=== PATIENT | male | born 1975 | race Caucasian/White ===

== ENCOUNTER → 2020-08-15 16:48 | Outpatient (ROUT) | payer OTHER, SELFPAY ==
[2020-08-15 17:01] LABS: Add Manual Diff / Slide Review NO; Basophils Absolute Auto 0 /uL (0-100); Basophils Percent Auto 0.5 % (0-2); Eosinophils Absolute Auto 100 /uL (0-450); Eosinophils Percent Auto 1.5 % (2-4); Hematocrit 41.4 % (41-53); Hemoglobin 13.6 g/dL (13.5-17.5); Lymphocytes Absolute Auto 1100 /uL (1100-4500); Lymphocytes Percent Auto 16.9 % (25-40); Mean Corpuscular HGB Conc 32.9 % (30-36); Mean Corpuscular Hemoglobin 28.6 PG (26-34); Mean Corpuscular Volume 86.9 fL (80-100); Monocytes Absolute Auto 500 /uL (0-900); Monocytes Percent Auto 7.2 % (3-14); Neutrophils Absolute Auto 4900 /uL (1500-7000); Neutrophils Percent Auto 73.9 % (50-75); Platelet Count 256 X10^3/uL (150-400); Red Blood Cell Count 4.77 X10^6/uL (4.5-5.9); Red Cell Distribution Width 16.3 % (11.6-14.8); White Blood Cell Count 6.6 X10^3/uL (4.5-11.0)
[2020-08-15 17:25] LABS: Erythrocyte Sedimentation Rate 23 MM/HR (0-15)
[2020-08-15 18:00] LABS: Alanine Aminotransferase 31 IU/L (<50); Albumin 4.1 g/dL (3.5-5.0); Albumin Globulin Ratio 1.1 (1.0-2.8); Alkaline Phosphatase 118 U/L (38-126); Aspartate Aminotransferase 29 IU/L (17-59); BUN Creatinine Ratio 30.4 (6-22); Bilirubin Total 0.6 mg/dL (0.2-1.3); Blood Urea Nitrogen 24 mg/dL (9-20); C-Reactive Protein Quant 0.7 mg/dL (<1.0); Calcium 9.9 mg/dL (8.4-10.2); Carbon Dioxide 28 mmol/L (22-32); Chloride 98 mmol/L (98-107); Estimated Glomerular Filt Rate > 60.0 mL/min (>60); Globulin 3.7 g/dL (1.7-4.1); Glucose 126 mg/dL (70-100); HEMOLYSIS < 15 (0-50); Potassium 4.3 mmol/L (3.4-5.1); Sodium 137 mmol/L (137-145); Total Protein 7.8 g/dL (6.3-8.2)
== END ==
PROVIDERS: Visit Provider Internal Medicine Infectious Disease
DX: K25.9 Gastric ulcer, unspecified as acute or chronic, without hemorrhage or perforation (principal); B95.2 Enterococcus as the cause of diseases classified elsewhere
CPT/HCPCS: 80053; 85025; 85651; 86140

== ENCOUNTER → 2020-08-25 17:00 | Outpatient (ROUT) | payer OTHER, SELFPAY ==
[2020-08-25 17:14] LABS: Add Manual Diff / Slide Review NO; Basophils Absolute Auto 0 /uL (0-100); Basophils Percent Auto 0.7 % (0-2); Eosinophils Absolute Auto 400 /uL (0-450); Eosinophils Percent Auto 6.6 % (2-4); Hematocrit 36.9 % (41-53); Hemoglobin 12.3 g/dL (13.5-17.5); Lymphocytes Absolute Auto 1200 /uL (1100-4500); Lymphocytes Percent Auto 19.5 % (25-40); Mean Corpuscular HGB Conc 33.3 % (30-36); Mean Corpuscular Hemoglobin 28.9 PG (26-34); Mean Corpuscular Volume 86.8 fL (80-100); Monocytes Absolute Auto 300 /uL (0-900); Monocytes Percent Auto 5.7 % (3-14); Neutrophils Absolute Auto 4000 /uL (1500-7000); Neutrophils Percent Auto 67.5 % (50-75); Platelet Count 237 X10^3/uL (150-400); Red Blood Cell Count 4.25 X10^6/uL (4.5-5.9); Red Cell Distribution Width 16.4 % (11.6-14.8)
[2020-08-25 17:41] LABS: Alanine Aminotransferase 21 IU/L (<50); Albumin 3.7 g/dL (3.5-5.0); Albumin Globulin Ratio 1.2 (1.0-2.8); Alkaline Phosphatase 105 U/L (38-126); Aspartate Aminotransferase 29 IU/L (17-59); BUN Creatinine Ratio 13.7 (6-22); Bilirubin Total 0.2 mg/dL (0.2-1.3); Blood Urea Nitrogen 13 mg/dL (9-20); C-Reactive Protein Quant 1.4 mg/dL (<1.0); Calcium 9.3 mg/dL (8.4-10.2); Carbon Dioxide 31 mmol/L (22-32); Chloride 103 mmol/L (98-107); Estimated Glomerular Filt Rate > 60.0 mL/min (>60); Globulin 3.2 g/dL (1.7-4.1); Glucose 91 mg/dL (70-100); HEMOLYSIS < 15 (0-50); Potassium 4.2 mmol/L (3.4-5.1); Sodium 141 mmol/L (137-145); Total Protein 6.9 g/dL (6.3-8.2)
[2020-08-25 17:55] LABS: Erythrocyte Sedimentation Rate 22 MM/HR (0-15)
== END ==
PROVIDERS: Visit Provider Internal Medicine Infectious Disease
DX: B95.2 Enterococcus as the cause of diseases classified elsewhere (principal); K25.9 Gastric ulcer, unspecified as acute or chronic, without hemorrhage or perforation
CPT/HCPCS: 80053; 85025; 85651; 86140

== ENCOUNTER 2021-01-24 23:54 | Emergency (ER) | payer OTHER, MEDICAID, SELFPAY ==
[2021-01-25 00:03] VITALS: BP 165/105; PULSE 109; RESP 20; TEMP 36.9; O2SAT 97
--- NOTE | 2021-01-25 00:12 | ED.BACK ---
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 He states that a few days ago he was walking and his leg felt like it gave out on him. He denies any head neck or back pain. Largely his pain is sharp and stabbing and radiates from his mid to low back down to his right leg. He denies any loss of control of bowel or bladder. He denies any current numbness, tingling or measurable weakness. He has had no fever chills. He states that his last imaging of his spine was quite sometime ago but he has had multiple MRIs over the past 20 years or so. His last surgical intervention was at the [facility] in 2010. He normally gets his medical care at [facility] Review of Systems Review of Systems Narrative: GENERAL: Denies chills, fatigue, malaise, fever, sweats. HEENT: Denies sinus pain, ear pain, sore throat, difficulty swallowing, dizziness. RESPIRATORY: Denies dyspnea, cough, wheezing, hemoptysis, sputum. CARDIOVASCULAR: Denies chest pain, palpitations, orthopnea, edema, GASTROINTESTINAL: Denies nausea, vomiting, abdominal pain, diarrhea, constipation, melena. : Denies dysuria, frequency, incontinence, hematuria, urinary retention. MUSCULOSKELETAL: See HPI SKIN: Denies rash, skin lesions, or other NEUROLOGIC: See HPI PSYCHIATRIC: No concerning psychosocial issues. 12 point review of systems is negative except for those stated above Exam Narrative Exam Narrative: GENERAL: [45 year old patient appears stated age. Well-developed patient, in mild distress. HEAD: Atraumatic. Normocephalic. EYES: Pupils equal round and reactive. Extraocular motions intact. No scleral icterus. No injection or drainage. ENT: Nose without bleeding, purulent drainage. Throat without erythema, tonsillar hypertrophy or exudate. Airway patent. NECK: Trachea midline. Non tender CARDIOVASCULAR: Regular rate and rhythm without murmurs, gallops, or rubs. RESPIRATORY: Clear to auscultation. Breath sounds equal bilaterally. No wheezes, rales, or rhonchi. GASTROINTESTINAL: Abdomen soft, non-tender, nondistended. EXTREMITIES: No edema or joint tenderness. BACK: Patient does have some midline lumbar pain, no saddle anesthesia, no measurable lower extremity weakness, reflexes depressed at 1+ bilaterally. NEURO: AOx3. SKIN: No rash or erythema of visible areas Initial Vital Signs Initial Vital Signs: Vital Signs Temperature 98.4 F 01/25/21 00:03 Pulse Rate 109 H 01/25/21 00:03 Respiratory Rate 20 01/25/21 00:03 Blood Pressure 165/105 H 01/25/21 00:03 Pulse Oximetry 97 01/25/21 00:03 Course Orders Ordered: ED Orders 01/25/21 00:35 CT lumbar spine w con Stat CT thoracic spine w con Stat 01/25/21 01:30 Basic Metabolic Panel Stat Complete Blood Count AUTO DIFF Stat Vital Signs Vital signs: Vital Signs - 8 hr 01/25/21 00:03 01/25/21 02:04 01/25/21 02:17 Temperature 98.4 F Pulse Rate 109 H 108 H 103 H Respiratory Rate 20 Blood Pressure 165/105 H 171/107 H Pulse Oximetry 97 83 L 94 MDM - Back Pain/Injury Lab Data Result diagrams: 01/25/21 01:30 01/25/21 01:30 Labs: Lab Results 01/25/21 01/25/21 Range/Units 01:30 01:30 WBC 10.0 (4.5-11.0) X10^3/uL RBC 4.50 (4.5-5.9) X10^6/uL Hgb 12.6 L (13.5-17.5) g/dL Hct 38.8 L (41-53) % MCV 86.3 (80-100) fL MCH 28.0 (26-34) PG MCHC 32.5 (30-36) % RDW 17.5 H (11.6-14.8) % Plt Count 230 (150-400) X10^3/uL Neut % (Auto) 78.7 H (50-75) % Lymph % (Auto) 10.8 L (25-40) % [place] % (Auto) 8.5 (3-14) % Eos % (Auto) 1.6 L (2-4) % Baso % (Auto) 0.4 (0-2) % Neut # (Auto) 7900 H (1915-4144) /uL Lymph # (Auto) 1100 (4446-9583) /uL [place] # (Auto) 800 (0-900) /uL Eos # (Auto) 200 (0-450) /uL Baso # (Auto) 0 (0-100) /uL Sodium 142 (137-145) mmol/L Potassium 3.9 (3.4-5.1) mmol/L Chloride 102 (98-107) mmol/L Carbon Dioxide 35 H (22-32) mmol/L BUN 23 H (9-20) mg/dL Creatinine 1.06 (0.66-1.25) mg/dL Estimated GFR > 60.0 (>60) mL/min BUN/Creatinine Ratio 21.7 (6-22) Glucose 113 H (70-100) mg/dL Calcium 9.2 (8.4-10.2) mg/dL Imaging Data T Spine w/Contrast: Radiologist's Impression: Negative CT thoracic spine for acute process L Spine w/contrast: Radiologist's Impression: Negative CT lumbar spine for acute process MDM Narrative Medical decision making narrative: Multiple etiologies of back pain considered including; Epidural abscess, cauda equina, mass occupying lesion, and other considered, however no neuro surgical diagnoses are evidenced by patient's physical exam or imaging. We will treat for radiculopathy, patient takes Lyrica at home and already has Ultram Discharge Plan Departure Patient Disposition: Home
--- NOTE | 2021-01-25 00:35 | DI.CT.S_ITS ---
PROCEDURE: CT LUMBAR SPINE W CON INDICATIONS: back and leg pain, leg weakness, history spinal tumor TECHNIQUE: After the administration of intravenous Isovue contrast, 3 mm thick sections acquired through the levels of interest. Sagittal and coronal reformats were then constructed. For radiation dose reduction, the following was used: automated exposure control. COMPARISON: None. FINDINGS: Image quality: Excellent. Bones: No fracture or dislocation. Mild L5-S1 degenerative disc changes. Congenital nonunion of the S1 lamina. Soft tissues: Right ureteral stent noted. Mild right-sided hydronephrosis. No paraspinous hematoma. IMPRESSION: No fracture. No acute osseous lesion. If symptoms and/or clinical suspicion for pathology persists, evaluation with MRI should be considered for further assessment. Dictated by: Mamta Rossi MD, PhD on 01/25/2021 at 7:41 Approved by: Mamta Rossi MD, PhD on 01/25/2021 at 7:43
--- NOTE | 2021-01-25 00:35 | DI.CT.S_ITS ---
PROCEDURE: CT THORACIC SPINE W CON INDICATIONS: right leg pain, weakness, prior spinal tumors T7 TECHNIQUE: After the administration of intravenous Isovue contrast, 3 mm thick sections acquired through the levels of interest. Sagittal and coronal reformats were then constructed. For radiation dose reduction, the following was used: automated exposure control. COMPARISON: [facility], CT, CT LUMBAR SPINE W CON, 01/25/2021, 2:18. FINDINGS: Image quality: Excellent. Bones: Postsurgical changes compatible with T7 and T8 laminectomies. No fracture or dislocation. Moderate degenerative disc changes noted in the midthoracic spine. Mild degenerative changes noted in the lower thoracic spine. Mild facet hypertrophy noted throughout the thoracic spine. Soft tissues: No paraspinous masses or hematomas. Partially visualized right-sided ureteral stent. Mild right-sided hydronephrosis. IMPRESSION: No fracture. No acute osseous lesion. If symptoms and/or clinical suspicion for pathology persists, evaluation with MRI should be considered for further assessment. Dictated by: Mamta Rossi MD, PhD on 01/25/2021 at 7:40 Approved by: Mamta Rossi MD, PhD on 01/25/2021 at 8:42
[2021-01-25 01:47] LABS: Add Manual Diff / Slide Review NO; Basophils Absolute Auto 0 /uL (0-100); Basophils Percent Auto 0.4 % (0-2); Eosinophils Absolute Auto 200 /uL (0-450); Eosinophils Percent Auto 1.6 % (2-4); Hematocrit 38.8 % (41-53); Hemoglobin 12.6 g/dL (13.5-17.5); Lymphocytes Absolute Auto 1100 /uL (1100-4500); Lymphocytes Percent Auto 10.8 % (25-40); Mean Corpuscular HGB Conc 32.5 % (30-36); Mean Corpuscular Volume 86.3 fL (80-100); Monocytes Absolute Auto 800 /uL (0-900); Monocytes Percent Auto 8.5 % (3-14); Neutrophils Absolute Auto 7900 /uL (1500-7000); Neutrophils Percent Auto 78.7 % (50-75); Platelet Count 230 X10^3/uL (150-400); Red Cell Distribution Width 17.5 % (11.6-14.8)
[2021-01-25 01:50] LABS: BUN Creatinine Ratio 21.7 (6-22); Blood Urea Nitrogen 23 mg/dL (9-20); Calcium 9.2 mg/dL (8.4-10.2); Carbon Dioxide 35 mmol/L (22-32); Chloride 102 mmol/L (98-107); Estimated Glomerular Filt Rate > 60.0 mL/min (>60); Glucose 113 mg/dL (70-100); HEMOLYSIS < 15 (0-50); Potassium 3.9 mmol/L (3.4-5.1); Sodium 142 mmol/L (137-145)
[2021-01-25 02:04] VITALS: PULSE 108; O2SAT 83
[2021-01-25 02:17] VITALS: BP 171/107; PULSE 103; O2SAT 94
[2021-01-25 03:49] VITALS: BP 169/98; PULSE 98; RESP 20; O2SAT 98
== END 2021-01-25 03:30 | disposition home or self-care (01) ==
PROVIDERS: Emergency Provider Emergency Medicine
DX: M54.16 Radiculopathy, lumbar region (principal)
CPT/HCPCS: 36415; 72129; 72132; 80048; 85025; 99284; Q9967

== ENCOUNTER 2021-02-01 15:45 | Emergency (ER) | payer OTHER, MEDICAID, SELFPAY ==
[2021-02-01 15:50] VITALS: BP 180/115; PULSE 82; RESP 14; TEMP 37.1; O2SAT 98; BMI 21.7
--- NOTE | 2021-02-01 16:02 | ED_ITS ---
HPI - Back Pain/Injury General Chief Complaint: Back Pain/Injury Stated Complaint: Chronic Backpain Time Seen by Provider: 02/01/21 15:49 Source: patient Mode of arrival: EMS Limitations: no limitations History of Present Illness HPI Narrative: Patient is a 45-year-old male. Chronic history of both thoracic and lower back pain. Has had multiple surgeries in the past. He also states he has ?benign tumors ?around his spinal cord. His last surgery was 2010. His last MRI was in 2019. This is performed at an outside facility. He states that he has a follow-up with his primary doctor in several weeks. He was seen here in the emergency department recently and had CT scans performed. He states that these tumors are located in his lower thoracic region however he presents today with pain around his right knee, pain in his right foot and pain in the front of his right leg. He does have issues with urination. He states that this is not new. He has had issues with these since 2010. He does occasionally self cath because of these issues. He denies any fevers. No new specific injury. Related Data Previous Rx's Medication Instructions Recorded methylprednisolone 4 mg tablets in See Rx Instructions PO .COMPLEX 01/25/21 a dose pack (Medrol (Barry)) #21 ea hydrocodone 5 mg-acetaminophen 325 1 tab PO Q6H PRN #10 tab 02/01/21 mg tablet hydrocodone 5 mg-acetaminophen 325 1 tab PO Q8H PRN #10 tab 02/01/21 mg tablet prednisone 20 mg tablet 20 mg PO DAILY 7 Days #7 tab 02/01/21 prednisone 20 mg tablet 20 mg PO DAILY 7 Days #7 tab 02/01/21 Allergies Allergy/AdvReac Type Severity Reaction Status Date / Time morphine Allergy Verified 02/01/21 15:53 Review of Systems Constitutional Constitutional: Denies fever(s) Gastrointestinal Gastrointestinal: Reports as per HPI and Reports system reviewed and no additional complaints, except as documented Genitourinary Genitourinary: Reports system reviewed and no additional complaints, except as documented and Reports as per HPI Musculoskeletal Musculoskeletal: Reports as per HPI Integumentary/Breasts Skin/Breast: Denies rash Neurologic Neurologic: Reports system reviewed and no additional complaints, except as documented Hematologic/Lymphatic On Anticoagulants: No Patient History Medical History Back pain Social History Smoking Status: Unknown if ever smoked Smoking Status: Unknown if ever smoked alcohol intake frequency: holidays/special occasions only Substance Use Type: does not use Exam Initial Vital Signs Initial Vital Signs: Vital Signs Temperature 98.7 F 02/01/21 15:50 Pulse Rate 82 02/01/21 15:50 Respiratory Rate 14 02/01/21 15:50 Blood Pressure 180/115 H 02/01/21 15:50 Pulse Oximetry 98 02/01/21 15:50 HENMT Head: normal to inspection and normocephalic Resp Effort & Inspection: normal respiratory effort Auscultation: clear to auscultation bilaterally Cardio Rate: regular rate Rhythm: regular rhythm GI Inspection: normal to inspection Back/Spine/Pelvis Thoracic/Lumbar Spine: paraspinal tenderness, thoracic spinal tenderness and lumbar spinal tenderness Skin General: no rashes or lesions noted Other: Well-healed surgical scars in his thoracic spinal region consistent with his prior surgical history Neuro Other: Patient has 5/5 strength left lower extremity 4-5 strength right lower extremity, upper extremities are unremarkable, Extrem General: normal to inspection and capillary refill normal Other: Does have a slight footdrop on the right. He states this is not new for him. Has been there since 2010 Has tenderness to palpation throughout his right knee and also in the lateral/back aspect of his right lower extremity. Also has tenderness to palpation of the anterior portion of his right leg. Psych Appearance: grossly normal Course Orders Ordered: Discontinued Medications Hydromorphone HCl (Hydromorphone 1 Mg Inj) 1 mg IM NOW ONE Stop: 02/01/21 16:35 Last Admin: 02/01/21 16:50 Dose: 1 mg Documented by: AUGUST Ketorolac Tromethamine (Ketorolac 30 Mg/Ml Vial) 30 mg IM NOW ONE Stop: 02/01/21 16:35 Last Admin: 02/01/21 16:51 Dose: 30 mg Documented by: AUGUST Prednisone (Prednisone 20 Mg Tablet) 40 mg PO NOW ONE Stop: 02/01/21 16:35 Last Admin: 02/01/21 16:51 Dose: 40 mg Documented by: AUGUST Vital Signs Vital signs: Vital Signs - 8 hr 02/01/21 15:50 02/01/21 17:30 Temperature 98.7 F Pulse Rate 82 80 Respiratory Rate 14 18 Blood Pressure 180/115 H 180/102 H Pulse Oximetry 98 95 MDM - Back Pain/Injury MDM Narrative Medical decision making narrative: Patient's symptoms today are somewhat in consistent. He states that the benign tumors and he has had air in his lower thoracic region. Informed him that these tumor should not be causing any issues in his lower extremities as the nerves that innervate area come out of the lower spine. He stated he was told that these benign tumors are what is causing his lower extremity pain. All of the neurologic symptoms that he has are not new. They been there since 2010. He is here today because of pain. Informed him that unfortunately the emergency department does not provide long-term pain control. He would need to talk with his primary doctor or a embossed or impressed lettering painter for this. Already has an appoint with his primary doctor scheduled. Will send home with a prescription for some steroids. Was given return precautions. Discharge Plan Departure Patient Disposition: Home Clinical Impression: Back pain Instructions: Low Back Pain, Thoracic Back Pain Activity Restrictions/Additional Instructions: Unfortunately long-term pain management and management of your chronic back pain will need to come from your primary doctor or a embossed or impressed lettering painter or a spine surgeon. Based on your presentation today I do recommend that you contact your primary doctor to see if they can move your appointment sooner than what it already is however I will not be able to change your current appointment today. Taking medications as directed. Prescriptions: New prednisone 20 mg tablet 20 mg PO DAILY 7 Days Qty: 7 RF: 0 hydrocodone-acetaminophen 5-325 mg tablet 1 tab PO Q6H PRN (Reason: pain) Qty: 10 RF: 0 prednisone 20 mg tablet 20 mg PO DAILY 7 Days Qty: 7 RF: 0 hydrocodone-acetaminophen 5-325 mg tablet 1 tab PO Q8H PRN (Reason: pain) Qty: 10 RF: 0 No Action methylprednisolone [Medrol (Barry)] 4 mg tablets,dose pack See Rx Instructions PO .COMPLEX Qty: 21 RF: 0 Referrals: Phyllis Lu PA-C [Primary Care Provider] -
--- NOTE | 2021-02-01 16:29 | PC.NURSE ---
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 Reports increased pain for the last week with weakness and radiating pain down right leg into thigh and circumferential right knee. Baseline weakness/numbness and foot drop in right leg from previous tumors/surgeries. Pt requests supplies to self cath, given and assisted to change clothes due to incontinent episode on the way to ED.
[2021-02-01] MEDS: HYDROMORPHONE 1 MG INJ IM (16:50)
[2021-02-01] MEDS: predniSONE 20 MG TABLET 40 MG PO (16:51)
[2021-02-01] MEDS: KETOROLAC 30 MG/ML VIAL IM (16:51)
[2021-02-01 17:30] VITALS: BP 180/102; PULSE 80; RESP 18; O2SAT 95
== END 2021-02-01 18:40 | disposition home or self-care (01) ==
PROVIDERS: Emergency Provider Emergency Medicine; PCP Physician Assistant Medical
DX: M54.50 Low back pain, unspecified (principal); M54.6 Pain in thoracic spine
CPT/HCPCS: 96372; 99283; J1170; J1885

== ENCOUNTER 2021-02-22 17:05 | Emergency (ER) | payer OTHER, MEDICAID, SELFPAY ==
[2021-02-22 17:05] VITALS: BP 155/99; PULSE 101; RESP 22; TEMP 36.9; O2SAT 99; BMI 22.1
--- NOTE | 2021-02-22 20:33 | ED_ITS ---
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 He denies any fever or chills nor recent injury. He's got increased pain with range of motion and improvement with rest. He denies any lost of control of bowel or bladder, nor lower extremity weakness. He has got no chest pain or trouble breathing. He denies any nausea or vomiting. He has no abdominal pain. He's in the process of getting a referral to pain doctor. He has an upcoming appointment with his b ack surgeon. His symptoms are no worse than the last few visits, but just persisting. He wants some pain meds to get him through the night. Related Data Previous Rx's Medication Instructions Recorded methylprednisolone 4 mg tablets in See Rx Instructions PO .COMPLEX 01/25/21 a dose pack (Medrol (Barry)) #21 ea hydrocodone 5 mg-acetaminophen 325 1 tab PO Q6H PRN #10 tab 02/01/21 mg tablet hydrocodone 5 mg-acetaminophen 325 1 tab PO Q8H PRN #10 tab 02/01/21 mg tablet Allergies Allergy/AdvReac Type Severity Reaction Status Date / Time morphine Allergy Verified 02/01/21 15:53 Review of Systems Review of Systems Narrative: GENERAL: Denies chills, fatigue, malaise, fever, sweats. HEENT: Denies sinus pain, ear pain, sore throat, difficulty swallowing, dizziness. RESPIRATORY: Denies dyspnea, cough, wheezing, hemoptysis, sputum. CARDIOVASCULAR: Denies chest pain, palpitations, orthopnea, edema, GASTROINTESTINAL: Denies nausea, vomiting, abdominal pain, diarrhea, constipation, melena. : Denies dysuria, frequency, incontinence, hematuria, urinary retention. MUSCULOSKELETAL: see HPI SKIN: Denies rash, skin lesions, or other NEUROLOGIC: Denies weakness, headache, numbness, change in speech, confusion, seizures, incoordination. PSYCHIATRIC: No concerning psychosocial issues. 12 point review of systems is negative except for those stated above Patient History Medical History Back pain Social History Smoking Status: Unknown if ever smoked Smoking Status: Unknown if ever smoked alcohol intake frequency: holidays/special occasions only Substance Use Type: does not use Exam Narrative Exam Narrative: GENERAL: [45] year old patient appears stated age. Well- developed patient, in mild distress. HEAD: Atraumatic. Normocephalic. EYES: Pupils equal round and reactive. Extraocular motions intact. No scleral icterus. No injection or drainage. ENT: Nose without bleeding, purulent drainage. Throat without erythema, tonsillar hypertrophy or exudate. Airway patent. NECK: Trachea midline. Non tender CARDIOVASCULAR: Regular rate and rhythm without murmurs, gallops, or rubs. RESPIRATORY: Clear to auscultation. Breath sounds equal bilaterally. No wheezes, rales, or rhonchi. GASTROINTESTINAL: Abdomen soft, non-tender, nondistended. EXTREMITIES: No edema or joint tenderness. BACK: wafer abrading machine tender but free of any obvious external abnormalities. Patient exam notes decreased range of motion and muscle spasm, but no CVA tenderness, or vertebral point tenderness. There are no symptoms of cauda equina such as saddle anesthesia, and decreased reflexes, decreased sensation or strength. NEURO: AOx3. SKIN: No rash or erythema of visible areas Initial Vital Signs Initial Vital Signs: Vital Signs Temperature 98.5 F 02/22/21 17:05 Pulse Rate 101 H 02/22/21 17:05 Respiratory Rate 22 02/22/21 17:05 Blood Pressure 155/99 H 02/22/21 17:05 Pulse Oximetry 99 02/22/21 17:05 Course Orders Ordered: Discontinued Medications Oxycodone/Acetaminophen (Oxycodone/Apap 5/325 Prepack) 1 bottle MISC SEEINSTR ONE Stop: 02/22/21 21:07 Last Admin: 02/22/21 21:12 Dose: 1 bottle Documented by: TICO Vital Signs Vital signs: Vital Signs - 8 hr 02/22/21 21:28 Pulse Rate 95 H Respiratory Rate 18 Blood Pressure 150/107 H Pulse Oximetry 99 MDM - Back Pain/Injury MDM Narrative Medical decision making narrative: Multiple etiologies of back pain considered including; Epidural abscess, cauda equina, mass occupying lesion, and other considered, and thankfully no red flag findings consistent with a neurosurgical emergency or present. Discharge Plan Departure Patient Disposition: Home Clinical Impression: Chronic back pain Qualifiers: Back pain location: back pain in unspecified location Back pain laterality: right Qualified Code(s): M54.9 - Dorsalgia, unspecified Instructions: DI for Back Pain With Sciatica Activity Restrictions/Additional Instructions: *You have been diagnosed with [chronic back pain, without any evidence of neuro surgical emergency *What to do: *Please continue to take your regular medications as directed. [ ] New medication prescriptions sent to your pharmacy: [ ] [ ] New medication written as a paper prescription [x ] No new medications given *Please follow up with your primary care provider in 2-3 days, call for an appointment. Let them know you were seen in the Emergency Department and that we ask that you be seen in follow up. We will electronically transmit a record of today's note if your PCP is in our system *If you do not have a primary care provider please contact the [facility] Resource line at [phone]. They will ask some questions about your medical history and help get you set up with a doctor in the community. *Return to Emergency Department if you should have any new, worsening or concerning symptoms, such as [loss of control of bowel or bladder, numbness, tingling, weakness, fever greater than 101 F or other bothersome symptoms Prescriptions: No Action hydrocodone-acetaminophen 5-325 mg tablet 1 tab PO Q6H PRN (Reason: pain) Qty: 10 RF: 0 hydrocodone-acetaminophen 5-325 mg tablet 1 tab PO Q8H PRN (Reason: pain) Qty: 10 RF: 0 methylprednisolone [Medrol (Barry)] 4 mg tablets,dose pack See Rx Instructions PO .COMPLEX Qty: 21 RF: 0 Referrals: Phyllis Lu PA-C [Primary Care Provider] -
[2021-02-22] MEDS: OXYCODONE/APAP 5/325 PREPACK 1 BOTTLE MISC (21:12)
[2021-02-22 21:28] VITALS: BP 150/107; PULSE 95; RESP 18; O2SAT 99
== END 2021-02-22 21:29 | disposition home or self-care (01) ==
PROVIDERS: Emergency Provider Emergency Medicine; PCP Physician Assistant Medical
DX: M54.9 Dorsalgia, unspecified (principal)
CPT/HCPCS: 99281; 99283

== ENCOUNTER 2021-06-11 06:58 | Inpatient (IN) | payer OTHER, MEDICAID, SELFPAY ==
[2021-06-11] VITALS (20 sets, daily range): BP systolic 128–190; BP diastolic 93–115; PULSE 83–105; RESP 12–22; TEMP 36.8–36.9; O2SAT 94–100; BMI 20.9
--- NOTE | 2021-06-11 07:28 | ED_ITS ---
HPI - Skin/Abscess/Foreign Bdy General Chief complaint: Skin/Abscess/Foreign Body Stated complaint: Bed sores Time Seen by Provider: 06/11/21 07:28 Source: patient Mode of arrival: EMS Limitations: physical limitation History of Present Illness HPI narrative: This is a 45-year-old male with known recurrent thoracic spinal masses. Patient states he was 1st diagnosed in April of 2000 he has had 5 surgeries with partial removal and then a total removal with his last surgery being around 2010. Patient states his last MRI was in 2019. He states he has was able to ambulate with additional assistance or a walker or cane until about 2 months ago and has now has to crawl or drag himself around on his buttocks. He has performed self cath since 2010. He and his family have not even been able to get him into the bed regularly so he has been sleeping on the floor. He has had increasing mobility issues with weakness in bilateral lower extremities with minimal movement and has developed sores on his toes, ankles and anterior knees. He presents today because of a large wound/ulcer on his left lateral thigh which he had not noticed until today. Patient states he does not have any sensation in his lower extremities. His significant other noticed this today for the first time.. Patient states he is on metoprolol and Lyrica cough for pain and hypertension. He states he has had tonsillectomy and was told he had mitral valve prolapse when he was younger but that it got better as he grew up. Patient has allergies to gabapentin and morphine. He does smoke, occasional alcohol, denies THC or other illicit. Patient states he was diagnosed with cellulitis from the wounds on his feet and use topical and oral antibiotics which did make them somewhat better. Patient presents today with his main matthieu rn being his wound on his thigh. He has MRI scheduled and neurosurgery follow- up scheduled for June but has not seen them for several years. He is having significant issues getting around in his home which is a 2 bedroom trailer with 7 individuals living in it. Patient notes his neurosurgeon is Dr. Chandra Hahn formally of [facility] in 2010 who has changed hospital locations and was happy with his care with Dr. Hahn. He has an appointment to establish with Dr. Stanley in [place] sometimes in this upcoming June. Related Data Home Medications Medication Instructions Recorded Confirmed metoprolol tartrate 50 mg tablet 50 mg PO BID 06/11/21 06/11/21 pregabalin 300 mg capsule (Lyrica) 300 mg PO BID 06/11/21 06/11/21 Allergies Allergy/AdvReac Type Severity Reaction Status Date / Time morphine Allergy Nightmare Verified 06/11/21 13:03 gabapentin AdvReac Shakiness Verified 06/11/21 13:03 Review of Systems Review of Systems ROS Unobtainable: All systems reviewed & are unremarkable except as noted in HPI and below Patient History Medical History (Updated 06/11/21 @ 18:57 by Anna Mcwilliams MD) Back pain Functional paraparesis Schwannoma of spinal cord Surgical History (Updated 06/11/21 @ 18:57 by Anna Mcwilliams MD) History of spinal surgery History of tonsillectomy Family History (Updated 06/11/21 @ 18:58 by Anna Mcwilliams MD) Father CVA (cerebral vascular accident) Mother Myocardial infarct Social History household members: spouse, children and friend(s) Smoking Status: Former smoker Smoking Status: Unknown if ever smoked alcohol intake frequency: holidays/special occasions only Substance Use Type: does not use Exam Narrative Exam Narrative: GENERAL: Alert and oriented x three, disheveled male mild distress. HEENT: Head normocephalic, atraumatic, EOMI, pupils reactive, face symmetric, moist mucous membranes NECK: Supple, full range of motion CARDIOVASCULAR: Regular rate and rhythm without murmurs, rubs or gallops. No JVD. RESPIRATORY: Breath sounds equal bilaterally, no wheezes rales or rhonchi. No tachypnea or accessory muscle use. ABDOMEN: Soft, nontender. Normoactive bowel sounds all 4 quadrants. No guarding or rebound, rigidity, no mass : No CVA tenderness EXTREMITIES: Patient has minimal to no movement in bilateral lower extremities, he attempts to flex at hips but no movement appreciated. He does not have sensation to touch on lower extremities. No clubbing. Patient has mild edema of the left and right feet. Vascularly intact with cap refill less than 2 seconds bilaterally. Patient has a 7cm x 5cm unstageable ulcer with centrali zed necrotic/scabbed tissue but no drainage or surrounding erythema on the left lateral thigh. He has open wound bilateral knees the largest of which is about 4 cm at its largest diameter. Patient has multiple small wounds on his toes and the malleoli that are proximally 1 cm some are full-thickness and others are partial thickness. NEUROLOGICAL: Cranial nerves II through XII grossly intact. Moving all extremities. SKIN: Warm, dry, no petechiae. See lesions above. Initial Vital Signs Initial Vital Signs: Vital Signs Pulse Rate 102 H 06/11/21 07:04 Pulse Oximetry 100 06/11/21 07:04 Course Orders Ordered: Acetaminophen (Acetaminophen 325 Mg Tablet) 650 mg PO Q6HR [facility] Last Admin: 06/11/21 18:07 Dose: 650 mg Documented by: KARISHMA Enoxaparin Sodium (Enoxaparin 40 Mg/0.4 Ml Syringe) 40 mg SUBCUT DAILY [facility] Metoprolol Tartrate (Metoprolol Ir 50 Mg Tablet) 50 mg PO BID [facility] Naloxone HCl (Naloxone 0.4 Mg/Ml Vial) 0.2 mg IV Q2MIN PRN PRN Reason: Opiate Reversal Ondansetron HCl (Ondansetron 4 Mg/2 Ml Inj) 4 mg IV Q8HR PRN PRN Reason: Nausea And Vomiting Oxycodone HCl (Oxycodone Ir 5 Mg Tablet) 5 mg PO Q4HR PRN PRN Reason: Pain, Moderate (4-6) Last Admin: 06/11/21 14:57 Dose: 5 mg Documented by: KARISHMA Pregabalin (Pregabalin 75 Mg Capsule) 300 mg PO BID [facility] Sennosides (Sennosides 8.6 Mg Tablet) 17.2 mg PO BEDTIME SHEELA Discontinued Medications Sodium Chloride (Normal Saline 0.9%) 1,000 mls @ 1,000 mls/hr IV BOLUS ONE Stop: 06/11/21 08:45 Last Infusion: 06/11/21 11:56 Dose: 0 mls/hr Documented by: Infusion: 06/11/21 08:44 Dose: 1,000 mls/hr Documented by: Infusion: 06/11/21 07:56 Dose: 0 mls/hr Documented by: Admin: 06/11/21 07:55 Dose: 1,000 mls/hr Documented by: LISA Ketorolac Tromethamine (Ketorolac 30 Mg/Ml Vial) 15 mg IV NOW ONE Stop: 06/11/21 07:32 Last Admin: 06/11/21 07:54 Dose: 15 mg Documented by: LISA Metoprolol Tartrate (Metoprolol Ir 25 Mg Tablet) 50 mg PO NOW ONE Stop: 06/11/21 08:52 Last Admin: 06/11/21 09:03 Dose: 50 mg Documented by: LISA Oxycodone HCl (Oxycodone Ir 5 Mg Tablet) 10 mg PO NOW ONE Stop: 06/11/21 08:41 Last Admin: 06/11/21 09:03 Dose: 10 mg Documented by: LISA Pregabalin (Pregabalin 75 Mg Capsule) 300 mg PO NOW ONE Stop: 06/11/21 08:53 Last Admin: 06/11/21 09:37 Dose: 300 mg Documented by: LISA Consultations Consultation #1: Neurosurgery, Dr. Stanley in [place]. We reviewed patient's MRI findings that he has not had movement for the past 2 months in his lower extremities but been self cathing since 04/03. He states at this point surgical treatment will not be helpful and patient condition is permanent and management for his wounds and care are the next steps. Vital Signs Vital signs: Vital Signs - 8 hr 06/11/21 07:04 06/11/21 07:06 06/11/21 07:08 Temperature 98.5 F Pulse Rate 102 H 99 H 105 H Respiratory Rate 18 Blood Pressure 190/115 H 190/115 H Pulse Oximetry 100 98 98 06/11/21 07:30 06/11/21 07:31 06/11/21 07:45 Temperature Pulse Rate 91 H 95 H 98 H Respiratory Rate Blood Pressure 173/101 H 170/112 H Pulse Oximetry 100 100 100 06/11/21 08:34 06/11/21 08:38 06/11/21 09:00 Temperature Pulse Rate 96 H 92 H 86 Respiratory Rate 16 16 Blood Pressure 186/113 H 179/111 H Pulse Oximetry 99 100 06/11/21 09:30 Temperature Pulse Rate 96 H Respiratory Rate 13 Blood Pressure 168/109 H Pulse Oximetry MDM - Skin/Abscess/Foreign Bdy Lab Data Result diagrams: 06/11/21 09:13 06/11/21 09:13 Labs: Lab Results 06/11/21 06/11/21 06/11/21 Range/Units 08:30 09:13 09:13 WBC 8.5 (4.5-11.0) X10^3/uL RBC 4.32 L (4.5-5.9) X10^6/uL Hgb 12.0 L (13.5-17.5) g/dL Hct 36.7 L (41-53) % MCV 85.1 (80-100) fL MCH 27.9 (26-34) PG MCHC 32.8 (30-36) % RDW 15.9 H (11.6-14.8) % Plt Count 239 (150-400) X10^3/uL Neut % (Auto) 75.9 H (50-75) % Lymph % (Auto) 11.7 L (25-40) % Rich % (Auto) 9.2 (3-14) % Eos % (Auto) 2.8 (2-4) % Baso % (Auto) 0.4 (0-2) % Neut # (Auto) 6400 (4828-6383) /uL Lymph # (Auto) 1000 L (6631-3389) /uL Rich # (Auto) 800 (0-900) /uL Eos # (Auto) 200 (0-450) /uL Baso # (Auto) 0 (0-100) /uL Sodium 139 (137-145) mmol/L Potassium 3.1 L (3.4-5.1) mmol/L Chloride 104 (98-107) mmol/L Carbon Dioxide 33 H (22-32) mmol/L BUN 19 (9-20) mg/dL Creatinine 0.84 (0.66-1.25) mg/dL Estimated GFR > 60.0 (>60) mL/min BUN/Creatinine Ratio 22.6 H (6-22) Glucose 112 H (70-100) mg/dL Lactate (0.7-2.1) mmol/L Calcium 8.4 (8.4-10.2) mg/dL Total Bilirubin 0.4 (0.2-1.3) mg/dL AST 49 (17-59) IU/L ALT 32 (<50) IU/L Alkaline Phosphatase 71 (38-126) U/L Total Protein 6.5 (6.3-8.2) g/dL Albumin 3.5 (3.5-5.0) g/dL Globulin 3.0 (1.7-4.1) g/dL Albumin/Globulin Ratio 1.2 (1.0-2.8) Procalcitonin 0.14 (<0.5) ng/mL SARS-CoV-2 (PCR) Negative (Negative) 06/11/21 Range/Units 09:13 WBC (4.5-11.0) X10^3/uL RBC (4.5-5.9) X10^6/uL Hgb (13.5-17.5) g/dL Hct (41-53) % MCV (80-100) fL MCH (26-34) PG MCHC (30-36) % RDW (11.6-14.8) % Plt Count (150-400) X10^3/uL Neut % (Auto) (50-75) % Lymph % (Auto) (25-40) % Rich % (Auto) (3-14) % Eos % (Auto) (2-4) % Baso % (Auto) (0-2) % Neut # (Auto) (7594-4015) /uL Lymph # (Auto) (1569-0939) /uL Rich # (Auto) (0-900) /uL Eos # (Auto) (0-450) /uL Baso # (Auto) (0-100) /uL Sodium (137-145) mmol/L Potassium (3.4-5.1) mmol/L Chloride (98-107) mmol/L Carbon Dioxide (22-32) mmol/L BUN (9-20) mg/dL Creatinine (0.66-1.25) mg/dL Estimated GFR (>60) mL/min BUN/Creatinine Ratio (6-22) Glucose (70-100) mg/dL Lactate 1.2 (0.7-2.1) mmol/L Calcium (8.4-10.2) mg/dL Total Bilirubin (0.2-1.3) mg/dL AST (17-59) IU/L ALT (<50) IU/L Alkaline Phosphatase (38-126) U/L Total Protein (6.3-8.2) g/dL Albumin (3.5-5.0) g/dL Globulin (1.7-4.1) g/dL Albumin/Globulin Ratio (1.0-2.8) Procalcitonin (<0.5) ng/mL SARS-CoV-2 (PCR) (Negative) Imaging Data [facility] MRI: Radiologist's Impression: [address] [address] Magnetic Resonance Report Signed Patient: Wilmer Camargo MR#: [id number] : 1975 Acct:[id number] Age/Sex: 45 / M Date of Service: 06/11/21 Loc: ED Accession Number: [id number] ?? Procedure: MR thoracic spine wo/w con Ordering Provider: Shae Henderson D.O. PROCEDURE:? MR THORACIC SPINE WO/W CON ? INDICATIONS:? hx of recurrent tumors, weakness b/l le ? TECHNIQUE:? Noncontrast sagittal T1 spin echo and T2 fast spin echo, sagittal STIR, axial T1 and T2 fast spin echo through the thoracic spine.? After the administration of contrast, axial and sagittal T1 spin echo with fat saturation through the thoracic spine.? ? COMPARISON:? [facility], CT, CT THORACIC SPINE W CON, 01/25/2021, 2:18. ? FINDINGS:? Image quality:? Excellent.? ? Alignment and curvature:? There is normal bony alignment.? ? Marrow:? Marrow is of normal overall signal.? No acute vertebral body compression fractures.? Multiple vertebral body hemangiomas are noted.? ? Spinal cord:? Overall, there is normal cord signal intensity.? However, there is an oval heterogeneously enhancing intramedullary mass versus large extramedullary, intradural mass with near complete effacement of the cord measuring approximately 1.4 x 1.6 cm in transverse dimension and 2.0 cm in craniocaudal dimension this is noted at the level of T8.? This mass encompasses the entire spinal canal at this level.? There is a smaller, similar mass identified in the spinal canal at the level of T6-7 measuring 1.3 x 1.1 cm.? In transverse dimension and 1.5 cm in craniocaudal dimension.? This mass appears to be extramedullary, intradural in location and causes mild-moderate spinal canal stenosis at this level.? No other definite intramedullary mass lesions identified.? No evidence for cord signal abnormalities proximal to the masses described.? Additionally, there are multiple enhancing nodular masses in the surrounding soft tissues of the posterior back.? There is 1 noted adjacent to the posterior margin of the right 7th rib.? It measures approximately 1.7 x 0.9 cm.? There is a more posterior midline superficial soft tissue mass noted within the subcutaneous soft tissues deep to the skin at the level of T9-10 measuring 1.7 x 1.3 cm in size.? 2 additional adjacent masses are noted within the right paraspinal muscles at T10 measuring 1.4 cm and 1.2 cm respectively.? ? Paraspinous soft tissues:? No other paravertebral masses or abnormal enhancement.? ? Miscellaneous:? Central canal and foramina appear widely patent at all scanned levels.? Prominent right renal pelvis possibly representing mild hydronephrosis.? This is incompletely imaged.? CT? ? IMPRESSION:? ? 1. Approximately 2 masses identified within the spinal canal at the level of T6- 7 and T8. ?The smaller of the 2 masses appears to be extramedullary, intradural in location and causes mild-moderate spinal canal stenosis.? No associated cord signal abnormalities.? The larger of the 2 is more caudal and appears to be either intramedullary versus extramedullary, intradural with associated complete effacement of the spinal canal at this level.? There is however, no definite cord signal abnormalities associated with these masses.? There also multiple extradural masses in close vicinity to these spinal cord masses which are suspicious for metastatic disease. ? 2. No acute osseous abnormalities identified in the thoracic spine.? No suspicious intraosseous lesions.? ? 3. Prominent right renal pelvis, incompletely characterized.? This may represent mild hydronephrosis.? Recommend clinical correlation.? ? Dictated by: Kevin Small M.D. on 06/11/2021 at 7:43 ? ? Approved by: Kevin Small M.D. on 06/11/2021 at 8:15?? MDM Narrative Medical decision making narrative: This is a 45-year-old male with known recurrent tumors his thoracic spine patient follows with Neurosurgery in telling him. His last visit was in 2018 patient states that he has had increasing issues with mobility and weakness in his lower extremities and had movement until about 2 months ago. His last visit locally shows movement in January of 2021 with 4/5 muscle strength patient has had a significant change and had loss of sensation in his lower extremities and that subsequently developed significant wounds on his lower extremities from trying to crawl or drag himself around and sleeping on the floor. Labs are obtained, MRI of thoracic spine with plan for neurosurgery consultation. Patient plans to return home today. Attempted to reach patient's prior neurosurgeon Dr. Hahn who performed his surgery in 2010. Unable to reach through their office number, there was an additional service but they are not actually connected to [facility]. I did speak Dr. Stanley from neurosurgery in [place] who patient has an appointment with in June. We reviewed his findings and the fact that patient has been adamant that it has been 2 months since he has been able to use his lower extremities. At this time there is no indication for emergent neurosurgical treatment as patient has had 2 months symptoms with complete effacement of the spinal cord his deficits are now permanent. This was discussed with the patient. He has also been able to review his own MRI findings today he was given a report. Discussed with our hospitalist as patient does need assistance at home and he has multiple wounds that will require wound although he does not appear septic or infected. Discharge Plan Departure Patient Disposition: Admitted as Observation Clinical Impression: Open wound of left thigh, Wounds, multiple open, lower extremity, Paralysis of both lower limbs, Benign tumor of spinal cord Admit Date/Time: 06/11/21 11:05 Admit Provider: Anna Mcwilliams
--- NOTE | 2021-06-11 07:33 | DI.MRI.S_ITS ---
PROCEDURE: MR THORACIC SPINE WO/W CON INDICATIONS: hx of recurrent tumors, weakness b/l le TECHNIQUE: Noncontrast sagittal T1 spin echo and T2 fast spin echo, sagittal STIR, axial T1 and T2 fast spin echo through the thoracic spine. After the administration of contrast, axial and sagittal T1 spin echo with fat saturation through the thoracic spine. COMPARISON: [facility], CT, CT THORACIC SPINE W CON, 01/25/2021, 2:18. FINDINGS: Image quality: Excellent. Alignment and curvature: There is normal bony alignment. Marrow: Marrow is of normal overall signal. No acute vertebral body compression fractures. Multiple vertebral body hemangiomas are noted. Spinal cord: Overall, there is normal cord signal intensity. However, there is an oval heterogeneously enhancing intramedullary mass versus large extramedullary, intradural mass with near complete effacement of the cord measuring approximately 1.4 x 1.6 cm in transverse dimension and 2.0 cm in craniocaudal dimension this is noted at the level of T8. This mass encompasses the entire spinal canal at this level. There is a smaller, similar mass identified in the spinal canal at the level of T6-7 measuring 1.3 x 1.1 cm. In transverse dimension and 1.5 cm in craniocaudal dimension. This mass appears to be extramedullary, intradural in location and causes mild-moderate spinal canal stenosis at this level. No other definite intramedullary mass lesions identified. No evidence for cord signal abnormalities proximal to the masses described. Additionally, there are multiple enhancing nodular masses in the surrounding soft tissues of the posterior back. There is 1 noted adjacent to the posterior margin of the right 7th rib. It measures approximately 1.7 x 0.9 cm. There is a more posterior midline superficial soft tissue mass noted within the subcutaneous soft tissues deep to the skin at the level of T9-10 measuring 1.7 x 1.3 cm in size. 2 additional adjacent masses are noted within the right paraspinal muscles at T10 measuring 1.4 cm and 1.2 cm respectively. Paraspinous soft tissues: No other paravertebral masses or abnormal enhancement. Miscellaneous: Central canal and foramina appear widely patent at all scanned levels. Prominent right renal pelvis possibly representing mild hydronephrosis. This is incompletely imaged. CT IMPRESSION: 1. Approximately 2 masses identified within the spinal canal at the level of T6-7 and T8. The smaller of the 2 masses appears to be extramedullary, intradural in location and causes mild-moderate spinal canal stenosis. No associated cord signal abnormalities. The larger of the 2 is more caudal and appears to be either intramedullary versus extramedullary, intradural with associated complete effacement of the spinal canal at this level. There is however, no definite cord signal abnormalities associated with these masses. There also multiple extradural masses in close vicinity to these spinal cord masses which are suspicious for metastatic disease. 2. No acute osseous abnormalities identified in the thoracic spine. No suspicious intraosseous lesions. 3. Prominent right renal pelvis, incompletely characterized. This may represent mild hydronephrosis. Recommend clinical correlation. Dictated by: Kevin Small M.D. on 06/11/2021 at 7:43 Approved by: Kevin Small M.D. on 06/11/2021 at 8:15
[2021-06-11] MEDS: KETOROLAC 30 MG/ML VIAL 15 MG IV (07:54)
[2021-06-11] MEDS: SODIUM CHLORIDE 0.9% 1,000 ML 1000 ML IV (07:55)
[2021-06-11] MEDS: OXYCODONE IR 5 MG TABLET 10 MG PO (09:03)
[2021-06-11] MEDS: METOPROLOL IR 25 MG TABLET 50 MG PO (09:03)
[2021-06-11 09:05] LABS: COVID19 -Nasal RAPID Negative (Negative)
[2021-06-11 09:28] LABS: Add Manual Diff / Slide Review NO; Basophils Absolute Auto 0 /uL (0-100); Basophils Percent Auto 0.4 % (0-2); Eosinophils Absolute Auto 200 /uL (0-450); Eosinophils Percent Auto 2.8 % (2-4); Hematocrit 36.7 % (41-53); Lymphocytes Absolute Auto 1000 /uL (1100-4500); Lymphocytes Percent Auto 11.7 % (25-40); Mean Corpuscular HGB Conc 32.8 % (30-36); Mean Corpuscular Hemoglobin 27.9 PG (26-34); Mean Corpuscular Volume 85.1 fL (80-100); Monocytes Absolute Auto 800 /uL (0-900); Monocytes Percent Auto 9.2 % (3-14); Neutrophils Absolute Auto 6400 /uL (1500-7000); Neutrophils Percent Auto 75.9 % (50-75); Platelet Count 239 X10^3/uL (150-400); Red Blood Cell Count 4.32 X10^6/uL (4.5-5.9); Red Cell Distribution Width 15.9 % (11.6-14.8); White Blood Cell Count 8.5 X10^3/uL (4.5-11.0)
[2021-06-11] MEDS: PREGABALIN 75 MG CAPSULE 300 MG PO ×2 (09:37→20:34)
[2021-06-11 09:42] LABS: Lactate (Lactic Acid) 1.2 mmol/L (0.7-2.1)
[2021-06-11 09:43] LABS: Alanine Aminotransferase 32 IU/L (<50); Albumin 3.5 g/dL (3.5-5.0); Albumin Globulin Ratio 1.2 (1.0-2.8); Alkaline Phosphatase 71 U/L (38-126); Aspartate Aminotransferase 49 IU/L (17-59); BUN Creatinine Ratio 22.6 (6-22); Bilirubin Total 0.4 mg/dL (0.2-1.3); Blood Urea Nitrogen 19 mg/dL (9-20); Calcium 8.4 mg/dL (8.4-10.2); Carbon Dioxide 33 mmol/L (22-32); Chloride 104 mmol/L (98-107); Estimated Glomerular Filt Rate > 60.0 mL/min (>60); Glucose 112 mg/dL (70-100); HEMOLYSIS < 15 (0-50); Potassium 3.1 mmol/L (3.4-5.1); Sodium 139 mmol/L (137-145); Total Protein 6.5 g/dL (6.3-8.2)
[2021-06-11 10:00] LABS: Procalcitonin 0.14 ng/mL (<0.5)
--- NOTE | 2021-06-11 12:33 | P.HP_ITS ---
History of Present Illness History of Present Illness Date Patient Seen: 06/11/21 Chief complaint: Bed sores Narrative: This is a 45-year-old male with a history of spinal schwannomas and functional paraplegia who presents with large pressure ulcers on his legs caused by crawling around his home for the last 2 months that he has been unable to walk. He has known T8 and T6 schwannoma lesion with severe impingement of the spinal cord that per review of Neurosurgery indicates he will not be able to walk again. He is planning to see Dr. Stanley in [place] for this but has not seen him so far. The ED physician was able to review the films with Dr. Stanley who indicated that the patient, now after a prolonged period of time unable to walk is not really a surgical candidate. He lives in a trailer with 7 other people, this is a single wide with 2 bedrooms. He sleeps on the floor because he can not get up on the bed. His and her friend sleep in the bed. He somehow has managed to avoid pressure ulcers on his arms but has several on his legs most severely on the left side with a deep black eschar covered wound over the left ischial and trochanteric area. 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 He has had prior thoracic laminectomies for the schwannomas. He uses a wheelchair when he is outside of his home. He has not had any fevers or significant pain. Patient History Medical History (Updated 06/11/21 @ 19:28 by Anna Mcwilliams MD) Back pain Functional paraparesis Hypertension Neurogenic pain Schwannoma of spinal cord Surgical History (Updated 06/11/21 @ 18:57 by Anna Mcwilliams MD) History of spinal surgery History of tonsillectomy Family & Social History Family History (Updated 06/11/21 @ 18:58 by Anna Mcwilliams MD) Father CVA (cerebral vascular accident) Mother Myocardial infarct Safety & Behavioral: Feels Safe in Current Yes Environment Been Physically Hurt or No Threatened By a Person Tobacco & Substance use: Smoking Status Unknown if ever smoked alcohol intake frequency holiday/special occasion Substance Use Type does not use Comment: His backup decision maker is his . Meds Home Medications and Allergies Home Medications Medication Instructions Recorded Confirmed Type metoprolol tartrate 50 mg tablet 50 mg PO BID 06/11/21 06/11/21 History pregabalin 300 mg capsule (Lyrica) 300 mg PO BID 06/11/21 06/11/21 History Allergies Allergy/AdvReac Type Severity Reaction Status Date / Time morphine Allergy Nightmare Verified 06/11/21 13:03 gabapentin AdvReac Shakiness Verified 06/11/21 13:03 Review of Systems Review of Systems Narrative: Positive for weakness and skin ulcers Negative for fevers, chills, sweats, chest pain, shortness breast, coughing, nausea, vomiting, abdominal pain, bleeding, rashes, dysuria, seizures, hea daches, new allergies. Exam Vital Signs (past 8 hours): - 06/11/21 07:04 06/11/21 07:06 06/11/21 07:08 Temperature 98.5 F Pulse Rate 102 H 99 H 105 H Respiratory Rate 18 Blood Pressure 190/115 H 190/115 H Pulse Oximetry 100 98 98 06/11/21 07:30 06/11/21 07:31 06/11/21 07:45 Temperature Pulse Rate 91 H 95 H 98 H Respiratory Rate Blood Pressure 173/101 H 170/112 H Pulse Oximetry 100 100 100 06/11/21 08:34 06/11/21 08:38 06/11/21 09:00 Temperature Pulse Rate 96 H 92 H 86 Respiratory Rate 16 16 Blood Pressure 186/113 H 179/111 H Pulse Oximetry 99 100 06/11/21 09:30 06/11/21 10:00 06/11/21 10:30 Temperature Pulse Rate 96 H 93 H 88 Respiratory Rate 13 18 12 Blood Pressure 168/109 H Pulse Oximetry 99 100 06/11/21 11:00 06/11/21 11:30 06/11/21 11:33 Temperature Pulse Rate 87 84 83 Respiratory Rate 20 15 22 Blood Pressure 152/103 H Pulse Oximetry 100 97 100 06/11/21 12:05 Temperature 98.5 F Pulse Rate 84 Respiratory Rate 18 Blood Pressure 143/94 H Pulse Oximetry 98 Oxygen Delivery Method Room Air Oxygen Flow Rate 0 Narrative Exam Narrative: He is alert and oriented x3. He is very well-spoken No apparent distress Pupils are equally round and reactive to light and accommodation Extraocular muscles are intact Sclerae are pink and nonicteric Throat looks normal No lymph nodes are felt head, neck, supraclavicular area JVD is less than 6 cm No carotid bruits are heard There is no thyromegaly Heart is regular rate and rhythm with a 1/6 murmur Lungs are clear to auscultation bilaterally Abdomen is soft, bowel sounds positive, nontender, no organomegaly Extremities have no ankle edema Neurologic exam: Motor function is 4/5 in both upper extremities and 3/5 in both lower extremities. Gait and balance cannot be tested There is no tremor His coordination is lacking Skin he has several large skin ulcers. The largest ulcer is a 5 cm diameter left lateral ischial/trochanteric ulcer covered with black colored eschar. He has a 3 cm shallow ulceration without ischemic eschar on the left patella He has a left dorsal foot ulcer He has 2 ulcers on the right foot these are on the 1st toe and the 2nd toe there quite small. Objective Labs Result Diagrams: 06/11/21 09:13 06/11/21 09:13 Labs: Laboratory Results - last 24 hr 06/11/21 06/11/21 06/11/21 08:30 09:13 09:13 WBC 8.5 RBC 4.32 L Hgb 12.0 L Hct 36.7 L MCV 85.1 MCH 27.9 MCHC 32.8 RDW 15.9 H Plt Count 239 Neut % (Auto) 75.9 H Lymph % (Auto) 11.7 L [place] % (Auto) 9.2 Eos % (Auto) 2.8 Baso % (Auto) 0.4 Neut # (Auto) 6400 Lymph # (Auto) 1000 L [place] # (Auto) 800 Eos # (Auto) 200 Baso # (Auto) 0 Sodium 139 Potassium 3.1 L Chloride 104 Carbon Dioxide 33 H BUN 19 Creatinine 0.84 Estimated GFR > 60.0 BUN/Creatinine Ratio 22.6 H Glucose 112 H Lactate Calcium 8.4 Total Bilirubin 0.4 AST 49 ALT 32 Alkaline Phosphatase 71 Total Protein 6.5 Albumin 3.5 Globulin 3.0 Albumin/Globulin Ratio 1.2 Procalcitonin 0.14 SARS-CoV-2 (PCR) Negative 06/11/21 09:13 WBC RBC Hgb Hct MCV MCH MCHC RDW Plt Count Neut % (Auto) Lymph % (Auto) [place] % (Auto) Eos % (Auto) Baso % (Auto) Neut # (Auto) Lymph # (Auto) [place] # (Auto) Eos # (Auto) Baso # (Auto) Sodium Potassium Chloride Carbon Dioxide BUN Creatinine Estimated GFR BUN/Creatinine Ratio Glucose Lactate 1.2 Calcium Total Bilirubin AST ALT Alkaline Phosphatase Total Protein Albumin Globulin Albumin/Globulin Ratio Procalcitonin SARS-CoV-2 (PCR) Assessment & Plan Assessment & Plan narrative: This is a 45-year-old male with a history of spinal schwannomas and functional paraplegia who presents with large pressure ulcers on his legs caused by crawling around his home for the last 2 months while he has been unable to walk. Large Left Ischial/Trochanteric Pressure Ulcer, present on admission. Active. -Consult Dr. Valdez for possible debridement, NPO after midnight -no signs of infection Multiple Lower Extremity Pressure Ulcers, present on admission. Active. -Wound care consult if available, avoid direct/prolonged pressure Thoracic Spine Schwannomas, present on admission. Active. -continue Pregabalin for neuropathic pain -Upcoming Neurosurgery appointment with Dr. Stanley -preliminary information is that his tumors are no longer operable. Functional Paraplegia, present on admission. Active. -Secondary to Spinal Schwannomas causing loss of LE balance/coordination Hypertension, present on admission. Active. -continue Metoprolol Hypokalema, present on admission. Active. -K 3.1, probably from malnourishment -40 meq PO X 1 and f/u on Holding Enoxaparin pending possible surgery. Time Spent With Patient Critical Care time: I spent a total of [] minutes of critical care time on this patient's care today; this time is exclusive of procedural time.
[2021-06-11] MEDS: OXYCODONE IR 5 MG TABLET PO ×3 (14:57→23:50)
--- NOTE | 2021-06-11 15:49 | PC.NURSE ---
Pt to room 206 from ER via stretcher at approx. 1230. Pt is awake, alert, and oriented x3. Pt was able to transfer self from gurney to bed with assistance with his legs which are numb and he has not been able to move them for the past 2 months. Pt oriented to room, call light, bed controls, and tv controls. Pt aware that the bed alarm is on due to prior falls and that he must call for assistance and not get up without help.
[2021-06-11] MEDS: ACETAMINOPHEN 325 MG TABLET 650 MG PO ×2 (18:07→23:50)
--- NOTE | 2021-06-11 18:46 | PC.NURSE ---
Addendum entered by Carolina Gamboa R.N. 06/11/21 18:55: Pt also stated that he has an eleven year old son that is living with his Aunt and CPS is involved. Original Note: Pt has very poor dentition-multiple broken teeth and missing teeth. He reports that he eats a regular diet and just grinds down his food-offered to change Pt to a soft diet but Pt declined. Pt is also requesting a counselor or psych consult regarding a very complicated social situation at home-Social work needed for Pt. Pt states he lives in a single wide mobile home with a total of seven people. Pt, , and 's special friend sleep in his room, Son in another room, daughter in a camper outside, and ex- on the living room couch. Pt states that his wounds are caused by his lower legs paralysis for the past 2 months and his inability to use a w/c due to the narrow nature of his hallways/house which has caused him to drag himself around using his arms which caused the wounds.
[2021-06-11] MEDS: POTASSIUM CHLORIDE 20 MEQ TAB 40 MEQ PO (19:29)
[2021-06-11] MEDS: SENNOSIDES 8.6 MG TABLET 17.2 MG PO (20:33)
[2021-06-11] MEDS: METOPROLOL IR 50 MG TABLET PO (20:34)
[2021-06-12] VITALS (13 sets, daily range): BP systolic 119–164; BP diastolic 67–109; PULSE 75–100; RESP 12–23; TEMP 36–37.5; O2SAT 97–100; BMI 20.9
[2021-06-12] MEDS: OXYCODONE IR 5 MG TABLET PO ×4 (05:54→21:15)
[2021-06-12 07:33] LABS: Add Manual Diff / Slide Review NO; Basophils Absolute Auto 100 /uL (0-100); Basophils Percent Auto 0.9 % (0-2); Eosinophils Absolute Auto 300 /uL (0-450); Eosinophils Percent Auto 4.6 % (2-4); Hematocrit 34.1 % (41-53); Hemoglobin 11.3 g/dL (13.5-17.5); Lymphocytes Absolute Auto 1100 /uL (1100-4500); Lymphocytes Percent Auto 18.2 % (25-40); Mean Corpuscular HGB Conc 33.1 % (30-36); Mean Corpuscular Hemoglobin 28.1 PG (26-34); Mean Corpuscular Volume 84.8 fL (80-100); Monocytes Absolute Auto 500 /uL (0-900); Monocytes Percent Auto 7.4 % (3-14); Neutrophils Absolute Auto 4300 /uL (1500-7000); Neutrophils Percent Auto 68.9 % (50-75); Platelet Count 235 X10^3/uL (150-400); Red Blood Cell Count 4.03 X10^6/uL (4.5-5.9); Red Cell Distribution Width 15.7 % (11.6-14.8); White Blood Cell Count 6.2 X10^3/uL (4.5-11.0)
--- NOTE | 2021-06-12 07:41 | P.CONS_ITS ---
History of Present Illness Consult details Date Patient Seen: 06/12/21 Time Patient Seen: 07:41 Chief complaint: Bed sores Narrative: 45 y.o man with multiple spinal schwannomas and functional paraplegia admitted for left hip wound. At admission afebrile without leukocytosis or systemic infection. Surgical debridement of the left hip/thigh requested. Meds Home Medications and Allergies Home Medications Medication Instructions Recorded Confirmed Type metoprolol tartrate 50 mg tablet 50 mg PO BID 06/11/21 06/11/21 History pregabalin 300 mg capsule (Lyrica) 300 mg PO BID 06/11/21 06/11/21 History Allergies Allergy/AdvReac Type Severity Reaction Status Date / Time morphine Allergy Nightmare Verified 06/12/21 09:17 gabapentin AdvReac Shakiness Verified 06/12/21 09:17 Exam Vital Signs (past 8 hours): - 06/12/21 02:00 06/12/21 05:45 Temperature 98.7 F 97.7 F Pulse Rate 82 Respiratory Rate 18 Blood Pressure 156/92 H Pulse Oximetry 98 Oxygen Delivery Method Room Air Oxygen Flow Rate 0 Narrative Exam Narrative: General adult male alert oriented no acute distress Chest nonlabored respirations Abdomen soft nontender Left lower extremity-20 x 10 cm necrotic decubitus ulcer on the left lateral hip Objective Labs Result Diagrams: 06/12/21 06:25 06/12/21 06:25 Labs: Laboratory Results - last 24 hr 06/11/21 06/11/21 06/11/21 08:30 09:13 09:13 WBC 8.5 RBC 4.32 L Hgb 12.0 L Hct 36.7 L MCV 85.1 MCH 27.9 MCHC 32.8 RDW 15.9 H Plt Count 239 Neut % (Auto) 75.9 H Lymph % (Auto) 11.7 L [place] % (Auto) 9.2 Eos % (Auto) 2.8 Baso % (Auto) 0.4 Neut # (Auto) 6400 Lymph # (Auto) 1000 L [place] # (Auto) 800 Eos # (Auto) 200 Baso # (Auto) 0 Sodium 139 Potassium 3.1 L Chloride 104 Carbon Dioxide 33 H BUN 19 Creatinine 0.84 Estimated GFR > 60.0 BUN/Creatinine Ratio 22.6 H Glucose 112 H Lactate Calcium 8.4 Total Bilirubin 0.4 AST 49 ALT 32 Alkaline Phosphatase 71 Total Protein 6.5 Albumin 3.5 Globulin 3.0 Albumin/Globulin Ratio 1.2 Procalcitonin 0.14 SARS-CoV-2 (PCR) Negative 06/11/21 09:13 WBC RBC Hgb Hct MCV MCH MCHC RDW Plt Count Neut % (Auto) Lymph % (Auto) [place] % (Auto) Eos % (Auto) Baso % (Auto) Neut # (Auto) Lymph # (Auto) [place] # (Auto) Eos # (Auto) Baso # (Auto) Sodium Potassium Chloride Carbon Dioxide BUN Creatinine Estimated GFR BUN/Creatinine Ratio Glucose Lactate 1.2 Calcium Total Bilirubin AST ALT Alkaline Phosphatase Total Protein Albumin Globulin Albumin/Globulin Ratio Procalcitonin SARS-CoV-2 (PCR) [facility] Medical History Back pain Functional paraparesis Hypertension Neurogenic pain Schwannoma of spinal cord Surgical History History of spinal surgery History of tonsillectomy Family History Father CVA (cerebral vascular accident) Mother Myocardial infarct Social History household members: spouse, children and friend(s) Tobacco & Substance Use Smoking Status: Former smoker Assessment & Plan Assessment and plan (1) Open wound of left thigh: Status: Acute Assessment & Plan narrative: 45 y.o man with functional paralysis with a necrotic pressure ulcer of the left hip/thigh. OR today for surgical debridement of left thigh/hip today. Technical details of the operation were discussed with the patient. Anticpate placement of wound vac in OR today after debridement and will need long term care pharmacist wound care. Operative risks including bleeding infection need for further procedure were discussed. Questions answered he is in agreement with this plan. Time Spent With Patient Critical Care time: I spent a total of [] minutes of critical care time on this patient's care today ; this time is exclusive of procedural time.
[2021-06-12 07:44] LABS: BUN Creatinine Ratio 16.2 (6-22); Blood Urea Nitrogen 17 mg/dL (9-20); Calcium 8.6 mg/dL (8.4-10.2); Carbon Dioxide 34 mmol/L (22-32); Chloride 106 mmol/L (98-107); Estimated Glomerular Filt Rate > 60.0 mL/min (>60); Glucose 93 mg/dL (70-100); HEMOLYSIS < 15 (0-50); Potassium 3.7 mmol/L (3.4-5.1); Sodium 141 mmol/L (137-145)
[2021-06-12] MEDS: METOPROLOL IR 50 MG TABLET PO ×2 (09:09→20:48)
[2021-06-12] MEDS: PREGABALIN 75 MG CAPSULE 300 MG PO ×2 (09:09→20:48)
[2021-06-12] MEDS: LACTATED RINGERS 1,000 ML 84 ML IV (09:39)
--- NOTE | 2021-06-12 10:37 | SUR.OPER ---
Lateral on hospital bed, head on pillow, legs bent and supported with pillows. Upper arm supported by pillows. Bed rails up on non-operative side
--- NOTE | 2021-06-12 11:14 | PM.OP.1 ---
Operative Date/Time/Diagnoses Date of procedure: 06/12/21 Time of procedure: 11:14 Pre-op diagnosis: Decubitus ulcer left hip Post-op diagnosis: same Procedure & Clinicians Procedure: Sharp excisional debridement of 15 x 11 cm with wound down to the subcutaneous tissue Same procedure as scheduled: Yes Indications: Functional paraplegic secondary to spinal tumors with a decubitus ulcer of his left hip Surgeon: Dedrick Valedz Anesthesia Type: General Operative Notes Findings: Decubitus ulcer 15 x 11 cm left hip Estimated Blood Loss (mL): 10 Procedure in detail: Patient was brought to the operating room and placed in the a right lateral decubitus position. General anesthesia was induced he was intubated with a LMA. He was prepped and draped in sterile fashion. A time-out was performed. An elliptical incision was made around the decubitus ulcer, measured 15 x 11 cm. The dissection was carried down to the subcutaneous tissue. The there was healthy bleeding tissue hemostasis was achieved. 3 L of saline solution was used to lavage the wound. A wound VAC was then placed. Patient tolerated procedure well transferred to recovery room in stable condition. Complications: none Post-operative Condition: stable Disposition: Acute Care
--- NOTE | 2021-06-12 12:00 | DIET.CONS2 ---
Dietary Inpatient Consultation Note Admission Date: 06/11/2021 11:[address] as admitted with bedsores requiring surgical intervention and low BMI (21.0). Sending pt double protein portions and ONS Ivan bid to support wound healing. Diet: 06/12/21 Lunch Regular [General (Regular) Diet] Diet Modifications: double protein, ivan vitaleushie bid Nutrition Percent Meal Consumed 100% 06/11/21 17:39 Percent Meal Consumed 100% 06/11/21 12:36 Electronically Signed by: Arelis Baugh 06/12/21 12:00 Clinical Dietitian [address] [id number]
[2021-06-12] MEDS: ACETAMINOPHEN 325 MG TABLET 650 MG PO ×3 (13:19→23:57)
--- NOTE | 2021-06-12 14:52 | CM.DANOTE ---
Patient is a 45 yo male who was admitted on 06/11/21 for Bed Sores. Pt has [employer] ADV and [employer]IL[employer] for insurance and his PCP is Phyllis Lu. EMR was reviewed. Per MD, pt has functional paraplegia but declined in mobility past couple months and isn't able to use his legs so ulcers/wounds developed on his legs from dragging himself on the floor. Per Surgeon, pt taken to OR today for I&D and placed wound vac and will likely need wound care and IV-Abx at d/c. Pt currently not a surgical candidate for his tumors causing his paraplegia per consult with NeuroSurgeon. SW met bedside with pt and explained role after pt arrived back to the floor from I&D and he confirms he is living in [place] in a single wide trailer with his spouse Jaswinder, her friend, ex-, 18 yo son and 20 yo Dtr. Pt tyically would ambulate with limited mobility with his legs and walker and w/c for outside the home as w/c does not fit in the single wide trailer. Now that pt has no use or feeling in his legs he has developed sores from pulling himself on the ground. Pt's spouse has limited ability for physical assist as she needs spinal surgery and ex- is somewhat paralyzed herself. Pt confirms that he doesn't leave house much the past couple months but used to use Medicaid transport for appointments but due to his inability to use his legs and difficulty with transfers he doesn't see how he would transport. Pt has used [facility] in the past but would need to complete the application again to qualify and can take up to 6 weeks per [facility] today. Pt states he has Medicaid for medical coverage and also receives food assist from Medicaid but has never applied for [employer] but coming to the realization that he could likely benefit from this as pt realizing this is likely his new baseline. SW discussed d/c planning needs and pt denies any hx of HH but would be agreeable but feels SNF likely needed for strengthening his upper body and wound care. SW discussed need for [employer] Contracted SNF and barriers and pt agreeable with any SNF that can accept. Pt states he received both COVID vaccinations but not booster yet. SW attempted to print off COVID vax copy and not in [facility] system. Will need copy of covid vax card. [facility]- not contracted with [facility]- left msg and faxed referral [facility]- not currently taking [employer] pts at this time [facility]- left msg and faxed referral [facility] completed. Plan: SW to follow closely to determine if wound vac and IV-Abx needed at d/c and likely need to make additional SNF referrals to [facility] pending [facility] and Elaina Navarro review. SAMUEL Villarreal Discharge Planning/Care Management CM Discharge Assessment Start: 06/12/21 14:47 Freq: Status: Active Protocol: Document 06/12/21 14:48 BF (Rec: 06/12/21 14:52 BF [id number]) Discharge Planning Assessment Assigned Jordan Man SAMUEL Brito DPOA/Assigned Designee Name informally spouse Contact Information Jaswinder Glover Advance Directives? No Advance Directives on File No History Provided By Patient,Medical Record Has Patient been admitted in last 30 No days? Prior Living Arrangements Mobile home Household Members spouse,children,friend(s), other Type of transporation used prior to Medicaid Transport admit Independent with ADL's No Is patient alert and oriented? Yes Needs Assistance With Bathing,Meal Prep,Managing Medications,Home Chores / Shopping Caregiver for Another No: 2 adult children at home DME Already Rented / Owned Wheelchair Patient/Family Preference Senior Living Facility Barriers to Discharge Yes Comment Difficult home situation Discharge Plan Senior Living Facility Transportation Arrangement If SNF then facility van, otherwise likely Medicaid transport Referrals Initiated Senior Living If patient plan is SNF: Has PASSR been Yes completed? Medicare Choice List Provided Yes SNF/HH Preference Any contracted with [employer] that can accept Whiteboard Updated in Patient Room with Yes name and ext. # of Jordan Man Review Status In Process Please Provide Date Initial DC 06/12/21 Assessment Was Performed Next Review Type Continued Stay Review
--- NOTE | 2021-06-12 16:17 | P.PN_ITS ---
Subjective Subjective Date Patient Seen: 06/12/21 Interval history: The patient is a 45-year-old male who is status post excisional debridement of 15 x 11 cm wound down to the subcutaneous tissue. Patient has paraplegia secondary to spinal tumors with a decubitus ulcer of the left hip. He tolerated his procedure well. Wound VAC is in place. The patient reports pain is well controlled Exam Vital Signs (past 8 hours): - 06/12/21 09:11 06/12/21 09:25 06/12/21 11:08 Temperature 98.5 F 96.8 F L Pulse Rate 90 80 Respiratory Rate 16 12 Blood Pressure 154/93 H 119/72 Pulse Oximetry 97 100 98 06/12/21 11:12 06/12/21 11:25 06/12/21 12:10 Temperature 97.8 F 97.1 F L Pulse Rate 75 75 92 H Respiratory Rate 18 16 23 Blood Pressure 119/67 128/78 163/106 H Pulse Oximetry 99 98 100 06/12/21 12:40 06/12/21 13:40 06/12/21 14:40 Temperature 97.1 F L 99.5 F 97.4 F L Pulse Rate 91 H 94 H Respiratory Rate 23 21 20 Blood Pressure 163/100 H 141/85 H 137/74 Pulse Oximetry 100 99 99 Oxygen Delivery Method Room Air Oxygen Flow Rate 0 Narrative Exam Narrative: Pleasant male lying in bed in no obvious distress Resp Other: Lungs clear to auscultation Cardio Other: Cardiac exam: Regular rate and rhythm normal S1-S2 GI Other: Abdomen: Soft nontender nondistended Extrem Other: Bilateral lower extremity edema, Left thigh with a wound VAC in place Objective Labs Result Diagrams: 06/12/21 06:25 06/12/21 06:25 Labs: Laboratory Results - last 24 hr 06/12/21 06/12/21 06:25 06:25 WBC 6.2 RBC 4.03 L Hgb 11.3 L Hct 34.1 L MCV 84.8 MCH 28.1 MCHC 33.1 RDW 15.7 H Plt Count 235 Neut % (Auto) 68.9 Lymph % (Auto) 18.2 L [place] % (Auto) 7.4 Eos % (Auto) 4.6 H Baso % (Auto) 0.9 Neut # (Auto) 4300 Lymph # (Auto) 1100 [place] # (Auto) 500 Eos # (Auto) 300 Baso # (Auto) 100 Sodium 141 Potassium 3.7 Chloride 106 Carbon Dioxide 34 H BUN 17 Creatinine 1.05 Estimated GFR > 60.0 BUN/Creatinine Ratio 16.2 Glucose 93 Calcium 8.6 PFSH Medical History Back pain Functional paraparesis Hypertension Neurogenic pain Schwannoma of spinal cord Surgical History History of spinal surgery History of tonsillectomy Family History Father CVA (cerebral vascular accident) Mother Myocardial infarct Social History household members: spouse, children, friend(s) and other Smoking Status: Current some day smoker alcohol intake: current Assessment & Plan Assessment & Plan narrative: This is a 45-year-old male with a history of spinal schwannomas and functional paraplegia who presents with large pressure ulcers on his legs caused by crawling around his home for the last 2 months while he has been unable to walk. Large Left Ischial/Trochanteric Pressure Ulcer, present on admission.? Active. -Consult Dr. Valdez for possible debridement, NPO after midnight -no signs of infection -patient is status post debridement, with wide excision, now with wound VAC in place Multiple Lower Extremity Pressure Ulcers, present on admission.? Active. -Wound care consult if available, avoid direct/prolonged pressure Thoracic Spine Schwannomas, present on admission. Active. -continue Pregabalin for neuropathic pain -Upcoming Neurosurgery appointment with Dr. Stanley -preliminary information is that his tumors are no longer operable. Functional Paraplegia, present on admission.? Active. -Secondary to Spinal Schwannomas causing loss of LE balance/coordination Hypertension, present on admission.? Active. -continue Metoprolol Hypokalema, present on admission.? Active. -K 3.1, probably from malnourishment -40 meq PO X 1 and f/u on I have utilized all available methods to review update and confirm the patient's current medications ? Time Spent With Patient Critical Care time: I spent a total of [] minutes of critical care time on this patient's care today; this time is exclusive of procedural time. Quality VTE Deep Vein Thrombosis/Pulmonary Embolism Present on Admission: No
[2021-06-12] MEDS: SENNOSIDES 8.6 MG TABLET 17.2 MG PO (20:48)
[2021-06-13] MEDS: OXYCODONE IR 5 MG TABLET PO ×5 (03:11→18:47)
[2021-06-13 05:12] VITALS: BP 153/97; PULSE 89; RESP 16; TEMP 36.1; O2SAT 97
[2021-06-13] MEDS: ACETAMINOPHEN 325 MG TABLET 650 MG PO ×3 (06:30→17:22)
[2021-06-13 07:30] VITALS: BP 152/99; PULSE 90; RESP 19; TEMP 37; O2SAT 90
[2021-06-13] MEDS: PREGABALIN 75 MG CAPSULE 300 MG PO ×2 (08:23→20:08)
[2021-06-13] MEDS: METOPROLOL IR 50 MG TABLET PO ×2 (08:28→20:08)
[2021-06-13 09:46] VITALS: O2SAT 100
--- NOTE | 2021-06-13 10:20 | DIET.CONS ---
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 Pt s/p Sharp excisional debridement of 15 x 11 cm with wound down to the subcutaneous tissue of hip with multiple pressure ulcers and abrasions on toes, knees, and other bony prominences. Pt has complicated social history contributing to current presentation and malnourished state. Lives in single wide trailer with 6 other individuals. Pt cannot use walker in home because of inadequate space. Pt gets $75 in EBT benefits but shares with other family members. Pt has barriers to food storage because of space of home. Pt previously hospitalized elsewhere in April 2021, received one time [employer] service, got 14 frozen meals which he did consume over past few months. Pt has 6.1% unintentional weight loss in less than 4mo, along similar timeline to when he lost more fxn of his lower body. Pt reports being unable to safely do ADLs. Pt with significant tooth decay, missing most teeth. Pt on Medicaid with barrier to dental care as most local providers do not take state insurance for adults. Discussed sending up ONS Ivan bid. Pt appreciative and will drink 100%. Pt also aware of need for added protein for healing, pt has been ordering HB eggs, 2x turkey, etc. Pt feels confident with nutrition plan to help healing. Pt hopeful for skilled placement as he does not feel he will be able to manage at home at this time. Ht: 182.88 cm Wt: 70.307 kg (-6.1% in <4mo, severe) BMI: 20.9 UBW: 75kg Last BM: 06/13/21 (06/13/21 07:03) MNA: 12 Shalom Score: 14 Diet: 06/12/21 Lunch Regular [General (Regular) Diet] Diet Modifications: double protein, ivan slushie bid Nutrition Percent Meal Consumed 100% 06/13/21 08:54 Percent Meal Consumed 50% 06/12/21 18:00 Percent Meal Consumed 100% 06/11/21 17:39 Percent Meal Consumed 100% 06/11/21 12:36 Labs: RBC 4.03 X10^6/uL (4.5-5.9) L 06/12/21 06:25 Hgb 11.3 g/dL (13.5-17.5) L 06/12/21 06:25 Hct 34.1 % (41-53) L 06/12/21 06:25 Creatinine 1.05 mg/dL (0.66-1.25) 06/12/21 06:25 Lactate 1.2 mmol/L (0.7-2.1) 06/11/21 09:13 Nutrition Diagnosis: Severe Acute Protein Calorie Malnutrition r/t difficulty with self care, increased nutrient needs for healing, food insecurity aeb pt with paraplegia living in complex home situation, pt with 6.1% unintentional weight loss in <4mo, pt BMI 21, pt with $75 monthly food benefits, pt with significant pressure sores and abrasions on bony prominences requiring I&D secondary to self-propulsion on floor with paraplegia. Interventions: 1. Recc ONS Ivan bid while hospitalized as well as double protein portions to support wound healing. 2. Recc initiation of MVI to support repleting nutrition status and wound repair. 3. Recc increased care in home or alternate living situation to allow healing of body sores and to avoid further injury. EER: 2,400 kcals (35kcal/kg), 105g PRO (1.g/kg) Monitoring/Evaluations: trending renal fxn with increased protein intake, ONS tolerance, POs Electronically Signed by: Arelis Baugh 06/13/21 10:20 [address] [id number]
--- NOTE | 2021-06-13 11:05 | CM.DPC ---
DCP Cont: Maru at [facility] is reviewing patient. She called and asked for nursing notes if available. Updated SAMUEL Quarles, that this inventory control planner can go ahead and fax over notes. Faxed nursing notes, dietery note, and yesterday's progress note to Maru claudio [facility]. Raina Oleary RN/Nanotechnology Engineering Technologist
--- NOTE | 2021-06-13 15:57 | PM.PN.1 ---
Subjective Subjective Date Patient Seen: 06/13/21 Interval history: 45-year-old male status post debridement of chronic ulcerations of the thigh, patient has functional quadriplegia from S1 Qian. He denies any pain at this time. Patient resting comfortably without any complaint Exam Vital Signs (past 8 hours): - 06/13/21 09:46 Pulse Oximetry 100 Oxygen Delivery Method Room Air Oxygen Flow Rate 0 Narrative Exam Narrative: Pleasant male lying in bed Resp Other: Lungs clear to auscultation Cardio Other: Cardiac exam: Regular rate and rhythm normal S1-S2 GI Other: Abdomen: Soft nontender nondistended Extrem Other: Extremities: Left thigh with wound VAC in place draining significant amount fluid Objective Labs Result Diagrams: 06/12/21 06:25 06/12/21 06:25 [facility] Medical History Back pain Functional paraparesis Hypertension Neurogenic pain Schwannoma of spinal cord Surgical History History of spinal surgery History of tonsillectomy Family History Father CVA (cerebral vascular accident) Mother Myocardial infarct Social History household members: spouse, children, friend(s) and other Smoking Status: Current some day smoker alcohol intake: current Assessment & Plan Assessment & Plan narrative: This is a 45-year-old male with a history of spinal schwannomas and functional paraplegia who presents with large pressure ulcers on his legs caused by crawling around his home for the last 2 months while he has been unable to walk. Large Left Ischial/Trochanteric Pressure Ulcer, present on admission.? Active. -Consult Dr. Valdez for possible debridement, NPO after midnight -no signs of infection -patient is status post debridement, with wide excision, now with wound VAC in place -wound cultures growing Staph aureus, and Gram-negative bacilli, identification and sensitivity still pending -will start ceftriaxone and vancomycin awaiting sensitivity results Multiple Lower Extremity Pressure Ulcers, present on admission.? Active. -Wound care consult if available, avoid direct/prolonged pressure Thoracic Spine Schwannomas, present on admission. Active. -continue Pregabalin for neuropathic pain -Upcoming Neurosurgery appointment with Dr. Stanley -preliminary information is that his tumors are no longer operable. Functional Paraplegia, present on admission.? Active. -Secondary to Spinal Schwannomas causing loss of LE balance/coordination Hypertension, present on admission.? Active. -continue Metoprolol Hypokalema, present on admission.? Active. -K 3.1, probably from malnourishment -40 meq PO X 1 and f/u on Patient with severe acute protein calorie malnutrition Recommendations per dietary Plans underway for the placement ongoing wound care Time Spent With Patient Critical Care time: I spent a total of [] minutes of critical care time on this patient's care today; this time is exclusive of procedural time. Quality VTE Deep Vein Thrombosis/Pulmonary Embolism Present on Admission: No
[2021-06-13 16:23] VITALS: BP 134/78; PULSE 94; RESP 20; TEMP 37.2; O2SAT 97
[2021-06-13] MEDS: cefTRIAXone 2,000 MG in SODIUM CHLORIDE 0.9% 100 ML 200 ML IV (17:03)
[2021-06-13] MEDS: VANCOMYCIN 1,500 MG/300 ML PIGGYBACK 200 MG IV (17:55)
[2021-06-13 19:58] VITALS: BP 138/89; PULSE 99; RESP 16; TEMP 37.5; O2SAT 99
[2021-06-13] MEDS: SODIUM CHLORIDE 0.9% FLUSH 10 ML IV (20:09)
[2021-06-13 20:32] LABS: Procalcitonin 0.14 ng/mL (<0.5)
[2021-06-13 21:34] VITALS: TEMP 37.1
[2021-06-14] MEDS: ACETAMINOPHEN 325 MG TABLET 650 MG PO ×5 (00:19→23:50)
[2021-06-14] MEDS: OXYCODONE IR 5 MG TABLET PO ×7 (00:21→23:50)
[2021-06-14] MEDS: VANCOMYCIN 1,250 MG/250 ML PIGGYBACK 250 MG IV ×2 (04:13→17:19)
[2021-06-14 05:27] LABS: Add Manual Diff / Slide Review NO; Basophils Absolute Auto 100 /uL (0-100); Basophils Percent Auto 0.7 % (0-2); Eosinophils Absolute Auto 300 /uL (0-450); Hemoglobin 10.6 g/dL (13.5-17.5); Lymphocytes Absolute Auto 1300 /uL (1100-4500); Lymphocytes Percent Auto 13.2 % (25-40); Mean Corpuscular HGB Conc 33.2 % (30-36); Mean Corpuscular Hemoglobin 27.9 PG (26-34); Monocytes Absolute Auto 900 /uL (0-900); Monocytes Percent Auto 9.7 % (3-14); Neutrophils Absolute Auto 7000 /uL (1500-7000); Neutrophils Percent Auto 73.4 % (50-75); Platelet Count 301 X10^3/uL (150-400); Red Blood Cell Count 3.81 X10^6/uL (4.5-5.9); Red Cell Distribution Width 15.3 % (11.6-14.8); White Blood Cell Count 9.5 X10^3/uL (4.5-11.0)
[2021-06-14 05:28] LABS: BUN Creatinine Ratio 21.1 (6-22); Blood Urea Nitrogen 19 mg/dL (9-20); Calcium 8.5 mg/dL (8.4-10.2); Carbon Dioxide 33 mmol/L (22-32); Chloride 104 mmol/L (98-107); Estimated Glomerular Filt Rate > 60.0 mL/min (>60); Glucose 107 mg/dL (70-100); HEMOLYSIS < 15 (0-50); Potassium 3.9 mmol/L (3.4-5.1); Sodium 136 mmol/L (137-145)
[2021-06-14] MEDS: SODIUM CHLORIDE 0.9% FLUSH 10 ML IV ×2 (08:44→21:12)
[2021-06-14] MEDS: METOPROLOL IR 50 MG TABLET PO ×2 (08:44→20:31)
[2021-06-14] MEDS: PREGABALIN 75 MG CAPSULE 300 MG PO ×2 (08:44→20:31)
[2021-06-14 11:34] VITALS: BP 133/87; PULSE 90; RESP 18; TEMP 36.9; O2SAT 97
[2021-06-14] MEDS: ENOXAPARIN 40 MG/0.4 ML SYRINGE SUBCUT (12:22)
--- NOTE | 2021-06-14 12:57 | CM.DPC ---
Addendum entered by SAMUEL Villarreal 06/14/21 14:02: ADD: SW met bedside and explained purpose of HCS assessment tomorrow via phone at 1400 for in-home or LTC planning. SW discussed AFHs and possible options for additional support since pt's mobility issues are nursing home issues. Pt acknowledged understanding and realizes his trailer that his owns is not very feasible for setting up any lift or assist devices or for allowing CG assist in as well and therefore may need something like AFH eventually. Pt agreeable with HCS assessment tomorrow. SW also updated pt on SNF search and HCS assessment could help towards pt getting accepted at SNF for assist with d/c planning from SNF facility. SW received a call from [facility] stating not concerned with pt's d/c plan for SNF but more concerned about wound vac and wound care is too high for their current staff ratio but would be willing to re-review if pt improves and doesn't need wound vac. SW calling [facility] SNF's today if time allows. BF Original Note: DCP Cont: SW called [facility] and [facility] and left ms for both inquiring about their review to determine if either can accept and start [employer] auth process. SW also completed [facility] expedited referral for [facility]/or LTC placement and faxed for review and received a call from [facility] Janette [phone] stating she was reviewing pt's clinicals and requested additional information and SW faxed to [phone] for review. Janette states she will try to set up a time to meet bedside with pt today or tomorrow towards determining what pt qualifies and gather additional information. SW will begin calling [facility] and [facility]Fs today towards continuing to attempt SNF placement for wound care. PT/OT ordered today as pt's insurance will require eval towards SNF auth. Plan: SW to follow closely for [facility] bedside assessment for ad terminal makeup operator planning and further SNF referrals. SAMUEL Villarreal
--- NOTE | 2021-06-14 14:55 | PT.IIE ---
Current Diagnoses Unspecified open wound, left thigh, initial encounter (06/12/21) Unspecified open wound, unspecified lower leg, initial encounter (06/12/21) Surgery Performed Operation Date: 06/12/21 09:45 Actual Procedures p Debridement hip(Left) - Dedrick Valdez MD Medical History (Last Reviewed 06/12/21 @ 07:47 by Dedrick Valdez MD) Back pain Functional paraparesis Hypertension Neurogenic pain Schwannoma of spinal cord Physical Therapy Inpatient Evaluation/Re-Eval M1 PT/OT-IP Prior Functional Status Start: 06/14/21 15:46 Freq: NEEDED Status: Active Protocol: Document 06/14/21 14:55 AB (Rec: 06/14/21 16:13 AB [id number]) Medical Review Prior Functional Status Medical History Reviewed Yes Communication able to make needs known Mobility and Gait pt stated that he was modified independent with all mobilities and ambulation using a SPC/ loftstrand crutch but has gotten weak on BLE for the last 2 months and unable to ambulate. stated that he has gotten too weak that he cannot use his bed and sleeps on the floor with just a thin cushion and has been using a brief since he cannot use the toilet but able to change his brief by himself. stated that he was initially crawling on the floor to be able to move in the house but then had a sore on his knee and started to move around on his buttocks but now has a sore on his L posterior thigh area. stated that manual w/c will not fit in the house. Prior Functional Level (Other details) pt stated that he saw his neuro doctor when his BLE started to get weaker but his appointment got pushed back. stated that he was informed that he has a mass on his spine and that the neuro surgeon stated that since he has this LE weakness for 2 months and if surgery was done , it will not work and will still have that permanent damage on his LE. pt with h/o spinal masses since 2000 with h/o surgeries. Social History Household Members spouse,children,friend(s), other Living Arrangements Mobile home Number of Floors (Floors) One Floor Number of Stairs To Enter/Railing? ramp to enter Home Environment Standard Height Toilet,Tub/ Shower Home Equipment Straight Cane,Crutches,Manual Wheelchair,Shower Seat with Backrest,Hand Held Shower,Grab Bars Near Toilet,Grab Bars In Shower Additional Social History Comment has a loftstrand crutch M2 PT-IP Current Condition Start: 06/14/21 15:46 Freq: NEEDED Status: Active Protocol: Document 06/14/21 14:55 AB (Rec: 06/14/21 16:13 AB [email or web address]) Physical Therapy Current Condition Current Condition Evaluation Date 06/14/21 Treatment Diagnosis L thigh open wound; generalized weakness M3 PT-IP Subjective Start: 06/14/21 15:46 Freq: NEEDED Status: Active Protocol: Document 06/14/21 14:55 AB (Rec: 06/14/21 16:13 AB [email or web address]) Subjective Physical Therapy Visit Type Type Initial Evaluation Visit Start Time 14:55 Visit Stop Time 15:35 Total Visit Minutes 40 Number of NEUROSCIENCE SPECIALIST Visits 0 Physical Therapy Visit Comments Patient Comments agreeable to do PT Therapy Pain Assessment Pain When Pain Assessed At Rest Pain Present Pain Present Pain Reported Location Right Knee Scale Used pain scale not stated Pain Management Techniques Distraction,Modification of Treatment,Re-positioning, Timing of Activity with Medications M4 PT-IP Mobility and Gait Start: 06/14/21 15:46 Freq: NEEDED Status: Active Protocol: Document 06/14/21 14:55 AB (Rec: 06/14/21 16:13 AB [id number]) PT-Bed Mobility Assessment Supine to Sit Supine to Sit Standby Assistance,Head of Bed Elevated,Bedrails Sit to Supine Sit to Supine Maximum Assistance,1 Person Assistance,2 Person Assistance PT-Transfer Assessment Equipment Transfer Assistive Device Gait Belt,Sliding Board Orthotic/Prosthetic Devices or Brace: No Transfers Transfer Destination Bed,Chair Transfer Technique Lateral Scoot Transfer Ability Level of Assist Maximum Assistance,2 Person Assistance,Use of Upper Extremities Comments Mobility Comments pt presenting to be a paraplegic with increase flexor tone on BLE L>R. completed supine to sit SBA with HOB elevated and pt used bed rail. pt used BUE to move BLE over to EOB. CGA with sitting balance with pt using BUE to support. positioned pt next to the chair. pt stated that he had used a slide board before and stated that it will not work due to his L posterior thigh wound (has wound vac on). agreed to do transfer to chair and completed max A x 2 and max cues. decrease dynamic trunk control requiring max A x 2 to sit on chair as pt was on the edge of the chair and unable to move buttocks backwards. pt rested. opted not to have pt sit on chair too long due to wound. educated pt on safety and agreed to use slide board to get back to the bed. completed slide board transfer to bed max A x 2 and max cues. PT in front of pt blocking BLE to prevent from sliding forward and NAC assisted pt with lateral scooting. completed sit to supine max A x 1- 2 and max cues. pt needs to be cleaned up and left pt with NAC to assist pt. PT-Balance Assessment Sitting Balance and Reactions Static Sitting Balance Ability Fair Dynamic Sitting Balance Ability Poor Standing Balance and Reactions Device Used n/t M5 PT-IP Objective Assessments Start: 06/14/21 15:46 Freq: NEEDED Status: Active Protocol: Document 06/14/21 14:55 AB (Rec: 06/14/21 16:13 AB [email or web address]) Orientation Orientation/Cognition Level of Alertness Alert Orientation Name,Place,Situation Language Function Ability No Deficits Noted Safety Awareness Decreased Safety Awareness Memory Description No Deficits Noted Gross Range of Motion Lower Extremity ROM Assessment Within Functional Limits Impairments increase flexor tone noted L>R Strength Lower Extremity Strength Assessment Bilaterally Impaired Hip flexors: 2-/5 Knee 1+/5 Ankle 0/5 Sensation Assessment Sensation Gross Sensation Right LE Impaired,Left LE Impaired Light Touch Absent Proprioception (Position) Absent Comments Sensation Comments no sensation from upper thighs down to B feet Muscle Tone Muscle Tone WNL No Muscle Tone Location Bilateral Lower Extremity Type of Tone Hypotonicity Severity of Tone Severe Comments Muscle Tone Comments flexor tone during PROM L>R but overall flaccid/hypotonic Other Assessments Other Other Assessments L posterior upper thigh wound with wound vac; L knee skin ulcer M6 PT-IP Treatment Start: 06/14/21 15:46 Freq: NEEDED Status: Active Protocol: Document 06/14/21 14:55 AB (Rec: 06/14/21 16:13 AB [email or web address]) Physical Therapy Treatment Education Education Provided Safety M7 PT-IP Assessment and Plan Start: 06/14/21 15:46 Freq: NEEDED Status: Active Protocol: Document 06/14/21 14:55 AB (Rec: 06/14/21 16:13 AB [email or web address]) PT Summary Assessment and Plan Potential Rehabilitation Potential Fair Status of Condition at Evaluation Evolving Summary Impairments Pain,ROM,Strength,Balance, Coordination,Sensation,Tone, Cognition,Bed Mobility, Transfers,Gait,Activity Tolerance Assessment Summary pt requiring max A x 2 scoot/ slide board transfer and unable to stand. Pt presenting to be a paraplegic with h/o spinal masses with previous surgeries. Per EMR, pt has 2 masses on the spine and currently presenting with BLE weakness and inability to stand. Also presents with decrease trunk control affecting mobility. pt will require SNF rehab to improve mobility independence. pt lives in a mobile home and a w /c will not fit in the mobile home and will eventually require better home placement/ set up. will continue to assess progress. Goals Bed Mobility Goal Independent Transfer Goal Contact Guard Assistance,Slide Board Days to Meet Goals 10 Frequency of Treatment Frequency Of Treatment Once a Day Treatment Plan Physical Therapy Treatment Plan Bed Mobility Training,Transfer Training,Therapeutic Exercise ,Balance Retraining,Discharge Planning,Hot or Cold Pack, Neuromuscular Re-ed, Coordination Retraining,Manual Therapy Precautions Other Precautions MRSA of wound Recommendations To Nursing Amount of Assist Needed Mechanical Lift Discharge Recommendations PT Discharge Recommendations SNF Rehab Transportation Needs at Discharge Wheelchair/Cabulance
--- NOTE | 2021-06-14 15:16 | OT.IPNOTE ---
Pt working with PT, therefore to check on the pt tomorrow for OT eval.
[2021-06-14] MEDS: cefTRIAXone 2,000 MG in SODIUM CHLORIDE 0.9% 100 ML 200 ML IV (16:32)
--- NOTE | 2021-06-14 18:09 | P.PN_ITS ---
Subjective Subjective Date Patient Seen: 06/14/21 Interval history: Patient is a 45-year-old male admitted for a thigh ulcer, which underwent debridement. Patient has functional quadriplegia. Wound cultures are growing MRSA and Gram-negative rods. He has been placed on IV vancomycin and ceftriaxone Exam Vital Signs (past 8 hours): - 06/14/21 11:34 Temperature 98.4 F Pulse Rate 90 Respiratory Rate 18 Blood Pressure 133/87 Pulse Oximetry 97 Oxygen Delivery Method Room Air Oxygen Flow Rate 0 Narrative Exam Narrative: Pleasant male sitting in a chair in no obvious distress Resp Other: Lungs clear to auscultation Cardio Other: Cardiac exam: Regular rate and rhythm normal S1-S2 GI Other: Abdomen soft nontender nondistended Extrem Other: Extremity left thigh with wound VAC in place Objective Labs Result Diagrams: 06/14/21 05:00 06/14/21 05:00 Labs: Laboratory Results - last 24 hr 06/13/21 06/14/21 06/14/21 19:15 05:00 05:00 WBC 9.5 D RBC 3.81 L Hgb 10.6 L Hct 32.0 L MCV 84.0 MCH 27.9 MCHC 33.2 RDW 15.3 H Plt Count 301 Neut % (Auto) 73.4 Lymph % (Auto) 13.2 L [place] % (Auto) 9.7 Eos % (Auto) 3.0 Baso % (Auto) 0.7 Neut # (Auto) 7000 Lymph # (Auto) 1300 [place] # (Auto) 900 Eos # (Auto) 300 Baso # (Auto) 100 Sodium 136 L Potassium 3.9 Chloride 104 Carbon Dioxide 33 H BUN 19 Creatinine 0.90 Estimated GFR > 60.0 BUN/Creatinine Ratio 21.1 Glucose 107 H Calcium 8.5 Procalcitonin 0.14 PFSH Medical History Back pain Functional paraparesis Hypertension Neurogenic pain Schwannoma of spinal cord Surgical History History of spinal surgery History of tonsillectomy Family History Father CVA (cerebral vascular accident) Mother Myocardial infarct Social History household members: spouse, children, friend(s) and other Smoking Status: Current some day smoker alcohol intake: current Assessment & Plan Assessment & Plan narrative: This is a 45-year-old male with a history of spinal schwannomas and functional paraplegia who presents with large pressure ulcers on his legs caused by crawli ng around his home for the last 2 months while he has been unable to walk. Large Left Ischial/Trochanteric Pressure Ulcer, present on admission.? Active. -Consult Dr. Valdez for possible debridement, NPO after midnight -no signs of infection -patient is status post debridement, with wide excision, now with wound VAC in place -wound cultures growing Staph aureus, and Gram-negative bacilli, identification and sensitivity reveals sensitive to vancomycin and ceftriaxone -will start ceftriaxone and vancomycin, will continue in the hospital con at discharge consider switching to an oral antibiotic for his infection Multiple Lower Extremity Pressure Ulcers, present on admission.? Active. -Wound care consult if available, avoid direct/prolonged pressure Thoracic Spine Schwannomas, present on admission. Active. -continue Pregabalin for neuropathic pain -Upcoming Neurosurgery appointment with Dr. Stanley -preliminary information is that his tumors are no longer operable. Functional Paraplegia, present on admission.? Active. -Secondary to Spinal Schwannomas causing loss of LE balance/coordination Hypertension, present on admission.? Active. -continue Metoprolol Hypokalema, present on admission.? Active. -K 3.1, probably from malnourishment -40 meq PO X 1 and f/u on Patient with severe acute protein calorie malnutrition Case management to continue to work on senior care placement for ongoing wound care Time Spent With Patient Critical Care time: I spent a total of [] minutes of critical care time on this patient's care today; this time is exclusive of procedural time. Quality VTE Deep Vein Thrombosis/Pulmonary Embolism Present on Admission: No
[2021-06-14 23:38] VITALS: BP 121/74; PULSE 90; RESP 16; TEMP 36.2; O2SAT 94
[2021-06-15] MEDS: OXYCODONE IR 5 MG TABLET PO ×3 (03:44→12:49)
[2021-06-15] MEDS: VANCOMYCIN 1,250 MG/250 ML PIGGYBACK 250 MG IV ×2 (05:02→16:09)
[2021-06-15] MEDS: ACETAMINOPHEN 325 MG TABLET 650 MG PO ×3 (05:03→18:12)
[2021-06-15] MEDS: VANCOMYCIN TROUGH 1 REQUEST MISC (05:03)
[2021-06-15] MEDS: VANCOMYCIN PEAK 1 REQUEST MISC (07:05)
[2021-06-15 07:36] LABS: Vancomycin Peak 32.9 ug/mL (20-40)
[2021-06-15] MEDS: ENOXAPARIN 40 MG/0.4 ML SYRINGE SUBCUT (09:03)
[2021-06-15] MEDS: PREGABALIN 75 MG CAPSULE 300 MG PO ×2 (09:03→22:10)
[2021-06-15] MEDS: SODIUM CHLORIDE 0.9% FLUSH 10 ML IV (09:03)
[2021-06-15] MEDS: METOPROLOL IR 50 MG TABLET PO ×2 (09:03→22:13)
--- NOTE | 2021-06-15 10:29 | PT.IPTN ---
Current Diagnoses Unspecified open wound, left thigh, initial encounter (06/12/21) Unspecified open wound, unspecified lower leg, initial encounter (06/12/21) Surgery Performed Operation Date: 06/12/21 09:45 Actual Procedures p Debridement hip(Left) - Dedrick Valdez MD Physical Therapy Treatment Note M2 PT-IP Current Condition Start: 06/14/21 15:46 Freq: NEEDED Status: Active Protocol: Document 06/14/21 14:55 AB (Rec: 06/14/21 16:13 AB [id number]) Physical Therapy Current Condition Current Condition Evaluation Date 06/14/21 Treatment Diagnosis L thigh open wound; generalized weakness M3 PT-IP Subjective Start: 06/14/21 15:46 Freq: NEEDED Status: Active Protocol: Document 06/15/21 10:16 KS (Rec: 06/15/21 12:27 KS [id number]) Subjective Physical Therapy Visit Type Type Treatment Note Visit Start Time 10:16 Visit Stop Time 10:29 Total Visit Minutes 13 Number of MANAGER DOCUMENT CONTROL Visits 1 Physical Therapy Visit Comments Patient Comments agreeable to do PT M4 PT-IP Mobility and Gait Start: 06/14/21 15:46 Freq: NEEDED Status: Active Protocol: Document 06/15/21 10:16 KS (Rec: 06/15/21 12:27 KS [id number]) PT-Bed Mobility Assessment Supine to Sit Supine to Sit Standby Assistance,Head of Bed Elevated,Bedrails Scooting Scooting to Edge of Bed Moderate Assistance,Maximum Assistance PT-Transfer Assessment Equipment Transfer Assistive Device Gait Belt Orthotic/Prosthetic Devices or Brace: No Transfers Transfer Destination Chair Transfer Technique Squat Pivot Transfer Ability Level of Assist Maximum Assistance,1 Person Assistance,Use of Upper Extremities Comments Mobility Comments Pt in bed and expressing fatigue but agreeable to transfer to chair. SBA for sup <>sit w/ HOB elevated and Mod A for scooting to EOB. Pt performed squat pivot transfer from bed to chair w/ Max A and cues. Pt reported sharp pain in R knee following but subsided quicky. Pt able to perform 5x chair push ups and scoot back in chair SBA. Left in chair w/ all needs in reach. PT-Balance Assessment Sitting Balance and Reactions Static Sitting Balance Ability Fair Dynamic Sitting Balance Ability Poor Standing Balance and Reactions Device Used n/t M5 PT-IP Objective Assessments Start: 06/14/21 15:46 Freq: NEEDED Status: Active Protocol: Document 06/14/21 14:55 AB (Rec: 06/14/21 16:13 AB [id number]) Orientation Orientation/Cognition Level of Alertness Alert Orientation Name,Place,Situation Language Function Ability No Deficits Noted Safety Awareness Decreased Safety Awareness Memory Description No Deficits Noted Gross Range of Motion Lower Extremity ROM Assessment Within Functional Limits Impairments increase flexor tone noted L>R Strength Lower Extremity Strength Assessment Bilaterally Impaired Hip flexors: 2-/5 Knee 1+/5 Ankle 0/5 Sensation Assessment Sensation Gross Sensation Right LE Impaired,Left LE Impaired Light Touch Absent Proprioception (Position) Absent Comments Sensation Comments no sensation from upper thighs down to B feet Muscle Tone Muscle Tone WNL No Muscle Tone Location Bilateral Lower Extremity Type of Tone Hypotonicity Severity of Tone Severe Comments Muscle Tone Comments flexor tone during PROM L>R but overall flaccid/hypotonic Other Assessments Other Other Assessments L posterior upper thigh wound with wound vac; L knee skin ulcer M6 PT-IP Treatment Start: 06/14/21 15:46 Freq: NEEDED Status: Active Protocol: Document 06/15/21 10:16 KS (Rec: 06/15/21 12:27 KS [id number]) Physical Therapy Treatment Education Education Provided Safety Other Treatments Other Treatment Performed 5x seated chair pushups M7 PT-IP Assessment and Plan Start: 06/14/21 15:46 Freq: NEEDED Status: Active Protocol: Document 06/15/21 10:16 KS (Rec: 06/15/21 12:27 KS [id number]) PT Summary Assessment and Plan Potential Rehabilitation Potential Fair Status of Condition at Evaluation Evolving Summary Impairments Pain,ROM,Strength,Balance, Coordination,Sensation,Tone, Cognition,Bed Mobility, Transfers,Gait,Activity Tolerance Assessment Summary Pt SBA for sup<>sit, Mod A and cues for scooting EOB, and Max A w/ cues for squat pivot from bed to chair w/ knees blocked. Pt w/ increased flexor tone and knee pain following transfer. Able to complete seated chair pushups to facilitate triceps strengthening to improve ability to self transfer. He is unsafe to go home and will require SNF to improvr functional mobility independence and strength. Goals Bed Mobility Goal Independent Transfer Goal Contact Guard Assistance,Slide Board Days to Meet Goals 10 Frequency of Treatment Frequency Of Treatment Once a Day Treatment Plan Physical Therapy Treatment Plan Bed Mobility Training,Transfer Training,Therapeutic Exercise ,Balance Retraining,Discharge Planning,Hot or Cold Pack, Neuromuscular Re-ed, Coordination Retraining,Manual Therapy Precautions Other Precautions MRSA of wound Recommendations To Nursing Amount of Assist Needed Mechanical Lift Discharge Recommendations PT Discharge Recommendations SNF Rehab Transportation Needs at Discharge Wheelchair/Cabulance
--- NOTE | 2021-06-15 11:22 | CM.DPC ---
DCP Ongoing SNF planning: Per MD, pt improving but still has wound vac and per Dietary and pt report he is doing well with his Ivan and Ensure and food consumption towards healing wounds. SW called following SNF's so far: [facility]- full and no anticipated discharges [facility]- contracted and discussed pt situation and they are willing to review, faxed referral. [facility]- contracted and discussed pt situation and they are also willing to review, faxed referral. [facility]- left msg again inquiring about their review from a couple days ago. [facility]- if pt's wounds improve, then they would be willing to re-review. [facility] assessment to still take place today via phone with pt around 1400 and SW has updated above reviewing SNF's so they are aware pt is in process of getting additional services/supports in place but pt and family are also happy with d/c back to home from SNF while awaiting additional Medicaid supports. [facility] previously completed. Plan: SW to follow closely for making additional SNF referrals and check in with [facility] after bedside assessment today. Alisha Martel MSW
--- NOTE | 2021-06-15 13:38 | PC.NURSE ---
Patient A/Ox3, transferred back to bed using ginny, patient tolerated. Patient c/o pain from back down to left thigh. Controlled with Oxycodone, 5mg Q3H PO. Wound vac intact, to continuous suction. L knee dressing changed, Allyvn place. Dressing over coccyx removed with brief change, replaced with duoderm. Bilateral pedal 2+ pedal edema noted, pulses palpable and equal. SCD's removed for period while patient was up to chair. Back on. Brief changed. BT active x 4. Bed alarm on, call light in reach.
[2021-06-15 14:05] VITALS: BP 97/51; PULSE 85; RESP 18; TEMP 37.1; O2SAT 98
--- NOTE | 2021-06-15 15:50 | OT.IP.EVAL ---
Current Diagnoses Unspecified open wound, left thigh, initial encounter (06/12/21) Unspecified open wound, unspecified lower leg, initial encounter (06/12/21) Surgery Performed Operation Date: 06/12/21 09:45 Actual Procedures p Debridement hip(Left) - Dedrick Valdez MD Past Medical History (Last Reviewed 06/12/21 @ 07:47 by Dedrick Valdez MD) Back pain Functional paraparesis History of spinal surgery History of tonsillectomy Hypertension Neurogenic pain Schwannoma of spinal cord Surgical History (Last Reviewed 06/12/21 @ 07:47 by Dedrick Valdez MD) History of spinal surgery History of tonsillectomy Occupational Therapy Inpatient Evaluation/Re-Eval M1 PT/OT-IP Prior Functional Status Start: 06/14/21 15:46 Freq: NEEDED Status: Active Protocol: Document 06/15/21 18:00 [facility] (Rec: 06/15/21 18:27 [facility] [id number]) Medical Review Prior Functional Status Medical History Reviewed Yes Communication able to make needs known Mobility and Gait pt stated that he was modified independent with all mobilities and ambulation using a SPC/ loftstrand crutch but has gotten weak on BLE for the last 2 months and unable to ambulate. stated that he has gotten too weak that he cannot use his bed and sleeps on the floor with just a thin cushion and has been using a brief since he cannot use the toilet but able to change his brief by himself. stated that he was initially crawling on the floor to be able to move in the house but then had a sore on his knee and started to move around on his buttocks but now has a sore on his L posterior thigh area. stated that manual w/c will not fit in the house. Activities of Daily Living and IADL's Pt states 3 weeks ago was able to hoist himself up to the toilet to use. In addition , last weak pt staes was still able to himself up on a step and then up the to edge of the tub and slide down to the bottom of the tub in order to clean off after a bowel movement . Lately pt has just been sponging off due to weakness . Prior Functional Level (Other details) pt stated that he saw his neuro doctor when his BLE started to get weaker but his appointment got pushed back. stated that he was informed that he has a mass on his spine and that the neuro surgeon stated that since he has this LE weakness for 2 months and if surgery was done , it will not work and will still have that permanent damage on his LE. pt with h/o spinal masses since 2000 with h/o surgeries. Social History Household Members spouse,children,friend(s), other Living Arrangements Mobile home Number of Floors (Floors) One Floor Number of Stairs To Enter/Railing? ramp to enter Home Environment Standard Height Toilet,Tub/ Shower Home Equipment Straight Cane,Crutches,Manual Wheelchair,Shower Seat with Backrest,Hand Held Shower,Grab Bars Near Toilet,Grab Bars In Shower Additional Social History Comment has a loftstrand crutch M2 OT-IP Current Condition Start: 06/15/21 18:00 Freq: Status: Active Protocol: Document 06/15/21 18:00 [facility] (Rec: 06/15/21 18:27 [facility] [id number]) Occupational Therapy Current Condition Current Condition Evaluation Date 06/15/21 Treatment Diagnosis Left posterior thigh wound, left spann ulcer Diagnosis Onset Date 06/11/21 M3 OT- IP Subjective and Pain Start: 06/15/21 18:00 Freq: Status: Active Protocol: Document 06/15/21 18:00 [facility] (Rec: 06/15/21 18:27 [facility] [id number]) OT- Subjective Occupational Therapy Visit Type Type Initial Evaluation Visit Start Time 15:50 Visit Stop Time 16:12 Total Visit Minutes 22 Occupational Therapy Visit Comments Patient Comments Pt agreed to work with OT for eval. Patient/Caregiver Goals To get stronger so able to care for himself. OT Pain Assessment Pain When Pain Assessed At Rest Pain Present Pain Present Denied Pain M4 OT- IP ADL's Start: 06/15/21 18:00 Freq: Status: Active Protocol: Document 06/15/21 18:00 [facility] (Rec: 06/15/21 18:27 [facility] [id number]) OT [id number] Comments OT Self-Feeding Comments Not at meal time. OT ADL-Grooming Comments OT Grooming Comments Not performed. OT ADL-Oral Care Comments Oral Care Comments Not performed. OT ADL-Dressing General Eval Lower Body Dressing Ability Maximum Assistance Areas Needing Assistance Underpants/Brief Comments OT Dressing Comments Pt needing assist to lakia the brief underneath him and fasten in place. OT ADL-Toileting General Evaluation Toileting Ability Maximum Assistance Areas Needing Assistance Manage Clothing Comments OT Toileting Comments Pt is incontinent. OT ADL-Bathing Comments OT Bathing Comments Sponge bath more appropriate at this time. M6 OT- IP Functional Cognition Start: 06/15/21 18:00 Freq: Status: Active Protocol: Document 06/15/21 18:00 [facility] (Rec: 06/15/21 18:27 [facility] [id number]) Cognitive Factors Limiting Selfcare Function Cognitive Ability Level of Alertness Alert Patient Orientation Name,Place,Situation Attention Span Ability Capable of Focused Attention, Capable of Sustained Attention Ability to Follow Commands Able to Follow One Step Commands Cognitive Comments Cognitive Assessment Comments Pt able to follow commands for ADL and mobility needs. OT- Vision and Hearing OT- Hearing Assessment OT- Hearing Assessment WFL OT- Vision Assessment Visual Acuity Glasses All The Time M7 OT- IP Mobility and Balance Start: 06/15/21 18:00 Freq: Status: Active Protocol: Document 06/15/21 18:00 [facility] (Rec: 06/15/21 18:27 [facility] [id number]) OT- Bed Mobility Assessment Rolling Type of Rolling Bilateral Level of Assistance Standby Assistance,Bedrails OT-Transfer Assessment Comments Mobility Comments Pt not wanting to get up at this time. Pt heavy use of his arms to pull up on the grab bars to sit upright, however not able to hold himself up due to decreased core strength . Prior pt was able to sit up the toilet without use of grab bars for up to two minutes at a time. OT- Balance Assessment Sitting Balance and Reactions Static Sitting Balance Ability Poor Comments Other Balance Tests/Deviations/Treatment Pt has poor trunk control at : this time. M8 OT- IP Objective Assessments Start: 06/15/21 18:00 Freq: Status: Active Protocol: Document 06/15/21 18:00 [facility] (Rec: 06/15/21 18:27 [facility] [id number]) OT Gross Range of Motion Upper Extremity Range of Motion Assessment Within Functional Limits OT Strength Upper Extremity Strength Assessment Within Functional Limits OT-Muscle Tone Assessment Muscle Tone WNL No Muscle Tone Location Bilateral Lower Extremity Type of Tone Hypotonicity M9 OT- IP Assessment and Plan Start: 06/15/21 18:00 Freq: Status: Active Protocol: Document 06/15/21 18:00 [facility] (Rec: 06/15/21 18:27 [facility] [id number]) OT Summary Assessment and Plan Potential Rehabilitation Potential Good Analytic Complexity at Evaluation Moderate Summary OT Impairments Strength,Balance,Functional Mobility,Toilet Transfers, Shower Transfers,Activity Tolerance Progress Towards Goals Slow Progress due to Medical Issues,Slow Progress due to Activity Tolerance Assessment Summary Pt MOD complexity and main barriers are his decreased core strength, activity tolerance, and lack of proper equipment set-up at home. Pt is very motivated to get better, stronger so able to use the toilet on his own and to be able to get himself into the tub again to clean off after a bowel movement. Pt not specifically wanting to work on ADL's by means of dressing but rather would on overall strengthening of his core so able to do toileting and bathing needs on his own again. Pt would highly benefit from skilled rehab to try to improve his ADl needs and thus improve his outlook to be able to care for himself again. Goals Toilet Transfer Goal Independent Shower Transfer Goal Standby Assistance OT-Other Goals Pt to improve his core strength to be able to sit at the edge of the bed for 1 minute, to help improve his ability to use the toilet. Pt to be able to use therabands on his own for BUE strengthening. Days to Meet Goals 50 Frequency of Treatment Frequency Of Treatment Once a Day Treatment Plan OT Treatment Plan ADL Training,Functional Mobility,Patient/Family Education,Discharge Planning Other Treatment Recommendations and Next Pt to sit at edge of the bed Treatment Focus with OLGA. Discharge Recommendations OT Discharge Recommendations SNF Rehab Transportation Needs at Discharge Wheelchair/Cabulance
--- NOTE | 2021-06-15 15:51 | PM.PN.1 ---
Subjective Subjective Date Patient Seen: 06/15/21 Interval history: 45-year-old male with functional quadriplegia secondary to Schwannoma who developed significant decubitus ulcer of the left thigh. The patient underwent I and D/debridement of the ulcer, wound VAC is in place. Wound culture is growing MRSA and E coli. Patient is on IV vancomycin for the MRSA, he is switched to oral antibiotics ciprofloxacin today for the E coli. He is tolerating treatment without difficulty. He has no nausea shortness of breath or diarrhea. Exam Vital Signs (past 8 hours): - 06/15/21 14:05 Temperature 98.8 F Pulse Rate 85 Respiratory Rate 18 Blood Pressure 97/51 L Pulse Oximetry 98 Oxygen Delivery Method Room Air Oxygen Flow Rate 0 Narrative Exam Narrative: Pleasant gentleman resting comfortably in no obvious distress Resp Other: Lungs clear to auscultation Cardio Other: Cardiac exam: Regular rate rhythm normal S1-S2 with a 2/6 systolic ejection murmur GI Other: Abdomen soft nontender nondistended Extrem Other: Left thigh with wound VAC in place Objective Labs Result Diagrams: 06/14/21 05:00 06/14/21 05:00 Labs: Laboratory Results - last 24 hr 06/15/21 06/15/21 04:05 06:57 Vancomycin Peak 32.9 Vancomycin Trough 10.0 PFSH Medical History Back pain Functional paraparesis Hypertension Neurogenic pain Schwannoma of spinal cord Surgical History History of spinal surgery History of tonsillectomy Family History Father CVA (cerebral vascular accident) Mother Myocardial infarct Social History household members: spouse, children, friend(s) and other Smoking Status: Current some day smoker alcohol intake: current Assessment & Plan Assessment & Plan narrative: This is a 45-year-old male with a history of spinal schwannomas and functional paraplegia who presents with large pressure ulcers on his legs caused by crawling around his home for the last 2 months while he has been unable to walk. Large Left Ischial/Trochanteric Pressure Ulcer, present on admission.? Active. -wound culture growing Staph aureus and E coli -patient is status post debridement, with wide excision, now with wound VAC in place -continue IV vancomycin, will DC ceftriaxone, start oral ciprofloxacin, which E coli sensitive to -Multiple Lower Extremity Pressure Ulcers, present on admission.? Active. -will continue at least 7 days of antibiotics post discharge - Thoracic Spine Schwannomas, present on admission. Active. -continue Pregabalin for neuropathic pain -Upcoming Neurosurgery appointment with Dr. Stanley -preliminary information is that his tumors are no longer operable. Functional Paraplegia, present on admission.? Active. -Secondary to Spinal Schwannomas causing loss of LE balance/coordination Hypertension, present on admission.? Active. -continue Metoprolol Hypokalema, present on admission.? Active. -K 3.1, probably from malnourishment -40 meq PO X 1 and f/u on Patient with severe acute protein calorie malnutrition -appreciate dietary recommendation Await placement, social work working on short and long-term placement Discharge once placement has been arranged Time Spent With Patient Critical Care time: I spent a total of [] minutes of critical care time on this patient's care today; this time is exclusive of procedural time. Quality VTE Deep Vein Thrombosis/Pulmonary Embolism Present on Admission: No
[2021-06-15] MEDS: OXYCODONE IR 5 MG TABLET 10 MG PO ×2 (16:06→22:12)
[2021-06-15 21:15] VITALS: BP 141/84; PULSE 93; RESP 18; TEMP 36.6; O2SAT 98
[2021-06-15] MEDS: SENNOSIDES 8.6 MG TABLET 17.2 MG PO (22:12)
[2021-06-15] MEDS: CIPROFLOXACIN 250 MG TABLET 500 MG PO (22:23)
[2021-06-16] MEDS: OXYCODONE IR 5 MG TABLET 10 MG PO ×6 (02:46→23:35)
[2021-06-16] MEDS: SODIUM CHLORIDE 0.9% FLUSH 10 ML IV ×2 (02:47→09:32)
[2021-06-16] MEDS: VANCOMYCIN 1,250 MG/250 ML PIGGYBACK 250 MG IV (04:35)
[2021-06-16 05:39] VITALS: BP 126/76; PULSE 89; RESP 16; TEMP 36.6; O2SAT 97
[2021-06-16] MEDS: CIPROFLOXACIN 250 MG TABLET 500 MG PO ×2 (06:27→20:54)
[2021-06-16] MEDS: ACETAMINOPHEN 325 MG TABLET 650 MG PO ×5 (06:27→23:35)
[2021-06-16 09:25] LABS: Add Manual Diff / Slide Review NO; Basophils Absolute Auto 100 /uL (0-100); Basophils Percent Auto 0.8 % (0-2); Eosinophils Absolute Auto 300 /uL (0-450); Eosinophils Percent Auto 4.7 % (2-4); Hemoglobin 11.6 g/dL (13.5-17.5); Lymphocytes Absolute Auto 1300 /uL (1100-4500); Mean Corpuscular HGB Conc 33.2 % (30-36); Mean Corpuscular Volume 84.5 fL (80-100); Monocytes Absolute Auto 500 /uL (0-900); Monocytes Percent Auto 7.2 % (3-14); Neutrophils Absolute Auto 4900 /uL (1500-7000); Neutrophils Percent Auto 69.3 % (50-75); Platelet Count 388 X10^3/uL (150-400); Red Blood Cell Count 4.15 X10^6/uL (4.5-5.9); Red Cell Distribution Width 15.3 % (11.6-14.8); White Blood Cell Count 7.1 X10^3/uL (4.5-11.0)
[2021-06-16] MEDS: ENOXAPARIN 40 MG/0.4 ML SYRINGE SUBCUT (09:31)
[2021-06-16] MEDS: METOPROLOL IR 50 MG TABLET PO ×2 (09:32→20:21)
[2021-06-16] MEDS: PREGABALIN 75 MG CAPSULE 300 MG PO ×2 (09:32→20:21)
[2021-06-16 09:38] LABS: Alanine Aminotransferase 22 IU/L (<50); Albumin 3.5 g/dL (3.5-5.0); Albumin Globulin Ratio 1.2 (1.0-2.8); Alkaline Phosphatase 59 U/L (38-126); Aspartate Aminotransferase 24 IU/L (17-59); BUN Creatinine Ratio 26.8 (6-22); Bilirubin Total 0.2 mg/dL (0.2-1.3); Blood Urea Nitrogen 26 mg/dL (9-20); Calcium 9.1 mg/dL (8.4-10.2); Carbon Dioxide 35 mmol/L (22-32); Chloride 99 mmol/L (98-107); Estimated Glomerular Filt Rate > 60.0 mL/min (>60); Glucose 153 mg/dL (70-100); HEMOLYSIS < 15 (0-50); Potassium 3.9 mmol/L (3.4-5.1); Sodium 139 mmol/L (137-145); Total Protein 6.5 g/dL (6.3-8.2)
--- NOTE | 2021-06-16 12:06 | PT.IPTN ---
Current Diagnoses Unspecified open wound, left thigh, initial encounter (06/12/21) Unspecified open wound, unspecified lower leg, initial encounter (06/12/21) Surgery Performed Operation Date: 06/12/21 09:45 Actual Procedures p Debridement hip(Left) - Dedrick Valdez MD Physical Therapy Treatment Note M2 PT-IP Current Condition Start: 06/14/21 15:46 Freq: NEEDED Status: Active Protocol: Document 06/14/21 14:55 AB (Rec: 06/14/21 16:13 AB [id number]) Physical Therapy Current Condition Current Condition Evaluation Date 06/14/21 Treatment Diagnosis L thigh open wound; generalized weakness M3 PT-IP Subjective Start: 06/14/21 15:46 Freq: NEEDED Status: Active Protocol: Document 06/16/21 11:45 KS (Rec: 06/16/21 14:50 KS [id number]) Subjective Physical Therapy Visit Type Type Treatment Note Visit Start Time 11:45 Visit Stop Time 12:06 Total Visit Minutes 21 Notes co-treat OT Number of TOOL SUPERVISOR Visits 2 Physical Therapy Visit Comments Patient Comments agreeable to do PT M4 PT-IP Mobility and Gait Start: 06/14/21 15:46 Freq: NEEDED Status: Active Protocol: Document 06/16/21 11:45 KS (Rec: 06/16/21 14:50 KS [id number]) PT-Bed Mobility Assessment Scooting Scooting to Edge of Bed Contact Guard Assistance PT-Transfer Assessment Equipment Transfer Assistive Device Gait Belt,Sliding Board Orthotic/Prosthetic Devices or Brace: No Transfers Transfer Destination Bed,Chair Transfer Technique Slide board transfer Transfer Ability Level of Assist Minimal Assistance,Moderate Assistance,2 Person Assistance ,Use of Upper Extremities Comments Mobility Comments Pt sitting up in bed upon arrival. CGA and cues for scooting EOB. Pt w/ difficulty maintaining seated balance EOB w/ core and requires upper extremities for balance. Loses stability when sitting and reaching also. Pt agreeable to complete slide board transfer to chair and prefers R side. Min A x2 and cues for sequencing and hand placement for slide board from bed to chair. Pt agreeable to try transfer back to bed to L . Mod A x2 for slide board back to bed, more diffiult to L side and inclined to bed. Pt performed final slide board transfer back to chair w/ Min A and cues. He then performed 6x chair pushups and left reclined in chair w/ all needs in reach. Gait Assessment Comments Gait Comments Unable to ambulate PT-Balance Assessment Sitting Balance and Reactions Static Sitting Balance Ability Poor Dynamic Sitting Balance Ability Poor Standing Balance and Reactions Device Used n/t M5 PT-IP Objective Assessments Start: 06/14/21 15:46 Freq: NEEDED Status: Active Protocol: Document 06/14/21 14:55 AB (Rec: 06/14/21 16:13 AB [id number]) Orientation Orientation/Cognition Level of Alertness Alert Orientation Name,Place,Situation Language Function Ability No Deficits Noted Safety Awareness Decreased Safety Awareness Memory Description No Deficits Noted Gross Range of Motion Lower Extremity ROM Assessment Within Functional Limits Impairments increase flexor tone noted L>R Strength Lower Extremity Strength Assessment Bilaterally Impaired Hip flexors: 2-/5 Knee 1+/5 Ankle 0/5 Sensation Assessment Sensation Gross Sensation Right LE Impaired,Left LE Impaired Light Touch Absent Proprioception (Position) Absent Comments Sensation Comments no sensation from upper thighs down to B feet Muscle Tone Muscle Tone WNL No Muscle Tone Location Bilateral Lower Extremity Type of Tone Hypotonicity Severity of Tone Severe Comments Muscle Tone Comments flexor tone during PROM L>R but overall flaccid/hypotonic Other Assessments Other Other Assessments L posterior upper thigh wound with wound vac; L knee skin ulcer M6 PT-IP Treatment Start: 06/14/21 15:46 Freq: NEEDED Status: Active Protocol: Document 06/16/21 11:45 KS (Rec: 06/16/21 14:50 [facility] [id number]) Physical Therapy Treatment Education Education Provided Safety Other Treatments Other Treatment Performed 6x seated chair pushups M7 PT-IP Assessment and Plan Start: 06/14/21 15:46 Freq: NEEDED Status: Active Protocol: Document 06/16/21 11:45 KS (Rec: 06/16/21 14:50 [facility] [id number]) PT Summary Assessment and Plan Potential Rehabilitation Potential Fair Status of Condition at Evaluation Evolving Summary Impairments Pain,ROM,Strength,Balance, Coordination,Sensation,Tone, Cognition,Bed Mobility, Transfers,Gait,Activity Tolerance Assessment Summary Pt showed improvement w/ mobility and activity tolerance today. He was able to perform 3x slide board transfers. Min A x2 for transfer to R and Mod A x2 for transfer to L. Pt slightly impulsive requiring cues for safety and hand placement and sequencing. Good effort with UE strengthening exercises. He is unsafe to return home due to amount of assistance required and will require SNF to improve functional mobility independence. Goals Bed Mobility Goal Independent Transfer Goal Contact Guard Assistance,Slide Board Days to Meet Goals 10 Frequency of Treatment Frequency Of Treatment Once a Day Treatment Plan Physical Therapy Treatment Plan Bed Mobility Training,Transfer Training,Therapeutic Exercise ,Balance Retraining,Discharge Planning,Hot or Cold Pack, Neuromuscular Re-ed, Coordination Retraining,Manual Therapy Other Recommendations and Next Treatment Teach nursing staff slide Focus board Precautions Other Precautions MRSA of wound Recommendations To Nursing Amount of Assist Needed Mechanical Lift Discharge Recommendations PT Discharge Recommendations SNF Rehab Transportation Needs at Discharge Wheelchair/Cabulance
--- NOTE | 2021-06-16 12:06 | OT.IP.TRT ---
Current Diagnoses Unspecified open wound, left thigh, initial encounter (06/12/21) Unspecified open wound, unspecified lower leg, initial encounter (06/12/21) Surgery Performed Operation Date: 06/12/21 09:45 Actual Procedures p Debridement hip(Left) - Dedrick Valdez MD Occupational Therapy Treatment Note M2 OT-IP Current Condition Start: 06/15/21 18:00 Freq: Status: Active Protocol: Document 06/15/21 18:00 [facility] (Rec: 06/15/21 18:27 [facility] [id number]) Occupational Therapy Current Condition Current Condition Evaluation Date 06/15/21 Treatment Diagnosis Left posterior thigh wound, left spann ulcer Diagnosis Onset Date 06/11/21 M3 OT- IP Subjective and Pain Start: 06/15/21 18:00 Freq: Status: Active Protocol: Document 06/16/21 12:22 [facility] (Rec: 06/16/21 12:44 [facility] [id number]) OT- Subjective Occupational Therapy Visit Type Type Treatment Note Visit Start Time 11:45 Visit Stop Time 12:06 Total Visit Minutes 21 Occupational Therapy Visit Comments Patient Comments Pt agreed to get up. Patient/Caregiver Goals To go to skilled rehab. OT Pain Assessment Pain When Pain Assessed During Mobility Pain Present Pain Present Pain Reported M4 OT- IP ADL's Start: 06/15/21 18:00 Freq: Status: Active Protocol: Document 06/16/21 12:22 [facility] (Rec: 06/16/21 12:44 [facility] [id number]) OT ADL-Oral Care General Eval Oral Care Ability Standby Assistance Comments Oral Care Comments Pt needing to hold to the table for his balance while seated on the edge of the bed with to rinse his mouth out . OT ADL-Dressing General Eval Lower Body Dressing Ability Maximum Assistance Areas Needing Assistance Underpants/Brief Comments OT Dressing Comments Pt needing assist to lakia the brief underneath him and fasten in place. M6 OT- IP Functional Cognition Start: 06/15/21 18:00 Freq: Status: Active Protocol: Document 06/16/21 12:22 [facility] (Rec: 06/16/21 12:44 [facility] [id number]) Cognitive Factors Limiting Selfcare Function Cognitive Comments Cognitive Assessment Comments Pt is a bit impulsive and needing to think things through, as pt trying to use sliding board with therapists ended up bumping his left hip on the armrest of the recliner . M7 OT- IP Mobility and Balance Start: 06/15/21 18:00 Freq: Status: Active Protocol: Document 06/16/21 12:22 [facility] (Rec: 06/16/21 12:44 [facility] [id number]) OT- Bed Mobility Assessment Supine to Sit Supine to Sit Assist Standby Assistance,Bedrails OT-Transfer Assessment Transfers Transfer Ability Minimal Assistance,Moderate Assistance,2 Person Assistance Technique Transfer Destination Bed,Chair Transfer Technique Lateral Scoot Devices Transfer Assistive Devices Sliding Board Comments Mobility Comments OLGA x2 to the right with wide sliding board and MODA x2 to the left. Pt able to use his BUE to assist to scoot over but needing assist to transfer to the left as needing assist to help keep his legs in place. OT- Balance Assessment Sitting Balance and Reactions Static Sitting Balance Ability Poor Dynamic Sitting Balance Ability Poor Comments Other Balance Tests/Deviations/Treatment Pt needing OLGA to maintain : sitting balance and able to sit upright for a few seconds without assist of his hands. M8 OT- IP Objective Assessments Start: 06/15/21 18:00 Freq: Status: Active Protocol: Document 06/15/21 18:00 [facility] (Rec: 06/15/21 18:27 [facility] [id number]) OT Gross Range of Motion Upper Extremity Range of Motion Assessment Within Functional Limits OT Strength Upper Extremity Strength Assessment Within Functional Limits OT-Muscle Tone Assessment Muscle Tone WNL No Muscle Tone Location Bilateral Lower Extremity Type of Tone Hypotonicity M9 OT- IP Assessment and Plan Start: 06/15/21 18:00 Freq: Status: Active Protocol: Document 06/16/21 12:22 [facility] (Rec: 06/16/21 12:44 [facility] [id number]) OT Summary Assessment and Plan Potential Rehabilitation Potential Good Analytic Complexity at Evaluation Moderate Summary OT Impairments Strength,Balance,Functional Mobility,Toilet Transfers, Shower Transfers,Activity Tolerance Progress Towards Goals Progressing Toward Goals Assessment Summary Pt able to tolerate transfer with sliding board however not consistent for nursing to do at this time , especially if going to the left. Pt is very motivated, cooperative to get stronger so able to do more for himself. Goals Toilet Transfer Goal Independent Shower Transfer Goal Standby Assistance OT-Other Goals Pt to improve his core strength to be able to sit at the edge of the bed for 1 minute, to help improve his ability to use the toilet. Pt to be able to use therabands on his own for BUE strengthening. Days to Meet Goals 49 Frequency of Treatment Frequency Of Treatment Once a Day Treatment Plan OT Treatment Plan ADL Training,Functional Mobility,Patient/Family Education,Discharge Planning Other Treatment Recommendations and Next Pt to sit unsupported for 15 Treatment Focus seconds. Discharge Recommendations OT Discharge Recommendations SNF Rehab Transportation Needs at Discharge Wheelchair/Cabulance
--- NOTE | 2021-06-16 13:07 | CM.DPNOTE ---
[facility]ed [facility], and emailed [facility] SN[facility] packet. Candy Stark CM Assist.
[2021-06-16 13:14] VITALS: BP 124/63; PULSE 89; RESP 18; TEMP 36.3; O2SAT 98
--- NOTE | 2021-06-16 14:06 | CM.DPNOTE ---
Addendum entered by SAMUEL Richards 06/17/21 15:02: ADD: [facility] Can't meet his needs right now. [facility] beds are not accepting referrals outside of [facility]. VELIA Original Note: Placement Efforts Reviewed chart; requested that MABEL Gupta fax the following: [facility] [place] [facility] -[facility], PH: [phone] still reviewing and will not have an answer over the weekend -[facility] MV left an additional msg 3.4.22 [phone] -[facility], PH: [phone], left msg 3.4.22 This is Saturday 3.4.22, trying to secure a facility placement, [facility] Spoke w/ Maryanne [facility] [employer] P# [phone] who expects to have patient's LTC assessment completed Saturday, at which time she will email completed assessment to MABEL Nolan
--- NOTE | 2021-06-16 17:23 | P.PN_ITS ---
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 The patient underwent I and D/debridement of the ulcer, wound VAC is in place.? Wound culture is growing MRSA and E coli.? Patient is on IV vancomycin for the MRSA, he is switched to oral antibiotics ciprofloxacin for the E coli.? He is tolerating treatment without difficulty. Exam Vital Signs (past 8 hours): - 06/16/21 13:14 Temperature 97.4 F L Pulse Rate 89 Respiratory Rate 18 Blood Pressure 124/63 Pulse Oximetry 98 Oxygen Delivery Method Room Air Oxygen Flow Rate 0 Narrative Exam Narrative: General: Patient is alert sitting in chair and eating, NAD Objective Labs Result Diagrams: 06/16/21 08:55 06/16/21 08:55 Labs: Laboratory Results - last 24 hr 06/16/21 06/16/21 08:55 08:55 WBC 7.1 RBC 4.15 L Hgb 11.6 L Hct 35.0 L MCV 84.5 MCH 28.0 MCHC 33.2 RDW 15.3 H Plt Count 388 Neut % (Auto) 69.3 Lymph % (Auto) 18.0 L Rush % (Auto) 7.2 Eos % (Auto) 4.7 H Baso % (Auto) 0.8 Neut # (Auto) 4900 Lymph # (Auto) 1300 Rush # (Auto) 500 Eos # (Auto) 300 Baso # (Auto) 100 Sodium 139 Potassium 3.9 Chloride 99 Carbon Dioxide 35 H BUN 26 H Creatinine 0.97 Estimated GFR > 60.0 BUN/Creatinine Ratio 26.8 H Glucose 153 H Calcium 9.1 Total Bilirubin 0.2 AST 24 ALT 22 Alkaline Phosphatase 59 Total Protein 6.5 Albumin 3.5 Globulin 3.0 Albumin/Globulin Ratio 1.2 [facility] Medical History Back pain Functional paraparesis Hypertension Neurogenic pain Schwannoma of spinal cord Surgical History History of spinal surgery History of tonsillectomy Family History Father CVA (cerebral vascular accident) Mother Myocardial infarct Social History household members: spouse, children, friend(s) and other Smoking Status: Current some day smoker alcohol intake: current Assessment & Plan Assessment & Plan narrative: This is a 45-year-old male with a history of spinal schwannomas and functional paraplegia who presents with large pressure ulcers on his legs caused by crawling around his home for the last 2 months while he has been unable to walk. Large Left Ischial/Trochanteric Pressure Ulcer, present on admission.? Active. -wound culture growing MRSA and E coli -patient is status post debridement, with wide excision, now with wound VAC in place -continue IV vancomycin, will DC ceftriaxone, start oral ciprofloxacin, which E coli sensitive to -Multiple Lower Extremity Pressure Ulcers, present on admission.? Active. -will continue at least 7 days of antibiotics post discharge - Thoracic Spine Schwannomas, present on admission. Active. -continue Pregabalin for neuropathic pain -Upcoming Neurosurgery appointment with Dr. Stanley -preliminary information is that his tumors are no longer operable. Functional Paraplegia, present on admission.? Active. -Secondary to Spinal Schwannomas causing loss of LE balance/coordination Hypertension, present on admission.? Active. -continue Metoprolol Hypokalema, present on admission.? Active. -corrected Patient with severe acute protein calorie malnutrition -appreciate dietary recommendation Await placement, social work working on short and long-term placement Discharge once placement has been arranged Time Spent With Patient Critical Care time: I spent a total of [] minutes of critical care time on this patient's care today; this time is exclusive of procedural time. Quality VTE Deep Vein Thrombosis/Pulmonary Embolism Present on Admission: No
[2021-06-16] MEDS: VANCOMYCIN 1,250 MG/250 ML PIGGYBACK 200 MG IV (19:03)
[2021-06-16 20:26] VITALS: BP 132/78; PULSE 82; RESP 20; TEMP 36.6; O2SAT 95
[2021-06-17 00:47] VITALS: BP 144/60; PULSE 73; RESP 16; TEMP 36.8; O2SAT 97
[2021-06-17] MEDS: OXYCODONE IR 5 MG TABLET 10 MG PO ×5 (04:13→20:09)
[2021-06-17 04:26] VITALS: BP 124/67; PULSE 82; RESP 16; TEMP 36.8; O2SAT 98
[2021-06-17] MEDS: ACETAMINOPHEN 325 MG TABLET 650 MG PO ×3 (05:19→17:54)
[2021-06-17 08:28] LABS: Vancomycin Trough 10.3 ug/mL (10-20)
[2021-06-17] MEDS: PREGABALIN 75 MG CAPSULE 300 MG PO ×2 (08:44→20:09)
[2021-06-17] MEDS: CIPROFLOXACIN 250 MG TABLET 500 MG PO ×2 (08:44→20:09)
[2021-06-17] MEDS: ENOXAPARIN 40 MG/0.4 ML SYRINGE SUBCUT (08:46)
[2021-06-17] MEDS: METOPROLOL IR 50 MG TABLET PO ×2 (08:46→20:09)
[2021-06-17] MEDS: VANCOMYCIN 1,250 MG/250 ML PIGGYBACK 200 MG IV (08:48)
[2021-06-17] MEDS: VANCOMYCIN TROUGH 1 REQUEST MISC (09:00)
[2021-06-17] MEDS: SODIUM CHLORIDE 0.9% FLUSH 10 ML IV ×2 (09:01→20:10)
[2021-06-17 10:21] VITALS: BP 137/88; PULSE 91; RESP 16; TEMP 36.6; O2SAT 96
--- NOTE | 2021-06-17 11:23 | OT.IP.TRT ---
Current Diagnoses Unspecified open wound, left thigh, initial encounter (06/12/21) Unspecified open wound, unspecified lower leg, initial encounter (06/12/21) Surgery Performed Operation Date: 06/12/21 09:45 Actual Procedures p Debridement hip(Left) - Dedrick Valdez MD Occupational Therapy Treatment Note M2 OT-IP Current Condition Start: 06/15/21 18:00 Freq: Status: Active Protocol: Document 06/15/21 18:00 [facility] (Rec: 06/15/21 18:27 [facility] [id number]) Occupational Therapy Current Condition Current Condition Evaluation Date 06/15/21 Treatment Diagnosis Left posterior thigh wound, left spann ulcer Diagnosis Onset Date 06/11/21 M3 OT- IP Subjective and Pain Start: 06/15/21 18:00 Freq: Status: Active Protocol: Document 06/17/21 10:45 [facility] (Rec: 06/17/21 12:27 [facility] [id number]) OT- Subjective Occupational Therapy Visit Type Type Treatment Note Visit Start Time 10:45 Visit Stop Time 11:23 Total Visit Minutes 38 Occupational Therapy Visit Comments Patient Comments Pt agreed to work with OT. Patient/Caregiver Goals TO go to skilled rehab. OT Pain Assessment Pain When Pain Assessed At Rest Pain Present Pain Present Denied Pain M4 OT- IP ADL's Start: 06/15/21 18:00 Freq: Status: Active Protocol: Document 06/17/21 10:45 [facility] (Rec: 06/17/21 12:27 [facility] [id number]) OT [id number] Comments OT Self-Feeding Comments Not at meal time. OT ADL-Grooming General Evaluation Grooming Ability Standby Assistance Comments OT Grooming Comments Pt able to wash his face while doing long sitting in the bed . OT ADL-Oral Care General Eval Oral Care Ability Standby Assistance Comments Oral Care Comments Able to rinse his mouth during long sitting in the bed . OT ADL-Dressing General Eval Lower Body Dressing Ability Moderate Assistance Areas Needing Assistance Underpants/Brief Comments OT Dressing Comments Pt able to assist with brief management while in bed. OT ADL-Toileting General Evaluation Toileting Ability Moderate Assistance Areas Needing Assistance Manage Clothing Comments OT Toileting Comments Encouraged pt to do skin hygiene after brief change and pt states at home does not do his hygiene daily. Stressed the importance to stay clean. OT ADL-Bathing Comments OT Bathing Comments Sponge bath more appropriate at this time. M6 OT- IP Functional Cognition Start: 06/15/21 18:00 Freq: Status: Active Protocol: Document 06/17/21 10:45 [facility] (Rec: 06/17/21 12:27 [facility] [id number]) Cognitive Factors Limiting Selfcare Function Cognitive Ability Level of Alertness Alert Patient Orientation Name,Place,Situation Attention Span Ability Capable of Focused Attention, Capable of Sustained Attention Ability to Follow Commands Able to Follow Multi-Step Commands Cognitive Comments Cognitive Assessment Comments Pt able to follow multiple command. Intact M7 OT- IP Mobility and Balance Start: 06/15/21 18:00 Freq: Status: Active Protocol: Document 06/17/21 10:45 [facility] (Rec: 06/17/21 12:27 [facility] [id number]) OT- Balance Assessment Sitting Balance and Reactions Static Sitting Balance Ability Fair Dynamic Sitting Balance Ability Poor Comments Other Balance Tests/Deviations/Treatment Able to work on long sitting : in the bed for sitting balance and able to sit upright with hands on his chest for 1 min, 2 min and then able to reach out of base of support to wash his wash and rinse his mouth for 1 min each. Pt able to have good safety for set-up in bed of body positioning and to be able to work on static sitting balance. OT able to show nursing of static sitting balance that pt can do while in the bed on his own. Nurse in agreement to allow pt to do his sitting balance in the bed on his own. Pt able to put the side rails up on his own and had the head of the bed up at 45 degrees or more and then use of his trunk core to pull forwards into long sitting. Pt able to adjust his legs and make sure the wound vac tubing is out of the way. M8 OT- IP Objective Assessments Start: 06/15/21 18:00 Freq: Status: Active Protocol: Document 06/15/21 18:00 [facility] (Rec: 06/15/21 18:27 [facility] [id number]) OT Gross Range of Motion Upper Extremity Range of Motion Assessment Within Functional Limits OT Strength Upper Extremity Strength Assessment Within Functional Limits OT-Muscle Tone Assessment Muscle Tone WNL No Muscle Tone Location Bilateral Lower Extremity Type of Tone Hypotonicity M9 OT- IP Assessment and Plan Start: 06/15/21 18:00 Freq: Status: Active Protocol: Document 06/17/21 10:45 [facility] (Rec: 06/17/21 12:27 [facility] [id number]) OT Summary Assessment and Plan Potential Rehabilitation Potential Good Analytic Complexity at Evaluation Moderate Summary OT Impairments Strength,Balance,Functional Mobility,Toilet Transfers, Shower Transfers,Activity Tolerance Progress Towards Goals Progressing Toward Goals Assessment Summary Pt able to work on long sitting in the bed for sitting balance of 1 and 2 minutes with his arms on his chest and also able to reach out with his arms for ADl needs of washing his face and rinsing his mouth to help improve his core strength. Able to clear with his nurse, Jeanne, that he is able to work on his sitting balance in the bed on his own with safety precaution of both rail up and the head on the bed up and behind him. Pt would greatly benefit from skilled rehab. Goals Dressing Goal Minimal Assistance Toilet Transfer Goal Independent Shower Transfer Goal Standby Assistance OT-Other Goals Pt to improve his core strength to be able to sit at the edge of the bed for 1 minute, to help improve his ability to use the toilet. Pt to be able to use therabands on his own for BUE strengthening. Days to Meet Goals 38 Frequency of Treatment Frequency Of Treatment Once a Day Treatment Plan OT Treatment Plan ADL Training,Functional Mobility,Patient/Family Education,Discharge Planning Discharge Recommendations OT Discharge Recommendations SNF Rehab Transportation Needs at Discharge Wheelchair/Cabulance
[2021-06-17] MEDS: DOXYCYCLINE HYCLATE 100 MG TABLET PO ×2 (11:31→20:10)
--- NOTE | 2021-06-17 11:54 | PT.IPTN ---
Current Diagnoses Unspecified open wound, left thigh, initial encounter (06/12/21) Unspecified open wound, unspecified lower leg, initial encounter (06/12/21) Surgery Performed Operation Date: 06/12/21 09:45 Actual Procedures p Debridement hip(Left) - Dedrick Valdez MD Physical Therapy Treatment Note M2 PT-IP Current Condition Start: 06/14/21 15:46 Freq: NEEDED Status: Active Protocol: Document 06/14/21 14:55 AB (Rec: 06/14/21 16:13 AB [id number]) Physical Therapy Current Condition Current Condition Evaluation Date 06/14/21 Treatment Diagnosis L thigh open wound; generalized weakness M3 PT-IP Subjective Start: 06/14/21 15:46 Freq: NEEDED Status: Active Protocol: Document 06/17/21 11:35 KS (Rec: 06/17/21 13:05 KS [id number]) Subjective Physical Therapy Visit Type Type Treatment Note Visit Start Time 11:35 Visit Stop Time 11:54 Total Visit Minutes 19 Number of [place] Visits 3 Physical Therapy Visit Comments Patient Comments agreeable to do PT, but reporting fatigue from recent OT treatment. M4 PT-IP Mobility and Gait Start: 06/14/21 15:46 Freq: NEEDED Status: Active Protocol: Document 06/17/21 11:35 KS (Rec: 06/17/21 13:05 KS [id number]) PT-Bed Mobility Assessment Supine to Sit Supine to Sit Standby Assistance,Head of Bed Elevated,Bedrails Scooting Scooting to Edge of Bed Standby Assistance PT-Transfer Assessment Equipment Transfer Assistive Device Gait Belt,Sliding Board Orthotic/Prosthetic Devices or Brace: No Transfers Transfer Destination Chair Transfer Technique Slide board transfer Transfer Ability Level of Assist Contact Guard Assistance, Minimal Assistance,1 Person Assistance,Use of Upper Extremities Comments Mobility Comments Pt in bed upon arrival and agreeable to transfer to chair . SBA for sup<>sit and scooting EOB w/ HOB elevated and use of bed rails. Good sitting balance while EOB. sldie board placed and pt able to scoot onto slide board CGA . Pt w/ improve awareness of steps and less impulsivity. Pt completed slide board transfer from bed to chair w/ CGA to Min A and min cues. Pt then performed 10 chair pushups. Left in chair w/ all needs in reach. Gait Assessment Comments Gait Comments Unable to ambulate PT-Balance Assessment Sitting Balance and Reactions Static Sitting Balance Ability Fair Dynamic Sitting Balance Ability Poor Standing Balance and Reactions Device Used n/t M5 PT-IP Objective Assessments Start: 06/14/21 15:46 Freq: NEEDED Status: Active Protocol: Document 06/14/21 14:55 AB (Rec: 06/14/21 16:13 AB [id number]) Orientation Orientation/Cognition Level of Alertness Alert Orientation Name,Place,Situation Language Function Ability No Deficits Noted Safety Awareness Decreased Safety Awareness Memory Description No Deficits Noted Gross Range of Motion Lower Extremity ROM Assessment Within Functional Limits Impairments increase flexor tone noted L>R Strength Lower Extremity Strength Assessment Bilaterally Impaired Hip flexors: 2-/5 Knee 1+/5 Ankle 0/5 Sensation Assessment Sensation Gross Sensation Right LE Impaired,Left LE Impaired Light Touch Absent Proprioception (Position) Absent Comments Sensation Comments no sensation from upper thighs down to B feet Muscle Tone Muscle Tone WNL No Muscle Tone Location Bilateral Lower Extremity Type of Tone Hypotonicity Severity of Tone Severe Comments Muscle Tone Comments flexor tone during PROM L>R but overall flaccid/hypotonic Other Assessments Other Other Assessments L posterior upper thigh wound with wound vac; L knee skin ulcer M6 PT-IP Treatment Start: 06/14/21 15:46 Freq: NEEDED Status: Active Protocol: Document 06/17/21 11:35 KS (Rec: 06/17/21 13:05 KS [id number]) Physical Therapy Treatment Education Education Provided Safety Other Treatments Other Treatment Performed 10x seated chair pushups. Discussed SB transfer w/ ASSISTANT COMMUNITY MANAGER and informed ginny still safer at this time and can assist w / slide board transfer if needing help or if pt prefers that method when getting back into bed. M7 PT-IP Assessment and Plan Start: 06/14/21 15:46 Freq: NEEDED Status: Active Protocol: Document 06/17/21 11:35 KS (Rec: 06/17/21 13:05 KS [id number]) PT Summary Assessment and Plan Potential Rehabilitation Potential Fair Status of Condition at Evaluation Evolving Summary Impairments Pain,ROM,Strength,Balance, Coordination,Sensation,Tone, Cognition,Bed Mobility, Transfers,Gait,Activity Tolerance Assessment Summary Pt making progress w/ mobility but still requiring assist and cues and is limited by weakness. Able to complete slide board transfer CGA to Min A and cues and complete 10 chair pushups to improve UE strength for ease of transfers . Pt still requiring cues for sequencing, but overall improving w/ mobility and very willing to participate. Will require SNF to improve functional mobility independence. Goals Bed Mobility Goal Independent Transfer Goal Contact Guard Assistance,Slide Board Days to Meet Goals 10 Frequency of Treatment Frequency Of Treatment Once a Day Treatment Plan Physical Therapy Treatment Plan Bed Mobility Training,Transfer Training,Therapeutic Exercise ,Balance Retraining,Discharge Planning,Hot or Cold Pack, Neuromuscular Re-ed, Coordination Retraining,Manual Therapy Other Recommendations and Next Treatment Teach nursing staff slide Focus board, slide board back into bed. Precautions Other Precautions MRSA of wound Recommendations To Nursing Amount of Assist Needed Mechanical Lift Discharge Recommendations PT Discharge Recommendations SNF Rehab Transportation Needs at Discharge Wheelchair/Cabulance
--- NOTE | 2021-06-17 15:03 | CM.DPNOTE ---
Placement Update Attempted [facility] facilities today; [facility] staff over weekend -[facility] Will not take [facility] not take [facility] -[facility] [place]/admissions says unsure they will accept [employer]; call Saturday (Billing in office) -[facility] No admissions today, Saturday. -. [facility] Patient must be boosted, he is double vaxed not boosted -[facility] No [employer]ana -[place] ? [facility] On hold indefinitely Will attempt [place] facilities Saturday. Most likely, admissions staffing will return Saturday JW
--- NOTE | 2021-06-17 15:06 | CM.DPNOTE ---
Placement Update [facility] SNFs are as follows: -[facility] left an addtl. msg 06.16.21 [id number]. 06.17.21 have not heard back after multiple attempts, Katherine/admissions returns next week -[facility]- not contracted with [facility] - [facility]- not currently taking [employer] pts at this time -[facility] - Need to contact Saturday -[facility]- [place] -[facility]- not contracted with [facility] -[facility]- if pt's wounds improve, then they would be willing to re-review JW
--- NOTE | 2021-06-17 15:15 | P.PN_ITS ---
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 The patient underwent I and D/debridement of the ulcer, wound VAC is in place.? Wound culture grew MRSA and E coli.? He is very cooperative and tolerating treatments. Vancomycin discontinued and patient started on oral doxycycline today for MRSA He is continued on oral Cipro for E coli. Exam Vital Signs (past 8 hours): - 06/17/21 10:21 Temperature 97.9 F Pulse Rate 91 H Respiratory Rate 16 Blood Pressure 137/88 Pulse Oximetry 96 Oxygen Delivery Method Room Air Oxygen Flow Rate 0 Narrative Exam Narrative: General: Very pleasant male in no acute distress There is wound VAC on large left hip. The surrounding tissue Objective Labs Result Diagrams: 06/16/21 08:55 06/16/21 08:55 Labs: Laboratory Results - last 24 hr 06/17/21 06/17/21 04:03 07:42 Vancomycin Trough 13.0 10.3 PFSH Medical History Back pain Functional paraparesis Hypertension Neurogenic pain Schwannoma of spinal cord Surgical History History of spinal surgery History of tonsillectomy Family History Father CVA (cerebral vascular accident) Mother Myocardial infarct Social History household members: spouse, children, friend(s) and other Smoking Status: Current some day smoker alcohol intake: current Assessment & Plan Assessment & Plan narrative: This is a 45-year-old male with a history of spinal schwannomas and functional paraplegia who presents with large pressure ulcers on his legs caused by crawling around his home for the last 2 months while he has been unable to walk. 1. Large Left Ischial/Trochanteric Pressure Ulcer, present on admission.? Acti ve. -wound culture growing MRSA and E coli -patient is status post debridement, with wide excision, now with wound VAC in place -continue doxycycline and Cipro by mouth, stopped vancomycin 5 -Multiple other Lower Extremity Pressure Ulcers, present on admission.? Active. -will continue at least 7 days of oral antibiotics post discharge -continue PT/OT 2. Thoracic Spine Schwannomas, present on admission. Active. -continue Pregabalin for neuropathic pain -Upcoming Neurosurgery appointment with Dr. Stanley -preliminary information is that his tumors are no longer operable. 3. Functional Paraplegia, present on admission.? Active. -Secondary to Spinal Schwannomas causing loss of LE balance/coordination 4. Hypertension, present on admission.? Active. -continue Metoprolol 5. Hypokalema, present on admission.? Active. -corrected 6. Patient with severe acute protein calorie malnutrition -appreciate dietary recommendation Await placement, social work working on short and long-term placement Discharge once placement has been arranged Time Spent With Patient Critical Care time: I spent a total of [] minutes of critical care time on this patient's care today; this time is exclusive of procedural time. Quality VTE Deep Vein Thrombosis/Pulmonary Embolism Present on Admission: No
[2021-06-17 20:06] VITALS: BP 120/68; PULSE 91; RESP 16; TEMP 36.6; O2SAT 96
[2021-06-18] MEDS: OXYCODONE IR 5 MG TABLET 10 MG PO ×6 (00:23→22:34)
[2021-06-18] MEDS: ACETAMINOPHEN 325 MG TABLET 650 MG PO ×4 (00:24→18:54)
[2021-06-18 03:15] VITALS: BP 113/72; PULSE 82; RESP 16; TEMP 36.6; O2SAT 96
[2021-06-18] MEDS: CIPROFLOXACIN 250 MG TABLET 500 MG PO ×2 (06:42→20:36)
[2021-06-18 09:46] VITALS: BP 127/70; PULSE 87; RESP 14; TEMP 36.5; O2SAT 98
[2021-06-18] MEDS: DOXYCYCLINE HYCLATE 100 MG TABLET PO ×2 (10:07→20:36)
[2021-06-18] MEDS: PREGABALIN 75 MG CAPSULE 300 MG PO ×2 (10:08→20:36)
[2021-06-18] MEDS: METOPROLOL IR 50 MG TABLET PO ×2 (10:09→20:36)
[2021-06-18] MEDS: ENOXAPARIN 40 MG/0.4 ML SYRINGE SUBCUT (10:09)
[2021-06-18] MEDS: SODIUM CHLORIDE 0.9% FLUSH 10 ML IV ×2 (10:09→22:35)
--- NOTE | 2021-06-18 12:46 | PM.PN.1 ---
Subjective Subjective Date Patient Seen: 06/18/21 Interval history: 45-year-old male with functional quadriplegia secondary to Schwannoma who developed significant decubitus ulcer of the left hip.? The patient underwent I and D/debridement of the ulcer, wound VAC is in place.? Wound culture grew MRSA and E coli.? He is very cooperative and tolerating treatments. Patient has no new complaints. He has been ready for discharge since Saturday awaiting placement. He is on oral antibiotics. Exam Vital Signs (past 8 hours): - 06/18/21 09:46 Temperature 97.7 F Pulse Rate 87 Respiratory Rate 14 Blood Pressure 127/70 Pulse Oximetry 98 Oxygen Delivery Method Room Air Oxygen Flow Rate 0 Narrative Exam Narrative: General: NAD, alert and cooperative Extremities: Appearance of left hip wound unchanged with wound VAC in place Objective Labs Result Diagrams: 06/16/21 08:55 06/16/21 08:55 [facility] Medical History Back pain Functional paraparesis Hypertension Neurogenic pain Schwannoma of spinal cord Surgical History History of spinal surgery History of tonsillectomy Family History Father CVA (cerebral vascular accident) Mother Myocardial infarct Social History household members: spouse, children, friend(s) and other Smoking Status: Current some day smoker alcohol intake: current Assessment & Plan Assessment & Plan narrative: This is a 45-year-old male with a history of spinal schwannomas and functional paraplegia who presents with large pressure ulcers on his legs caused by crawling around his home for the last 2 months while he has been unable to walk. 1. Large Left Ischial/Trochanteric Pressure Ulcer, present on admission.? Active. -wound culture growing MRSA and E coli -patient is status post debridement, with wide excision, now with wound VAC in place -continue doxycycline and Cipro by mouth, stopped vancomycin 06/17 -Multiple other Lower Extremity Pressure Ulcers, present on admission.? Active. -will continue at least 7 days on oral antibiotics -continue PT/OT 2. Thoracic Spine Schwannomas, present on admission. Active. -continue Pregabalin for neuropathic pain -Upcoming Neurosurgery appointment with Dr. Stanley -preliminary information is that his tumors are no longer operable. 3. Functional Paraplegia, present on admission.? Active. -Secondary to Spinal Schwannomas causing loss of LE balance/coordination 4. Hypertension, present on admission.? Active. -continue Metoprolol 5. Hypokalema, present on admission.? Active. -corrected 6. Patient with severe acute protein calorie malnutrition -appreciate dietary recommendation Await placement, social work working on short and long-term placement Discharge once placement has been arranged Time Spent With Patient Critical Care time: I spent a total of [] minutes of critical care time on this patient's care today; this time is exclusive of procedural time. Quality VTE Deep Vein Thrombosis/Pulmonary Embolism Present on Admission: No
--- NOTE | 2021-06-18 14:53 | PT.IPTN ---
Current Diagnoses Unspecified open wound, left thigh, initial encounter (06/12/21) Unspecified open wound, unspecified lower leg, initial encounter (06/12/21) Surgery Performed Operation Date: 06/12/21 09:45 Actual Procedures p Debridement hip(Left) - Dedrick Valdez MD Physical Therapy Treatment Note M2 PT-IP Current Condition Start: 06/14/21 15:46 Freq: NEEDED Status: Active Protocol: Document 06/14/21 14:55 AB (Rec: 06/14/21 16:13 AB [id number]) Physical Therapy Current Condition Current Condition Evaluation Date 06/14/21 Treatment Diagnosis L thigh open wound; generalized weakness M3 PT-IP Subjective Start: 06/14/21 15:46 Freq: NEEDED Status: Active Protocol: Document 06/18/21 14:53 AW (Rec: 06/18/21 15:02 AW [id number]) Subjective Physical Therapy Visit Type Type Treatment Note Visit Start Time 14:32 Visit Stop Time 14:51 Total Visit Minutes 19 Number of CONSTRUCTION SKILLS TEACHER Visits 0 Physical Therapy Visit Comments Patient Comments Pt is willing to participate with PT M4 PT-IP Mobility and Gait Start: 06/14/21 15:46 Freq: NEEDED Status: Active Protocol: Document 06/18/21 14:53 AW (Rec: 06/18/21 15:02 AW [id number]) PT-Bed Mobility Assessment Rolling Type of Rolling Bilateral Level of Assist Contact Guard Assistance Supine to Sit Supine to Sit Standby Assistance,Head of Bed Elevated,Bedrails Scooting Scooting to Edge of Bed Standby Assistance PT-Transfer Assessment Equipment Transfer Assistive Device Gait Belt,Sliding Board Orthotic/Prosthetic Devices or Brace: No Transfers Transfer Destination Chair Transfer Technique Slide board transfer Transfer Ability Level of Assist Minimal Assistance,1 Person Assistance,Use of Upper Extremities Comments Mobility Comments Pt was lying in bed as PT arrived. PT assisted pt to roll side to side for briefs change by RN. He completed supine to sit SBA and scooted toward R EOB SBA. PT placed slide board on chair to pt's right and pt was able to place opposite end under his pelvis with cues only. Min A for slide board transfer and verbal cues for sequencing. Pt was able to scoot himself back on the chair for positioning. Pt left with legs elevated, call light and tray table in reach. Gait Assessment Comments Gait Comments Unable to ambulate PT-Balance Assessment Sitting Balance and Reactions Static Sitting Balance Ability Fair Dynamic Sitting Balance Ability Poor M5 PT-IP Objective Assessments Start: 06/14/21 15:46 Freq: NEEDED Status: Active Protocol: Document 06/14/21 14:55 AB (Rec: 06/14/21 16:13 AB [id number]) Orientation Orientation/Cognition Level of Alertness Alert Orientation Name,Place,Situation Language Function Ability No Deficits Noted Safety Awareness Decreased Safety Awareness Memory Description No Deficits Noted Gross Range of Motion Lower Extremity ROM Assessment Within Functional Limits Impairments increase flexor tone noted L>R Strength Lower Extremity Strength Assessment Bilaterally Impaired Hip flexors: 2-/5 Knee 1+/5 Ankle 0/5 Sensation Assessment Sensation Gross Sensation Right LE Impaired,Left LE Impaired Light Touch Absent Proprioception (Position) Absent Comments Sensation Comments no sensation from upper thighs down to B feet Muscle Tone Muscle Tone WNL No Muscle Tone Location Bilateral Lower Extremity Type of Tone Hypotonicity Severity of Tone Severe Comments Muscle Tone Comments flexor tone during PROM L>R but overall flaccid/hypotonic Other Assessments Other Other Assessments L posterior upper thigh wound with wound vac; L knee skin ulcer M6 PT-IP Treatment Start: 06/14/21 15:46 Freq: NEEDED Status: Active Protocol: Document 06/18/21 14:53 AW (Rec: 06/18/21 15:02 AW [id number]) Physical Therapy Treatment Education Education Provided Safety M7 PT-IP Assessment and Plan Start: 06/14/21 15:46 Freq: NEEDED Status: Active Protocol: Document 06/18/21 14:53 AW (Rec: 06/18/21 15:02 AW [email or web address]) PT Summary Assessment and Plan Summary Impairments Pain,ROM,Strength,Balance, Coordination,Sensation,Tone, Cognition,Bed Mobility, Transfers,Gait,Activity Tolerance Assessment Summary Pt is able to complete slide board transfer with min assist and verbal cues. Nursing was present for slide board transfer but did not need to assist. Continue to recommend ginny for return to bed. Pt remains limited by weakness but shows good effort with all activities. He will require SNF rehab to improve strength and mobility independence. Goals Bed Mobility Goal Independent Transfer Goal Contact Guard Assistance,Slide Board Days to Meet Goals 10 Frequency of Treatment Frequency Of Treatment Once a Day Treatment Plan Physical Therapy Treatment Plan Bed Mobility Training,Transfer Training,Therapeutic Exercise ,Balance Retraining,Discharge Planning,Hot or Cold Pack, Neuromuscular Re-ed, Coordination Retraining,Manual Therapy Other Recommendations and Next Treatment Teach nursing staff slide Focus board, slide board back into bed. Precautions Other Precautions MRSA of wound Recommendations To Nursing Amount of Assist Needed Mechanical Lift Discharge Recommendations PT Discharge Recommendations SNF Rehab Transportation Needs at Discharge Wheelchair/Cabulance
[2021-06-18 19:11] VITALS: PULSE 87; RESP 16; O2SAT 98
[2021-06-19] MEDS: ACETAMINOPHEN 325 MG TABLET 650 MG PO ×5 (00:08→23:30)
[2021-06-19] MEDS: OXYCODONE IR 5 MG TABLET 10 MG PO ×6 (02:52→22:21)
[2021-06-19 05:57] VITALS: BP 127/85; PULSE 80; RESP 16; TEMP 36.1; O2SAT 98
[2021-06-19] MEDS: CIPROFLOXACIN 250 MG TABLET 500 MG PO ×2 (06:13→20:32)
[2021-06-19 07:17] VITALS: O2SAT 98
[2021-06-19] MEDS: PREGABALIN 75 MG CAPSULE 300 MG PO ×2 (09:16→20:32)
[2021-06-19] MEDS: DOXYCYCLINE HYCLATE 100 MG TABLET PO ×2 (09:16→20:33)
[2021-06-19] MEDS: METOPROLOL IR 50 MG TABLET PO ×2 (09:16→20:33)
[2021-06-19] MEDS: ENOXAPARIN 40 MG/0.4 ML SYRINGE SUBCUT (09:16)
--- NOTE | 2021-06-19 09:25 | CM.DPNOTE ---
[facility] per [facility]. Candy Stark CM Assist.
[2021-06-19 09:39] VITALS: BP 130/85; PULSE 89; RESP 19; TEMP 36.3; O2SAT 97
[2021-06-19] MEDS: SODIUM CHLORIDE 0.9% FLUSH 10 ML IV ×2 (10:18→20:33)
--- NOTE | 2021-06-19 11:54 | OT.IP.TRT ---
Current Diagnoses Unspecified open wound, left thigh, initial encounter (06/12/21) Unspecified open wound, unspecified lower leg, initial encounter (06/12/21) Surgery Performed Operation Date: 06/12/21 09:45 Actual Procedures p Debridement hip(Left) - Dedrick Valdez MD Occupational Therapy Treatment Note M2 OT-IP Current Condition Start: 06/15/21 18:00 Freq: Status: Active Protocol: Document 06/15/21 18:00 [facility] (Rec: 06/15/21 18:27 CCC [id number]) Occupational Therapy Current Condition Current Condition Evaluation Date 06/15/21 Treatment Diagnosis Left posterior thigh wound, left spann ulcer Diagnosis Onset Date 06/11/21 M3 OT- IP Subjective and Pain Start: 06/15/21 18:00 Freq: Status: Active Protocol: Document 06/19/21 16:08 [facility] (Rec: 06/19/21 16:15 CGR [id number]) OT- Subjective Occupational Therapy Visit Type Type Progress Note Visit Start Time 11:30 Visit Stop Time 11:54 Total Visit Minutes 24 Notes P.T. entered at end of session . OT Pain Assessment Pain When Pain Assessed At Rest Pain Present Pain Present Pain Reported Location Left Thigh Scale Used did not rate Management Techniques Timing of Activity with Medications M4 OT- IP ADL's Start: 06/15/21 18:00 Freq: Status: Active Protocol: Document 06/19/21 16:08 CGR (Rec: 06/19/21 16:15 CGR [id number]) OT [id number] Comments OT Self-Feeding Comments not yet meal time OT ADL-Grooming General Evaluation Grooming Ability Standby Assistance Areas Needing Assistance Retrieving/Set-up of Grooming Items,Combing/Brushing Hair, Face Washing Comments OT Grooming Comments seated EOB OT ADL-Oral Care General Eval Oral Care Ability Standby Assistance Comments Oral Care Comments use of mouth wash OT ADL-Dressing Comments OT Dressing Comments not performed OT ADL-Toileting Comments OT Toileting Comments pt declined need OT ADL-Bathing Bathing Type Bathing Type Sponge Bath General Evaluation Bathing Ability Standby Assistance Areas Needing Assistance Retrieving/Setting Up Items Comments OT Bathing Comments Pt performed upper body sponge bath while working on sitting balance EOB M6 OT- IP Functional Cognition Start: 06/15/21 18:00 Freq: Status: Active Protocol: Document 06/17/21 10:45 [facility] (Rec: 06/17/21 12:27 [facility] [id number]) Cognitive Factors Limiting Selfcare Function Cognitive Ability Level of Alertness Alert Patient Orientation Name,Place,Situation Attention Span Ability Capable of Focused Attention, Capable of Sustained Attention Ability to Follow Commands Able to Follow Multi-Step Commands Cognitive Comments Cognitive Assessment Comments Pt able to follow mulitple command. Intact M7 OT- IP Mobility and Balance Start: 06/15/21 18:00 Freq: Status: Active Protocol: Document 06/19/21 16:08 [facility] (Rec: 06/19/21 16:15 [facility] [id number]) OT- Bed Mobility Assessment Supine to Sit Supine to Sit Assist Standby Assistance Sit to Supine Sit to Supine Assist Standby Assistance Scooting Scooting to Edge of Bed Standby Assistance OT-Transfer Assessment Comments Mobility Comments not performed OT- Gait Assessment Comments Gait Ability Comments not performed OT- Balance Assessment Sitting Balance and Reactions Static Sitting Balance Ability Fair Dynamic Sitting Balance Ability Fair M8 OT- IP Objective Assessments Start: 06/15/21 18:00 Freq: Status: Active Protocol: Document 06/15/21 18:00 [facility] (Rec: 06/15/21 18:27 [facility] [id number]) OT Gross Range of Motion Upper Extremity Range of Motion Assessment Within Functional Limits OT Strength Upper Extremity Strength Assessment Within Functional Limits OT-Muscle Tone Assessment Muscle Tone WNL No Muscle Tone Location Bilateral Lower Extremity Type of Tone Hypotonicity M9 OT- IP Assessment and Plan Start: 06/15/21 18:00 Freq: Status: Active Protocol: Document 06/19/21 16:08 [facility] (Rec: 06/19/21 16:15 [facility] [id number]) OT Summary Assessment and Plan Potential Rehabilitation Potential Good Analytic Complexity at Evaluation Moderate Summary OT Impairments Strength,Balance,Functional Mobility,Toilet Transfers, Shower Transfers,Activity Tolerance Progress Towards Goals Progressing Toward Goals Assessment Summary Pt requests to work on sitting balance EOB and is agreeable to washing up. Pt then participates in reaching activities to further test balance. Pt was able to catch himself if he lost his balance by using his arms. Pt will continue to benefit from OT services to address deficits. Goals Dressing Goal Minimal Assistance Toilet Transfer Goal Independent Shower Transfer Goal Standby Assistance OT-Other Goals Pt to improve his core strength to be able to sit at the edge of the bed for 1 minute, to help improve his ability to use the toilet. Pt to be able to use therabands on his own for BUE strengthening. Days to Meet Goals 38 Frequency of Treatment Frequency Of Treatment Once a Day Treatment Plan OT Treatment Plan ADL Training,Functional Mobility,Patient/Family Education,Discharge Planning Other Treatment Recommendations and Next Pt to sit unsupprted for 15 Treatment Focus seconds. Discharge Recommendations OT Discharge Recommendations SNF Rehab Transportation Needs at Discharge Wheelchair/Cabulance
--- NOTE | 2021-06-19 12:03 | PT.IPTN ---
Current Diagnoses Unspecified open wound, left thigh, initial encounter (06/12/21) Unspecified open wound, unspecified lower leg, initial encounter (06/12/21) Surgery Performed Operation Date: 06/12/21 09:45 Actual Procedures p Debridement hip(Left) - Dedrick Valdez MD Physical Therapy Treatment Note M2 PT-IP Current Condition Start: 06/14/21 15:46 Freq: NEEDED Status: Active Protocol: Document 06/14/21 14:55 AB (Rec: 06/14/21 16:13 AB [id number]) Physical Therapy Current Condition Current Condition Evaluation Date 06/14/21 Treatment Diagnosis L thigh open wound; generalized weakness M3 PT-IP Subjective Start: 06/14/21 15:46 Freq: NEEDED Status: Active Protocol: Document 06/19/21 11:49 KS (Rec: 06/19/21 13:59 KS [id number]) Subjective Physical Therapy Visit Type Type Treatment Note Visit Start Time 11:49 Visit Stop Time 12:03 Total Visit Minutes 14 Number of METAL GAUGE MAKER Visits 1 Physical Therapy Visit Comments Patient Comments Pt is willing to participate with PT M4 PT-IP Mobility and Gait Start: 06/14/21 15:46 Freq: NEEDED Status: Active Protocol: Document 06/19/21 11:49 KS (Rec: 06/19/21 13:59 KS [id number]) PT-Bed Mobility Assessment Supine to Sit Supine to Sit Standby Assistance,Head of Bed Elevated,Bedrails Scooting Scooting to Edge of Bed Standby Assistance PT-Transfer Assessment Equipment Transfer Assistive Device Gait Belt,Sliding Board Orthotic/Prosthetic Devices or Brace: No Transfers Transfer Destination Chair Transfer Technique Slide board transfer Transfer Ability Level of Assist Contact Guard Assistance, Minimal Assistance,1 Person Assistance,Use of Upper Extremities Comments Mobility Comments Pt in bed finishing treatment w/ OT but agreeable to transfer to chair for lunch. Pt SBA for sup<>sit and scooting EOB. AIRPORT TRAFFIC CONTROLLER called in to learn slide board for future transfers. Pt able to scoot himself onto slide board and perform slide board transfer from bed to chair CGA and cues for sequencing and hand placement. Pt refused further therapy due to fatigue from previous treatment. Gait Assessment Comments Gait Comments Unable to ambulate PT-Balance Assessment Sitting Balance and Reactions Static Sitting Balance Ability Fair Dynamic Sitting Balance Ability Poor Standing Balance and Reactions Device Used n/t M5 PT-IP Objective Assessments Start: 06/14/21 15:46 Freq: NEEDED Status: Active Protocol: Document 06/14/21 14:55 AB (Rec: 06/14/21 16:13 AB [id number]) Orientation Orientation/Cognition Level of Alertness Alert Orientation Name,Place,Situation Language Function Ability No Deficits Noted Safety Awareness Decreased Safety Awareness Memory Description No Deficits Noted Gross Range of Motion Lower Extremity ROM Assessment Within Functional Limits Impairments increase flexor tone noted L>R Strength Lower Extremity Strength Assessment Bilaterally Impaired Hip flexors: 2-/5 Knee 1+/5 Ankle 0/5 Sensation Assessment Sensation Gross Sensation Right LE Impaired,Left LE Impaired Light Touch Absent Proprioception (Position) Absent Comments Sensation Comments no sensation from upper thighs down to B feet Muscle Tone Muscle Tone WNL No Muscle Tone Location Bilateral Lower Extremity Type of Tone Hypotonicity Severity of Tone Severe Comments Muscle Tone Comments flexor tone during PROM L>R but overall flaccid/hypotonic Other Assessments Other Other Assessments L posterior upper thigh wound with wound vac; L knee skin ulcer M6 PT-IP Treatment Start: 06/14/21 15:46 Freq: NEEDED Status: Active Protocol: Document 06/19/21 11:49 KS (Rec: 06/19/21 13:59 KS [id number]) Physical Therapy Treatment Education Education Provided Safety M7 PT-IP Assessment and Plan Start: 06/14/21 15:46 Freq: NEEDED Status: Active Protocol: Document 06/19/21 11:49 KS (Rec: 06/19/21 13:59 KS [id number]) PT Summary Assessment and Plan Summary Impairments Pain,ROM,Strength,Balance, Coordination,Sensation,Tone, Cognition,Bed Mobility, Transfers,Gait,Activity Tolerance Assessment Summary Pt showing some improvement and able to completed sup<>sit and scooting to EOB SBA and CGA for slide board transfer from bed into chair. AIRPORT TRAFFIC CONTROLLER observed for pt furture transfers, but pt agreeable to transfers back to bed w/ nursing staff will be ginny for now. Will continue to progress. Pt will require SNF to improve functional mobility independence and strength. Goals Bed Mobility Goal Independent Transfer Goal Contact Guard Assistance,Slide Board Days to Meet Goals 10 Frequency of Treatment Frequency Of Treatment Once a Day Treatment Plan Physical Therapy Treatment Plan Bed Mobility Training,Transfer Training,Therapeutic Exercise ,Balance Retraining,Discharge Planning,Hot or Cold Pack, Neuromuscular Re-ed, Coordination Retraining,Manual Therapy Other Recommendations and Next Treatment Teach nursing staff slide Focus board, slide board back into bed. Precautions Other Precautions MRSA of wound Recommendations To Nursing Amount of Assist Needed Mechanical Lift Discharge Recommendations PT Discharge Recommendations SNF Rehab Transportation Needs at Discharge Wheelchair/Cabulance
--- NOTE | 2021-06-19 12:09 | PC.NURSE ---
Addendum entered by Aggie Tabor R.N. 06/19/21 19:07: Patient given oxycodone around 1800, he is resting comfortably. Addendum entered by Aggie Tabor R.N. 06/19/21 16:27: Janette from home/community services called for an update on patients wounds and what we are doing for dressings. Patient can move from side to side independently but does not lay on his l.side much do to wound vac placement. Addendum entered by Aggie Tabor R.N. 06/19/21 15:16: Patient back to bed and he was given oxycodone for pain. Asking for a snack now, he is comfortable and wound vac continues to run at 125mmg of suction. Resting comfortably. Original Note: Assess- Patient is alert and oriented x3. He states that he has some lesions in his back that are pressing upon his spinal cord and this has caused him to be paralyzed. He has multiple pressures ulcers to his l.hip, which has a wound vac going, dressing is intact without any leakage. He also has a wound to his l.knee and bilateral feet/ankle wounds. The two foot ulcer dressings have been changed and are cdi. Patient also has a couple of soars on his toes, that look like he bumped something when trying to move around. He is up in the chair now, and used slider board to transfer. Eating his lunch.
--- NOTE | 2021-06-19 12:24 | PM.PN.1 ---
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 The patient underwent I and D/debridement of the ulcer, wound VAC is in place.? Wound culture grew MRSA and E coli.? He is very cooperative and tolerating treatments. Patient has no new complaints.? He has been ready for discharge since Saturday awaiting placement.? He is on oral antibiotics. Exam Vital Signs (past 8 hours): - 06/19/21 05:57 06/19/21 07:17 06/19/21 09:39 Temperature 97.0 F L 97.4 F L Pulse Rate 80 89 Respiratory Rate 16 19 Blood Pressure 127/85 130/85 Pulse Oximetry 98 98 97 Oxygen Delivery Method Room Air Oxygen Flow Rate 0 Narrative Exam Narrative: General: NAD, alert and cooperative Extremities:? left hip wound with vac in place, serosanguinous output, minimal erythema, non-tender. No edema. Objective Labs Result Diagrams: 06/16/21 08:55 06/16/21 08:55 [facility] Medical History Back pain Functional paraparesis Hypertension Neurogenic pain Schwannoma of spinal cord Surgical History History of spinal surgery History of tonsillectomy Family History Father CVA (cerebral vascular accident) Mother Myocardial infarct Social History household members: spouse, children, friend(s) and other Smoking Status: Current some day smoker alcohol intake: current Assessment & Plan Assessment & Plan narrative: This is a 45-year-old male with a history of spinal schwannomas and functional paraplegia who presents with large pressure ulcers on his legs caused by crawling around his home for the last 2 months while he has been unable to walk. 1. Large Left Ischial/Trochanteric Pressure Ulcer, present on admission.? Active. -wound culture growing MRSA and E coli -patient is status post debridement, with wide excision, now with wound VAC in place -continue doxycycline and Cipro by mouth, stopped vancomycin 06/17 -Multiple other Lower Extremity Pressure Ulcers, present on admission.? Active. -will continue at least 7 days on oral antibiotics, possible longer. -continue PT/OT 2. Thoracic Spine Schwannomas, present on admission. Active. -continue Pregabalin for neuropathic pain -Upcoming Neurosurgery appointment with Dr. Stanley -preliminary information is that his tumors are no longer operable. 3. Functional Paraplegia, present on admission.? Active. -Secondary to Spinal Schwannomas causing loss of LE balance/coordination 4. Hypertension, present on admission.? Active. -continue Metoprolol 5. Hypokalema, present on admission.? Active. -corrected 6. Patient with severe acute protein calorie malnutrition -appreciate dietary recommendation Await placement, social work working on short and long-term placement Discharge once placement has been arranged Time Spent With Patient Critical Care time: I spent a total of [] minutes of critical care time on this patient's care today; this time is exclusive of procedural time. Quality VTE Deep Vein Thrombosis/Pulmonary Embolism Present on Admission: No
--- NOTE | 2021-06-19 14:56 | CM.DPC ---
Ongoing SNF attempts: Per MD, pt continues to have wound vac for undetermined amount of time. Per RN, pt's wound care is quite minimal and not extensive. NITHIN spoke to pt's [facility] SW Janette [phone] and she confirms that she is close to completing his [facility] application but just faxed 3 consents for pt to sign and that he needs to complete the Medicaid LTC application that she faxed as well. Once she finalizes pt's [facility] assessment then she will provide a copy to NITHIN. NITHIN discussed with Janette the barriers to SNF placement and potential that if pt progresses enough to not need SNF level of care a chance he may need to d/c home while awaiting LTC placement/options. NITHIN met bedside with pt and provided him with the [facility] consents and he signed them and then also completed the LTC application and NITHIN and LIYA Gupta faxed back to Janette at [facility]. Previous SW attempted [facility] SNF's over the weekend and either full or not contracted with [employer]. NITHIN called [facility] and spoke to Katherine and updated on pt status and since she was on vacation last week requested referral be faxed again with updated notes and SW faxed to [facility]. Elaina still willing to review again if pt continues to improve with his wounds (might be worth calling Elaina Navarro again in a day or two and provide update as pt's wound care not difficult) NITHIN attempted following [facility]: [facility]- no answer or vm for admissions today [facility]- no admissions staff today, requested SW call again tomorrow Tues. Ramy- we don't seem to have the right number [facility]- left ms [facility] [place]- wrong number, supposed to be central intake number but staff didn't know it. [facility]- still full [facility]- reviewed, have concerns about pt's d/c plan. Tried to relieve their fears, they will review as a team and call back. Plan: SW to continue following for [facility] and [facility] review and then calling Elaina Navarro again to update on pt's minimal wound care needs. SW to follow for completion of [facility] LTC assessment. Pt may have to d/c back home if no facility can accept once wounds have improved or begin attempting Assisted living/adult family homes?? SAMUEL Villarreal
[2021-06-19 20:06] VITALS: BP 103/53; PULSE 84; RESP 18; TEMP 36.6; O2SAT 96
[2021-06-19 22:18] VITALS: O2SAT 98
[2021-06-20] VITALS (8 sets, daily range): BP systolic 105–131; BP diastolic 53–80; PULSE 72–84; RESP 16–18; TEMP 36.4–37.2; O2SAT 95–99
--- NOTE | 2021-06-20 02:25 | PC.NURSE ---
Dressing to left hip became compromised and lost suction. Dressing changed, wound vac is suctioning. Patient sleeping at this time.
[2021-06-20] MEDS: OXYCODONE IR 5 MG TABLET 10 MG PO ×5 (02:56→20:44)
[2021-06-20] MEDS: ACETAMINOPHEN 325 MG TABLET 650 MG PO ×3 (05:08→23:17)
[2021-06-20] MEDS: PREGABALIN 75 MG CAPSULE 300 MG PO ×2 (09:00→20:44)
[2021-06-20] MEDS: CIPROFLOXACIN 250 MG TABLET 500 MG PO ×2 (09:00→21:06)
[2021-06-20] MEDS: METOPROLOL IR 50 MG TABLET PO ×2 (09:00→20:45)
[2021-06-20] MEDS: ENOXAPARIN 40 MG/0.4 ML SYRINGE SUBCUT (09:00)
[2021-06-20] MEDS: DOXYCYCLINE HYCLATE 100 MG TABLET PO ×2 (09:00→20:45)
--- NOTE | 2021-06-20 09:41 | PC.NURSE ---
Addendum entered by Aggie Tabor R.N. 06/20/21 19:04: late entry- Patients wound vac is suctioning 125mm. Please ignore the note about 150mm. Patient given oxycodone and resting Original Note: Assess- Patient is alert and oriented x4, he was given 10mg of percolone for complaints of 8/10 pain. Patient has a wound vac to his l.hip/buttock with suction going at 150mm. Dressing was changed in the deck lid fitter and is cdi without any leakage. Patient is able to adjust himself in bed. He lays on his back and right side as wound vac dressing is on l.side. Patient is paraplegic from the waste down and is a ginny lift or uses slider board. He ate well at breakfast and is comfortable now.
--- NOTE | 2021-06-20 10:57 | PT.IPTN ---
Current Diagnoses Unspecified open wound, left thigh, initial encounter (06/12/21) Unspecified open wound, unspecified lower leg, initial encounter (06/12/21) Surgery Performed Operation Date: 06/12/21 09:45 Actual Procedures p Debridement hip(Left) - Dedrick Valdez MD Physical Therapy Treatment Note M2 PT-IP Current Condition Start: 06/14/21 15:46 Freq: NEEDED Status: Active Protocol: Document 06/14/21 14:55 AB (Rec: 06/14/21 16:13 AB [id number]) Physical Therapy Current Condition Current Condition Evaluation Date 06/14/21 Treatment Diagnosis L thigh open wound; generalized weakness M3 PT-IP Subjective Start: 06/14/21 15:46 Freq: NEEDED Status: Active Protocol: Document 06/20/21 10:40 KS (Rec: 06/20/21 11:56 KS [id number]) Subjective Physical Therapy Visit Type Type Treatment Note Visit Start Time 10:40 Visit Stop Time 10:57 Total Visit Minutes 17 Number of PATROL POLICE SERGEANT Visits 2 Physical Therapy Visit Comments Patient Comments Pt is willing to participate with PT M4 PT-IP Mobility and Gait Start: 06/14/21 15:46 Freq: NEEDED Status: Active Protocol: Document 06/20/21 10:40 KS (Rec: 06/20/21 11:56 KS [id number]) PT-Bed Mobility Assessment Supine to Sit Supine to Sit Standby Assistance,Head of Bed Elevated,Bedrails Scooting Scooting to Edge of Bed Standby Assistance PT-Transfer Assessment Equipment Transfer Assistive Device Gait Belt,Sliding Board Orthotic/Prosthetic Devices or Brace: No Transfers Transfer Destination Chair Transfer Technique Slide board transfer Transfer Ability Level of Assist Maximum Assistance,1 Person Assistance,Use of Upper Extremities Comments Mobility Comments Pt in bed upon arrival and reporting leg stiffness but agreeable to participate. SBA for sup<>sit and scooting EOB. Pt performed ~2 min seated balance exercises including sit and reach and perturbations. Pt utlizing UE occasionally when LOB. He then performed slide board transfer to chair but require Max A today due to slight impulsiveness and slide board moving with him resulting in need for squat pivot Max A. Pt not agreeable to further therapy and left in chair w/ all needs in reach. Gait Assessment Comments Gait Comments Unable to ambulate PT-Balance Assessment Sitting Balance and Reactions Static Sitting Balance Ability Fair Dynamic Sitting Balance Ability Poor M5 PT-IP Objective Assessments Start: 06/14/21 15:46 Freq: NEEDED Status: Active Protocol: Document 06/14/21 14:55 AB (Rec: 06/14/21 16:13 AB [id number]) Orientation Orientation/Cognition Level of Alertness Alert Orientation Name,Place,Situation Language Function Ability No Deficits Noted Safety Awareness Decreased Safety Awareness Memory Description No Deficits Noted Gross Range of Motion Lower Extremity ROM Assessment Within Functional Limits Impairments increase flexor tone noted L>R Strength Lower Extremity Strength Assessment Bilaterally Impaired Hip flexors: 2-/5 Knee 1+/5 Ankle 0/5 Sensation Assessment Sensation Gross Sensation Right LE Impaired,Left LE Impaired Light Touch Absent Proprioception (Position) Absent Comments Sensation Comments no sensation from upper thighs down to B feet Muscle Tone Muscle Tone WNL No Muscle Tone Location Bilateral Lower Extremity Type of Tone Hypotonicity Severity of Tone Severe Comments Muscle Tone Comments flexor tone during PROM L>R but overall flaccid/hypotonic Other Assessments Other Other Assessments L posterior upper thigh wound with wound vac; L knee skin ulcer M6 PT-IP Treatment Start: 06/14/21 15:46 Freq: NEEDED Status: Active Protocol: Document 06/20/21 10:40 KS (Rec: 06/20/21 11:56 KS [id number]) Physical Therapy Treatment Education Education Provided Safety Other Treatments Other Treatment Performed Seated balance - sit and reach and perturbations M7 PT-IP Assessment and Plan Start: 06/14/21 15:46 Freq: NEEDED Status: Active Protocol: Document 06/20/21 10:40 KS (Rec: 06/20/21 11:56 KS [id number]) PT Summary Assessment and Plan Summary Impairments Pain,ROM,Strength,Balance, Coordination,Sensation,Tone, Cognition,Bed Mobility, Transfers,Gait,Activity Tolerance Assessment Summary Pt remains limited by poor core stability, but able to complete seated balance exercises. Pt required Max A for slide board transfer today and ended up needing squat pivot to complete transfer due to slide board moving under pt during transfer. Notified nursing staff to utilize ginny for safety of transfers. Pt will require SNF to improve functional mobility independence and strength. Goals Bed Mobility Goal Independent Transfer Goal Contact Guard Assistance,Slide Board Days to Meet Goals 10 Frequency of Treatment Frequency Of Treatment Once a Day Treatment Plan Physical Therapy Treatment Plan Bed Mobility Training,Transfer Training,Therapeutic Exercise ,Balance Retraining,Discharge Planning,Hot or Cold Pack, Neuromuscular Re-ed, Coordination Retraining,Manual Therapy Other Recommendations and Next Treatment Teach nursing staff slide Focus board, slide board back into bed. Precautions Other Precautions MRSA of wound Recommendations To Nursing Amount of Assist Needed Mechanical Lift Discharge Recommendations PT Discharge Recommendations SNF Rehab Transportation Needs at Discharge Wheelchair/Cabulance
--- NOTE | 2021-06-20 12:01 | CM.DPNOTE ---
Placement Update -[facility] PH: [phone], had to LM 3.8.22 1200 -[facility] PH: [phone] F [phone], faxed clinical referral, now reviewing -[facility] PH: [phone], had to LM 3.8.22 1200 -[facility] PH: [phone], had to LM 3.8.22 1200 [facility] PH: [phone], had to LM 3.8.22 1215 -[facility] PH: [phone] Spoke w/ Smiley, the room they have requires the resident be boosted -Lucy Schuler No -Angie MARIE no -Angie Vargas PH: [phone] no [employer] MCR if the person is not w/the [facility] for primary care -[facility], swing bed in [place] PH: [phone], Reviewing JW
--- NOTE | 2021-06-20 12:09 | OT.IPNOTE ---
Attempted to work with pt for OT. Pt states just if too much pain today and requested to be seen tomorrow. Nursing aware of his pain and meds just given prior.
--- NOTE | 2021-06-20 12:21 | PM.PN.1 ---
Subjective Subjective Date Patient Seen: 06/20/21 Time Patient Seen: 12:21 Interval history: 45-year-old male with functional quadriplegia secondary to Schwannoma who developed significant decubitus ulcer of the left hip.? The patient underwent I and D/debridement of the ulcer, wound VAC is in place.? Wound culture grew MRSA and E coli.? He is very cooperative and tolerating treatments. Patient has no new complaints.? He has been ready for discharge since Saturday awaiting placement.? He is on oral antibiotics Exam Vital Signs (past 8 hours): - 06/20/21 05:16 06/20/21 07:17 06/20/21 07:50 Temperature 97.7 F 97.5 F L Pulse Rate 72 81 Respiratory Rate 16 18 Blood Pressure 131/70 115/65 Pulse Oximetry 97 96 97 Oxygen Delivery Method Room Air Oxygen Flow Rate 0 Narrative Exam Narrative: General: NAD, alert and cooperative Extremities:? left hip wound with vac in place, serosanguinous output, minimal erythema, non-tender. No edema. CV: RRR no m/r/g Pulm: CTA b/l no wheezing rhonchi or rales Ext: no edema or joint effusions Objective Labs Result Diagrams: 06/16/21 08:55 06/16/21 08:55 [facility] Medical History Back pain Functional paraparesis Hypertension Neurogenic pain Schwannoma of spinal cord Surgical History History of spinal surgery History of tonsillectomy Family History Father CVA (cerebral vascular accident) Mother Myocardial infarct Social History household members: spouse, children, friend(s) and other Smoking Status: Current some day smoker alcohol intake: current Assessment & Plan Assessment & Plan narrative: This is a 45-year-old male with a history of spinal schwannomas and functional paraplegia who presents with large pressure ulcers on his legs caused by crawling around his home for the last 2 months while he has been unable to walk. 1. Large Left Ischial/Trochanteric Pressure Ulcer, present on admission.? Active. -wound culture growing MRSA and E coli -patient is status post debridement, with wide excision, now with wound VAC in place -continue doxycycline and Cipro by mouth, stopped vancomycin 06/17 -Multiple other Lower Extremity Pressure Ulcers, present on admission.? Active. -will continue at least 7 days on oral antibiotics, possible longer. -continue PT/OT 2. Thoracic Spine Schwannomas, present on admission. Active. -continue Pregabalin for neuropathic pain -Upcoming Neurosurgery appointment with Dr. Stanley -preliminary information is that his tumors are no longer operable. 3. Functional Paraplegia, present on admission.? Active. -Secondary to Spinal Schwannomas causing loss of LE balance/coordination 4. Hypertension, present on admission.? Active. -continue Metoprolol 5. Hypokalema, present on admission.? Active. -corrected 6. Patient with severe acute protein calorie malnutrition -appreciate dietary recommendation Await placement, social work working on short and long-term placement Discharge once placement has been arranged Time Spent With Patient Critical Care time: I spent a total of [] minutes of critical care time on this patient's care today; this time is exclusive of procedural time. Quality VTE Deep Vein Thrombosis/Pulmonary Embolism Present on Admission: No
--- NOTE | 2021-06-20 15:10 | CM.DPC ---
RAQUELP Cont: Made a phone call to [facility] in [place]. Spoke to Blanca, her direct phone number is: [phone]. Let her know about patient. Confirmed that they are contracted with [employer], she stated, they don't pay as well as standard Medicare, but can review. She does have beds available. She asked if patient was vaccinated, and confirmed that he received both, but not booster. She indicated that patient would need to be isolated for 7 days, since he didn't have booster. Went ahead and faxed her over patient's referral, including face sheet, H&P, recent progress note, and therapy notes. She will review. P: ADALBERTO to continue to work on placement for patient. Raina Oleary RN/Cinder Worker
[2021-06-20] MEDS: SODIUM CHLORIDE 0.9% FLUSH 10 ML IV (20:45)
[2021-06-21] MEDS: OXYCODONE IR 5 MG TABLET 10 MG PO ×6 (01:04→21:57)
[2021-06-21 04:00] VITALS: BP 113/59; PULSE 80; RESP 18; TEMP 36.6; O2SAT 96
[2021-06-21] MEDS: ACETAMINOPHEN 325 MG TABLET 650 MG PO ×3 (06:15→18:08)
[2021-06-21] MEDS: CIPROFLOXACIN 250 MG TABLET 500 MG PO ×2 (06:15→22:02)
[2021-06-21] MEDS: PREGABALIN 75 MG CAPSULE 300 MG PO ×2 (08:58→21:57)
[2021-06-21] MEDS: METOPROLOL IR 50 MG TABLET PO ×2 (08:59→21:58)
[2021-06-21] MEDS: ENOXAPARIN 40 MG/0.4 ML SYRINGE SUBCUT (08:59)
[2021-06-21] MEDS: DOXYCYCLINE HYCLATE 100 MG TABLET PO ×2 (08:59→21:59)
[2021-06-21] MEDS: SODIUM CHLORIDE 0.9% FLUSH 10 ML IV ×2 (10:18→21:58)
--- NOTE | 2021-06-21 10:44 | OT.IPNOTE ---
Attempted to see pt for OT and pt states to go later as wanting to rest.
[2021-06-21 10:47] VITALS: O2SAT 96
--- NOTE | 2021-06-21 11:41 | OT.IP.TRT ---
Current Diagnoses Unspecified open wound, left thigh, initial encounter (06/12/21) Unspecified open wound, unspecified lower leg, initial encounter (06/12/21) Surgery Performed Operation Date: 06/12/21 09:45 Actual Procedures p Debridement hip(Left) - Dedrick Valdez MD Occupational Therapy Treatment Note M2 OT-IP Current Condition Start: 06/15/21 18:00 Freq: Status: Active Protocol: Document 06/15/21 18:00 [facility] (Rec: 06/15/21 18:27 [facility] [id number]) Occupational Therapy Current Condition Current Condition Evaluation Date 06/15/21 Treatment Diagnosis Left posterior thigh wound, left spann ulcer Diagnosis Onset Date 06/11/21 M3 OT- IP Subjective and Pain Start: 06/15/21 18:00 Freq: Status: Active Protocol: Document 06/21/21 11:32 [facility] (Rec: 06/21/21 11:41 [facility] [id number]) OT- Subjective Occupational Therapy Visit Type Type Treatment Note Visit Start Time 11:12 Visit Stop Time 11:32 Total Visit Minutes 20 Occupational Therapy Visit Comments Patient Comments Pt agreed to work with OT. OT Pain Assessment Pain When Pain Assessed At Rest Pain Present Pain Present Pain Reported M6 OT- IP Functional Cognition Start: 06/15/21 18:00 Freq: Status: Active Protocol: Document 06/21/21 11:32 [facility] (Rec: 06/21/21 11:41 [facility] [id number]) Cognitive Factors Limiting Selfcare Function Cognitive Comments Cognitive Assessment Comments Pt scored 65 seconds on Jacobson Making Part B which imlies normal for task switching, speed of processing, visual attention, executive functioning, and mental flexibility. M7 OT- IP Mobility and Balance Start: 06/15/21 18:00 Freq: Status: Active Protocol: Document 06/21/21 11:32 [facility] (Rec: 06/21/21 11:41 [facility] [id number]) OT- Bed Mobility Assessment Supine to Sit Supine to Sit Assist Standby Assistance Sit to Supine Sit to Supine Assist Standby Assistance Scooting Scooting to Edge of Bed Standby Assistance OT-Transfer Assessment Comments Mobility Comments Pt able to get to the edge of the bed by use of his hands to assist to move his legs to the edge of the bed. OT- Balance Assessment Sitting Balance and Reactions Static Sitting Balance Ability Fair Dynamic Sitting Balance Ability Fair Comments Other Balance Tests/Deviations/Treatment Pt able to sit at edge of the : bed and at times SBA while doing a cognitive task and at times needing CGA of his left hand to hold to the tray table for balance. M8 OT- IP Objective Assessments Start: 06/15/21 18:00 Freq: Status: Active Protocol: Document 06/15/21 18:00 [facility] (Rec: 06/15/21 18:27 [facility] [id number]) OT Gross Range of Motion Upper Extremity Range of Motion Assessment Within Functional Limits OT Strength Upper Extremity Strength Assessment Within Functional Limits OT-Muscle Tone Assessment Muscle Tone WNL No Muscle Tone Location Bilateral Lower Extremity Type of Tone Hypotonicity M9 OT- IP Assessment and Plan Start: 06/15/21 18:00 Freq: Status: Active Protocol: Document 06/21/21 11:32 [facility] (Rec: 06/21/21 11:41 [facility] [id number]) OT Summary Assessment and Plan Potential Rehabilitation Potential Good Analytic Complexity at Evaluation Moderate Summary OT Impairments Strength,Balance,Functional Mobility,Toilet Transfers, Shower Transfers,Activity Tolerance Progress Towards Goals Progressing Toward Goals Assessment Summary Pt continuing to make gain with overall sitting balance and able to complete TRail Making Part B which his score implies normal with no deficits for his cognition. Pt would highly benefit continues OT services to work on his independence for his ADl needs. Pt is very motivated and cooperative. Goals Dressing Goal Minimal Assistance Toilet Transfer Goal Independent OT-Other Goals Pt to improve his core strength to be able to sit at the edge of the bed for 2 minute without support of of his hands to help improve his ability to use the toilet without support. Days to Meet Goals 38 Frequency of Treatment Frequency Of Treatment Once a Day Treatment Plan OT Treatment Plan ADL Training,Functional Mobility,Patient/Family Education,Discharge Planning Discharge Recommendations OT Discharge Recommendations SNF Rehab Transportation Needs at Discharge Wheelchair/Cabulance
[2021-06-21 13:10] VITALS: BP 104/53; PULSE 79; RESP 16; TEMP 36.1; O2SAT 95
--- NOTE | 2021-06-21 13:47 | CM.DPC ---
DCP Ongoing Planning Per MD, consulted with Surgeon regarding pt's wound vac and confirmed that if wound vac is a barrier to discharge pt can d/c with wet to dry dressing changes. Surgeon unsure if wound will really fully heal even with wound vac pending pt's healing abilities although pt is tolerating his recommended diet towards increasing his healing. Discussed in MDR meeting possible option of d/c to home if no facility accepts while awaiting HCS to complete LTC placement and determined not a very safe plan but could be possible if wound vac not needed but not a very ideal plan but pt's [employer] MCR now denying pt's stay. SW called pt's HCS SW Janette [phone] and she confirms assessment is complete, application complete, consents signed and complete and now just waiting for final confirmation in their computer system that assessment is finalized before she could send to interested facilities. Discussed barriers of available [facility] and need for LTC in order for SNF's to accept. She will call as soon as assessment finalized. NITHIN called the following facilities to f/u: [facility]- decline accepting pt [facility]- must have booster, cannot accept [facility]- left ms with admissions again [facility]- refaxed updated clinicals and called and left ms Carina at [facility]- confirmed they have referral and will review with their team today [facility]- confirmed they received referral, reviewed, can accept if pt has a solid d/c plan from their facility as they do not currently have any LTC beds. NITHIN reached out to these facilities again: [facility]- requested review for either rehab and transition to LTC or accept for LTC with $6000 incentive from Medicaid for placement from the hospital. Katherine willing to review under LTC lens and faxed updated clinicals. Elaina Navarro- called Maru and updated on wound vac situation and inquired about reviewing for rehab/LTC and the Medicaid incentive for LTC placement and she is willing to review and present to her team as she agrees keeping pt closer to his family would be ideal and discussed his participation with PT/OT, low wound care needs, cooperative nature. NITHIN faxed updated clinicals to review. Plan: NITHIN to follow closely for Elaina MARIE review for rehab then LTC placement and f/u with [facility] tomorrow. SAMUEL Villarreal
--- NOTE | 2021-06-21 14:19 | PM.PN.1 ---
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 The patient underwent I and D/debridement of the ulcer, wound VAC is in place.? Wound culture grew MRSA and E coli.? He is very cooperative and tolerating treatments. Patient has no new complaints.? He has been ready for discharge since Saturday awaiting placement.? He is on oral antibiotics Exam Vital Signs (past 8 hours): - 06/21/21 10:47 06/21/21 13:10 Temperature 97.0 F L Pulse Rate 79 Respiratory Rate 16 Blood Pressure 104/53 L Pulse Oximetry 96 95 Oxygen Delivery Method Room Air Oxygen Flow Rate 0 Narrative Exam Narrative: General: NAD, alert and cooperative Extremities:? left hip wound with vac in place, serosanguinous output, minimal erythema, non-tender. No edema. CV: RRR no m/r/g Pulm: CTA b/l no wheezing rhonchi or rales Ext: no edema or joint effusions Objective Labs Result Diagrams: 06/16/21 08:55 06/16/21 08:55 [facility] Medical History Back pain Functional paraparesis Hypertension Neurogenic pain Schwannoma of spinal cord Surgical History History of spinal surgery History of tonsillectomy Family History Father CVA (cerebral vascular accident) Mother Myocardial infarct Social History household members: spouse, children, friend(s) and other Smoking Status: Current some day smoker alcohol intake: current Assessment & Plan Assessment & Plan narrative: This is a 45-year-old male with a history of spinal schwannomas and functional paraplegia who presents with large pressure ulcers on his legs caused by crawling around his home for the last 2 months while he has been unable to walk. 1. Large Left Ischial/Trochanteric Pressure Ulcer, present on admission.? Active. -wound culture growing MRSA and E coli -patient is status post debridement, with wide excision, now with wound VAC in place. If wound vac is barrier to discharge, can do wet to dry dressings per surgeon. -continue doxycycline and Cipro by mouth, stopped vancomycin -Multiple other Lower Extremity Pressure Ulcers, present on admission.? Active. -14 days total antibiotics scheduled to end 06/25/21. -continue PT/OT 2. Thoracic Spine Schwannomas, present on admission. Active. -continue Pregabalin for neuropathic pain -Upcoming Neurosurgery appointment with Dr. Stanley -preliminary information is that his tumors are no longer operable. 3. Functional Paraplegia, present on admission.? Active. -Secondary to Spinal Schwannomas causing loss of LE balance/coordination 4. Hypertension, present on admission.? Active. -continue Metoprolol 5. Hypokalema, present on admission.? Active. -corrected 6. Patient with severe acute protein calorie malnutrition -appreciate dietary recommendation Await placement, social work working on short and long-term placement Discharge once placement has been arranged Time Spent With Patient Critical Care time: I spent a total of [] minutes of critical care time on this patient's care today; this time is exclusive of procedural time. Quality VTE Deep Vein Thrombosis/Pulmonary Embolism Present on Admission: No
--- NOTE | 2021-06-21 15:36 | PT.IPTN ---
Current Diagnoses Unspecified open wound, left thigh, initial encounter (06/12/21) Unspecified open wound, unspecified lower leg, initial encounter (06/12/21) Surgery Performed Operation Date: 06/12/21 09:45 Actual Procedures p Debridement hip(Left) - Dedrick Valdez MD Physical Therapy Treatment Note M2 PT-IP Current Condition Start: 06/14/21 15:46 Freq: NEEDED Status: Active Protocol: Document 06/21/21 15:20 SP (Rec: 06/21/21 18:31 SP [id number]) Physical Therapy Current Condition Current Condition Evaluation Date 06/14/21 Treatment Diagnosis L thigh open wound; generalized weakness M3 PT-IP Subjective Start: 06/14/21 15:46 Freq: NEEDED Status: Active Protocol: Document 06/21/21 15:20 SP (Rec: 06/21/21 18:31 SP [id number]) Subjective Physical Therapy Visit Type Type Treatment Note Visit Start Time 15:20 Visit Stop Time 15:36 Total Visit Minutes 16 Number of FIELD SERVICE SPECIALIST Visits 3 Physical Therapy Visit Comments Patient Comments Pt is willing to participate with PT Patient Goals Go to SNF. Therapy Pain Assessment Pain When Pain Assessed During Mobility Pain Present Pain Present Pain Reported Location bottom Intensity 9 Scale Used Numeric (0 - 10) Description Acute,Sharp,With Movement Pain Behaviors Calling Out,Facial Grimacing, Holding Area,Restlessness, Wincing Pain Management Techniques Modification of Treatment,Re- positioning M4 PT-IP Mobility and Gait Start: 06/14/21 15:46 Freq: NEEDED Status: Active Protocol: Document 06/21/21 15:20 SP (Rec: 06/21/21 18:31 SP [id number]) PT-Bed Mobility Assessment Rolling Type of Rolling Bilateral Level of Assist Independent Supine to Sit Supine to Sit Independent,Head of Bed Elevated,Bedrails Scooting Scooting to Edge of Bed Standby Assistance PT-Transfer Assessment Equipment Transfer Assistive Device Gait Belt,Sliding Board Orthotic/Prosthetic Devices or Brace: No Transfers Transfer Destination Chair Transfer Technique Slide board transfer Transfer Ability Level of Assist Moderate Assistance,Maximum Assistance,1 Person Assistance ,Use of Upper Extremities Comments Mobility Comments Pt completed LR R> sup>sit I. Wt shift over L hip with heavy BUE WB on bed, FIELD SERVICE SPECIALIST provide slide board placement under R pelvis. Initiated lateral scoot to R via gait belt while pt BUE WB on bed and slide board, pt called out in pain stop, hold on having alot of pain at base of butt. FIELD SERVICE SPECIALIST instructed breath, pt wt shifted off buttocks with deep breaths approx 30sec. Pt agreeableto continueing SPT, Mod- Max A x1 to R, support for board stationary, trunk righting while pt completed BUE WB scoot and RLE repositioning assist to complete to chair. Pt ableto scoot back chair self, arms on chair arm rests. FIELD SERVICE SPECIALIST elevated slow chair leg rests, pt supported RLE into knee/ hip flexion. FIELD SERVICE SPECIALIST provided pillow support under RLE pre pt request for comfort. Pt had call light and all needs in reach before left. FIELD SERVICE SPECIALIST continues recommend Manuel for nursing transfers. Gait Assessment Comments Gait Comments Unable to ambulate PT-Balance Assessment Sitting Balance and Reactions Static Sitting Balance Ability Fair Dynamic Sitting Balance Ability Fair Standing Balance and Reactions Device Used n/t M5 PT-IP Objective Assessments Start: 06/14/21 15:46 Freq: NEEDED Status: Active Protocol: Document 06/14/21 14:55 AB (Rec: 06/14/21 16:13 AB [id number]) Orientation Orientation/Cognition Level of Alertness Alert Orientation Name,Place,Situation Language Function Ability No Deficits Noted Safety Awareness Decreased Safety Awareness Memory Description No Deficits Noted Gross Range of Motion Lower Extremity ROM Assessment Within Functional Limits Impairments increase flexor tone noted L>R Strength Lower Extremity Strength Assessment Bilaterally Impaired Hip flexors: 2-/5 Knee 1+/5 Ankle 0/5 Sensation Assessment Sensation Gross Sensation Right LE Impaired,Left LE Impaired Light Touch Absent Proprioception (Position) Absent Comments Sensation Comments no sensation from upper thighs down to B feet Muscle Tone Muscle Tone WNL No Muscle Tone Location Bilateral Lower Extremity Type of Tone Hypotonicity Severity of Tone Severe Comments Muscle Tone Comments flexor tone during PROM L>R but overall flaccid/hypotonic Other Assessments Other Other Assessments L posterior upper thigh wound with wound vac; L knee skin ulcer M6 PT-IP Treatment Start: 06/14/21 15:46 Freq: NEEDED Status: Active Protocol: Document 06/21/21 15:20 SP (Rec: 06/21/21 18:31 SP [id number]) Physical Therapy Treatment Education Education Provided Safety M7 PT-IP Assessment and Plan Start: 06/14/21 15:46 Freq: NEEDED Status: Active Protocol: Document 06/21/21 15:20 SP (Rec: 06/21/21 18:31 SP [id number]) PT Summary Assessment and Plan Potential Rehabilitation Potential Fair Status of Condition at Evaluation Evolving Summary Impairments Pain,ROM,Strength,Balance, Coordination,Sensation,Tone, Cognition,Bed Mobility, Transfers,Gait,Activity Tolerance Progress Towards Goals Slow Progress due to Pain,Slow Progress due to Medical Issues,Slow Progress due to Activity Tolerance Assessment Summary Pt remains limited by poor core stability and pain. I in supine>sit and scoot to EOB. Slide board transfer bed>chair Mod- Max A. Notified nursing staff to utilize manuel for safety of transfers. Pt will require SNF to improve functional mobility independence and strength. Goals Bed Mobility Goal Independent Transfer Goal Contact Guard Assistance,Slide Board Days to Meet Goals 10 Frequency of Treatment Frequency Of Treatment Once a Day Treatment Plan Physical Therapy Treatment Plan Bed Mobility Training,Transfer Training,Therapeutic Exercise ,Balance Retraining,Discharge Planning,Hot or Cold Pack, Neuromuscular Re-ed, Coordination Retraining,Manual Therapy Other Recommendations and Next Treatment Teach nursing staff slide Focus board, slide board back into bed. Precautions Other Precautions MRSA of wound Recommendations To Nursing Amount of Assist Needed Mechanical Lift Discharge Recommendations PT Discharge Recommendations SNF Rehab Transportation Needs at Discharge Wheelchair/Cabulance
[2021-06-21 19:40] VITALS: PULSE 76; RESP 16; O2SAT 95
[2021-06-21 21:14] VITALS: BP 130/76; PULSE 76; RESP 18; TEMP 36.6; O2SAT 95
[2021-06-22] MEDS: ACETAMINOPHEN 325 MG TABLET 650 MG PO ×3 (00:50→13:45)
[2021-06-22] MEDS: OXYCODONE IR 5 MG TABLET 10 MG PO ×5 (00:52→20:49)
[2021-06-22 05:00] VITALS: BP 127/83; PULSE 70; RESP 18; TEMP 36.4; O2SAT 97
[2021-06-22 07:30] LABS: Add Manual Diff / Slide Review NO; Basophils Absolute Auto 100 /uL (0-100); Eosinophils Absolute Auto 200 /uL (0-450); Eosinophils Percent Auto 3.3 % (2-4); Hemoglobin 11.4 g/dL (13.5-17.5); Lymphocytes Absolute Auto 1500 /uL (1100-4500); Mean Corpuscular HGB Conc 32.6 % (30-36); Mean Corpuscular Hemoglobin 27.7 PG (26-34); Mean Corpuscular Volume 84.9 fL (80-100); Monocytes Absolute Auto 600 /uL (0-900); Monocytes Percent Auto 7.5 % (3-14); Neutrophils Absolute Auto 5200 /uL (1500-7000); Neutrophils Percent Auto 68.2 % (50-75); Platelet Count 499 X10^3/uL (150-400); Red Blood Cell Count 4.12 X10^6/uL (4.5-5.9); Red Cell Distribution Width 15.8 % (11.6-14.8); White Blood Cell Count 7.6 X10^3/uL (4.5-11.0)
[2021-06-22 07:41] LABS: Alanine Aminotransferase 21 IU/L (<50); Albumin 3.4 g/dL (3.5-5.0); Albumin Globulin Ratio 1.2 (1.0-2.8); Alkaline Phosphatase 56 U/L (38-126); Aspartate Aminotransferase 22 IU/L (17-59); BUN Creatinine Ratio 35.4 (6-22); Bilirubin Total 0.3 mg/dL (0.2-1.3); Blood Urea Nitrogen 28 mg/dL (9-20); Calcium 8.9 mg/dL (8.4-10.2); Carbon Dioxide 35 mmol/L (22-32); Chloride 103 mmol/L (98-107); Estimated Glomerular Filt Rate > 60.0 mL/min (>60); Globulin 2.9 g/dL (1.7-4.1); Glucose 100 mg/dL (70-100); HEMOLYSIS < 15 (0-50); Potassium 3.9 mmol/L (3.4-5.1); Sodium 138 mmol/L (137-145); Total Protein 6.3 g/dL (6.3-8.2)
[2021-06-22] MEDS: METOPROLOL IR 50 MG TABLET PO ×2 (09:40→20:50)
[2021-06-22] MEDS: ENOXAPARIN 40 MG/0.4 ML SYRINGE SUBCUT (09:40)
[2021-06-22] MEDS: DOXYCYCLINE HYCLATE 100 MG TABLET PO ×2 (09:40→20:50)
[2021-06-22] MEDS: CIPROFLOXACIN 250 MG TABLET 500 MG PO (09:40)
[2021-06-22] MEDS: PREGABALIN 75 MG CAPSULE 300 MG PO ×2 (09:40→20:49)
[2021-06-22] MEDS: SODIUM CHLORIDE 0.9% FLUSH 10 ML IV (09:41)
--- NOTE | 2021-06-22 11:39 | PT-IP ANOTE ---
Attempted to see pt at 11:39 AM, pt reporting too much pain from attempted transfer w/ VANSTONE MACHINE OPERATOR and may try in PM if able.
--- NOTE | 2021-06-22 11:44 | OT.IPNOTE ---
Went to see pt for OT treatment and nursing aid in the room with pt. Nursing aid asked OT what the best way to get pt on the BSC. OT states at this time ginny lift. Nursing aid states tried to transfer pt on his own to the BSC he states, it did not go well. Emphasized that at this time to only use ginny lift . At this time pt is too tired and in pain and not wanting to do OT treatment at this time.
[2021-06-22 11:45] VITALS: O2SAT 100
--- NOTE | 2021-06-22 12:37 | CM.DPNOTE ---
DCP Note Reviewed chart; patient can have his wound vac removed at any time and would benefit from daily wet to dry dressings according to Dr Valdez, surgeon. Spoke vinod/Jace Aquino (sp?) at [facility] P# [phone] ext [phone]; she was seeking information on two items: -Patient's functional baseline; reviewed therapy notes -Reason behind single case agreement request from [facility] vs an in network facility; explained barriers to SNF placement and that there has not been an in network facility that has clinically accepted Jace stated appreciation and had planned to contact Maru at [facility] on [facility] to discuss this auth request further which would be a single case agreement; would need to be approved by [facility] team Attempted contact w/Maru at [facility]; had to LM VELIA
[2021-06-22 12:50] VITALS: BP 105/68; PULSE 79; RESP 18; TEMP 36.7; O2SAT 99
--- NOTE | 2021-06-22 14:04 | CM.DPC ---
DCP continued: Citlalli spoke with Maru at [facility] on [address] and she asked for clinicals that explain what the requirements will be for the wound vac. CITLALLI asked Candy to fax clinicals to Maru and we will check on vaccination record. Maru stated that hopefully if [employer] comes through and the team at there facility agrees to take the patient then they will be able to take the patient maybe tomorrow or Saturday - they wont be able to take the patient over the weekend. MABEL Gupta is working on getting a copy of the patients Covid Vaccinations. Elle Espinoza RNcna
--- NOTE | 2021-06-22 16:30 | PT.IPTN ---
Current Diagnoses Unspecified open wound, left thigh, initial encounter (06/12/21) Unspecified open wound, unspecified lower leg, initial encounter (06/12/21) Surgery Performed Operation Date: 06/12/21 09:45 Actual Procedures p Debridement hip(Left) - Dedrick Valdez MD Physical Therapy Treatment Note M2 PT-IP Current Condition Start: 06/14/21 15:46 Freq: NEEDED Status: Active Protocol: Document 06/21/21 15:20 SP (Rec: 06/21/21 18:31 SP [id number]) Physical Therapy Current Condition Current Condition Evaluation Date 06/14/21 Treatment Diagnosis L thigh open wound; generalized weakness M3 PT-IP Subjective Start: 06/14/21 15:46 Freq: NEEDED Status: Active Protocol: Document 06/22/21 16:19 KS (Rec: 06/22/21 17:00 KS [id number]) Subjective Physical Therapy Visit Type Type Treatment Note Visit Start Time 16:19 Visit Stop Time 16:30 Total Visit Minutes 11 Number of MOBILE PARAMEDICAL EXAMINER Visits 4 Physical Therapy Visit Comments Patient Comments Pt is willing to participate with PT Patient Goals Go to SNF. Therapy Pain Assessment Pain When Pain Assessed At Rest Pain Present Pain Present Pain Reported M4 PT-IP Mobility and Gait Start: 06/14/21 15:46 Freq: NEEDED Status: Active Protocol: Document 06/22/21 16:19 KS (Rec: 06/22/21 17:00 KS [id number]) PT-Bed Mobility Assessment Supine to Sit Supine to Sit Independent,Head of Bed Elevated,Bedrails Scooting Scooting to Edge of Bed Standby Assistance PT-Transfer Assessment Comments Mobility Comments Pt not wanting to transfer this PM and reporting pain from collapse this morning w/ nursing staff, but agreeable to seated balance. ~4 min sit and reach balance followed by 2 min seated perturbations and then additional 2 min seated perturbations w/ pt eyes closed to avoid anticipated reaction. Pt w/ 3 x lOB when resisting R sided perturbation and 1x LOB w/ sit and reach to L. Pt reported high level of fatigue and wanting to get back in bed. Gait Assessment Comments Gait Comments Unable to ambulate PT-Balance Assessment Sitting Balance and Reactions Static Sitting Balance Ability Fair Dynamic Sitting Balance Ability Fair Standing Balance and Reactions Device Used n/t M5 PT-IP Objective Assessments Start: 06/14/21 15:46 Freq: NEEDED Status: Active Protocol: Document 06/14/21 14:55 AB (Rec: 06/14/21 16:13 AB [id number]) Orientation Orientation/Cognition Level of Alertness Alert Orientation Name,Place,Situation Language Function Ability No Deficits Noted Safety Awareness Decreased Safety Awareness Memory Description No Deficits Noted Gross Range of Motion Lower Extremity ROM Assessment Within Functional Limits Impairments increase flexor tone noted L>R Strength Lower Extremity Strength Assessment Bilaterally Impaired Hip flexors: 2-/5 Knee 1+/5 Ankle 0/5 Sensation Assessment Sensation Gross Sensation Right LE Impaired,Left LE Impaired Light Touch Absent Proprioception (Position) Absent Comments Sensation Comments no sensation from upper thighs down to B feet Muscle Tone Muscle Tone WNL No Muscle Tone Location Bilateral Lower Extremity Type of Tone Hypotonicity Severity of Tone Severe Comments Muscle Tone Comments flexor tone during PROM L>R but overall flaccid/hypotonic Other Assessments Other Other Assessments L posterior upper thigh wound with wound vac; L knee skin ulcer M6 PT-IP Treatment Start: 06/14/21 15:46 Freq: NEEDED Status: Active Protocol: Document 06/22/21 16:19 KS (Rec: 06/22/21 17:00 PR [id number]) Physical Therapy Treatment Education Education Provided Safety Other Treatments Other Treatment Performed Sit and reach, seated perturbations. Discussed transfer safety - reminded pt only slide board w/ PT/OT and manuel w/ nursing staff at this time. Slide board removed from pts room and white board remains manuel lift. M7 PT-IP Assessment and Plan Start: 06/14/21 15:46 Freq: NEEDED Status: Active Protocol: Document 06/22/21 16:19 KS (Rec: 06/22/21 17:00 PR [id number]) PT Summary Assessment and Plan Potential Rehabilitation Potential Fair Status of Condition at Evaluation Evolving Summary Impairments Pain,ROM,Strength,Balance, Coordination,Sensation,Tone, Cognition,Bed Mobility, Transfers,Gait,Activity Tolerance Progress Towards Goals Slow Progress due to Pain,Slow Progress due to Medical Issues,Slow Progress due to Activity Tolerance Assessment Summary Pt limited by pain, quick approach to fatigue, and poor core stability. Able to perform ~8 min seated balance exercises while EOB but had quick approach to fatigue and requested rest. Removed slide board from pt room as pt as this time requires Manuel lift unless working w/ PT and OT. Goals Bed Mobility Goal Independent Transfer Goal Contact Guard Assistance,Slide Board Days to Meet Goals 10 Frequency of Treatment Frequency Of Treatment Once a Day Treatment Plan Physical Therapy Treatment Plan Bed Mobility Training,Transfer Training,Therapeutic Exercise ,Balance Retraining,Discharge Planning,Hot or Cold Pack, Neuromuscular Re-ed, Coordination Retraining,Manual Therapy Other Recommendations and Next Treatment Teach nursing staff slide Focus board, slide board back into bed. Precautions Other Precautions MRSA of wound, fall risk Recommendations To Nursing Amount of Assist Needed Mechanical Lift Discharge Recommendations PT Discharge Recommendations SNF Rehab Transportation Needs at Discharge Wheelchair/Cabulance
--- NOTE | 2021-06-22 17:00 | PM.PN.1 ---
Subjective Subjective Date Patient Seen: 06/22/21 Time Patient Seen: 17:00 Interval history: 45-year-old male with functional quadriplegia secondary to Schwannoma who developed significant decubitus ulcer of the left hip.? The patient underwent I and D/debridement of the ulcer, wound VAC is in place.? Wound culture grew MRSA and E coli.? He is very cooperative and tolerating treatments. Patient has no new complaints.? He has been ready for discharge since Saturday awaiting placement.? He is on oral antibiotics Exam Vital Signs (past 8 hours): - 06/22/21 11:45 06/22/21 12:50 Temperature 98.1 F Pulse Rate 79 Respiratory Rate 18 Blood Pressure 105/68 Pulse Oximetry 100 99 Oxygen Delivery Method Room Air Oxygen Flow Rate 0 Narrative Exam Narrative: General: NAD, alert and cooperative Extremities:? left hip wound with vac in place, serosanguinous output, minimal erythema, non-tender. No edema. CV: RRR no m/r/g Pulm: CTA b/l no wheezing rhonchi or rales Ext: no edema or joint effusions Objective Labs Result Diagrams: 06/22/21 06:50 06/22/21 06:50 Labs: Laboratory Results - last 24 hr 06/22/21 06/22/21 06:50 06:50 WBC 7.6 RBC 4.12 L Hgb 11.4 L Hct 35.0 L MCV 84.9 MCH 27.7 MCHC 32.6 RDW 15.8 H Plt Count 499 H Neut % (Auto) 68.2 Lymph % (Auto) 20.0 L [place] % (Auto) 7.5 Eos % (Auto) 3.3 Baso % (Auto) 1.0 Neut # (Auto) 5200 Lymph # (Auto) 1500 [place] # (Auto) 600 Eos # (Auto) 200 Baso # (Auto) 100 Sodium 138 Potassium 3.9 Chloride 103 Carbon Dioxide 35 H BUN 28 H Creatinine 0.79 Estimated GFR > 60.0 BUN/Creatinine Ratio 35.4 H Glucose 100 Calcium 8.9 Total Bilirubin 0.3 AST 22 ALT 21 Alkaline Phosphatase 56 Total Protein 6.3 Albumin 3.4 L Globulin 2.9 Albumin/Globulin Ratio 1.2 [facility] Medical History Back pain Functional paraparesis Hypertension Neurogenic pain Schwannoma of spinal cord Surgical History History of spinal surgery History of tonsillectomy Family History Father CVA (cerebral vascular accident) Mother Myocardial infarct Social History household members: spouse, children, friend(s) and other Smoking Status: Current some day smoker alcohol intake: current Assessment & Plan Assessment & Plan narrative: This is a 45-year-old male with a history of spinal schwannomas and functional paraplegia who presents with large pressure ulcers on his legs caused by crawling around his home for the last 2 months while he has been unable to walk. 1. Large Left Ischial/Trochanteric Pressure Ulcer, present on admission.? Active. -wound culture growing MRSA and E coli -patient is status post debridement, with wide excision, now with wound VAC in place. If wound vac is barrier to discharge, can do wet to dry dressings per surgeon. -continue doxycycline and Cipro by mouth, stopped vancomycin -Multiple other Lower Extremity Pressure Ulcers, present on admission.? Active. -14 days total antibiotics scheduled to end 06/25/21. -continue PT/OT 2. Thoracic Spine Schwannomas, present on admission. Active. -continue Pregabalin for neuropathic pain -Upcoming Neurosurgery appointment with Dr. Stanley -preliminary information is that his tumors are no longer operable. 3. Functional Paraplegia, present on admission.? Active. -Secondary to Spinal Schwannomas causing loss of LE balance/coordination 4. Hypertension, present on admission.? Active. -continue Metoprolol 5. Hypokalema, present on admission.? Active. -corrected 6. Patient with severe acute protein calorie malnutrition -appreciate dietary recommendation Await placement, social work working on short and long-term placement Discharge once placement has been arranged Time Spent With Patient Critical Care time: I spent a total of [] minutes of critical care time on this patient's care today; this time is exclusive of procedural time. Quality VTE Deep Vein Thrombosis/Pulmonary Embolism Present on Admission: No
[2021-06-22] MEDS: SENNOSIDES 8.6 MG TABLET 17.2 MG PO (20:50)
[2021-06-22 21:45] VITALS: BP 105/63; PULSE 76; RESP 20; TEMP 36.9; O2SAT 97
[2021-06-23] MEDS: OXYCODONE IR 5 MG TABLET 10 MG PO ×6 (00:19→21:33)
[2021-06-23] MEDS: CIPROFLOXACIN 250 MG TABLET 500 MG PO ×3 (00:19→21:15)
[2021-06-23] MEDS: ACETAMINOPHEN 325 MG TABLET 650 MG PO ×4 (00:19→18:02)
[2021-06-23] MEDS: SODIUM CHLORIDE 0.9% FLUSH 10 ML IV ×3 (00:21→21:15)
[2021-06-23 05:30] VITALS: BP 121/74; PULSE 82; RESP 14; TEMP 36.8; O2SAT 97
--- NOTE | 2021-06-23 07:15 | CM.DPNOTE ---
Emailed Maru Powell [place] ht & wt, and all rn notes as well as covid vaccine information. Candy Stark CM assist.
[2021-06-23 07:28] LABS: Add Manual Diff / Slide Review NO; Basophils Absolute Auto 100 /uL (0-100); Eosinophils Absolute Auto 200 /uL (0-450); Eosinophils Percent Auto 3.3 % (2-4); Hematocrit 35.2 % (41-53); Hemoglobin 11.5 g/dL (13.5-17.5); Lymphocytes Absolute Auto 1700 /uL (1100-4500); Lymphocytes Percent Auto 24.7 % (25-40); Mean Corpuscular HGB Conc 32.8 % (30-36); Mean Corpuscular Hemoglobin 27.6 PG (26-34); Mean Corpuscular Volume 84.1 fL (80-100); Monocytes Absolute Auto 600 /uL (0-900); Monocytes Percent Auto 8.5 % (3-14); Neutrophils Absolute Auto 4200 /uL (1500-7000); Neutrophils Percent Auto 62.5 % (50-75); Platelet Count 473 X10^3/uL (150-400); Red Blood Cell Count 4.18 X10^6/uL (4.5-5.9); Red Cell Distribution Width 15.5 % (11.6-14.8); White Blood Cell Count 6.7 X10^3/uL (4.5-11.0)
[2021-06-23 08:01] LABS: Alanine Aminotransferase 22 IU/L (<50); Albumin 3.3 g/dL (3.5-5.0); Albumin Globulin Ratio 1.3 (1.0-2.8); Alkaline Phosphatase 60 U/L (38-126); Aspartate Aminotransferase 22 IU/L (17-59); BUN Creatinine Ratio 35.5 (6-22); Bilirubin Total 0.2 mg/dL (0.2-1.3); Blood Urea Nitrogen 27 mg/dL (9-20); Calcium 9.3 mg/dL (8.4-10.2); Carbon Dioxide 32 mmol/L (22-32); Chloride 103 mmol/L (98-107); Estimated Glomerular Filt Rate > 60.0 mL/min (>60); Globulin 2.6 g/dL (1.7-4.1); Glucose 70 mg/dL (70-100); HEMOLYSIS < 15 (0-50); Potassium 4.3 mmol/L (3.4-5.1); Sodium 139 mmol/L (137-145); Total Protein 5.9 g/dL (6.3-8.2)
[2021-06-23] MEDS: METOPROLOL IR 50 MG TABLET PO ×2 (08:43→21:12)
[2021-06-23] MEDS: DOXYCYCLINE HYCLATE 100 MG TABLET PO ×2 (08:43→21:12)
[2021-06-23] MEDS: PREGABALIN 75 MG CAPSULE 300 MG PO ×2 (08:43→21:11)
[2021-06-23] MEDS: ENOXAPARIN 40 MG/0.4 ML SYRINGE SUBCUT (08:44)
--- NOTE | 2021-06-23 10:42 | DI.RAD.S_ITS ---
PROCEDURE: XR TIBIA FUBULA RT 2V INDICATIONS: fall, R knee and R leg TECHNIQUE: 2 views of the tibia and fibula were acquired. COMPARISON: None. FINDINGS: Bones: No fractures or dislocations. No suspicious bony lesions. Soft tissues: No suspicious soft tissue calcifications or masses. IMPRESSION: Intact right tibia and fibula. Dictated by: Sandra Rodriguez M.D. on 06/23/2021 at 12:03 Approved by: Sandra Rodriguez M.D. on 06/23/2021 at 12:03
--- NOTE | 2021-06-23 10:43 | DI.RAD.S_ITS ---
PROCEDURE: XR KNEE RT 3V INDICATIONS: fall, R knee pain TECHNIQUE: Two views of the knee were acquired. COMPARISON: None. FINDINGS: Bones: No fractures or dislocations. No suspicious bony lesions. Soft tissues: No joint effusion. No suspicious soft tissue calcifications. IMPRESSION: Intact right knee Dictated by: Sandra Rodriguez M.D. on 06/23/2021 at 12:09 Approved by: Sandra Rodriguez M.D. on 06/23/2021 at 12:10
--- NOTE | 2021-06-23 14:27 | PC.NURSE ---
Patient resting in bed on his right side, removed wound vac sponge x 1, noted wound to be 9.6 x 13.5 x 0.2 cm, wound base has minimal slough, mainly pink and red granulated tissue. Minimal bleeding during dressing change, homeostatis achieved with pressure. Wet to dry dressing placed using sterile gauze moistened with NS, ABD pad and hypafix. Patient tolerated procedure. Encouraged patient to rotate to supine for a bit to alleviate blanchable redness on R hip. Patient verbalized understanding. R Knee and R lateral ankle Allyvn dressings are CDI at this time. Patient denies further needs. Call light in reach.
--- NOTE | 2021-06-23 15:44 | PT-IP ANOTE ---
Attempted to co-treat w/ OT at 15:35, pt not wanting to transfer to commode due to wound, but needing assist w/ ADLs and pericare. Pt wanting to hold PT this PM following OT treatment due to fatigue.
--- NOTE | 2021-06-23 15:50 | OT.IP.TRT ---
Current Diagnoses Unspecified open wound, left thigh, initial encounter (06/12/21) Unspecified open wound, unspecified lower leg, initial encounter (06/12/21) Surgery Performed Operation Date: 06/12/21 09:45 Actual Procedures p Debridement hip(Left) - Dedrick Valdez MD Occupational Therapy Treatment Note M2 OT-IP Current Condition Start: 06/15/21 18:00 Freq: Status: Active Protocol: Document 06/15/21 18:00 [facility] (Rec: 06/15/21 18:27 [facility] [id number]) Occupational Therapy Current Condition Current Condition Evaluation Date 06/15/21 Treatment Diagnosis Left posterior thigh wound, left spann ulcer Diagnosis Onset Date 06/11/21 M3 OT- IP Subjective and Pain Start: 06/15/21 18:00 Freq: Status: Active Protocol: Document 06/23/21 15:27 [facility] (Rec: 06/23/21 17:29 [facility] [id number]) OT- Subjective Occupational Therapy Visit Type Type Treatment Note Visit Start Time 15:27 Visit Stop Time 15:50 Total Visit Minutes 23 Occupational Therapy Visit Comments Patient Comments Pt agreed to work with OT/SOIL TECHNOLOGIST however after discussion , pt not feeling not ready to try to transfer to the [facility] for transfers as he feels that he is too sore on his left hip to try. Pt agreed to do brief change and grooming needs with OT. Patient/Caregiver Goals TO get better and do more for himself. OT Pain Assessment Pain When Pain Assessed During Mobility Pain Present Pain Present Pain Reported Location Left Thigh Intensity 8 Scale Used Numeric (0 - 10) M4 OT- IP ADL's Start: 06/15/21 18:00 Freq: Status: Active Protocol: Document 06/23/21 15:27 [facility] (Rec: 06/23/21 17:29 [facility] [id number]) OT AQT-Lyhh-Uegrjvk General Evaluation Self-Feeding Ability Independent OT ADL-Grooming Comments OT Grooming Comments Not performed. OT ADL-Oral Care General Eval Oral Care Ability Standby Assistance Comments Oral Care Comments Pt able to sit at the edge of the bed to rinse his mouth out and having to use his left hand for occasional balance. OT ADL-Toileting General Evaluation Toileting Ability Moderate Assistance Areas Needing Assistance Manage Clothing Comments OT Toileting Comments Pt needing MODA for brief management while in bed and pt able to do his hygiene needs and assist with brief management. M7 OT- IP Mobility and Balance Start: 06/15/21 18:00 Freq: Status: Active Protocol: Document 06/23/21 15:27 [facility] (Rec: 06/23/21 17:29 [facility] [id number]) OT- Bed Mobility Assessment Supine to Sit Supine to Sit Assist Standby Assistance Sit to Supine Sit to Supine Assist Standby Assistance Scooting Scooting to Edge of Bed Standby Assistance OT-Transfer Assessment Comments Mobility Comments Pt able to get to the edge of the bed by use of his hands to assist to move his legs to the edge of the bed. OT- Balance Assessment Sitting Balance and Reactions Static Sitting Balance Ability Fair Dynamic Sitting Balance Ability Fair M9 OT- IP Assessment and Plan Start: 06/15/21 18:00 Freq: Status: Active Protocol: Document 06/23/21 15:27 [facility] (Rec: 06/23/21 17:29 [facility] [id number]) OT Summary Assessment and Plan Potential Rehabilitation Potential Good Analytic Complexity at Evaluation Moderate Summary OT Impairments Strength,Balance,Functional Mobility,Toilet Transfers, Shower Transfers,Activity Tolerance Progress Towards Goals Slow Progress due to Pain Assessment Summary Pt having more pain today and not able to tolerate as much therapy however still very cooperative and pleasant. Goals Dressing Goal Minimal Assistance Toilet Transfer Goal Independent OT-Other Goals Pt to improve his core strength to be able to sit at the edge of the bed for 2 minute without support of bed rail, to help improve his ability to use the toilet without support. Days to Meet Goals 23 Frequency of Treatment Frequency Of Treatment Once a Day Treatment Plan OT Treatment Plan ADL Training,Functional Mobility,Patient/Family Education,Discharge Planning Discharge Recommendations OT Discharge Recommendations SNF Rehab Transportation Needs at Discharge Wheelchair/Cabulance
--- NOTE | 2021-06-23 16:12 | CM.DPC ---
Placement Spoke w/Maru at [facility]; Team has staffed this referral and they cannot accept patient at this time. Maru and nursing team concerned that if they admit patient before knowing the extent of his wound care needs without the wound vac; patient may be at risk for failing at SNF Maru suggested once wound vac is off, to fax updated wound care notes next week for review. Maru has alf care beds available for patient, it is the wound care needs that need to be defined According to MICHEAL Butterfield, wound vac has been removed today and she has left detailed wound care notes for review Also received call from Jeanne, [facility] Swing beds in [place]; reviewed clinical information. Jeanne explained that they are still considering and would also need updated wound care notes now that wound vac is off (they cannot accept with the wound vac). Explained to Jeanne that [facility] on [facility] has a exterminator care bed for patient if they can provide the halfway and therapies (?) Jeanne will review with her team; this CM team will need to follow up Saturday [facility] Contact: Jeanne P# [phone] F# [phone] Back up number P# [phone] Jeanne suggested [place] swing beds; this PAN SHOVER unable to review notes to see response from this swing bed (?) It is likely that this swing bed was contacted at the beginning of patient's stay, may need follow up JW
--- NOTE | 2021-06-23 17:01 | PM.PN.1 ---
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 The patient underwent I and D/debridement of the ulcer, wound VAC is in place but will be removed today in anticipation of SNF placement.? Wound culture grew MRSA and E coli.? He is very cooperative and tolerating treatments. Patient had a fall last night, complaining of pain on his R spann, more like a bone bruise. He did not hit his head. No other complaints today. XR were negative. Exam Vital Signs (past 8 hours): Oxygen Delivery Method Room Air Oxygen Flow Rate 0 Narrative Exam Narrative: General: NAD, alert and cooperative Extremities:? left hip wound with vac in place, serosanguinous output, minimal erythema, non-tender. No edema. R tenderness anterior spann, no joint effusions, no knee tenderness. CV: RRR no m/r/g Pulm: CTA b/l no wheezing rhonchi or rales Ext: no edema or joint effusions Objective Labs Result Diagrams: 06/23/21 06:17 06/23/21 06:17 Labs: Laboratory Results - last 24 hr 06/23/21 06/23/21 06:17 06:17 WBC 6.7 RBC 4.18 L Hgb 11.5 L Hct 35.2 L MCV 84.1 MCH 27.6 MCHC 32.8 RDW 15.5 H Plt Count 473 H Neut % (Auto) 62.5 Lymph % (Auto) 24.7 L [place] % (Auto) 8.5 Eos % (Auto) 3.3 Baso % (Auto) 1.0 Neut # (Auto) 4200 Lymph # (Auto) 1700 [place] # (Auto) 600 Eos # (Auto) 200 Baso # (Auto) 100 Sodium 139 Potassium 4.3 Chloride 103 Carbon Dioxide 32 BUN 27 H Creatinine 0.76 Estimated GFR > 60.0 BUN/Creatinine Ratio 35.5 H Glucose 70 Calcium 9.3 Total Bilirubin 0.2 AST 22 ALT 22 Alkaline Phosphatase 60 Total Protein 5.9 L Albumin 3.3 L Globulin 2.6 Albumin/Globulin Ratio 1.3 PFSH Medical History Back pain Functional paraparesis Hypertension Neurogenic pain Schwannoma of spinal cord Surgical History History of spinal surgery History of tonsillectomy Family History Father CVA (cerebral vascular accident) Mother Myocardial infarct Social History household members: spouse, children, friend(s) and other Smoking Status: Current some day smoker alcohol intake: current Assessment & Plan Assessment & Plan narrative: This is a 45-year-old male with a history of spinal schwannomas and functional paraplegia who presents with large pressure ulcers on his legs caused by crawling around his home for the last 2 months while he has been unable to walk. 1. Large Left Ischial/Trochanteric Pressure Ulcer, present on admission.? Active. -wound culture growing MRSA and E coli -patient is status post debridement, with wide excision, now with wound VAC in place. If wound vac is barrier to discharge, can do wet to dry dressings per surgeon. -continue doxycycline and Cipro by mouth, stopped vancomycin -Multiple other Lower Extremity Pressure Ulcers, present on admission.? Active. -14 days total antibiotics scheduled to end 06/25/21. -continue PT/OT 2. Thoracic Spine Schwannomas, present on admission. Active. -continue Pregabalin for neuropathic pain -Upcoming Neurosurgery appointment with Dr. Stanley -preliminary information is that his tumors are no longer operable. 3. Functional Paraplegia, present on admission.? Active. -Secondary to Spinal Schwannomas causing loss of LE balance/coordination 4. Hypertension, present on admission.? Active. -continue Metoprolol 5. Hypokalema, present on admission.? Active. -corrected 6. Patient with severe acute protein calorie malnutrition -appreciate dietary recommendation 7. Controlled hospital fall - patient was transferring to [facility], had controlled fall to the ground. He did not hit his head. Complained of knee bruise type pain today. XR were negative for fracture. Await placement, social work working on short and long-term placement Discharge once placement has been arranged Time Spent With Patient Critical Care time: I spent a total of [] minutes of critical care time on this patient's care today; this time is exclusive of procedural time. Quality VTE Deep Vein Thrombosis/Pulmonary Embolism Present on Admission: No
[2021-06-23 21:00] VITALS: BP 108/67; PULSE 81; RESP 16; TEMP 37.1; O2SAT 98
[2021-06-24] MEDS: ACETAMINOPHEN 325 MG TABLET 650 MG PO ×4 (00:17→23:59)
[2021-06-24] MEDS: OXYCODONE IR 5 MG TABLET 10 MG PO ×5 (01:41→20:14)
[2021-06-24 05:00] VITALS: RESP 16
[2021-06-24] MEDS: CIPROFLOXACIN 250 MG TABLET 500 MG PO ×2 (06:26→20:14)
--- NOTE | 2021-06-24 07:34 | P.PN_ITS ---
Subjective Subjective Date Patient Seen: 06/24/21 Interval history: He is seen today in his room here to follow-up his functional paraplegia and large left hip pressure wound. I recall the appearance of this wound when he was admitted here about 2 weeks ago and the improvement is notable and exactly as expected after a debridement and some time to heal. His CMP and CBC were normal yesterday. He had been approved for admission to [facility] in [place] but after the insurance approved and set the contract the facility declined to take him, presumably due to payment or other clinical issues. Exam Vital Signs (past 8 hours): - 06/24/21 05:00 Respiratory Rate 16 Oxygen Delivery Method Room Air Oxygen Flow Rate 0 Narrative Exam Narrative: He is alert and oriented x3. No apparent distress. His strength is at baseline Heart is regular rate and rhythm without murmur Lungs are clear to auscultation bilaterally Extremities have no ankle edema Skin: Very large but granulating left lateral hip skin ulcer. Healed right foot ulcer Nearly healed left knee ulcer. No signs of infection. Objective Labs Result Diagrams: 06/23/21 06:17 06/23/21 06:17 Labs: Laboratory Results - last 24 hr 06/23/21 06:17 Sodium 139 Potassium 4.3 Chloride 103 Carbon Dioxide 32 BUN 27 H Creatinine 0.76 Estimated GFR > 60.0 BUN/Creatinine Ratio 35.5 H Glucose 70 Calcium 9.3 Total Bilirubin 0.2 AST 22 ALT 22 Alkaline Phosphatase 60 Total Protein 5.9 L Albumin 3.3 L Globulin 2.6 Albumin/Globulin Ratio 1.3 [facility] Medical History Back pain Functional paraparesis Hypertension Neurogenic pain Schwannoma of spinal cord Surgical History History of spinal surgery History of tonsillectomy Family History Father CVA (cerebral vascular accident) Mother Myocardial infarct Social History household members: spouse, children, friend(s) and other Smoking Status: Current some day smoker alcohol intake: current Assessment & Plan Assessment & Plan narrative: This is a 45-year-old male with a history of spinal schwannomas and functional paraplegia who presents with large pressure ulcers on his legs caused by crawling around his home for the last 2 months while he has been unable to walk. 1. Large Left Ischial/Trochanteric Pressure Ulcer, present on admission.? Active. -wound culture growing MRSA and E coli -patient is status post debridement, with wide excision, now with wound VAC removed and with wet to dry dressings per surgeon. -continue doxycycline and Cipro by mouth until Sunday 06/25, stopped vancomycin 06/17 -Multiple other Lower Extremity Pressure Ulcers, all now nearly healed. -14 days total antibiotics scheduled to end 06/25/21. -continue PT/OT 2. Thoracic Spine Schwannomas, present on admission. Active. -continue Pregabalin for neuropathic pain -Upcoming Neurosurgery appointment with Dr. Stanley -preliminary information is that his tumors are no longer operable. 3. Functional Paraplegia, present on admission.? Active. -Secondary to Spinal Schwannomas causing loss of LE balance/coordination 4. Hypertension, present on admission.? Active. -continue Metoprolol 5. Hypokalema, present on admission.? Active. -corrected 6. Patient with severe acute protein calorie malnutrition -appreciate dietary recommendation 7. Controlled hospital fall ?- patient was transferring to [facility], had controlled fall to the ground. He did not hit his head. Complained of knee bruise type pain. XR were negative for fracture. Await placement, [employer] approved [facility] [place] but the facility is no longer willing to take him, social work working on short and long-term placement Time Spent With Patient Critical Care time: I spent a total of [] minutes of critical care time on this patient's care today; this time is exclusive of procedural time. Quality VTE Deep Vein Thrombosis/Pulmonary Embolism Present on Admission: No
[2021-06-24 07:50] VITALS: BP 119/75; PULSE 74; RESP 16; TEMP 36.6; O2SAT 99
[2021-06-24] MEDS: ENOXAPARIN 40 MG/0.4 ML SYRINGE SUBCUT (09:56)
[2021-06-24] MEDS: PREGABALIN 75 MG CAPSULE 300 MG PO ×2 (09:56→20:14)
[2021-06-24] MEDS: DOXYCYCLINE HYCLATE 100 MG TABLET PO ×2 (09:56→20:14)
[2021-06-24] MEDS: METOPROLOL IR 50 MG TABLET PO ×2 (09:56→20:14)
[2021-06-24] MEDS: SODIUM CHLORIDE 0.9% FLUSH 10 ML IV ×2 (09:57→22:19)
--- NOTE | 2021-06-24 13:16 | OT.IPNOTE ---
Attempted OT treatment and pt waiting for dressing change and then wanting to have pain medications.
[2021-06-24 15:00] VITALS: BP 126/72; PULSE 79; RESP 16; TEMP 36.6; O2SAT 99
--- NOTE | 2021-06-24 15:42 | PT.IPTN ---
Current Diagnoses Unspecified open wound, left thigh, initial encounter (06/12/21) Unspecified open wound, unspecified lower leg, initial encounter (06/12/21) Surgery Performed Operation Date: 06/12/21 09:45 Actual Procedures p Debridement hip(Left) - Dedrick Valdez MD Physical Therapy Treatment Note M2 PT-IP Current Condition Start: 06/14/21 15:46 Freq: NEEDED Status: Active Protocol: Document 06/21/21 15:20 SP (Rec: 06/21/21 18:31 SP [id number]) Physical Therapy Current Condition Current Condition Evaluation Date 06/14/21 Treatment Diagnosis L thigh open wound; generalized weakness M3 PT-IP Subjective Start: 06/14/21 15:46 Freq: NEEDED Status: Active Protocol: Document 06/24/21 15:32 KS (Rec: 06/24/21 16:41 KS [id number]) Subjective Physical Therapy Visit Type Type Treatment Note Visit Start Time 15:32 Visit Stop Time 15:42 Total Visit Minutes 10 Number of CHOPPER GUN OPERATOR Visits 5 Physical Therapy Visit Comments Patient Comments Pt is willing to participate with PT Patient Goals Go to SNF. Therapy Pain Assessment Pain When Pain Assessed At Rest Pain Present Pain Present Pain Reported M4 PT-IP Mobility and Gait Start: 06/14/21 15:46 Freq: NEEDED Status: Active Protocol: Document 06/24/21 15:32 KS (Rec: 06/24/21 16:41 KS [id number]) PT-Bed Mobility Assessment Supine to Sit Supine to Sit Independent,Bedrails Sit to Supine Sit to Supine Standby Assistance Scooting Scooting to Edge of Bed Standby Assistance PT-Transfer Assessment Comments Mobility Comments Pt unwilling to transfer today due to pain and fatigue, but agreed to sitting balance. Able to sit up independently and scoot to EOB SBA. Performed ~4 min each of sit and reach and perturbations w/ eyes open and eyes closed. Pt w/ 3x LOB when reaching to right side. Encouraged pt to perform more and he refused stating he was too tired for anything else. SBA for sit<> sup and left in bed w/ alarm on and all needs in reach. Gait Assessment Comments Gait Comments Unable to ambulate PT-Balance Assessment Sitting Balance and Reactions Static Sitting Balance Ability Fair Dynamic Sitting Balance Ability Fair Standing Balance and Reactions Device Used n/t M5 PT-IP Objective Assessments Start: 06/14/21 15:46 Freq: NEEDED Status: Active Protocol: Document 06/14/21 14:55 AB (Rec: 06/14/21 16:13 AB [id number]) Orientation Orientation/Cognition Level of Alertness Alert Orientation Name,Place,Situation Language Function Ability No Deficits Noted Safety Awareness Decreased Safety Awareness Memory Description No Deficits Noted Gross Range of Motion Lower Extremity ROM Assessment Within Functional Limits Impairments increase flexor tone noted L>R Strength Lower Extremity Strength Assessment Bilaterally Impaired Hip flexors: 2-/5 Knee 1+/5 Ankle 0/5 Sensation Assessment Sensation Gross Sensation Right LE Impaired,Left LE Impaired Light Touch Absent Proprioception (Position) Absent Comments Sensation Comments no sensation from upper thighs down to B feet Muscle Tone Muscle Tone WNL No Muscle Tone Location Bilateral Lower Extremity Type of Tone Hypotonicity Severity of Tone Severe Comments Muscle Tone Comments flexor tone during PROM L>R but overall flaccid/hypotonic Other Assessments Other Other Assessments L posterior upper thigh wound with wound vac; L knee skin ulcer M6 PT-IP Treatment Start: 06/14/21 15:46 Freq: NEEDED Status: Active Protocol: Document 06/24/21 15:32 KS (Rec: 06/24/21 16:41 KS [id number]) Physical Therapy Treatment Education Education Provided Safety Other Treatments Other Treatment Performed Sit and reach, seated perturbations. M7 PT-IP Assessment and Plan Start: 06/14/21 15:46 Freq: NEEDED Status: Active Protocol: Document 06/24/21 15:32 KS (Rec: 06/24/21 16:41 KS [id number]) PT Summary Assessment and Plan Potential Rehabilitation Potential Fair Status of Condition at Evaluation Evolving Summary Impairments Pain,ROM,Strength,Balance, Coordination,Sensation,Tone, Cognition,Bed Mobility, Transfers,Gait,Activity Tolerance Progress Towards Goals Slow Progress due to Pain,Slow Progress due to Medical Issues,Slow Progress due to Activity Tolerance Assessment Summary Pt continues to be limited by low activity tolerance, faitgue, and pain. Unwilling to transfer to chair today but able to complete seated balance exercises while EOB, w / 3x LOB needing CGA to Min A to correct. He will require SNF to improve strength and mobility independence. Goals Bed Mobility Goal Independent Transfer Goal Contact Guard Assistance,Slide Board Days to Meet Goals 10 Frequency of Treatment Frequency Of Treatment Once a Day Treatment Plan Physical Therapy Treatment Plan Bed Mobility Training,Transfer Training,Therapeutic Exercise ,Balance Retraining,Discharge Planning,Hot or Cold Pack, Neuromuscular Re-ed, Coordination Retraining,Manual Therapy Other Recommendations and Next Treatment Teach nursing staff slide Focus board, slide board back into bed. Precautions Other Precautions MRSA of wound, fall risk Recommendations To Nursing Amount of Assist Needed Mechanical Lift Discharge Recommendations PT Discharge Recommendations SNF Rehab Transportation Needs at Discharge Wheelchair/Cabulance
--- NOTE | 2021-06-24 16:03 | CM.DANOTE ---
DCP/continued: Reviewed notes. Per colleague notes patient was scheduled to go [facility] once [employer] (one time certification received). Apparently then [facility] would not accept? SPORTS EDITOR spoke with Katherine at [facility] requesting that they reconsider. Patient no longer requiring wound vac and has assisted Medicaid for planning after skilled need. Katherine reports that they will sensuously consider but that she will not know until Saturday06-26-21. Currently wound vac off and patient requiring wet to dry dressing changes. CM team to continue to attempt SNF placement for skilled needs. P: Pending. ZAIRE
[2021-06-24] MEDS: SENNOSIDES 8.6 MG TABLET 17.2 MG PO (20:14)
[2021-06-25] MEDS: OXYCODONE IR 5 MG TABLET 10 MG PO ×6 (04:30→20:18)
[2021-06-25 05:00] VITALS: BP 107/56; PULSE 80; RESP 16; TEMP 36.1; O2SAT 96
[2021-06-25] MEDS: ACETAMINOPHEN 325 MG TABLET 650 MG PO ×3 (06:15→17:24)
[2021-06-25] MEDS: CIPROFLOXACIN 250 MG TABLET 500 MG PO ×2 (06:18→20:21)
[2021-06-25 08:00] VITALS: BP 96/54; PULSE 81; RESP 18; TEMP 36.3; O2SAT 96
[2021-06-25] MEDS: ENOXAPARIN 40 MG/0.4 ML SYRINGE SUBCUT (09:24)
[2021-06-25] MEDS: DOXYCYCLINE HYCLATE 100 MG TABLET PO ×2 (09:25→20:17)
[2021-06-25] MEDS: METOPROLOL IR 50 MG TABLET PO ×2 (09:25→20:17)
[2021-06-25] MEDS: SODIUM CHLORIDE 0.9% FLUSH 10 ML IV ×2 (09:25→20:18)
[2021-06-25] MEDS: PREGABALIN 75 MG CAPSULE 300 MG PO ×2 (09:25→20:17)
--- NOTE | 2021-06-25 16:20 | PM.PN.1 ---
Subjective Subjective Date Patient Seen: 06/25/21 Time Patient Seen: 08:00 Interval history: He feels his pain is well controlled today. Exam Vital Signs (past 8 hours): Oxygen Delivery Method Room Air Oxygen Flow Rate 0 Narrative Exam Narrative: GEN: no acute distress CV: regular rate and rhythm without murmur PULM: clear to auscultation bilaterally Skin:? Very large but granulating left lateral hip skin ulcer. Healed right foot ulcer Healing left knee ulcer. No signs of infection. Objective Labs Result Diagrams: 06/23/21 06:17 06/23/21 06:17 [facility] Medical History Back pain Functional paraparesis Hypertension Neurogenic pain Schwannoma of spinal cord Surgical History History of spinal surgery History of tonsillectomy Family History Father CVA (cerebral vascular accident) Mother Myocardial infarct Social History household members: spouse, children, friend(s) and other Smoking Status: Current some day smoker alcohol intake: current Assessment & Plan Assessment & Plan narrative: 45M with PMH of spinal schwannomas and functional paraplegia who presents with large pressure ulcers on his legs caused by crawling around his home for the last 2 months while he has been unable to walk.? 1. Large Left Ischial/Trochanteric Pressure Ulcer, present on admission.? Active. -wound culture growing MRSA and E coli -patient is status post debridement, with wide excision, now with wound VAC removed and with wet to dry dressings per surgeon. -continue doxycycline and Cipro by mouth until Sunday 06/25, stopped vancomycin 06/17 -Multiple other Lower Extremity Pressure Ulcers, all now nearly healed. -14 days total antibiotics scheduled to end 06/25/21. -continue PT/OT 2. Thoracic Spine Schwannomas, present on admission. Active. -continue Pregabalin for neuropathic pain -Upcoming Neurosurgery appointment with Dr. Stanley -preliminary information is that his tumors are no longer operable. 3. Functional Paraplegia, present on admission.? Active. -Secondary to Spinal Schwannomas causing loss of LE balance/coordination 4. Hypertension, present on admission.? Active. -continue Metoprolol 5. Hypokalema, present on admission.? Active. -corrected 6. Patient with severe acute protein calorie malnutrition -appreciate dietary recommendation 7. Controlled hospital fall ?- patient was transferring to [facility], had controlled fall to the ground. He did not hit his head. Complained of knee bruise type pain. XR were negative for fracture. Await placement, [facility] approved [facility] but the facility is no longer willing to take him, social work working on short and long-term placement Time Spent With Patient Critical Care time: I spent a total of [] minutes of critical care time on this patient's care today; this time is exclusive of procedural time. Quality VTE Deep Vein Thrombosis/Pulmonary Embolism Present on Admission: No
--- NOTE | 2021-06-25 17:18 | PT-IP ANOTE ---
Attempted to see pt today but he was in the process of transferring rooms. Unable to see pt later in the day due to scheduling. Will follow up Saturday.
[2021-06-25 20:00] VITALS: BP 117/67; PULSE 80; RESP 17; TEMP 36.9; O2SAT 99
--- NOTE | 2021-06-25 23:21 | PC.NURSE ---
Patient is alert and oriented. Breath sounds CTA with RA sat of 99%. HRR. Denied nausea. BT present and abdomen is soft. Due to paraplegia he is incontinent of B&B. Is able to turn himself. Is nonambulatory. Dressing to lateral left hip is CDI. Open area to coccyx noted; refuses use of waffle cushion. Feet are dry with scabbed abrasions. Bilateral foot edema left > right. Allevyn dressing to left knee is CDI. Fall risk score is high and bed alarm is activated. On contact isolation due to MRSA in wounds. Complained of pain in right leg earlier and was medicated with oxycodone.
[2021-06-26] MEDS: ACETAMINOPHEN 325 MG TABLET 650 MG PO ×4 (05:34→17:54)
[2021-06-26] MEDS: OXYCODONE IR 5 MG TABLET 10 MG PO ×6 (05:34→20:42)
[2021-06-26 07:00] VITALS: BP 123/67; PULSE 72; RESP 14; TEMP 36.3; O2SAT 99
[2021-06-26 08:37] VITALS: O2SAT 97
[2021-06-26] MEDS: PREGABALIN 75 MG CAPSULE 300 MG PO ×2 (08:41→20:42)
[2021-06-26] MEDS: ENOXAPARIN 40 MG/0.4 ML SYRINGE SUBCUT (08:41)
[2021-06-26] MEDS: METOPROLOL IR 50 MG TABLET PO ×2 (08:41→20:42)
[2021-06-26] MEDS: SODIUM CHLORIDE 0.9% FLUSH 10 ML IV ×2 (08:42→20:43)
--- NOTE | 2021-06-26 11:35 | OT.IP.TRT ---
Current Diagnoses Unspecified open wound, left thigh, initial encounter (06/12/21) Unspecified open wound, unspecified lower leg, initial encounter (06/12/21) Surgery Performed Operation Date: 06/12/21 09:45 Actual Procedures p Debridement hip(Left) - Dedrick Valdez MD Occupational Therapy Treatment Note M2 OT-IP Current Condition Start: 06/15/21 18:00 Freq: Status: Active Protocol: Document 06/15/21 18:00 [facility] (Rec: 06/15/21 18:27 [facility] [id number]) Occupational Therapy Current Condition Current Condition Evaluation Date 06/15/21 Treatment Diagnosis Left posterior thigh wound, left spann ulcer Diagnosis Onset Date 06/11/21 M3 OT- IP Subjective and Pain Start: 06/15/21 18:00 Freq: Status: Active Protocol: Document 06/26/21 15:47 CGR (Rec: 06/26/21 15:56 CGR [id number]) OT- Subjective Occupational Therapy Visit Type Type Progress Note Visit Start Time 11:12 Visit Stop Time 11:35 Total Visit Minutes 23 Occupational Therapy Visit Comments Patient Comments I just want to get up to my chair. OT Pain Assessment Pain When Pain Assessed At Rest Pain Present Pain Present Pain Reported Location Right Leg Intensity 6 Management Techniques Distraction,Modification of Treatment,Re-positioning, Timing of Activity with Medications M4 OT- IP ADL's Start: 06/15/21 18:00 Freq: Status: Active Protocol: Document 06/23/21 15:27 [facility] (Rec: 06/23/21 17:29 [facility] [id number]) OT [id number] General Evaluation Self-Feeding Ability Independent OT ADL-Grooming Comments OT Grooming Comments Not performed. OT ADL-Oral Care General Eval Oral Care Ability Standby Assistance Comments Oral Care Comments Pt able to sit at the edge of the bed to rinse his mouth out and having to use his left hand for occasional balance. OT ADL-Toileting General Evaluation Toileting Ability Moderate Assistance Areas Needing Assistance Manage Clothing Comments OT Toileting Comments Pt needing MODA for brief management while in bed and pt able to do his hygiene needs and assist with brief management. M6 OT- IP Functional Cognition Start: 06/15/21 18:00 Freq: Status: Active Protocol: Document 06/21/21 11:32 [facility] (Rec: 06/21/21 11:41 [facility] [id number]) Cognitive Factors Limiting Selfcare Function Cognitive Comments Cognitive Assessment Comments Pt scored 65 seconds on [place] Making Part B which imlies normal for task switching, speed of processing, visual attention, executive functioning, and mental flexibility. M7 OT- IP Mobility and Balance Start: 06/15/21 18:00 Freq: Status: Active Protocol: Document 06/26/21 15:47 CGR (Rec: 06/26/21 15:56 CGR [id number]) OT- Bed Mobility Assessment Supine to Sit Supine to Sit Assist Minimal Assistance Scooting Scooting to Edge of Bed Standby Assistance OT-Transfer Assessment Transfers Transfer Ability Minimal Assistance Technique Transfer Destination Bed,Chair Devices Transfer Assistive Devices Gait Belt,Sliding Board Comments Mobility Comments Pt needed min a for set up then min a for use of sliding board to w/c. OT- Balance Assessment Sitting Balance and Reactions Static Sitting Balance Ability Good Dynamic Sitting Balance Ability Fair M8 OT- IP Objective Assessments Start: 06/15/21 18:00 Freq: Status: Active Protocol: Document 06/15/21 18:00 [facility] (Rec: 06/15/21 18:27 [facility] [id number]) OT Gross Range of Motion Upper Extremity Range of Motion Assessment Within Functional Limits OT Strength Upper Extremity Strength Assessment Within Functional Limits OT-Muscle Tone Assessment Muscle Tone WNL No Muscle Tone Location Bilateral Lower Extremity Type of Tone Hypotonicity M9 OT- IP Assessment and Plan Start: 06/15/21 18:00 Freq: Status: Active Protocol: Document 06/26/21 15:47 CGR (Rec: 06/26/21 15:56 C[facility] [id number]) OT Summary Assessment and Plan Potential Rehabilitation Potential Good Analytic Complexity at Evaluation Moderate Summary OT Impairments Strength,Balance,Functional Mobility,Toilet Transfers, Shower Transfers,Activity Tolerance Progress Towards Goals Slow Progress due to Pain Assessment Summary Pt requesting only to transfer . Pt agreeable to sliding board transfer which he did with min a. Pt will continue to benefit from therapy services. Goals Dressing Goal Minimal Assistance Toilet Transfer Goal Independent OT-Other Goals Pt to improve his core strength to be able to sit at the edge of the bed for 2 minute without support of bed rail, to help improve his ability to use the toilet without support. Days to Meet Goals 23 Frequency of Treatment Frequency Of Treatment Once a Day Treatment Plan OT Treatment Plan ADL Training,Functional Mobility,Patient/Family Education,Discharge Planning Other Treatment Recommendations and Next Pt to sit unsupprted for 15 Treatment Focus seconds. Discharge Recommendations OT Discharge Recommendations SNF Rehab Transportation Needs at Discharge Wheelchair/Cabulance
--- NOTE | 2021-06-26 12:03 | DIET.PN1 ---
Dietary Progress Note Assessment: Pt on LOS day 14 awaiting placement. Pt compliant with all nutrition therapy, renal fxn WNL despite high protein intake. Pt no longer using wound vac, instead wet to dry dressings. Ht: 182.88 cm Wt: 70.307 kg BMI: 20.9 UBW: Last BM: 06/26/21 (06/26/21 10:10) MNA: 12 Shalom Score: 14 Diet: 06/12/21 Lunch Regular [General (Regular) Diet] Diet Modifications: double protein, chris slushie bid Nutrition Percent Meal Consumed 100% 06/26/21 09:20 Percent Meal Consumed 100% 06/25/21 18:00 Percent Meal Consumed 100% 06/25/21 14:47 Percent Meal Consumed 50% 06/25/21 08:45 Percent Meal Consumed 100% 06/24/21 18:00 Percent Meal Consumed 75% 06/24/21 13:24 Labs: RBC 4.18 X10^6/uL (4.5-5.9) L 06/23/21 06:17 Hgb 11.5 g/dL (13.5-17.5) L 06/23/21 06:17 Hct 35.2 % (41-53) L 06/23/21 06:17 Creatinine 0.76 mg/dL (0.66-1.25) 06/23/21 06:17 Lactate 1.2 mmol/L (0.7-2.1) 06/11/21 09:13 Electronically Signed by: Arelis Baugh 06/26/21 12:03 Clinical Dietitian [address] [address]
--- NOTE | 2021-06-26 14:32 | PT.IPTN ---
Current Diagnoses Unspecified open wound, left thigh, initial encounter (06/12/21) Unspecified open wound, unspecified lower leg, initial encounter (06/12/21) Surgery Performed Operation Date: 06/12/21 09:45 Actual Procedures p Debridement hip(Left) - Dedrick Valdez MD Physical Therapy Treatment Note M2 PT-IP Current Condition Start: 06/14/21 15:46 Freq: NEEDED Status: Active Protocol: Document 06/21/21 15:20 SP (Rec: 06/21/21 18:31 SP [id number]) Physical Therapy Current Condition Current Condition Evaluation Date 06/14/21 Treatment Diagnosis L thigh open wound; generalized weakness M3 PT-IP Subjective Start: 06/14/21 15:46 Freq: NEEDED Status: Active Protocol: Document 06/26/21 14:20 KS (Rec: 06/26/21 15:06 KS [id number]) Subjective Physical Therapy Visit Type Type Treatment Note Visit Start Time 14:20 Visit Stop Time 14:32 Total Visit Minutes 12 Number of LAUNDRY OPERATOR WASH ROOM Visits 6 Physical Therapy Visit Comments Patient Comments Pt is willing to participate with PT Patient Goals Go to SNF. Therapy Pain Assessment Pain When Pain Assessed At Rest Pain Present Pain Present Pain Reported M4 PT-IP Mobility and Gait Start: 06/14/21 15:46 Freq: NEEDED Status: Active Protocol: Document 06/26/21 14:20 KS (Rec: 06/26/21 15:06 KS [id number]) PT-Transfer Assessment Comments Mobility Comments Pt in w/c mobilizing around room upon arrival. Refused transfer back to bed stating he wanted to stay in chair. Pt verbalized relief w/ having w /c in room now. Continued to progress seated balance sit and reach and perturbations w/ eyes open and eyes closed, but has very quick approach to fatigue. Pt left in w/c w/ all needs in reach. Gait Assessment Comments Gait Comments Unable to ambulate PT-Balance Assessment Sitting Balance and Reactions Static Sitting Balance Ability Fair Dynamic Sitting Balance Ability Fair Standing Balance and Reactions Device Used n/t M5 PT-IP Objective Assessments Start: 06/14/21 15:46 Freq: NEEDED Status: Active Protocol: Document 06/14/21 14:55 AB (Rec: 06/14/21 16:13 AB [id number]) Orientation Orientation/Cognition Level of Alertness Alert Orientation Name,Place,Situation Language Function Ability No Deficits Noted Safety Awareness Decreased Safety Awareness Memory Description No Deficits Noted Gross Range of Motion Lower Extremity ROM Assessment Within Functional Limits Impairments increase flexor tone noted L>R Strength Lower Extremity Strength Assessment Bilaterally Impaired Hip flexors: 2-/5 Knee 1+/5 Ankle 0/5 Sensation Assessment Sensation Gross Sensation Right LE Impaired,Left LE Impaired Light Touch Absent Proprioception (Position) Absent Comments Sensation Comments no sensation from upper thighs down to B feet Muscle Tone Muscle Tone WNL No Muscle Tone Location Bilateral Lower Extremity Type of Tone Hypotonicity Severity of Tone Severe Comments Muscle Tone Comments flexor tone during PROM L>R but overall flaccid/hypotonic Other Assessments Other Other Assessments L posterior upper thigh wound with wound vac; L knee skin ulcer M6 PT-IP Treatment Start: 06/14/21 15:46 Freq: NEEDED Status: Active Protocol: Document 06/26/21 14:20 KS (Rec: 06/26/21 15:06 KS [id number]) Physical Therapy Treatment Education Education Provided Safety Other Treatments Other Treatment Performed Sit and reach, seated perturbations. M7 PT-IP Assessment and Plan Start: 06/14/21 15:46 Freq: NEEDED Status: Active Protocol: Document 06/26/21 14:20 KS (Rec: 06/26/21 15:06 KS [id number]) PT Summary Assessment and Plan Potential Rehabilitation Potential Fair Status of Condition at Evaluation Evolving Summary Impairments Pain,ROM,Strength,Balance, Coordination,Sensation,Tone, Cognition,Bed Mobility, Transfers,Gait,Activity Tolerance Progress Towards Goals Slow Progress due to Pain,Slow Progress due to Medical Issues,Slow Progress due to Activity Tolerance Assessment Summary Pt still demonstrating very low tolerance for activity w/ quick approach to fatigue during sit and reach and seated perturbation exercises. He will require SNF to improve strength and functional mobility independence. Goals Bed Mobility Goal Independent Transfer Goal Contact Guard Assistance,Slide Board Days to Meet Goals 10 Frequency of Treatment Frequency Of Treatment Once a Day Treatment Plan Physical Therapy Treatment Plan Bed Mobility Training,Transfer Training,Therapeutic Exercise ,Balance Retraining,Discharge Planning,Hot or Cold Pack, Neuromuscular Re-ed, Coordination Retraining,Manual Therapy Other Recommendations and Next Treatment Continue slide board transfer Focus from w/c to bed and back. Precautions Other Precautions MRSA of wound, fall risk Recommendations To Nursing Amount of Assist Needed Mechanical Lift Discharge Recommendations PT Discharge Recommendations SNF Rehab Transportation Needs at Discharge Wheelchair/Cabulance
--- NOTE | 2021-06-26 15:43 | PC.NURSE ---
Dayshift-Dressing on right hip was changed at 1515. I removed old dressing and then padded the wound w/ wet gauze. Skin was pink and wound showed no sign of infection. I placed wet gauze over wound and aleven pad, then thick layer of dry gauze on top of pad. I then covered gauze w/ large tagoderm.
--- NOTE | 2021-06-26 16:30 | P.PN_ITS ---
Subjective Subjective Date Patient Seen: 06/26/21 Time Patient Seen: 08:00 Interval history: Today he has no complaints. He feels his pain is well controlled Exam Vital Signs (past 8 hours): - 06/26/21 08:37 Pulse Oximetry 97 Oxygen Delivery Method Room Air Oxygen Flow Rate 0 Narrative Exam Narrative: GEN: no acute distress CV: regular rate and rhythm without murmur PULM: clear to auscultation bilaterally Skin:? Very large but granulating left lateral hip skin ulcer. Healed right foot ulcer Healing left knee ulcer. No signs of infection. Objective Labs Result Diagrams: 06/23/21 06:17 06/23/21 06:17 [facility] Medical History Back pain Functional paraparesis Hypertension Neurogenic pain Schwannoma of spinal cord Surgical History History of spinal surgery History of tonsillectomy Family History Father CVA (cerebral vascular accident) Mother Myocardial infarct Social History household members: spouse, children, friend(s) and other Smoking Status: Current some day smoker alcohol intake: current Assessment & Plan Assessment & Plan narrative: 45M with PMH of spinal schwannomas and functional paraplegia who presents with large pressure ulcers on his legs caused by crawling around his home for the last 2 months while he has been unable to walk.? 1. Large Left Ischial/Trochanteric Pressure Ulcer, present on admission.? Active. -wound culture growing MRSA and E coli -patient is status post debridement, with wide excision, now with wound VAC removed and with wet to dry dressings per surgeon. -continue doxycycline and Cipro by mouth until Sunday 06/25, stopped vancomycin 06/17 -Multiple other Lower Extremity Pressure Ulcers, all now nearly healed. -14 days total antibiotics scheduled to end 06/25/21. -continue PT/OT 2. Thoracic Spine Schwannomas, present on admission. Active. -continue Pregabalin for neuropathic pain -Upcoming Neurosurgery appointment with Dr. Stanley -preliminary information is that his tumors are no longer operable. 3. Functional Paraplegia, present on admission.? Active. -Secondary to Spinal Schwannomas causing loss of LE balance/coordination 4. Hypertension, present on admission.? Active. -continue Metoprolol 5. Hypokalema, present on admission.? Active. -corrected 6. Patient with severe acute protein calorie malnutrition -appreciate dietary recommendation 7. Controlled hospital fall ?- patient was transferring to [facility], had controlled fall to the ground. He did not hit his head. Complained of knee bruise type pain. XR were negative for fracture. Await placement, [facility] [place] but the facility is no longer willing to take him, social work working on short and long-term placement Time Spent With Patient Critical Care time: I spent a total of [] minutes of critical care time on this patient's care today; this time is exclusive of procedural time. Quality VTE Deep Vein Thrombosis/Pulmonary Embolism Present on Admission: No
--- NOTE | 2021-06-26 16:55 | CM.DPC ---
DCP/continued: Spoke with Katherine at [facility], they continue to review but unsure if they can accept. Placed call to Janette with [facility] provided her with updated. TEXTILE WORKER requested that Janette check into sending patient to [facility] [place]. Contact is Sandrita locke# [phone]. TEXTILE WORKER spoke with Sandrita and she reports that they do have availability for those hard to place patient's however, it needs to go through [facility] CM. P: Pending placement. ZAIRE
[2021-06-26 20:00] VITALS: BP 107/60; PULSE 81; RESP 16; TEMP 37.2; O2SAT 97
--- NOTE | 2021-06-26 22:00 | PC.NURSE ---
Patient is alert and oriented. Breath sounds CTA with RA sat of 97%. HRR. Denies nausea. BT present and is passing flatus. Is incontinent of B&B. Able to move self in bed. Is paraplegic with rigid/contracted bilateral LE. Transfers to wheelchair using ginny lift. Complained earlier of 8/10 pain in right leg; grimacing, wincing and tearful. Was too early to give additional oxycodone so Mike SOLIS, was informed but declined to order any additional pain medications so was medicated with oxycodone at 2041 and currently states pain is down to 6/10. Dressing to left lateral hip is CDI as is Allevyn dressing to left knee. Contact isolation for MRSA in wound but is no longer on antibiotics. Fall risk score is high and bed alarm is activated.
[2021-06-27] MEDS: OXYCODONE IR 5 MG TABLET 10 MG PO ×6 (00:33→22:23)
[2021-06-27] MEDS: ACETAMINOPHEN 325 MG TABLET 650 MG PO ×4 (00:33→18:25)
[2021-06-27 07:30] VITALS: BP 125/67; PULSE 84; RESP 18; O2SAT 98
[2021-06-27 08:08] VITALS: O2SAT 98
[2021-06-27] MEDS: ENOXAPARIN 40 MG/0.4 ML SYRINGE SUBCUT (09:23)
[2021-06-27] MEDS: PREGABALIN 75 MG CAPSULE 300 MG PO ×2 (09:23→22:24)
[2021-06-27] MEDS: METOPROLOL IR 50 MG TABLET PO ×2 (09:23→22:25)
--- NOTE | 2021-06-27 13:59 | CM.DPC ---
DCP Cont: Per MD, pt remains medically stable with no wound vac but ongoing wound care needs. Per PT, pt's spouse brought in his w/c and pt was able to successfully transfer into w/c but with assist and moves around well with it in the room. Discussion during Rounds with MD and staff regarding possibility of pt discharging home while awaiting LTC placement/support. Due to pt's current wounds and ongoing wound care needs and lack of ability to fit w/c in his trailer, decision made that pt could not safely d/c home at this time. NITHIN spoke to [facility] Janette [phone] who requests pt's LTC application be re-faxed to the [employer] office ([phone]) as its only been sent to her office and it cannot be expedited from her but only if faxed directly by the hospital. SW faxed application to [employer] [facility]. [facility] Janette states once pt's LTC application is uploaded in their system then she will be able to easily communicate with AFHs and process should move much quicker. NITHIN discussed the barriers to SNF placement but once AFHs or ALFs are reviewing pt and show interest much higher likelihood of SNF accepting and pt may even be able to d/c directly from hospital into [facility] without need for SNF level of care as an option as well. [facility] to try to contact [facility] in [place] to multiple numbers and offices without any return call but she will continue in case pt could be accepted at their facility. Plan: NITHIN to follow with [facility] Janette tomorrow to confirm pt's LTC application uploaded in their system so LTC placement can begin. SAMUEL Villarreal
--- NOTE | 2021-06-27 14:23 | PT-IP ANOTE ---
Pt refused therapy at 14:23 due to reported soreness. When asked pt if he would participate after medication, he responded not today.
--- NOTE | 2021-06-27 15:58 | OT.IPNOTE ---
Pt asleep and woke pt up to check on him for doing OT. Pt states very sore and too much pain today to try. Pt was wet and just wanting to have the nursing aid assist to help change his brief out. NO charge.
--- NOTE | 2021-06-27 16:20 | PC.NURSE ---
Rn changed dressing today at 1600. Wet to dry: wet gauze, pink cloud Allevyn, dry gauze, cover dressing, and then used two large Tegaderm for final cover. Site was pink at edges and appears to be healing
--- NOTE | 2021-06-27 19:51 | P.PN_ITS ---
Subjective Subjective Interval history: Seen: 06/27/21 Time: 1999 Patient seen and examined, he has no complaints today, pain is well controlled. Has concerns about overcrowding in the home he lives in. He completed his 14-day antibiotic course on 06/22/21. Exam Vital Signs (past 8 hours): Oxygen Delivery Method Room Air Oxygen Flow Rate 0 Narrative Exam Narrative: Gen: Alert, oriented, well-developed [] y.o. [] fe[]male, NAD HEENT: normocephalic, atraumatic, conjunctiva clear, sclera non-icteric, oral mucosa pink and moist Neck: supple, full ROM, no JVD, trachea is midline Resp: Lungs CTA, non-labored breathing CV: RRR, systolic murmur grade 2/6 heard loudest on left clavicular line Abd: soft, non-tender, normoactive BTs Skin: no lesions or rashes, dry and intact Neuro: Alert and oriented X 4. Speech clear and coherent. Functional paraplegic Extremities: bilateral leg contractions, unable to ambulate, patient moves his legs with hands and arms Psyche: normal mood and affect. Objective Labs Result Diagrams: 06/23/21 06:17 06/23/21 06:17 [facility] Medical History Back pain Functional paraparesis Hypertension Neurogenic pain Schwannoma of spinal cord Surgical History History of spinal surgery History of tonsillectomy Family History Father CVA (cerebral vascular accident) Mother Myocardial infarct Social History household members: spouse, children, friend(s) and other Smoking Status: Current some day smoker alcohol intake: current Assessment & Plan Assessment & Plan narrative: Wilmer Camargo is 45 y.o. male with PMH of spinal schwannomas and functional paraplegia who presents with large pressure ulcers on his legs caused by crawling around his home, unable to ambulate in his wheelchair for the last 2 months due to space limitations while he has been unable to walk.? 1. Large Left Ischial/Trochanteric Pressure Ulcer, present on admission.? Active . -wound culture growing MRSA and E coli -patient is status post debridement, with wide excision, now with wound VAC removed and with wet to dry dressings per surgeon. -continue doxycycline and Cipro by mouth until Sunday 06/25, stopped vancomycin 06/17 -Multiple other Lower Extremity Pressure Ulcers, all now nearly healed. -14 days total antibiotic course completed on 06/25/21. -continue PT/OT 2. Thoracic Spine Schwannomas, present on admission. Active. -continue Pregabalin for neuropathic pain -Upcoming Neurosurgery appointment with Dr. Stanley -preliminary information is that his tumors are no longer operable. 3. Functional Paraplegia, present on admission.? Active. -Secondary to Spinal Schwannomas causing loss of LE balance/coordination 4. Grade 2 systolic murmur, intermittently present * Complete echo ordered 5. Hypertension, present on admission.? Active. -continue Metoprolol 6. Hypokalema, present on admission.? Active. -corrected 7. Patient with severe acute protein calorie malnutrition -appreciate dietary recommendation 8. Controlled hospital fall, 06/22/21 ?- patient was transferring to [facility], had controlled fall to the ground. He did not hit his head. Complained of knee bruise type pain. XR were negative for fracture. COVID-19 COVID-19 status: Negative Result date/Date tested (Pos, Neg/Pending): 06/27/21 Quality VTE Deep Vein Thrombosis/Pulmonary Embolism Present on Admission: No MIPS - Admit I confirm the patient?s Advance Care Plan is present, Code status is documented, Surrogate decision maker is in patient?s record [If Yes, STOP here]: No MIPS - DC The patient has current or prior documentation of left ventricular ejection fraction (LVEF) less than 40%, or moderate or severely depressed left ventricular systolic function.: No
[2021-06-27 20:00] VITALS: BP 125/68; PULSE 80; RESP 19; TEMP 36.7; O2SAT 97
--- NOTE | 2021-06-27 21:06 | DI.ECHO.S_ITS ---
[facility] +---------+ : : [address] [place] : : : : [id number] : : : : Phone: [phone]---------+ Echocardiogram Report + + :Name: ASHLEY PERALES SR Study Date: 06/28/2021 Height: 72 in : :[facility] ReadingLocation: Weight: 155 lb : : Gender: Male BSA: 1.9 m2 : :: 1975 Age: 45 yrs BP: 125/67 mmHg: :Reason For Study: SYSTOLIC MURMUR : :Ordering Physician: Berto SALINASformed By: Nadege Ordonez : :Referring: HERMELINDA SALINAS : + + Interpretation Summary Left ventricular systolic function appears normal with an estimated ejection fraction of 55 to 60% without any focal wall motion abnormality and appears slightly less dynamic compared to the previous exam. There continues to be chordal systolic anterior motion with multiple small hypermobile targets associated with the submitral valve apparatus and likely represent redundant chordae. They appear unchanged from the previous exam. There is no evidence for any outflow tract obstruction. Diastolic function appears normal with probable normal filling pressures. The right ventricle appears normal in size and slightly smaller compared to the previous study. Right ventricular systolic function is at at the lower limits of normal. Right ventricular systolic pressure cannot be estimated but CVP is likely around 3 mmHg. There is mild left atrial enlargement with normal right atrial size. Both atria are slightly larger compared to the previous study. There is mild aortic valve sclerosis without stenosis and no significant functional valvular abnormality. The patient was in sinus rhythm at 62 to 71 bpm which is considerably slower compared to the previous exam. Procedure: A two-dimensional transthoracic echocardiogram with color flow and Doppler was performed. The study quality was technically adequate. Comparison is made with the echocardiogram of 07/13/2020. The patient was in sinus rhythm with heart rates between 62-71 bpm during the exam. This is considerably slower compared to the previous study. Left Ventricle: The left ventricle is normal in size and wall thickness. There is no echo evidence for significant left ventricular outflow tract obstruction. Left ventricular systolic function appears normal without focal wall motion abnormalities. The ejection fraction is estimated to be 55-60%. This is slightly less dynamic compared to the previous study. There are multiple small hypermobile targets seen associated with the submitral valve apparatus likely represent redundant chordae and appeared unchanged from the previous exam. Diastolic parameters suggest probable normal left ventricular diastolic function and normal filling pressures. Right Ventricle: The right ventricle is normal size. Right ventricular systolic function is at the lower limits of normal. This is slightly smaller compared to the previous study. Atria: The left atrium is mildly dilated. Both atria have mildly increased in size since the prior echo exam. Right atrial size is normal. There is no Doppler evidence for an interatrial shunt. Mitral Valve: The mitral valve leaflets appear mildly thickened, but open well. There is systolic anterior motion of the chordal apparatus. There is trace mitral regurgitation. Aortic Valve: The aortic valve is trileaflet. The aortic valve is slightly calcified. The aortic valve opens well. There is no aortic valve stenosis. No aortic regurgitation is present. Tricuspid Valve: The tricuspid valve is normal in structure and function. There is trace tricuspid regurgitation. Pulmonary artery pressures cannot be estimated because of the lack of a measurable TR jet velocity but the IVC suggests a CVP of around 3 mmHg. Pulmonic Valve: The pulmonic valve leaflets are thin and pliable; valve motion is normal. There is no pulmonic valvular regurgitation. Great Vessels: The aortic root is normal size. The dimensions of the ascending aorta are normal. The IVC is of normal diameter and collapses greater than 50% with a sniff. This suggests a low right atrial pressure of 3 mm Hg. Pericardium/ Pleura There is no pericardial effusion. There is no pleural effusion. MMode/2D Measurements & Calculations LVIDd: 5.2 cm LVOT diam: 2.0 cm LVIDs: 3.3 cm Ao root diam: 3.1 cm FS: 36.4 % asc Aorta Diam: 2.7 cm IVSd: 0.84 cm Ao Arch Diam (Prox Trans): 2.1 cm LVPWd: 0.95 cm LV brannon. diameter/BSA (cm/m^2): 2.7 LV sys. diameter/BSA (cm/m^2): 1.7 LA A2 area: 24.2 cm2 RA long axis: 5.0 cm LA A4 area: 19.0 cm2 RA area: 15.8 cm2 LA length (vol): 5.6 cm RA vol: 42.4 ml LA vol: 70.1 ml RA : 22.2 ml/m2 LA vol index: 36.7 ml/m2 IVC diam: 1.5 cm RVD1 (basal): 3.8 cm TAPSE: 1.8 cm Doppler Measurements & Calculations Ao V2 max: 162.2 cm/sec LVOT Max Mello: 98.6 cm/sec Ao V2 mean: 107.5 cm/sec LV V1 max P.9 mmHg Ao max P.5 mmHg LV V1 VTI: 18.1 cm Ao mean P.4 mmHg KAVITA(I,D): 1.6 cm2 Ao V2 VTI: 34.8 cm KAVITA(V,D): 1.9 cm2 sev ratio: 0.52 KAVITA indexed to BSA (cm^2/m^2): 0.85 MV E max mello: 82.2 cm/sec TR max mello: 215.1 cm/sec MV A max mello: 63.4 cm/sec TR max P.5 mmHg MV E/A: 1.3 PA V2 max: 118.9 cm/sec Med Peak E' Mello: 8.3 cm/sec PA V2 mean: 78.7 cm/sec E/E' med: 9.9 PA mean P.0 mmHg Lat Peak E' Mello: 11.3 cm/sec PA pr(Accel): 27.6 mmHg E/E' lat: 7.3 E/e' average: 8.6 MV dec time: 0.21 sec SV(LVOT): 56.5 ml Reading Physician:09:16 AM
[2021-06-27] MEDS: SENNOSIDES 8.6 MG TABLET 17.2 MG PO (22:24)
[2021-06-28] MEDS: ACETAMINOPHEN 325 MG TABLET 650 MG PO ×5 (00:35→23:17)
[2021-06-28] MEDS: OXYCODONE IR 5 MG TABLET 10 MG PO ×6 (02:23→23:17)
[2021-06-28] MEDS: PREGABALIN 75 MG CAPSULE 300 MG PO ×2 (09:56→21:07)
[2021-06-28] MEDS: ENOXAPARIN 40 MG/0.4 ML SYRINGE SUBCUT (09:56)
[2021-06-28] MEDS: METOPROLOL IR 50 MG TABLET PO ×2 (09:56→21:06)
[2021-06-28 10:03] VITALS: BP 102/51; PULSE 71; RESP 18; TEMP 36.9; O2SAT 98
--- NOTE | 2021-06-28 10:55 | OT.IP.TRT ---
Current Diagnoses Unspecified open wound, left thigh, initial encounter (06/12/21) Unspecified open wound, unspecified lower leg, initial encounter (06/12/21) Surgery Performed Operation Date: 06/12/21 09:45 Actual Procedures p Debridement hip(Left) - Dedrick Valdez MD Occupational Therapy Treatment Note M2 OT-IP Current Condition Start: 06/15/21 18:00 Freq: Status: Active Protocol: Document 06/15/21 18:00 [facility] (Rec: 06/15/21 18:27 [facility] [id number]) Occupational Therapy Current Condition Current Condition Evaluation Date 06/15/21 Treatment Diagnosis Left posterior thigh wound, left spann ulcer Diagnosis Onset Date 06/11/21 M3 OT- IP Subjective and Pain Start: 06/15/21 18:00 Freq: Status: Active Protocol: Document 06/28/21 11:52 [facility] (Rec: 06/28/21 12:02 [facility] [id number]) OT- Subjective Occupational Therapy Visit Type Type Treatment Note Visit Start Time 11:23 Visit Stop Time 11:40 Total Visit Minutes 17 Occupational Therapy Visit Comments Patient Comments Pt agreed to get up and wanting to transfer to his wc with sliding board today. Pt wanting to stay up in his wc and have PT assist to help get back to bed after lunch. Able to notify DIRECTOR MANUFACTURING ENGINEERING of pt's request . Nursing notified of pt needing new bandage for his knee. OT Pain Assessment Pain When Pain Assessed At Rest Pain Present Pain Present Denied Pain M6 OT- IP Functional Cognition Start: 06/15/21 18:00 Freq: Status: Active Protocol: Document 06/28/21 11:52 [facility] (Rec: 06/28/21 12:02 [facility] [id number]) Cognitive Factors Limiting Selfcare Function Cognitive Comments Cognitive Assessment Comments Intact no issues. M7 OT- IP Mobility and Balance Start: 06/15/21 18:00 Freq: Status: Active Protocol: Document 06/28/21 11:52 [facility] (Rec: 06/28/21 12:02 [facility] [id number]) OT- Bed Mobility Assessment Supine to Sit Supine to Sit Assist Standby Assistance Scooting Scooting to Edge of Bed Standby Assistance OT-Transfer Assessment Transfers Transfer Ability Standby Assistance Technique Transfer Destination Bed,Chair Devices Transfer Assistive Devices Gait Belt,Sliding Board Comments Mobility Comments Pt needing assist to help get his wc into the proper position and then pt able to place the sliding board in place and do the transfer on his own. Pt agreed wanting to start to work on transferring to the toilet for OT goal now. Pt requesting to be able to do his transfers on his own, however at this time pt is aware that nursing will need to be trained how to assist him. Pt BLE do not support him and pt agreed that it would be safer to always have someone there even when he is able to be more independent with his transfers. At this time nursing not cleared to use sliding board transfer board with pt. OT- Balance Assessment Sitting Balance and Reactions Static Sitting Balance Ability Good Dynamic Sitting Balance Ability Fair M8 OT- IP Objective Assessments Start: 06/15/21 18:00 Freq: Status: Active Protocol: Document 06/15/21 18:00 [facility] (Rec: 06/15/21 18:27 [facility] [id number]) OT Gross Range of Motion Upper Extremity Range of Motion Assessment Within Functional Limits OT Strength Upper Extremity Strength Assessment Within Functional Limits OT-Muscle Tone Assessment Muscle Tone WNL No Muscle Tone Location Bilateral Lower Extremity Type of Tone Hypotonicity M9 OT- IP Assessment and Plan Start: 06/15/21 18:00 Freq: Status: Active Protocol: Document 06/28/21 11:52 [facility] (Rec: 06/28/21 12:02 [facility] [id number]) OT Summary Assessment and Plan Potential Rehabilitation Potential Good Analytic Complexity at Evaluation Moderate Summary OT Impairments Strength,Balance,Functional Mobility,Toilet Transfers, Shower Transfers,Activity Tolerance Progress Towards Goals Progressing Toward Goals Assessment Summary Pt able to do sliding board transfer after set-up of the wc and to remove the leg rests of the wc. At this time pt not able to do on his own do to decreased core strength to reach down to undo the leg rests of the wc. Since pt now has his wc here to start working towards independence with toilet transfer for OT needs. Goals Dressing Goal Minimal Assistance Toilet Transfer Goal Independent Days to Meet Goals 23 Frequency of Treatment Frequency Of Treatment Once a Day Treatment Plan OT Treatment Plan ADL Training,Functional Mobility,Patient/Family Education,Discharge Planning Other Treatment Recommendations and Next Transfer with sliding board to Treatment Focus the toilet. Discharge Recommendations OT Discharge Recommendations SNF Rehab Transportation Needs at Discharge Wheelchair/Cabulance
--- NOTE | 2021-06-28 13:57 | PC.NURSE ---
At 1345 RN changed dressing on left buttox with wet gauze, pink cloud allevyn, then dry gauze, covered with Telfa plus island dressing and final covered top with 2x large Tega derms. Rn also put small allevyn dressing over left knee where old cover fell off. both wounds have redness around area and appear to be healing. pt sitting comfortable in bed now.
--- NOTE | 2021-06-28 16:08 | PT.IPTN ---
Current Diagnoses Unspecified open wound, left thigh, initial encounter (06/12/21) Unspecified open wound, unspecified lower leg, initial encounter (06/12/21) Surgery Performed Operation Date: 06/12/21 09:45 Actual Procedures p Debridement hip(Left) - Dedrick Valdez MD Physical Therapy Treatment Note M2 PT-IP Current Condition Start: 06/14/21 15:46 Freq: NEEDED Status: Active Protocol: Document 06/21/21 15:20 SP (Rec: 06/21/21 18:31 SP [id number]) Physical Therapy Current Condition Current Condition Evaluation Date 06/14/21 Treatment Diagnosis L thigh open wound; generalized weakness M3 PT-IP Subjective Start: 06/14/21 15:46 Freq: NEEDED Status: Active Protocol: Document 06/28/21 15:56 KS (Rec: 06/28/21 16:23 KS [id number]) Subjective Physical Therapy Visit Type Type Treatment Note Visit Start Time 15:56 Visit Stop Time 16:08 Total Visit Minutes 12 Number of MORTGAGE ACCOUNTING CLERK Visits 7 Physical Therapy Visit Comments Patient Comments Pt is willing to participate with PT Patient Goals Go to SNF. M4 PT-IP Mobility and Gait Start: 06/14/21 15:46 Freq: NEEDED Status: Active Protocol: Document 06/28/21 15:56 KS (Rec: 06/28/21 16:23 KS [id number]) PT-Bed Mobility Assessment Supine to Sit Supine to Sit Independent,Bedrails Sit to Supine Sit to Supine Standby Assistance Scooting Scooting to Edge of Bed Standby Assistance PT-Transfer Assessment Comments Mobility Comments Planned to practice transfers to and from w/c, but pt already back in bed and too fatigued to perform more transfers, agreeable only to exercises seated EOB. Independent for sup<>sit, SBA for scooting EOB. Pt then completed 5 min seated perturbations w/ eyes open and eyes closed, continues to have more LOB when resisting force applied to L shoulder. Pt then complete 4 min sit and reach exercises w/ only 1x LOB while reaching left lower corner. Pt w/ quick approach to fatigue and laid back down and repositioned himself in bed SBA. Left in bed w/ alarm on and all needs in reach. Gait Assessment Comments Gait Comments Unable to ambulate PT-Balance Assessment Sitting Balance and Reactions Static Sitting Balance Ability Fair Dynamic Sitting Balance Ability Fair Standing Balance and Reactions Device Used n/t M5 PT-IP Objective Assessments Start: 06/14/21 15:46 Freq: NEEDED Status: Active Protocol: Document 06/14/21 14:55 AB (Rec: 06/14/21 16:13 AB [id number]) Orientation Orientation/Cognition Level of Alertness Alert Orientation Name,Place,Situation Language Function Ability No Deficits Noted Safety Awareness Decreased Safety Awareness Memory Description No Deficits Noted Gross Range of Motion Lower Extremity ROM Assessment Within Functional Limits Impairments increase flexor tone noted L>R Strength Lower Extremity Strength Assessment Bilaterally Impaired Hip flexors: 2-/5 Knee 1+/5 Ankle 0/5 Sensation Assessment Sensation Gross Sensation Right LE Impaired,Left LE Impaired Light Touch Absent Proprioception (Position) Absent Comments Sensation Comments no sensation from upper thighs down to B feet Muscle Tone Muscle Tone WNL No Muscle Tone Location Bilateral Lower Extremity Type of Tone Hypotonicity Severity of Tone Severe Comments Muscle Tone Comments flexor tone during PROM L>R but overall flaccid/hypotonic Other Assessments Other Other Assessments L posterior upper thigh wound with wound vac; L knee skin ulcer M6 PT-IP Treatment Start: 06/14/21 15:46 Freq: NEEDED Status: Active Protocol: Document 06/28/21 15:56 KS (Rec: 06/28/21 16:23 KS [id number]) Physical Therapy Treatment Education Education Provided Safety Other Treatments Other Treatment Performed Sit and reach, seated perturbations. M7 PT-IP Assessment and Plan Start: 06/14/21 15:46 Freq: NEEDED Status: Active Protocol: Document 06/28/21 15:56 KS (Rec: 06/28/21 16:23 KS [id number]) PT Summary Assessment and Plan Potential Rehabilitation Potential Fair Status of Condition at Evaluation Evolving Summary Impairments Pain,ROM,Strength,Balance, Coordination,Sensation,Tone, Cognition,Bed Mobility, Transfers,Gait,Activity Tolerance Progress Towards Goals Slow Progress due to Pain,Slow Progress due to Medical Issues,Slow Progress due to Activity Tolerance Assessment Summary Pt continues to be limited by quick approach to fatigue and weakness, but showed slight improvements during seated perturbation exercises while EOB today w/ less LOB overall. He will require SNF to improve strength and functional mobility independence. Goals Bed Mobility Goal Independent Transfer Goal Contact Guard Assistance,Slide Board Days to Meet Goals 10 Frequency of Treatment Frequency Of Treatment Once a Day Treatment Plan Physical Therapy Treatment Plan Bed Mobility Training,Transfer Training,Therapeutic Exercise ,Balance Retraining,Discharge Planning,Hot or Cold Pack, Neuromuscular Re-ed, Coordination Retraining,Manual Therapy Other Recommendations and Next Treatment Continue slide board transfer Focus from w/c to bed and back. Teach nursing staff when appropriate. Precautions Other Precautions MRSA of wound, fall risk Recommendations To Nursing Amount of Assist Needed Mechanical Lift Discharge Recommendations PT Discharge Recommendations SNF Rehab Transportation Needs at Discharge Wheelchair/Cabulance
--- NOTE | 2021-06-28 18:05 | P.PN_ITS ---
Subjective Subjective Date Patient Seen: 06/28/21 Interval history: 45-year-old male with [place] Qian, functional quadriplegia, who developed severe sacral decubitus ulcer who underwent surgical debridement. Wound VAC has been removed. Patient is getting dressing changes. There was concern regarding his ability to manage at home as his wheelchair is unable to be fitted into his mobile home. He previously was crawling on the ground which is why he developed a sacral decubitus. plans are underway to have evaluation by assisted living tomorrow Exam Vital Signs (past 8 hours): Oxygen Delivery Method Room Air Oxygen Flow Rate 0 Narrative Exam Narrative: Pleasant male resting in bed in no obvious distress Resp Other: Lungs: Clear to auscultation Cardio Other: Cardiac exam: Regular rate and rhythm normal S1-S2 GI Other: Abdomen: Soft and nontender Extrem Other: Extremity no edema Objective Labs Result Diagrams: 06/23/21 06:17 06/23/21 06:17 [facility] Medical History Back pain Functional paraparesis Hypertension Neurogenic pain Schwannoma of spinal cord Surgical History History of spinal surgery History of tonsillectomy Family History Father CVA (cerebral vascular accident) Mother Myocardial infarct Social History household members: spouse, children, friend(s) and other Smoking Status: Current some day smoker alcohol intake: current Assessment & Plan Assessment & Plan narrative: [address] [address] Progress Note Patient: Wilmer Camargo Sr MR#: [id number] : 1975 Acct:[id number] Age/Sex: 45 / M ? Date of Service: 06/12/21 Provider:Indigo Layton Subjective Subjective Interval history: Seen: 06/27/21 Time: 1999 Patient seen and examined, he has no complaints today, pain is well controlled. Has concerns about overcrowding in the home he lives in. He completed his 14-day antibiotic course on 06/22/21. Exam Vital Signs (past 8 hours): Oxygen Delivery Method? Room Air? Oxygen Flow Rate? 0 ? Narrative Exam Narrative: Gen: Alert, oriented, well-developed [] y.o. [] fe[]male, NAD HEENT: normocephalic, atraumatic, conjunctiva clear, sclera non-icteric, oral mucosa pink and moist Neck: supple, full ROM, no JVD, trachea is midline Resp: Lungs CTA, non-labored breathing CV: RRR, systolic murmur grade 2/6 heard loudest on left clavicular line Abd: soft, non-tender, normoactive BTs Skin: no lesions or rashes, dry and intact Neuro: Alert and oriented X 4. Speech clear and coherent. Functional paraplegic Extremities: bilateral leg contractions, unable to ambulate, patient moves his legs with hands and arms Psyche: normal mood and affect. Objective Labs Result Diagrams: 06/23/21 06:17? 06/23/21 06:17? PFSH Medical History? Back pain Functional paraparesis Hypertension Neurogenic pain Schwannoma of spinal cord Surgical History? History of spinal surgery History of tonsillectomy Family History? Father CVA (cerebral vascular accident)Mother Myocardial infarct Social History? household members:? spouse, children, friend(s) and other Smoking Status:? Current some day smoker alcohol intake:? current Assessment & Plan Assessment & Plan narrative: Wilmer Camargo is 45 y.o. male with PMH of spinal schwannomas and functional paraplegia who presents with large pressure ulcers on his legs caused by crawling around his home, unable to ambulate in his wheelchair for the last 2 months due to space limitations while he has been unable to walk.? 1. Large Left Ischial/Trochanteric Pressure Ulcer, present on admission.? Active. -wound culture growing MRSA and E coli -patient is status post debridement, with wide excision, now with wound VAC removed and with wet to dry dressings per surgeon. -continue doxycycline and Cipro by mouth until Sunday 06/25, stopped vancomycin 06/17 -Multiple other Lower Extremity Pressure Ulcers, all now nearly healed. -14 days total antibiotic course completed on 06/25/21. -continue PT/OT -patient is now off the wound VAC, he is getting dressing changes as above, will continue to look for placement however he may have to discharge home home health 2. Thoracic Spine Schwannomas, present on admission. Active. -continue Pregabalin for neuropathic pain -Upcoming Neurosurgery appointment with Dr. Stanley -preliminary information is that his tumors are no longer operable. 3. Functional Paraplegia, present on admission.? Active. -Secondary to Spinal Schwannomas causing loss of LE balance/coordination 4. Grade 2 systolic murmur, intermittently present * Complete echo ordered 5. Hypertension, present on admission.? Active. -continue Metoprolol 6. Hypokalema, present on admission.? Active. -corrected 7. Patient with severe acute protein calorie malnutrition -appreciate dietary recommendation 8. Controlled hospital fall, 06/22/21 ?- [facility] had controlled fall to the ground. He did not hit his head. Complained of knee bruise type pain. XR were negative for fracture. Continue to work on disposition Time Spent With Patient Critical Care time: I spent a total of [] minutes of critical care time on this patient's care today; this time is exclusive of procedural time. Quality VTE Deep Vein Thrombosis/Pulmonary Embolism Present on Admission: No
[2021-06-28 19:40] VITALS: BP 115/72; PULSE 81; RESP 17; TEMP 36.6; O2SAT 98
[2021-06-29] MEDS: OXYCODONE IR 5 MG TABLET 10 MG PO ×5 (04:05→21:23)
[2021-06-29 07:53] VITALS: BP 116/68; PULSE 80; RESP 18; TEMP 36.8; O2SAT 98
[2021-06-29] MEDS: PREGABALIN 75 MG CAPSULE 300 MG PO ×2 (08:03→21:23)
[2021-06-29] MEDS: ENOXAPARIN 40 MG/0.4 ML SYRINGE SUBCUT (08:03)
[2021-06-29] MEDS: METOPROLOL IR 50 MG TABLET PO ×2 (08:04→21:23)
[2021-06-29 09:52] VITALS: BP 116/68; PULSE 80; RESP 18; TEMP 36.8; O2SAT 98
[2021-06-29] MEDS: ACETAMINOPHEN 325 MG TABLET 650 MG PO ×2 (12:07→17:56)
--- NOTE | 2021-06-29 13:25 | OT.IP.TRT ---
Current Diagnoses Unspecified open wound, left thigh, initial encounter (06/12/21) Unspecified open wound, unspecified lower leg, initial encounter (06/12/21) Surgery Performed Operation Date: 06/12/21 09:45 Actual Procedures p Debridement hip(Left) - Dedrick Valdez MD Occupational Therapy Treatment Note M2 OT-IP Current Condition Start: 06/15/21 18:00 Freq: Status: Active Protocol: Document 06/15/21 18:00 [facility] (Rec: 06/15/21 18:27 [facility] [id number]) Occupational Therapy Current Condition Current Condition Evaluation Date 06/15/21 Treatment Diagnosis Left posterior thigh wound, left spann ulcer Diagnosis Onset Date 06/11/21 M3 OT- IP Subjective and Pain Start: 06/15/21 18:00 Freq: Status: Active Protocol: Document 06/29/21 13:09 [facility] (Rec: 06/29/21 14:10 [facility] [id number]) OT- Subjective Occupational Therapy Visit Type Type Treatment Note Visit Start Time 13:09 Visit Stop Time 13:25 Total Visit Minutes 16 Occupational Therapy Visit Comments Patient Comments Pt agreed to try to transfer to the toilet today. Patient/Caregiver Goals TO be more independent for himself. OT Pain Assessment Pain When Pain Assessed At Rest Pain Present Pain Present Denied Pain M6 OT- IP Functional Cognition Start: 06/15/21 18:00 Freq: Status: Active Protocol: Document 06/29/21 13:09 [facility] (Rec: 06/29/21 14:10 [facility] [id number]) Cognitive Factors Limiting Selfcare Function Cognitive Comments Cognitive Assessment Comments Intact no issues. M7 OT- IP Mobility and Balance Start: 06/15/21 18:00 Freq: Status: Active Protocol: Document 06/29/21 13:09 [facility] (Rec: 06/29/21 14:10 [facility] [id number]) OT- Bed Mobility Assessment Supine to Sit Supine to Sit Assist Standby Assistance Scooting Scooting to Edge of Bed Standby Assistance OT-Transfer Assessment Transfers Transfer Ability Standby Assistance,Minimal Assistance,Moderate Assistance Technique Transfer Destination Bed,Chair Devices Transfer Assistive Devices Gait Belt,Sliding Board Comments Mobility Comments Pt with assist for set-up of wc next to the bed and pt able to transfer from the bed to wc with close SBA with sliding board. Attempted to transfer to the toilet and not able to get the proper position and attempted to lift himself up and then stopped as he felt would not be successful at this time. Transfer back to the bed , pt wanting to try without use of sliding board and assist to hold the WC in place and also assist to help guide him to the bed, the sliding borad is much safer at this time to use for transfers. OT- Balance Assessment Sitting Balance and Reactions Static Sitting Balance Ability Good Dynamic Sitting Balance Ability Fair M8 OT- IP Objective Assessments Start: 06/15/21 18:00 Freq: Status: Active Protocol: Document 06/15/21 18:00 [facility] (Rec: 06/15/21 18:27 [facility] [id number]) OT Gross Range of Motion Upper Extremity Range of Motion Assessment Within Functional Limits OT Strength Upper Extremity Strength Assessment Within Functional Limits OT-Muscle Tone Assessment Muscle Tone WNL No Muscle Tone Location Bilateral Lower Extremity Type of Tone Hypotonicity M9 OT- IP Assessment and Plan Start: 06/15/21 18:00 Freq: Status: Active Protocol: Document 06/29/21 13:09 [facility] (Rec: 06/29/21 14:10 [facility] [id number]) OT Summary Assessment and Plan Potential Rehabilitation Potential Good Analytic Complexity at Evaluation Moderate Summary OT Impairments Strength,Balance,Functional Mobility,Toilet Transfers, Shower Transfers,Activity Tolerance Progress Towards Goals Progressing Toward Goals Assessment Summary Attempted toilet transfer from and was not completed as pt not feeling like it would be successful. Lack of room in the bathroom limits optimal set-up for the toilet transfer at this time . Continue to work on pt's independence for toileting needs. Goals Dressing Goal Minimal Assistance Toilet Transfer Goal Standby Assistance Days to Meet Goals 20 Frequency of Treatment Frequency Of Treatment Once a Day Treatment Plan OT Treatment Plan ADL Training,Functional Mobility,Patient/Family Education,Discharge Planning Discharge Recommendations OT Discharge Recommendations SNF Rehab Transportation Needs at Discharge Wheelchair/Cabulance
--- NOTE | 2021-06-29 14:37 | PC.NURSE ---
Addendum entered by Gregorio Lemus R.N. 06/29/21 16:19: Pt reports he is unable to mobilize due to condom cath. He states that it gets in the way of the wheels on the w/c. Offered to replace drainage bag with leg bag. Pt is reluctantly agreeable. Obtained leg bag and came back to room. Noted condom cath removed. Pt declined to have it replaced. Original Note: Dr. Camacho on rounds. Reported pt with fungal rash to bilateral groin area. Reported pt incontinent of urine, placed condom cath to protect wound and skin integrity.
--- NOTE | 2021-06-29 15:32 | PT.IPTN ---
Current Diagnoses Unspecified open wound, left thigh, initial encounter (06/12/21) Unspecified open wound, unspecified lower leg, initial encounter (06/12/21) Surgery Performed Operation Date: 06/12/21 09:45 Actual Procedures p Debridement hip(Left) - Dedrick Valdez MD Physical Therapy Treatment Note M2 PT-IP Current Condition Start: 06/14/21 15:46 Freq: NEEDED Status: Active Protocol: Document 06/21/21 15:20 SP (Rec: 06/21/21 18:31 SP [id number]) Physical Therapy Current Condition Current Condition Evaluation Date 06/14/21 Treatment Diagnosis L thigh open wound; generalized weakness M3 PT-IP Subjective Start: 06/14/21 15:46 Freq: NEEDED Status: Active Protocol: Document 06/29/21 15:20 KS (Rec: 06/29/21 16:05 KS [id number]) Subjective Physical Therapy Visit Type Type Treatment Note Visit Start Time 15:20 Visit Stop Time 15:32 Total Visit Minutes 12 Number of DECORATING KILN OPERATOR Visits 8 Physical Therapy Visit Comments Patient Comments Pt is willing to participate with PT Patient Goals Go to SNF. M4 PT-IP Mobility and Gait Start: 06/14/21 15:46 Freq: NEEDED Status: Active Protocol: Document 06/29/21 15:20 KS (Rec: 06/29/21 16:05 KS [id number]) PT-Bed Mobility Assessment Supine to Sit Supine to Sit Independent,Bedrails Sit to Supine Sit to Supine Standby Assistance Scooting Scooting to Edge of Bed Standby Assistance PT-Transfer Assessment Comments Mobility Comments Pt agreeable to transfer from bed to w/c. SBA for sup<>sit and scooting EOB. Min A for placing slide board in place and adjusting w/c. CGA to Min A for slide board transfer from bed to w/c. Pt still somewhat impulsive and requires cues to transfer safely/make sure everything is in place. Pt required Mod A for placing LE onto foot rests of w/c. He refused further treatment due to fatigue. Gait Assessment Comments Gait Comments Unable to ambulate PT-Balance Assessment Sitting Balance and Reactions Static Sitting Balance Ability Fair Dynamic Sitting Balance Ability Fair Standing Balance and Reactions Device Used n/t M5 PT-IP Objective Assessments Start: 06/14/21 15:46 Freq: NEEDED Status: Active Protocol: Document 06/14/21 14:55 AB (Rec: 06/14/21 16:13 AB [id number]) Orientation Orientation/Cognition Level of Alertness Alert Orientation Name,Place,Situation Language Function Ability No Deficits Noted Safety Awareness Decreased Safety Awareness Memory Description No Deficits Noted Gross Range of Motion Lower Extremity ROM Assessment Within Functional Limits Impairments increase flexor tone noted L>R Strength Lower Extremity Strength Assessment Bilaterally Impaired Hip flexors: 2-/5 Knee 1+/5 Ankle 0/5 Sensation Assessment Sensation Gross Sensation Right LE Impaired,Left LE Impaired Light Touch Absent Proprioception (Position) Absent Comments Sensation Comments no sensation from upper thighs down to B feet Muscle Tone Muscle Tone WNL No Muscle Tone Location Bilateral Lower Extremity Type of Tone Hypotonicity Severity of Tone Severe Comments Muscle Tone Comments flexor tone during PROM L>R but overall flaccid/hypotonic Other Assessments Other Other Assessments L posterior upper thigh wound with wound vac; L knee skin ulcer M6 PT-IP Treatment Start: 06/14/21 15:46 Freq: NEEDED Status: Active Protocol: Document 06/29/21 15:20 KS (Rec: 06/29/21 16:05 KS [id number]) Physical Therapy Treatment Education Education Provided Safety M7 PT-IP Assessment and Plan Start: 06/14/21 15:46 Freq: NEEDED Status: Active Protocol: Document 06/29/21 15:20 KS (Rec: 06/29/21 16:05 KS [id number]) PT Summary Assessment and Plan Potential Rehabilitation Potential Fair Status of Condition at Evaluation Evolving Summary Impairments Pain,ROM,Strength,Balance, Coordination,Sensation,Tone, Cognition,Bed Mobility, Transfers,Gait,Activity Tolerance Progress Towards Goals Slow Progress due to Pain,Slow Progress due to Medical Issues,Slow Progress due to Activity Tolerance Assessment Summary Pt continues to have low activity tolerance and was only able to perform slide board transfer from bed to wheelchair this PM w/ CGA to Min A, cues for positioning and sequencing due to impulsivity and poor safety awareness. He will require SNF to improve activity tolerance and mobility independence. Goals Bed Mobility Goal Independent Transfer Goal Contact Guard Assistance,Slide Board Days to Meet Goals 10 Frequency of Treatment Frequency Of Treatment Once a Day Treatment Plan Physical Therapy Treatment Plan Bed Mobility Training,Transfer Training,Therapeutic Exercise ,Balance Retraining,Discharge Planning,Hot or Cold Pack, Neuromuscular Re-ed, Coordination Retraining,Manual Therapy Other Recommendations and Next Treatment Continue slide board transfer Focus from w/c to bed and back. Teach nursing staff when appropriate. Precautions Other Precautions MRSA of wound, fall risk Recommendations To Nursing Amount of Assist Needed Mechanical Lift Discharge Recommendations PT Discharge Recommendations SNF Rehab Transportation Needs at Discharge Wheelchair/Cabulance
--- NOTE | 2021-06-29 16:22 | CM.DPNOTE ---
Placement Update Patient has been accepted for admissions/move in next Saturday at [facility]. Move in ppk is not required for move in, patient can complete once moved in. Media Reporter/Provider: Ras Wang# [phone] Email: [email or web address] Rx need to be faxed by SaturdayJuly 03 to: [facility], [address], [address] [place] [address] P: [phone] (ext. [phone]) / F: [phone] E-mail: [email or web address] discussion held with patient and spouse this morning after bedside assessment w/ Ras/[facility]; Patient and spouse agreeable to plan. Spouse confirms that her mobile home is not a safe environment for patient to return to at this time. Updated Dr Camacho. CM team will follow closely for coordination of this DCP JW
--- NOTE | 2021-06-29 18:31 | P.PN_ITS ---
Subjective Subjective Date Patient Seen: 06/29/21 Interval history: 45-year-old male admitted to the hospital for treatment of a sacral decubitus ulcer. Patient has functional paraplegia from a [place]. He is awaiting placement. Adult family home has been obtain. Plans are underway for him to discharge on Saturday to the adult family home. Exam Vital Signs (past 8 hours): Oxygen Delivery Method Room Air Oxygen Flow Rate 0 Narrative Exam Narrative: Pleasant male in no acute distress Resp Other: Lungs clear to auscultation Cardio Other: Cardiac exam: Regular rate and rhythm normal S1-S2 GI Other: Abdomen soft nontender Skin Other: Left thigh with wound in place, wound clean and dry with no exudate or erythema Objective Labs Result Diagrams: 06/23/21 06:17 06/23/21 06:17 [facility] Medical History Back pain Functional paraparesis Hypertension Neurogenic pain Schwannoma of spinal cord Surgical History History of spinal surgery History of tonsillectomy Family History Father CVA (cerebral vascular accident) Mother Myocardial infarct Social History household members: spouse, children, friend(s) and other Smoking Status: Current some day smoker alcohol intake: current Assessment & Plan Assessment & Plan narrative: Wilmer Camargo is 45 y.o. male with PMH of spinal schwannomas and functional paraplegia who presents with large pressure ulcers on his legs caused by crawling around his home, unable to ambulate in his wheelchair for the last 2 months due to space limitations while he has been unable to walk.? 1. Large Left Ischial/Trochanteric Pressure Ulcer, present on admission.? Active. -wound culture growing MRSA and E coli -patient is status post debridement, with wide excision, now with wound VAC removed and with wet to dry dressings per surgeon. -continue doxycycline and Cipro by mouth until Sunday 06/25, stopped vancomycin 06/17 -Multiple other Lower Extremity Pressure Ulcers, all now nearly healed. -14 days total antibiotic course completed on 06/25/21. -continue PT/OT -patient is now off the wound VAC, he is getting dressing changes as above, will continue to look for placement however he may have to discharge home home health -plans underway for transfer to adult family home 2. Thoracic Spine Schwannomas, present on admission. Active. -continue Pregabalin for neuropathic pain -Upcoming Neurosurgery appointment with Dr. Stanley -preliminary information is that his tumors are no longer operable. 3. Functional Paraplegia, present on admission.? Active. -Secondary to Spinal Schwannomas causing loss of LE balance/coordination 4. Grade 2 systolic murmur, intermittently present * Complete echo ordered5. Hypertension, present on admission.? Active. -continue Metoprolol 6. Hypokalema, present on admission.? Active. -corrected 7. Patient with severe acute protein calorie malnutrition -appreciate dietary recommendation 8. Controlled hospital fall, 06/22/21 ?- patient was transferring to [facility], had controlled fall to the ground. He did not hit his head. Complained of knee bruise type pain. XR were negative for fracture. Continue to work on disposition Discharged to adult family home on Saturday Time Spent With Patient Critical Care time: I spent a total of [] minutes of critical care time on this patient's care today; this time is exclusive of procedural time. Quality VTE Deep Vein Thrombosis/Pulmonary Embolism Present on Admission: No
[2021-06-29 20:55] VITALS: BP 127/87; PULSE 78; RESP 18; TEMP 36.3; O2SAT 97
[2021-06-29] MEDS: NYSTATIN CREAM 30 GM 1 APPLIC TOP (21:23)
[2021-06-30] MEDS: ACETAMINOPHEN 325 MG TABLET 650 MG PO ×3 (01:17→17:36)
[2021-06-30] MEDS: OXYCODONE IR 5 MG TABLET 10 MG PO ×6 (01:17→21:06)
--- NOTE | 2021-06-30 02:04 | PC.NURSE ---
Addendum entered by Cele Cheng R.N. 06/30/21 06:39: dressing to left hip saturated w/ urine, as patient declines condom cath. wound bed w/ pink granulation tissue. clean gauze applied to wound bed, covered w/ ABD pad, secured w/ tape. timed/dated/initialed. patient tolerated well. Original Note: alert w/ verbal stimuli or when patient requests PRN medications. slept most of shift, seems withdrawn after big day of discharge planning. will d/c to [facility] on saturday. offered listening support to patient, as this will be a big change to move to [place]. PRN oxycodone given x 2 this shift. incont of b/b, 1pa ADL assist, patient able to help w/ bed mobility. encourage frequent turning, and is agreeable to this. fluids available at bedside. continues w/ contact iso for MRSA wounds.
[2021-06-30 08:10] VITALS: BP 136/73; PULSE 73; RESP 16; TEMP 36.6; O2SAT 95
[2021-06-30] MEDS: PREGABALIN 75 MG CAPSULE 300 MG PO ×2 (09:38→21:06)
[2021-06-30] MEDS: METOPROLOL IR 50 MG TABLET PO ×2 (09:38→21:06)
[2021-06-30] MEDS: NYSTATIN CREAM 30 GM 1 APPLIC TOP (09:39)
[2021-06-30] MEDS: ENOXAPARIN 40 MG/0.4 ML SYRINGE SUBCUT (09:39)
--- NOTE | 2021-06-30 11:42 | PT-IP ANOTE ---
Spoke w/ pt this AM regarding therapy services and discussed pts plateau in function over recent weeks to which pt agreed. Discussed d/c of PT services and pt confirms he is at baseline and able to maintain his baseline and no longer benefitting from skilled therapy services. Discussed and approved d/c of PT services w/ PT and RN.
--- NOTE | 2021-06-30 14:09 | P.PN_ITS ---
Subjective Subjective Date Patient Seen: 06/30/21 Interval history: Patient is a 45-year-old male with functional quadriplegia, admitted to the hospital for severe decubitus ulcer of the left thigh. He underwent surgical debridement with improvement of the wound. The patient has been awaiting placement. Assisted living has been identify and the patient is anticipated to discharge on Saturday to the facility. Exam Vital Signs (past 8 hours): - 06/30/21 08:10 Temperature 97.9 F Pulse Rate 73 Respiratory Rate 16 Blood Pressure 136/73 Pulse Oximetry 95 Oxygen Delivery Method Room Air Oxygen Flow Rate 0 Narrative Exam Narrative: Pleasant male sitting in bed in no distress Resp Other: Lungs: Clear to auscultation Cardio Other: Cardiac exam: Regular rate and rhythm normal S1-S2 with a 2/6 systolic ejection murmur GI Other: Abdomen: Soft nontender nondistended Other: Gauthier catheter removed Extrem Other: Left thigh with dressing in place Objective Labs Result Diagrams: 06/23/21 06:17 06/23/21 06:17 [facility] Medical History Back pain Functional paraparesis Hypertension Neurogenic pain Schwannoma of spinal cord Surgical History History of spinal surgery History of tonsillectomy Family History Father CVA (cerebral vascular accident) Mother Myocardial infarct Social History household members: spouse, children, friend(s) and other Smoking Status: Current some day smoker alcohol intake: current Assessment & Plan Assessment & Plan narrative: Wilmer Camargo is 45 y.o. male with PMH of spinal schwannomas and functional paraplegia who presents with large pressure ulcers on his legs caused by crawling around his home, unable to ambulate in his wheelchair for the last 2 months due to space limitations while he has been unable to walk.? 1. Large Left Ischial/Trochanteric Pressure Ulcer, present on admission.? Active. -wound culture growing MRSA and E coli -patient is status post debridement, with wide excision, now with wound VAC geovanna madhu and with wet to dry dressings per surgeon. -continue doxycycline and Cipro by mouth until Sunday 06/25, stopped vancomycin 06/17 -Multiple other Lower Extremity Pressure Ulcers, all now nearly healed. -14 days total antibiotic course completed on 06/25/21. -continue PT/OT -patient is now off the wound VAC, he is getting dressing changes as above, will continue to look for placement however he may have to discharge home home health -plans underway for transfer to adult family home, discharged to adult family home on Saturday 2. Thoracic Spine Schwannomas, present on admission. Active. -continue Pregabalin for neuropathic pain -Upcoming Neurosurgery appointment with Dr. Stanley -preliminary information is that his tumors are no longer operable. 3. Functional Paraplegia, present on admission.? Active. -Secondary to Spinal Schwannomas causing loss of LE balance/coordination 4. Grade 2 systolic murmur, intermittently present * Complete echo ordered 5. Hypertension, present on admission.? Active.-continue Metoprolol 6. Hypokalema, present on admission.? Active. -corrected 7. Patient with severe acute protein calorie malnutrition -appreciate dietary recommendation 8. Controlled hospital fall, 06/22/21 ?- patient was transferring to [facility], had controlled fall to the ground. He did not hit his head. Complained of knee bruise type pain. XR were negative for fracture. Continue to work on disposition. Adult family home identified. Patient be discharged on Saturday. Time Spent With Patient Critical Care time: I spent a total of [] minutes of critical care time on this patient's care today; this time is exclusive of procedural time. Quality VTE Deep Vein Thrombosis/Pulmonary Embolism Present on Admission: No
--- NOTE | 2021-06-30 15:20 | OT.IPNOTE ---
Discussed case with pt and P.T. Pt appears to be at his new baseline at this time. Pt agreeable to discharging from OT services.
--- NOTE | 2021-06-30 16:00 | PT.IPTN ---
Current Diagnoses Unspecified open wound, left thigh, initial encounter (06/12/21) Unspecified open wound, unspecified lower leg, initial encounter (06/12/21) Surgery Performed Operation Date: 06/12/21 09:45 Actual Procedures p Debridement hip(Left) - Dedrick Valdez MD Physical Therapy Treatment Note M2 PT-IP Current Condition Start: 06/14/21 15:46 Freq: NEEDED Status: Active Protocol: Document 06/21/21 15:20 SP (Rec: 06/21/21 18:31 SP [id number]) Physical Therapy Current Condition Current Condition Evaluation Date 06/14/21 Treatment Diagnosis L thigh open wound; generalized weakness M3 PT-IP Subjective Start: 06/14/21 15:46 Freq: NEEDED Status: Active Protocol: Document 06/30/21 16:00 AB (Rec: 06/30/21 16:03 AB [id number]) Subjective Physical Therapy Visit Type Type Administrative Note Notes Pt awaiting placement for d/c . per [employer], pt has improved in mobility but now has plateaued in function and continues to be impulsive with mobility affecting safety awareness and influencing level of care. Informed d/c from PT services during rounds and care team agreed. Plan is for pt to go to an adult family home. will d/c PT services. M7 PT-IP Assessment and Plan Start: 06/14/21 15:46 Freq: NEEDED Status: Active Protocol: Document 06/30/21 16:00 AB (Rec: 06/30/21 16:03 AB [id number]) PT Summary Assessment and Plan Frequency of Treatment Frequency Of Treatment Discharge
[2021-06-30 20:20] VITALS: BP 138/84; PULSE 75; RESP 17; TEMP 36.7; O2SAT 96
[2021-06-30] MEDS: SENNOSIDES 8.6 MG TABLET 17.2 MG PO (21:06)
[2021-07-01] MEDS: NYSTATIN CREAM 30 GM 1 APPLIC TOP ×3 (05:00→21:16)
[2021-07-01] MEDS: OXYCODONE IR 5 MG TABLET 10 MG PO ×5 (05:01→21:16)
[2021-07-01] MEDS: ACETAMINOPHEN 325 MG TABLET 650 MG PO ×3 (05:01→17:06)
--- NOTE | 2021-07-01 07:41 | PM.PN.1 ---
Subjective Subjective Date Patient Seen: 07/01/21 Interval history: He is seen today to follow-up his left hip ulcer and spinal tumors with functional paraplegia. He seems to have quite a good appetite. His tray is montes than any other breakfast tray in the building. His last labs were on 06/15. Exam Vital Signs (past 8 hours): Oxygen Delivery Method Room Air Oxygen Flow Rate 0 Narrative Exam Narrative: He is alert and oriented x3. No apparent distress. Heart is regular rate rhythm without murmur Lungs are clear to auscultation bilaterally Extremities have no ankle edema The left hip ulcer is not examined today. Objective Labs Result Diagrams: 06/23/21 06:17 06/23/21 06:17 [facility] Medical History Back pain Functional paraparesis Hypertension Neurogenic pain Schwannoma of spinal cord Surgical History History of spinal surgery History of tonsillectomy Family History Father CVA (cerebral vascular accident) Mother Myocardial infarct Social History household members: spouse, children, friend(s) and other Smoking Status: Current some day smoker alcohol intake: current Assessment & Plan Assessment & Plan narrative: Wilmer Camargo is 45 y.o. male with PMH of spinal schwannomas and functional paraplegia who presents with large pressure ulcers on his legs caused by crawling around his home, unable to ambulate in his wheelchair for the last 2 months due to space limitations while he has been unable to walk.? 1. Large Left Ischial/Trochanteric Pressure Ulcer, present on admission.? Active. -wound culture growing MRSA and E coli -patient is status post debridement, with wide excision, now with wound VAC removed and with wet to dry dressings per surgeon. -completed doxycycline and Cipro 06/25, stopped vancomycin 06/17 -Multiple other Lower Extremity Pressure Ulcers, all now nearly healed. -14 days total antibiotic course completed on 06/25/21. -continue PT/OT -plans underway for transfer to adult family home, discharged to adult family home on Saturday. [facility] adult [facility] in [facility] 2. Thoracic Spine Schwannomas, present on admission. Active. -continue Pregabalin for neuropathic pain -Upcoming Neurosurgery appointment with Dr. Stanley -preliminary information is that his tumors are no longer operable. 3. Functional Paraplegia, present on admission.? Active. -Secondary to Spinal Schwannomas causing loss of LE balance/coordination 4. Grade 2 systolic murmur, intermittently present EF 55%-60% with mild aorticl valve sclerosis. 5. Hypertension, present on admission.? Active. -continue Metoprolol 6. Hypokalema, present on admission.? Active. -corrected 7. Patient with severe acute protein calorie malnutrition -appreciate dietary recommendation 8. Controlled hospital fall, 06/22/21 ?- patient was transferring to [facility], had controlled fall to the ground. He did not hit his head. Complained of knee bruise type pain. XR were negative for fracture. Continue to work on disposition.? Adult family home identified-[facility]. Patient to be discharged on Tuesday 07/04. Time Spent With Patient Critical Care time: I spent a total of [] minutes of critical care time on this patient's care today; this time is exclusive of procedural time. Quality VTE Deep Vein Thrombosis/Pulmonary Embolism Present on Admission: No
[2021-07-01] MEDS: METOPROLOL IR 50 MG TABLET PO ×2 (09:06→21:16)
[2021-07-01] MEDS: ENOXAPARIN 40 MG/0.4 ML SYRINGE SUBCUT (09:06)
[2021-07-01] MEDS: PREGABALIN 75 MG CAPSULE 300 MG PO ×2 (09:06→21:16)
[2021-07-01 09:40] VITALS: BP 129/72; PULSE 77; RESP 16; TEMP 36.8; O2SAT 97
[2021-07-01 20:01] VITALS: BP 113/69; PULSE 73; RESP 16; TEMP 36.1; O2SAT 100
[2021-07-01] MEDS: SENNOSIDES 8.6 MG TABLET 17.2 MG PO (21:16)
[2021-07-02] MEDS: ACETAMINOPHEN 325 MG TABLET 650 MG PO ×5 (00:13→23:34)
[2021-07-02] MEDS: OXYCODONE IR 5 MG TABLET 10 MG PO ×6 (01:50→23:33)
--- NOTE | 2021-07-02 04:45 | PC.NURSE ---
Brief changed, nystatin applied and barrier cream applied. Dsg to left hip removed and replaced wet to dry as ordered. Wound bed is pink and moist and without drainage. Pt denies needs at this time.
[2021-07-02 08:32] VITALS: O2SAT 95
[2021-07-02 08:35] VITALS: BP 122/81; PULSE 89; O2SAT 98
[2021-07-02] MEDS: ENOXAPARIN 40 MG/0.4 ML SYRINGE SUBCUT (09:54)
[2021-07-02] MEDS: METOPROLOL IR 50 MG TABLET PO ×2 (09:54→20:25)
[2021-07-02] MEDS: PREGABALIN 75 MG CAPSULE 300 MG PO ×2 (09:55→20:25)
[2021-07-02] MEDS: NYSTATIN CREAM 30 GM 1 APPLIC TOP ×2 (10:03→20:25)
--- NOTE | 2021-07-02 14:22 | PM.PN.1 ---
Subjective Subjective Date Patient Seen: 07/02/21 Time Patient Seen: 08:00 Interval history: His pain is well controlled Exam Vital Signs (past 8 hours): - 07/02/21 08:32 07/02/21 08:35 Pulse Rate 89 Blood Pressure 122/81 Pulse Oximetry 95 98 Oxygen Delivery Method Room Air Oxygen Flow Rate 0 Narrative Exam Narrative: GEN: no acute distress CV: regular rate and rhythm PULM: clear bilaterally Objective Labs Result Diagrams: 06/23/21 06:17 06/23/21 06:17 [facility] Medical History Back pain Functional paraparesis Hypertension Neurogenic pain Schwannoma of spinal cord Surgical History History of spinal surgery History of tonsillectomy Family History Father CVA (cerebral vascular accident) Mother Myocardial infarct Social History household members: spouse, children, friend(s) and other Smoking Status: Current some day smoker alcohol intake: current Assessment & Plan Assessment & Plan narrative: Wilmer Camargo is 45 y.o. male with PMH of spinal schwannomas and functional paraplegia who presents with large pressure ulcers on his legs 1. Large Left Ischial/Trochanteric Pressure Ulcer, present on admission.? Active. -wound culture growing MRSA and E coli -patient is status post debridement, with wide excision, now with wound VAC removed and with wet to dry dressings per surgeon. -completed doxycycline and Cipro 06/25, stopped vancomycin 06/17 -Multiple other Lower Extremity Pressure Ulcers, all now nearly healed. -14 days total antibiotic course completed on 06/25/21. -continue PT/OT 2. Thoracic Spine Schwannomas, present on admission. Active. -continue Pregabalin for neuropathic pain -Upcoming Neurosurgery appointment with Dr. Stanley -preliminary information is that his tumors are no longer operable. 3. Functional Paraplegia, present on admission.? Active. -Secondary to Spinal Schwannomas causing loss of LE balance/coordination 4. Hypertension, present on admission.? Active. -continue Metoprolol 6. Hypokalema, -corrected 7. Patient with severe acute protein calorie malnutrition -appreciate dietary recommendation Dispo: patient stable for discharge, waits for disposition from case management Time Spent With Patient Critical Care time: I spent a total of [] minutes of critical care time on this patient's care today; this time is exclusive of procedural time. Quality VTE Deep Vein Thrombosis/Pulmonary Embolism Present on Admission: No
[2021-07-02 19:30] VITALS: BP 118/62; PULSE 83; RESP 14; TEMP 36.9; O2SAT 97
[2021-07-03] MEDS: ACETAMINOPHEN 325 MG TABLET 650 MG PO ×3 (05:38→18:42)
[2021-07-03] MEDS: OXYCODONE IR 5 MG TABLET 10 MG PO ×5 (05:39→22:35)
[2021-07-03 05:45] VITALS: BP 119/79; PULSE 70; RESP 14; TEMP 36.7; O2SAT 100
[2021-07-03 07:00] VITALS: BP 123/75; PULSE 74; RESP 21; TEMP 36.2; O2SAT 96
[2021-07-03] MEDS: PREGABALIN 75 MG CAPSULE 300 MG PO ×2 (10:07→20:31)
[2021-07-03] MEDS: METOPROLOL IR 50 MG TABLET PO ×2 (10:07→20:32)
[2021-07-03] MEDS: ENOXAPARIN 40 MG/0.4 ML SYRINGE SUBCUT (10:07)
[2021-07-03] MEDS: NYSTATIN CREAM 30 GM 1 APPLIC TOP ×2 (10:08→21:46)
--- NOTE | 2021-07-03 14:34 | CM.DPNOTE ---
Faxed medication list and RX's to [facility] per Robina, . Received fax conf. Candy Stark CM Assist.
--- NOTE | 2021-07-03 15:55 | PM.PN.1 ---
Subjective Subjective Date Patient Seen: 07/03/21 Time Patient Seen: 15:55 Interval history: No complaints Exam Vital Signs (past 8 hours): Oxygen Delivery Method Room Air Oxygen Flow Rate 0 Narrative Exam Narrative: GEN: no acute distress CV: regular rate and rhythm PULM: clear bilaterally Objective Labs Result Diagrams: 06/23/21 06:17 06/23/21 06:17 [facility] Medical History Back pain Functional paraparesis Hypertension Neurogenic pain Schwannoma of spinal cord Surgical History History of spinal surgery History of tonsillectomy Family History Father CVA (cerebral vascular accident) Mother Myocardial infarct Social History household members: spouse, children, friend(s) and other Smoking Status: Current some day smoker alcohol intake: current Assessment & Plan Assessment & Plan narrative: Wilmer Camargo is 45 y.o. male with PMH of spinal schwannomas and functional paraplegia who presents with large pressure ulcers on his legs 1. Large Left Ischial/Trochanteric Pressure Ulcer, present on admission.? Active. -wound culture growing MRSA and E coli -patient is status post debridement, with wide excision, now with wound VAC removed and with wet to dry dressings per surgeon. -completed doxycycline and Cipro 06/25, stopped vancomycin 06/17 -Multiple other Lower Extremity Pressure Ulcers, all now nearly healed. -14 days total antibiotic course completed on 06/25/21. -continue PT/OT 2. Thoracic Spine Schwannomas, present on admission. Active. -continue Pregabalin for neuropathic pain -Upcoming Neurosurgery appointment with Dr. Stanley -preliminary information is that his tumors are no longer operable. 3. Functional Paraplegia, present on admission.? Active. -Secondary to Spinal Schwannomas causing loss of LE balance/coordination 4. Hypertension, present on admission.? Active. -continue Metoprolol 6. Hypokalema, -corrected 7. Patient with severe acute protein calorie malnutrition -appreciate dietary recommendation Dispo: patient stable for discharge, waits for disposition from case management. Possible discharge to [facility] tomorrow. Time Spent With Patient Critical Care time: I spent a total of [] minutes of critical care time on this patient's care today; this time is exclusive of procedural time. Quality VTE Deep Vein Thrombosis/Pulmonary Embolism Present on Admission: No
[2021-07-03 19:30] VITALS: BP 113/77; PULSE 80; RESP 20; TEMP 36.8; O2SAT 99
[2021-07-03] MEDS: SENNOSIDES 8.6 MG TABLET 17.2 MG PO (20:31)
[2021-07-04] MEDS: ACETAMINOPHEN 325 MG TABLET 650 MG PO ×2 (01:00→05:53)
[2021-07-04] MEDS: OXYCODONE IR 5 MG TABLET 10 MG PO ×2 (05:53→09:56)
[2021-07-04 07:35] VITALS: BP 127/65; PULSE 72; RESP 18; TEMP 36.4; O2SAT 99
--- NOTE | 2021-07-04 08:57 | P.DS_ITS ---
History of Present Illness History of Present Illness Date Patient Seen: 07/04/21 Time Patient Seen: 08:57 Chief complaint: Bedsores Narrative: Per Dr. Mcwilliams, This is a 45-year-old male with a history of spinal schwannomas and functional paraplegia who presents with large pressure ulcers on his legs caused by crawling around his home for the last 2 months that he has been unable to walk.? He has known T8 and T6 schwannoma lesion with severe impingement of the spinal cord that per review of Neurosurgery indicates he will not be able to walk again.? He is planning to see Dr. Stanley in [place] for this but has not seen him so far.? The ED physician was able to review the films with Dr. Stanley who indicated that the patient, now after a prolonged period of time unable to walk is not really a surgical candidate.? He lives in a trailer with 7 other people, this is a single wide with 2 bedrooms.? He sleeps on the floor because he can not get up on the bed.? His and her friend sleep in the bed.? He somehow has managed to avoid pressure ulcers on his arms but has several on his legs most severely on the left side with a deep black eschar covered wound over the left ischial and trochanteric area.? 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 He has had prior thoracic laminectomies for the schwannomas.? He uses a wheelchair when he is outside of his home.? He has not had any fevers or significant pain. Discharge Providers Provider Date of admission: 06/12/21 11:45 Discharge Date: 07/04/21 Primary care physician: Phyllis Lu PA-C Consults: 06/11/21 07:43 Consult to B2B SALES PROFESSIONAL - Rand Butting Machine Operator Stat Comment: B2B SALES PROFESSIONAL Consult needed for:: Community Health Res Need 06/11/21 14:35 Consult to General Surgery Routine Comment: Consulting Provider: Dedrick Valdez Reason for consultation: Pressure Wound eschar Has provider been notified: Yes 06/11/21 14:54 Consult to Rand Butting Machine Operator Routine Comment: 06/12/21 16:33 Consult to Dietitian, Adult Routine Comment: Reason For Exam: wounds 06/12/21 16:45 Consult to Dietitian, Adult Routine Comment: Reason For Exam: chronic wounds LLE functional paralysis now w [place] Consult to Wound Care Routine Comment: Consulting Provider: [facility] 06/14/21 12:29 Consult to Occupational Therapy Evaluate & Treat Comment: Physician Instructions: Evaluate and treat 06/14/21 12:47 Consult to Physical Therapy Evaluate & Treat Comment: Physician Instructions: Evaluate and Treat 06/22/21 16:09 Consult to Wound Care Routine Comment: Consulting Provider: [facility] Discharge provider: Rivas Adams DO Summary Hospital Course Discharge Diagnosis: 1. Large Left Ischial/Trochanteric Pressure Ulcer, present on admission.? Active. 2. Thoracic Spine Schwannomas, present on admission. Active. 3. Functional Paraplegia, present on admission.? Active. 4. Hypertension, present on admission.? Active. 6. Hypokalema, 7. severe acute protein calorie malnutrition Hospital Course: This is a 45-year-old male with a past medical history of spinal schwannomas and functional paraplegia who presented with large pressure ulcers on his left leg. Wound culture grew MRSA in E coli and he underwent debridement with general surgery and wound VAC placement initially. He was fully treated with antibio tics during his prolonged stay here which was primarily focused on finding him placement. Multiple assisted facilities were called but given concern for long-term care as well as his wound care needs he was a very difficult placement. He was eventually discharged to an adult family home after an extensive search and discussion with General surgery on appropriate wound care which was ultimately changed to but to dry dressings from the wound VAC to facilitate placement. He was also noted to have electrolyte imbalances including hypokalemia which was repleted He was also found to have severe acute protein calorie malnutrition and was seen by the dietitian with much improved nutritiona l status over the course of his stay. His protein calorie malnutrition contributed significantly toward his poor wound healing and interventions may help improve healing of his left ischial ulcer over time. He has planned follow-up for his schwannomas with neuro surgery as an outpatient. Time Spent with Patient Time spent: Greater than 30 minutes Exam Vital Signs (past 8 hours): - 07/04/21 07:35 Temperature 97.6 F Pulse Rate 72 Respiratory Rate 18 Blood Pressure 127/65 Pulse Oximetry 99 Oxygen Delivery Method Room Air Oxygen Flow Rate 0 Narrative Exam Narrative: Exam Narrative: GEN: no acute distress CV: regular rate and rhythm PULM: clear bilaterally Ext: L hip dressing c/d/i. Objective Labs Result Diagrams: 06/23/21 06:17 06/23/21 06:17 [facility] Medical History Back pain Functional paraparesis Hypertension Neurogenic pain Schwannoma of spinal cord Surgical History History of spinal surgery History of tonsillectomy Family History Father CVA (cerebral vascular accident) Mother Myocardial infarct Social History household members: spouse, children, friend(s) and other Smoking Status: Current some day smoker alcohol intake: current Discharge Plan Discharge Plan Patient Disposition: Home Provider Discharge Comment: You were admitted to the hospital with L hip ulcer. Debrided and fully treated with antibiotics. Continue wet to dry dressing changes daily. Outpatient wound care evaluation. Discharge orders & Medications Prescriptions: New sennosides [senna] 8.6 mg Tablet 17.2 mg PO BEDTIME 14 Days Qty: 28 0RF tramadol 50 mg Tablet 50 mg PO TID PRN (Reason: Pain, Moderate (4-6)) 7 Days Qty: 20 0RF oxycodone 5 mg Tablet 10 mg PO Q4HR PRN (Reason: Pain, Moderate (4-6)) 7 Days Qty: 30 0RF acetaminophen 325 mg Tablet 650 mg PO Q6HR PRN (Reason: pain) 14 Days Qty: 35 0RF Continued metoprolol tartrate 50 mg tablet 50 mg PO BID 0RF Label Comments: Take 1 tablet by mouth twice a day pregabalin [Lyrica] 300 mg capsule 300 mg PO BID 0RF Label Comments: Take 1 capsule by mouth twice a day for chronic back pain Follow up/Referrals: Phyllis Lu PA-C [Primary Care Provider] - Diet/Activity/Treatments Diet: Diet as Tolerated Activity: As tolerated Visit Report/Discharge Packet Instructions: DI for Wound Infection, DI for Prescription Opioid Use Discharge Data Primary Care Provider: Phyllis Lu Quality VTE Deep Vein Thrombosis/Pulmonary Embolism Present on Admission: No
[2021-07-04] MEDS: PREGABALIN 75 MG CAPSULE 300 MG PO (09:51)
[2021-07-04] MEDS: METOPROLOL IR 50 MG TABLET PO (09:51)
[2021-07-04] MEDS: ENOXAPARIN 40 MG/0.4 ML SYRINGE SUBCUT (09:51)
--- NOTE | 2021-07-04 11:43 | CM.DPNOTE ---
Faxed the following referrals: [facility] [phone]; [facility] [phone]; and [facility] [phone]. Received fax conf. Candy Stark CM assist.
--- NOTE | 2021-07-04 12:06 | CM.DANOTE ---
DCP/Continued: Reviewed chart. MILLINERY WORKER placed call to [facility], spoke with Evon. She approves patient coming to there facility today. Cele requests picked edge sewing machine operator from her around noon. Prescriptions faxed to [facility] as instructed. In addition, d/c summary sent with patient in packet. Met with patient both today and yesterday and he continues to be agreeable to d/c plan. Spoke with [facility] this AM. She too confirms plan. Patient is requiring home health for dressing changes. Patient has no preference in HH agencies therefore, MILLINERY WORKER asked MABEL/Candy to assist. RN reports that she will send patient with a few days of dressing changes. Maria R at [facility] agreeable. RN given number to call [facility] to provide nurse report prior to departure. Medicaid transport form completed by MILLINERY WORKER and faxed. vine fruit farming supervisor scheduled around noon by [facility]. Patient does have his own wheelchair. P: [facility] today via cabulance. ZAIRE
--- NOTE | 2021-07-04 12:14 | PC.NURSE ---
Report given to Ras. Discharge paperwork and handout given to patient. He has no further questions or concerns at this time. Dressings to left hip and left knee changed prior to discharge. Picked up by transporter, left in his own wheelchair with all his belongings. Follow up with pCP as needed and to schedule outpatient wound treatment follow up.
== END 2021-07-04 12:22 | disposition home or self-care (01) | DRG 570 ==
LOC: ED 11:05 → AC 11:06
PROVIDERS: Internal Medicine; Nurse Practitioner Family; Surgery; Admitting Provider Family Medicine; Emergency Provider Emergency Medicine; PCP Physician Assistant Medical; Referring Provider Emergency Medicine; Visit Provider Family Medicine
PROC: 0JBM0ZZ Excision of Left Upper Leg Subcutaneous Tissue and Fascia, Open Approach (ICD-10-PCS; principal; 2021-06-12 09:45)
DX: L89.223 Pressure ulcer of left hip, stage 3 (principal); E43 Unspecified severe protein-calorie malnutrition; G82.20 Paraplegia, unspecified; I96 Gangrene, not elsewhere classified; L89.893 Pressure ulcer of other site, stage 3; E87.6 Hypokalemia; D36.10 Benign neoplasm of peripheral nerves and autonomic nervous system, unspecified; I10 Essential (primary) hypertension; B95.62 Methicillin resistant Staphylococcus aureus infection as the cause of diseases classified elsewhere; B96.20 Unspecified Escherichia coli [E. coli] as the cause of diseases classified elsewhere; F17.200 Nicotine dependence, unspecified, uncomplicated; M25.561 Pain in right knee; R01.1 Cardiac murmur, unspecified; Z20.822 Contact with and (suspected) exposure to COVID-19; Z68.21 Body mass index [BMI] 21.0-21.9, adult
CPT/HCPCS: 11042; 36415; 72157; 73562; 73590; 80048; 80053; 80202; 83605; 84145; 85025; 87040; 87070; 87075; 87077; 87147; 87186; 87205; 87635; 93306; 94762; 96374; 97110; 97162; 97166; 97530; 97535; 99233; 99284; 99406; C9803; G0378; A9579; J0696; J1650; J1885; J2405; J2704; J3010

== ENCOUNTER 2022-03-07 20:27 | Emergency (ER) | payer OTHER, MEDICAID, SELFPAY ==
[2021-06-11 12:30] VITALS: BMI 20.9
[2022-03-07] VITALS (8 sets, daily range): BP systolic 120–136; BP diastolic 83–93; PULSE 85–98; RESP 11–18; TEMP 36.3; O2SAT 95–97; BMI 23.4
--- NOTE | 2022-03-07 20:37 | ED_ITS ---
HPI - Chest Pain General Chief Complaint: Chest Pain Stated Complaint: Left chest pain x 1 week Time Seen by Provider: 03/07/22 20:31 History of Present Illness HPI narrative: 46-year-old male smoker ?benign tumors in his spine he and disability associated with this?presents by EMS for evaluation of a sharp left anterior chest pain that has been present for about the past week. He states that it hurts when he presses, takes a deep breath or moves his left arm. He denies any shortness of breath, fever or chills. He is not dizzy nor weak or lightheaded. Denies nausea, vomiting or diarrhea. He states Tylenol does not work and he has not tried anything else. He denies any trauma or injury. He denies any overuse type injury Related Data Home Medications Medication Instructions Recorded Confirmed metoprolol tartrate 50 mg tablet 50 mg PO BID 06/11/21 06/11/21 pregabalin 300 mg capsule (Lyrica) 300 mg PO BID 06/11/21 06/11/21 Previous Rx's Medication Instructions Recorded lidocaine 5 % topical patch 1 patch topical DAILY #15 ea 03/07/22 (Lidoderm) Allergies Allergy/AdvReac Type Severity Reaction Status Date / Time morphine Allergy Nightmare Verified 06/12/21 09:17 gabapentin AdvReac Shakiness Verified 06/12/21 09:17 Review of Systems Review of Systems Narrative: GENERAL: Denies chills, fatigue, malaise, fever, sweats. HEENT: Denies sinus pain, ear pain, sore throat, difficulty swallowing, dizziness. RESPIRATORY: Denies dyspnea, cough, wheezing, hemoptysis, sputum. CARDIOVASCULAR: See HPI GASTROINTESTINAL: Denies nausea, vomiting, abdominal pain, diarrhea, constipation, melena. : Denies dysuria, frequency, incontinence, hematuria, urinary retention. MUSCULOSKELETAL: denies weakness, joint pain, or bony pain SKIN: Denies rash, skin lesions, or other NEUROLOGIC: Denies weakness, headache, numbness, change in speech, confusion, seizures, incoordination. PSYCHIATRIC: No concerning psychosocial issues. 12 point review of systems is negative except for those stated above Patient History Medical History Back pain Functional paraparesis Hypertension Neurogenic pain Schwannoma of spinal cord Surgical History History of spinal surgery History of tonsillectomy Family History Father CVA (cerebral vascular accident) Mother Myocardial infarct Social History household members: spouse, children, friend(s) and other Smoking Status: Current some day smoker alcohol intake: current Smoking Status: Current some day smoker alcohol intake frequency: holidays/special occasions only Substance Use Type: marijuana Exam Narrative Exam Narrative: GENERAL: [46] year old patient appears stated age. Well-developed patient, in mild distress. HEAD: Atraumatic. Normocephalic. EYES: Pupils equal round and reactive. Extraocular motions intact. No scleral icterus. No injection or drainage. ENT: Nose without bleeding, purulent drainage. Throat without erythema, tonsillar hypertrophy or exudate. Airway patent. NECK: Trachea midline. Non tender CARDIOVASCULAR: Regular rate and rhythm without murmurs, gallops, or rubs. Left anterior chest tender to palpation, no swelling, erythema, warmth or crepitance RESPIRATORY: Clear to auscultation. Breath sounds equal bilaterally. No wheezes, rales, or rhonchi. GASTROINTESTINAL: Abdomen soft, non-tender, nondistended. BACK: Nontender without deformity or crepitance. No flank tenderness. NEURO: AOx3. SKIN: No rash or erythema of visible areas Initial Vital Signs Initial Vital Signs: Vital Signs Temperature 97.3 F L 03/07/22 20:25 Pulse Rate 98 H 03/07/22 20:25 Respiratory Rate 18 03/07/22 20:25 Blood Pressure 123/86 03/07/22 20:25 Pulse Oximetry 97 03/07/22 20:25 Oxygen Delivery Method 03/07/22 20:25 Scores HEART Score Heart Score history: Slightly Suspicious Heart Score EKG: Normal Heart Score Age: 45-64 years old Heart Score risk factors: No known risk factors Heart Score troponin: < or = to normal limit Heart Score Total: 1 Course Orders Ordered: ED Orders 03/07/22 20:39 Chest [XR chest 1V] Stat 03/07/22 20:50 C-Reactive Protein Quant Stat Complete Blood Count AUTO DIFF Stat Comprehensive Metabolic Panel Stat Erythrocyte Sedimentation Rate Stat Troponin & CK Cardiac Panel Stat Discontinued Medications Lidocaine (Lidocaine Patch 1 Each Adh..Patch) 1 each TOP NOW ONE Stop: 03/07/22 20:33 Last Admin: 03/07/22 21:00 Dose: 1 each Documented By: ANTIONE Oxycodone/Acetaminophen (Oxycodone/Acetaminophen 5/325 Tablet) 1 tab PO NOW ONE Stop: 03/07/22 23:12 Last Admin: 03/07/22 23:27 Dose: 1 tab Documented By: KERWIN Vital Signs Vital signs: Vital Signs - 8 hr 03/07/22 20:25 03/07/22 20:53 03/07/22 21:00 Temperature 97.3 F L Pulse Rate 98 H 90 Respiratory Rate 18 13 Blood Pressure 123/86 128/92 H Pulse Oximetry 97 95 Oxygen Delivery Method Room Air 03/07/22 21:00 03/07/22 21:30 03/07/22 21:30 Temperature Pulse Rate 90 87 Respiratory Rate 17 17 Blood Pressure 129/91 H Pulse Oximetry 96 95 Oxygen Delivery Method 03/07/22 22:00 03/07/22 22:30 03/07/22 22:30 Temperature Pulse Rate 86 87 Respiratory Rate 11 L 16 Blood Pressure 136/93 H Pulse Oximetry 96 95 Oxygen Delivery Method 03/07/22 23:00 03/07/22 23:00 03/07/22 23:30 Temperature Pulse Rate 86 Respiratory Rate 16 Blood Pressure 130/85 120/83 Pulse Oximetry 95 Oxygen Delivery Method 03/07/22 23:30 Temperature Pulse Rate 85 Respiratory Rate 16 Blood Pressure Pulse Oximetry 96 Oxygen Delivery Method MDM - Chest Pain Lab Data Result diagrams: 03/07/22 20:50 03/07/22 20:50 Labs: Lab Results 03/07/22 03/07/22 Range/Units 20:50 20:50 WBC 5.7 (4.5-11.0) X10^3/uL RBC 4.71 (4.5-5.9) X10^6/uL Hgb 12.9 L (13.5-17.5) g/dL Hct 38.7 L (41-53) % MCV 82.2 (80-100) fL MCH 27.4 (26-34) PG MCHC 33.3 (30-36) % RDW 17.7 H (11.6-14.8) % Plt Count 192 (150-400) X10^3/uL Neut % (Auto) 69.8 (50-75) % Lymph % (Auto) 19.9 L (25-40) % Cavalier % (Auto) 5.5 (3-14) % Eos % (Auto) 4.1 H (2-4) % Baso % (Auto) 0.7 (0-2) % Neut # (Auto) 4000 (5918-0984) /uL Lymph # (Auto) 1100 (9029-9901) /uL Cavalier # (Auto) 300 (0-900) /uL Eos # (Auto) 200 (0-450) /uL Baso # (Auto) 0 (0-100) /uL ESR 18 H (0-15) MM/HR Sodium 140 (137-145) mmol/L Potassium 4.2 (3.4-5.1) mmol/L Chloride 106 (98-107) mmol/L Carbon Dioxide 26 (22-32) mmol/L BUN 32 H (9-20) mg/dL Creatinine 0.81 (0.66-1.25) mg/dL Estimated GFR > 60 (>60) mL/min BUN/Creatinine Ratio 39.5 H (6-22) Glucose 94 (70-100) mg/dL Calcium 9.1 (8.4-10.2) mg/dL Total Bilirubin 0.5 (0.2-1.3) mg/dL AST 19 (17-59) IU/L ALT 19 (<50) IU/L Alkaline Phosphatase 84 (38-126) U/L Total Creatine Kinase 21 L (55-170) U/L CK-MB (CK-2) TNP CK-MB (CK-2) Rel Index TNP Troponin I < 0.012 (0.01-0.034) ng/mL C-Reactive Protein 1.9 H (<1.0) mg/dL Total Protein 6.9 (6.3-8.2) g/dL Albumin 3.9 (3.5-5.0) g/dL Globulin 3.0 (1.7-4.1) g/dL Albumin/Globulin Ratio 1.3 (1.0-2.8) Imaging Data Chest x-ray: Radiologist's Impression: [address] [address] XRay Report Signed Patient: Wilmer Camargo Sr MR#: [id number] : 1975 Acct:[id number] Age/Sex: 46 / M Date of Service: 03/07/22 Loc: ED Accession Number: [id number] ?? Procedure: XR chest 1V Ordering Provider: Medardo Johnson D.O. PROCEDURE:? XR CHEST 1V ? INDICATIONS:? left side chest pain ? TECHNIQUE:? One view of the chest was acquired.? ? COMPARISON:? [facility], CR, XR CHEST 1 VIEW, 02/20/2022, 15:13. ? FINDINGS:? ? Surgical changes and devices:? None.? ? Lungs and pleura:? Lungs are clear.? No pleural effusions or pneumothorax.? ? Mediastinum:? Mediastinal contours appear normal.? Heart size is normal.? ? Bones and chest wall:? No suspicious bony lesions.? Overlying soft tissues appear unremarkable.? ? IMPRESSION:? ? 1.? No acute cardiopulmonary disease. ? ? ? Dictated by: Juan Bloes M.D. on 03/07/2022 at 21:49 ? ? Approved by: Juan Boles M.D. on 03/07/2022 at 21:50? MDM Narrative Medical decision making narrative: Multiple causes of chest pain considered including HI, PE, pneumothorax, pneumonia, aortic dissection, and pleurisy. Patient reports no radiation, no diaphoresis, no provocation with exertion, and no vomiting. Patient has sharp and stabbing reproducible pain to palpation, no occlusive findings on EKG, chest x-ray clear, troponin negative. Discharge Plan Departure Patient Disposition: Home Clinical Impression: Anterior chest wall pain Instructions: DI for Atypical Chest Pain Activity Restrictions/Additional Instructions: *You have been diagnosed with [chest wall pain. As we discussed your history and physical exam are reassuring and there is no evidence of heart attack, pneumonia, rib fracture or other] *What to do: *Please continue to take your regular medications as directed. *Please follow up with your primary care provider in 2-3 days, call for an appointment. Let them know you were seen in the Emergency Department and that we ask that you be seen in follow up. We will electronically transmit a record of today's note if your PCP is in our system *If you do not have a primary care provider please contact the [facility] Resource line at [phone]. They will ask some questions about your medical history and help get you set up with a doctor in the community. *Return to Emergency Department if you should have any new, worsening or concerning symptoms Prescriptions: New lidocaine [Lidoderm] 5 % adhesive patch,medicated 1 patch TOP DAILY Qty: 15 0RF Rx Instructions: leave on most painful area for 12 hrs No Action metoprolol tartrate 50 mg tablet 50 mg PO BID Label Comments: Take 1 tablet by mouth twice a day pregabalin [Lyrica] 300 mg capsule 300 mg PO BID Label Comments: Take 1 capsule by mouth twice a day for chronic back pain Referrals: Phyllis Lu PA-C [Primary Care Provider] -
--- NOTE | 2022-03-07 20:39 | DI.RAD.S_ITS ---
PROCEDURE: XR CHEST 1V INDICATIONS: left side chest pain TECHNIQUE: One view of the chest was acquired. COMPARISON: [facility], CR, XR CHEST 1 VIEW, 02/20/2022, 15:13. FINDINGS: Surgical changes and devices: None. Lungs and pleura: Lungs are clear. No pleural effusions or pneumothorax. Mediastinum: Mediastinal contours appear normal. Heart size is normal. Bones and chest wall: No suspicious bony lesions. Overlying soft tissues appear unremarkable. IMPRESSION: 1. No acute cardiopulmonary disease. Dictated by: Juan Boles M.D. on 03/07/2022 at 21:49 Approved by: Juan Boles M.D. on 03/07/2022 at 21:50
[2022-03-07 20:58] LABS: Add Manual Diff / Slide Review NO; Basophils Absolute Auto 0 /uL (0-100); Basophils Percent Auto 0.7 % (0-2); Eosinophils Absolute Auto 200 /uL (0-450); Eosinophils Percent Auto 4.1 % (2-4); Hematocrit 38.7 % (41-53); Hemoglobin 12.9 g/dL (13.5-17.5); Lymphocytes Absolute Auto 1100 /uL (1100-4500); Lymphocytes Percent Auto 19.9 % (25-40); Mean Corpuscular HGB Conc 33.3 % (30-36); Mean Corpuscular Hemoglobin 27.4 PG (26-34); Mean Corpuscular Volume 82.2 fL (80-100); Monocytes Absolute Auto 300 /uL (0-900); Monocytes Percent Auto 5.5 % (3-14); Neutrophils Absolute Auto 4000 /uL (1500-7000); Neutrophils Percent Auto 69.8 % (50-75); Platelet Count 192 X10^3/uL (150-400); Red Blood Cell Count 4.71 X10^6/uL (4.5-5.9); Red Cell Distribution Width 17.7 % (11.6-14.8); White Blood Cell Count 5.7 X10^3/uL (4.5-11.0)
[2022-03-07] MEDS: LIDOCAINE PATCH 1 EACH ADH..PATCH TOP (21:00)
[2022-03-07 21:19] LABS: HEMOLYSIS < 15 (0-50)
[2022-03-07 21:24] LABS: Alanine Aminotransferase 19 IU/L (<50); Albumin 3.9 g/dL (3.5-5.0); Albumin Globulin Ratio 1.3 (1.0-2.8); Alkaline Phosphatase 84 U/L (38-126); Aspartate Aminotransferase 19 IU/L (17-59); BUN Creatinine Ratio 39.5 (6-22); Bilirubin Total 0.5 mg/dL (0.2-1.3); Blood Urea Nitrogen 32 mg/dL (9-20); Calcium 9.1 mg/dL (8.4-10.2); Carbon Dioxide 26 mmol/L (22-32); Chloride 106 mmol/L (98-107); Creatine Kinase 21 U/L (55-170); Estimated Glomerular Filt Rate > 60 mL/min (>60); Glucose 94 mg/dL (70-100); Potassium 4.2 mmol/L (3.4-5.1); Sodium 140 mmol/L (137-145); Total Protein 6.9 g/dL (6.3-8.2)
[2022-03-07 21:34] LABS: Erythrocyte Sedimentation Rate 18 MM/HR (0-15)
[2022-03-07 21:42] LABS: C-Reactive Protein Quant 1.9 mg/dL (<1.0)
[2022-03-07 22:06] LABS: Troponin I < 0.012 ng/mL (0.01-0.034)
[2022-03-07] MEDS: OXYCODONE/ACETAMINOPHEN 5/325 TABLET 1 TAB PO (23:27)
== END 2022-03-08 00:10 | disposition home or self-care (01) ==
PROVIDERS: Emergency Provider Emergency Medicine; PCP Physician Assistant Medical
DX: R07.9 Chest pain, unspecified (principal)
CPT/HCPCS: 71045; 80053; 82550; 84484; 85025; 85651; 86140; 93005; 99284

== ENCOUNTER 2022-03-09 06:05 | Emergency (ER) | payer OTHER, MEDICAID, SELFPAY ==
[2021-06-11 12:30] VITALS: BMI 20.9
--- NOTE | 2022-03-09 06:08 | DI.CT.S_ITS ---
PROCEDURE: CT HEAD/BRAIN WO CON INDICATIONS: fall with head injury TECHNIQUE: Noncontrast 4.5 mm thick angled axial sections acquired from the foramen magnum to the vertex, with coronal and sagittal reformats. For radiation dose reduction, the following was used: automated exposure control, adjustment of mA and/or kV according to patient size. COMPARISON: None. FINDINGS: Image quality: Excellent. CSF spaces: Basal cisterns are patent. No extra-axial fluid collections. Ventricles are normal in size and shape. Brain: No midline shift. No intracranial masses or hemorrhage. Hernandez-white matter interface is normal. Skull and face: Calvarium and visualized facial bones are intact, without suspicious lesions. Sinuses: Trace mucosal thickening in the maxillary sinuses and sphenoid sinuses. Other paranasal sinus is are clear. The mastoids are clear. IMPRESSION: No acute intracranial abnormality. This report is concordant with the overnight preliminary interpretation. Dictated by: Matthew Lou M.D. on 03/09/2022 at 7:40 Approved by: Matthew Lou M.D. on 03/09/2022 at 7:42
--- NOTE | 2022-03-09 06:08 | DI.CT.S_ITS ---
PROCEDURE: CT LUMBAR SPINE WO CON INDICATIONS: fall with midline back pain TECHNIQUE: Noncontrast 3 mm thick sections acquired from the T12 level to the sacrum. Sagittal and coronal reformats were constructed. For radiation dose reduction, the following was used: automated exposure control. COMPARISON: None. FINDINGS: Image quality: Excellent. Bones: There is normal bony alignment. No acute vertebral body compression fractures. No suspicious lytic or blastic bony lesions. No pars defects. T12-L1: No canal stenosis or foraminal stenosis. L1-L2: No canal stenosis or foraminal stenosis. L2-L3: No canal stenosis or foraminal stenosis. L3-L4: No canal stenosis or foraminal stenosis. L4-L5: No canal stenosis or foraminal stenosis. L5-S1: There is bilateral facet hypertrophy. No canal stenosis. There is moderate bilateral foraminal narrowing. Soft tissues: No retroperitoneal masses or hematomas. Visualized aorta is normal in caliber. Bilateral ureteral stents are noted to be in place. There is mild prominence of the renal collecting systems bilaterally. IMPRESSION: 1. No evidence acute fracture or dislocation. 2. No canal stenosis. 3. Bilateral facet hypertrophy at L5-S1 results in foraminal stenosis. Comment: Final report is concordant with preliminary interpretation provided by [facility]. Dictated by: River Diez M.D. on 03/09/2022 at 7:57 Approved by: River Diez M.D. on 03/09/2022 at 8:00
--- NOTE | 2022-03-09 06:08 | DI.CT.S_ITS ---
PROCEDURE: CT CERVICAL SPINE WO CON INDICATIONS: fall with neck pain TECHNIQUE: Noncontrast 3 mm thick sections acquired from the skull base to the T4 level. Sagittal and coronal reformats were then constructed. For radiation dose reduction, the following was used: automated exposure control, adjustment of mA and/or kV according to patient size. COMPARISON: [facility], CT, CT THORACIC SPINE WO CON, 03/09/2022, 6:16. FINDINGS: Image quality: Good. Motion artifact at the level of C6. Bones: No fractures or dislocations. Visualized superior ribs are intact. Soft tissues: Prevertebral soft tissues are normal in thickness. No paravertebral hematomas. No apical pneumothoraces. Ground-glass opacity in the upper lobes. IMPRESSION: No acute osseous abnormality. This report is concordant with the overnight preliminary interpretation. Dictated by: Matthew Lou M.D. on 03/09/2022 at 7:42 Approved by: Matthew Lou M.D. on 03/09/2022 at 7:46
--- NOTE | 2022-03-09 06:08 | DI.CT.S_ITS ---
PROCEDURE: CT THORACIC SPINE WO CON INDICATIONS: fall with midline back pain TECHNIQUE: Noncontrast 3 mm thick sections acquired through the region of interest in the thoracic spine. Sagittal and coronal reformats were then constructed. For radiation dose reduction, the following was used: automated exposure control. COMPARISON: None. FINDINGS: Image quality: Excellent. Bones: There is normal overall bony alignment. Remote laminectomy at T8 and T9. No acute vertebral body compression fractures. No suspicious sclerotic or lytic bony lesions. Central spinal canal is of normal overall caliber. Soft tissues: No paravertebral masses or hematomas. Visualized posteromedial lungs appear clear. There is interstitial change in the periphery of the right lung. Left lung is grossly clear. Based on the patient's positioning, the findings in the right lung may represent dependent change. Or, findings may represent unilateral very mild pulmonary edema. Small cystic nodule, posterior to T10 likely represents a sebaceous cyst. IMPRESSION: 1. Remote posterior laminectomy at T8 and T9. 2. No evidence of acute thoracic fracture or dislocation. 3. Question dependent change versus very mild unilateral pulmonary edema. 4. Probable sebaceous cyst overlying T10. Comment: Final report is concordant with preliminary interpretation provided by [facility]. Dictated by: River Diez M.D. on 03/09/2022 at 8:00 Approved by: River Diez M.D. on 03/09/2022 at 8:05
[2022-03-09 06:14] VITALS: BP 170/98; PULSE 76; RESP 20; TEMP 36.5; O2SAT 99; BMI 23.7
--- NOTE | 2022-03-09 06:16 | ED_ITS ---
HPI - Back Pain/Injury General Chief Complaint: Neck Pain/Injury Stated Complaint: neck and back pain Time Seen by Provider: 03/09/22 06:07 History of Present Illness HPI Narrative: 46-year-old male smoker ?benign tumors in his spine he and disability associated with this?presents by EMS for evaluation of a sharp left anterior chest pain, midline neck and back pain after an apparent fall. He does not know exactly what happened but EMS was activated to evaluate him with complaint of head neck and back pain after falling out of bed and laying on the floor. He states he has increased pain with motion and improvement with rest. He denies any new numbness or tingling but is a known paraplegic. He denies any blurred vision, trouble with speech or vomiting. He is had no fever or chills. He does have a sharp and stabbing left rib pain that has been present for quite some time. EMS states that he was transported to another emergency department multiple times yesterday Related Data Home Medications Medication Instructions Recorded Confirmed metoprolol tartrate 50 mg tablet 50 mg PO BID 06/11/21 06/11/21 pregabalin 300 mg capsule (Lyrica) 300 mg PO BID 06/11/21 06/11/21 Previous Rx's Medication Instructions Recorded lidocaine 5 % topical patch 1 patch topical DAILY #15 ea 03/07/22 (Lidoderm) Allergies Allergy/AdvReac Type Severity Reaction Status Date / Time morphine Allergy Nightmare Verified 06/12/21 09:17 gabapentin AdvReac Shakiness Verified 06/12/21 09:17 Review of Systems Review of Systems Narrative: GENERAL: Denies chills, fatigue, malaise, fever, sweats. HEENT: Denies sinus pain, ear pain, sore throat, difficulty swallowing, dizziness. RESPIRATORY: Denies dyspnea, cough, wheezing, hemoptysis, sputum. CARDIOVASCULAR: Denies chest pain, palpitations, orthopnea, edema, GASTROINTESTINAL: Denies nausea, vomiting, abdominal pain, diarrhea, constipation, melena. : Denies dysuria, frequency, incontinence, hematuria, urinary retention. MUSCULOSKELETAL: See HPI SKIN: Denies rash, skin lesions, or other NEUROLOGIC: Denies weakness, headache, numbness, change in speech, confusion, seizures, incoordination. PSYCHIATRIC: No concerning psychosocial issues. 12 point review of systems is negative except for those stated above Patient History Medical History Back pain Functional paraparesis Hypertension Neurogenic pain Schwannoma of spinal cord Surgical History History of spinal surgery History of tonsillectomy Family History Father CVA (cerebral vascular accident) Mother Myocardial infarct Social History household members: spouse, children, friend(s) and other Smoking Status: Current some day smoker alcohol intake: current Smoking Status: Current some day smoker alcohol intake frequency: holidays/special occasions only Substance Use Type: marijuana Exam Narrative Exam Narrative: GENERAL: [46] year old patient appears stated age. Well-developed patient, in mild distress. GCS 15 HEAD: Atraumatic. Normocephalic. No contusion, abrasion or evidence of depressed skull fracture EYES: Pupils equal round and reactive. No hyphema Extraocular motions intact. No scleral icterus. No injection or drainage. ENT: Nose without bleeding, purulent drainage. Throat without erythema, tonsillar hypertrophy or exudate. Airway patent. NECK: Trachea midline. Midline tenderness of entire cervical and upper thoracic spine, no step-offs, crepitance or ecchymosis noted, no change with axial loading CARDIOVASCULAR: Regular rate and rhythm without murmurs, gallops, or rubs. RESPIRATORY: Clear to auscultation. Breath sounds equal bilaterally. No wheezes, rales, or rhonchi. GASTROINTESTINAL: Abdomen soft, non-tender, nondistended. BACK: Nontender without deformity or crepitance. No flank tenderness. NEURO: AOx3. SKIN: No rash or erythema of visible areas Initial Vital Signs Initial Vital Signs: Vital Signs Temperature 97.7 F 03/09/22 06:14 Pulse Rate 76 03/09/22 06:14 Respiratory Rate 20 03/09/22 06:14 Blood Pressure 170/98 H 03/09/22 06:14 Pulse Oximetry 99 03/09/22 06:14 Oxygen Delivery Method 03/09/22 06:14 Course Orders Ordered: Discontinued Medications Acetaminophen (Ofirmev) 1,000 mg in 100 mls @ 400 mls/hr IV NOW ONE Stop: 03/09/22 08:44 Last Infusion: 03/09/22 09:08 Dose: 0 mls/hr Documented By: Admin: 03/09/22 08:36 Dose: 400 mls/hr Documented By: JANETTE Ibuprofen (Ibuprofen 400 Mg Tablet) 800 mg PO NOW ONE Stop: 03/09/22 09:19 Last Admin: 03/09/22 09:23 Dose: 800 mg Documented By: JANETTE Lidocaine (Lidocaine Patch 1 Each Adh..Patch) 1 each TOP NOW ONE Stop: 03/09/22 09:19 Last Admin: 03/09/22 09:23 Dose: 1 each Documented By: JANETTE Vital Signs Vital signs: Vital Signs - 8 hr 03/09/22 06:14 Temperature 97.7 F Pulse Rate 76 Respiratory Rate 20 Blood Pressure 170/98 H Pulse Oximetry 99 Oxygen Delivery Method Room Air MDM - Back Pain/Injury Imaging Data CT scan - head: Radiologist's Impression: Close Thoracic Spine CT (Signed) River Diez - 03/09/[address] (Signed) River Diez - 03/09/[address] (Signed) Call,Matthew - 03/09/[address] (Signed) Call,Mattehw - 03/09/22 Chest X-Ray (Signed) Juan Boles - 03/07/22 Echocardiogram Ultrasound (Signed) Bertin Vigil - 06/27/21 Knee X-Ray (Signed) Sandra Rodriguez - 06/23/21 Tibia/Fibula X-Ray (Signed) Sandra Rodriguez - 06/23/21 Telemetry Strips 06/12/21 Thoracic Spine MRI (Signed) Kevin Small - 06/11/[address] (Signed) Mamta Rossi - 01/25/[address] (Signed) Mamta Rossi - 01/25/21 Launch?[address] [address] [address] Scan Report Signed Patient: Wilmer Camargo Sr MR#: [id number] : 1975 Acct:[id number] Age/Sex: 46 / M Date of Service: 03/09/22 Loc: ED Accession Number: [id number] ?? Procedure: CT head/brain wo con Ordering Provider: Medardo Johnson D.O. PROCEDURE:? CT HEAD/BRAIN WO CON ? INDICATIONS:? fall with head injury ? TECHNIQUE:? Noncontrast 4.5 mm thick angled axial sections acquired from the foramen magnum to the vertex, with coronal and sagittal reformats.? For radiation dose reduction, the following was used:? automated exposure control, adjustment of mA and/or kV according to patient size.? ? COMPARISON:? None. ? FINDINGS:? Image quality:? Excellent.? ? CSF spaces:? Basal cisterns are patent.? No extra-axial fluid collections.? Ventricles are normal in size and shape.? ? Brain:? No midline shift.? No intracranial masses or hemorrhage.? Hernandez-white matter interface is normal.? ? Skull and face:? Calvarium and visualized facial bones are intact, without suspicious lesions.? ? Sinuses:? Trace mucosal thickening in the maxillary sinuses and sphenoid sinuses.? Other paranasal sinus is are clear.? The mastoids are clear. ? IMPRESSION:? No acute intracranial abnormality. This report is concordant with the overnight preliminary interpretation. ? ? Dictated by: Matthew Lou M.D. on 03/09/2022 at 7:40 ? ? Approved by: Matthew Lou M.D. on 03/09/2022 at 7:42 ? CT - cervical spine: Radiologist's Impression: Close Thoracic Spine CT (Signed) River Diez - 03/09/[address] (Signed) River Diez - 03/09/[address] (Signed) Matthew Lou - 03/09/[address] (Signed) Matthew Lou - 03/09/22 Chest X-Ray (Signed) Juan Boles - 03/07/22 Echocardiogram Ultrasound (Signed) Bertin Vigil - 06/27/21 Knee X-Ray (Signed) Sandra Rodriguez - 06/23/21 Tibia/Fibula X-Ray (Signed) Sandra Rodriguez - 06/23/21 Telemetry Strips 06/12/21 Thoracic Spine MRI (Signed) Kevin Small - 06/11/[address] (Signed) Mamta Rossi - 01/25/[address] (Signed) Mamta Rossi - 01/25/21 Launch?[address] [address] [address] Scan Report Signed Patient: Wilmer Camargo Sr MR#: [id number] : 1975 Acct:[id number] Age/Sex: 46 / M Date of Service: 03/09/22 Loc: ED Accession Number: [id number] ?? Procedure: CT cervical spine wo con Ordering Provider: Medardo Johnson D.O. PROCEDURE:? CT CERVICAL SPINE WO CON ? INDICATIONS:? fall with neck pain ? TECHNIQUE:? Noncontrast 3 mm thick sections acquired from the skull base to the T4 level.? Sagittal and coronal reformats were then constructed.? For radiation dose reduction, the following was used:? automated exposure control, adjustment of mA and/or kV according to patient size.? ? COMPARISON:? [facility], CT, CT THORACIC SPINE WO CON, 03/09/2022, 6:16. ? FINDINGS:? Image quality:? Good.? Motion artifact at the level of C6.? ? Bones:? No fractures or dislocations.? Visualized superior ribs are intact.? ? Soft tissues:? Prevertebral soft tissues are normal in thickness.? No paravertebral hematomas.? No apical pneumothoraces.? Ground-glass opacity in the upper lobes.? ? ? IMPRESSION:? No acute osseous abnormality. ? This report is concordant with the overnight preliminary interpretation. ? Dictated by: Matthew Lou M.D. on 03/09/2022 at 7:42 ? ? Approved by: Matthew Lou M.D. on 03/09/2022 at 7:46 ? T spine: Radiologist's Impression: Wilmer Camargo Sr?(Wilmer)??46??M??1975 ? Allergy/Adv: morphine, gabapentin (More??) Close Thoracic Spine CT (Signed) River Diez - 03/09/[address] (Signed) River Diez - 03/09/[address] (Signed) Matthew Lou - 03/09/[address] (Signed) Matthew Lou - 03/09/22 Chest X-Ray (Signed) Juan Boles - 03/07/22 Echocardiogram Ultrasound (Signed) Bertin Vigil - 06/27/21 Knee X-Ray (Signed) Sandra Rodriguez - 06/23/21 Tibia/Fibula X-Ray (Signed) Sandra Rodriugez - 06/23/21 Telemetry Strips 06/12/21 Thoracic Spine MRI (Signed) Kevin Small - 06/11/[address] (Signed) Mamta Rossi - 01/25/[address] (Signed) Mamta Rossi - 01/25/21 Launch?[place] [address] CT Scan Report Signed Patient: Wilmer Camargo Sr MR#: [id number] : 1975 Acct:[id number] Age/Sex: 46 / M Date of Service: 03/09/22 Loc: ED Accession Number: [id number] ?? Procedure: CT thoracic spine wo con Ordering Provider: Medardo Johnson D.O. PROCEDURE:? CT THORACIC SPINE WO CON ? INDICATIONS:? fall with midline back pain ? TECHNIQUE:? Noncontrast 3 mm thick sections acquired through the region of interest in the thoracic spine.? Sagittal and coronal reformats were then constructed.? For radiation dose reduction, the following was used:? automated exposure control.? ? COMPARISON:? None. ? FINDINGS:? Image quality:? Excellent.? ? Bones:? There is normal overall bony alignment.? Remote laminectomy at T8 and T9.? No acute vertebral body compression fractures.? No suspicious sclerotic or lytic bony lesions.? Central spinal canal is of normal overall caliber.? ? Soft tissues:? No paravertebral masses or hematomas.? Visualized posteromedial lungs appear clear.? There is interstitial change in the periphery of the right lung.? Left lung is grossly clear.? Based on the patient's positioning, the findings in the right lung may represent dependent change.? Or, findings may represent unilateral very mild pulmonary edema.? Small cystic nodule, posterior to T10 likely represents a sebaceous cyst. ? IMPRESSION:? ? 1. Remote posterior laminectomy at T8 and T9. ? 2. No evidence of acute thoracic fracture or dislocation. ? 3. Question dependent change versus very mild unilateral pulmonary edema. ? 4. Probable sebaceous cyst overlying T10. ? Comment: Final report is concordant with preliminary interpretation provided by [facility]. ? ? Dictated by: River Diez M.D. on 03/09/2022 at 8:00 ? ? Approved by: River Diez M.D. on 03/09/2022 at 8:05 ? L Spine: Radiologist's Impression: Wilmer Camargo Sr?(Wilmer)??46??M??1975 ? Allergy/Adv: morphine, gabapentin (More??) Close Thoracic Spine CT (Signed) River Diez - 03/09/[address] (Signed) River Diez - 03/09/[address] (Signed) Call,Matthew - 03/09/[address] (Signed) Call,Matthew - 03/09/22 Chest X-Ray (Signed) Juan Boles - 03/07/22 Echocardiogram Ultrasound (Signed) Bertin Vigil - 06/27/21 Knee X-Ray (Signed) Sandra Rodriguez - 06/23/21 Tibia/Fibula X-Ray (Signed) Sandra Rodriguez - 06/23/21 Telemetry Strips 06/12/21 Thoracic Spine MRI (Signed) Kevin Small - 06/11/[address] (Signed) Mamta Rossi - 01/25/[address] (Signed) Mamta Rossi - 01/25/21 Launch?[place] [address] CT Scan Report Signed Patient: Wilmer Camargo Sr MR#: [id number] : 1975 Acct:[id number] Age/Sex: 46 / M Date of Service: 03/09/22 Loc: ED Accession Number: [id number] ?? Procedure: CT lumbar spine wo con Ordering Provider: Medardo Johnson D.O. PROCEDURE:? CT LUMBAR SPINE WO CON ? INDICATIONS:? fall with midline back pain ? TECHNIQUE:? Noncontrast 3 mm thick sections acquired from the T12 level to the sacrum.? Sagittal and coronal reformats were constructed.? For radiation dose reduction, the following was used:? automated exposure control.? ? COMPARISON:? None. ? FINDINGS:? Image quality:? Excellent.? ? Bones:? There is normal bony alignment.? No acute vertebral body compression fractures.? No suspicious lytic or blastic bony lesions.? No pars defects.? ? T12-L1:? No canal stenosis or foraminal stenosis. ? L1-L2:? No canal stenosis or foraminal stenosis. ? L2-L3:? No canal stenosis or foraminal stenosis. ? L3-L4:? No canal stenosis or foraminal stenosis. ? L4-L5:? No canal stenosis or foraminal stenosis. ? L5-S1:? There is bilateral facet hypertrophy.? No canal stenosis.? There is moderate bilateral foraminal narrowing. ? Soft tissues:? No retroperitoneal masses or hematomas.? Visualized aorta is normal in caliber.? Bilateral ureteral stents are noted to be in place.? There is mild prominence of the renal collecting systems bilaterally.? ? ? IMPRESSION:? ? 1. No evidence acute fracture or dislocation. ? 2. No canal stenosis. ? 3. Bilateral facet hypertrophy at L5-S1 results in foraminal stenosis. ? Comment: Final report is concordant with preliminary interpretation provided by [facility].? ? ? Dictated by: River Diez M.D. on 03/09/2022 at 7:57 ? ? Approved by: River Diez M.D. on 03/09/2022 at 8:00 ? MDM Narrative Medical decision making narrative: Patient with reassuring history physical exam returns for evaluation by EMS. He had report of any up on the ground next to his bed without a clear explanation why. His exam is very reassuring and extensive imaging noted above shows no evidence of intracranial hemorrhage or fracture. There is no indication to perform lab work or obtain other imaging at this time. Return precautions discussed and questions answered to his apparent satisfaction Discharge Plan Departure Patient Disposition: Home Clinical Impression: Strain of neck muscle, Strain of thoracic region Instructions: DI for Neck Pain Activity Restrictions/Additional Instructions: *You have been diagnosed with [neck and back pain without any evidence traumatic injury] *What to do: *Please continue to take your regular medications as directed. [ ] New medication prescriptions sent to your pharmacy: [ ] [ ] New medication written as a paper prescription [ ] No new medications given *Please follow up with your primary care provider in 2-3 days, call for an appointment. Let them know you were seen in the Emergency Department and that we ask that you be seen in follow up. We will electronically transmit a record of today's note if your PCP is in our system *If you do not have a primary care provider please contact the [facility] Resource line at [phone]. They will ask some questions about your medical history and help get you set up with a doctor in the community. *Return to Emergency Department if you should have any new, worsening or concerning symptoms, such as [fever greater than 101 F, shaking chills, worsening pain, persistent vomiting or other bothersome symptoms] Prescriptions: No Action metoprolol tartrate 50 mg tablet 50 mg PO BID Label Comments: Take 1 tablet by mouth twice a day pregabalin [Lyrica] 300 mg capsule 300 mg PO BID Label Comments: Take 1 capsule by mouth twice a day for chronic back pain lidocaine [Lidoderm] 5 % adhesive patch,medicated 1 patch TOP DAILY Qty: 15 0RF Rx Instructions: leave on most painful area for 12 hrs Referrals: Phyllis Lu PA-C [Primary Care Provider] - Visit Report Forms: Patient Portal/API
--- NOTE | 2022-03-09 06:20 | PC.NURSE ---
pt c/o waking up on the floor unknow how he got on the floor
[2022-03-09 07:49] VITALS: BP 163/92; PULSE 80; RESP 20; O2SAT 96
[2022-03-09] MEDS: ACETAMINOPHEN IV 1,000 MG/100 ML VIAL 400 MG IV (08:36)
[2022-03-09] MEDS: LIDOCAINE PATCH 1 EACH ADH..PATCH TOP (09:23)
[2022-03-09] MEDS: IBUPROFEN 400 MG TABLET 800 MG PO (09:23)
[2022-03-09 09:53] VITALS: BP 144/96; PULSE 81; RESP 20; O2SAT 97
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
== END 2022-03-09 10:01 | disposition home or self-care (01) ==
PROVIDERS: Emergency Provider Emergency Medicine; PCP Physician Assistant Medical
DX: S16.1XXA Strain of muscle, fascia and tendon at neck level, initial encounter (principal); S29.012A Strain of muscle and tendon of back wall of thorax, initial encounter; S09.90XA Unspecified injury of head, initial encounter; R07.9 Chest pain, unspecified; W19.XXXA Unspecified fall, initial encounter
CPT/HCPCS: 70450; 72125; 72128; 72131; 96365; 99284; J0131

== ENCOUNTER 2022-03-19 22:02 | Emergency (ER) | payer OTHER, MEDICAID, SELFPAY ==
[2021-06-11 12:30] VITALS: BMI 20.9
[2022-03-19 22:13] VITALS: BP 144/96; PULSE 111; RESP 20; TEMP 36.9; O2SAT 95
[2022-03-19 22:21] LABS: Add Manual Diff / Slide Review NO; Basophils Absolute Auto 0 /uL (0-100); Basophils Percent Auto 0.6 % (0-2); Eosinophils Absolute Auto 400 /uL (0-450); Eosinophils Percent Auto 4.5 % (2-4); Hematocrit 36.3 % (41-53); Lymphocytes Absolute Auto 900 /uL (1100-4500); Lymphocytes Percent Auto 10.3 % (25-40); Mean Corpuscular HGB Conc 33.1 % (30-36); Mean Corpuscular Hemoglobin 27.1 PG (26-34); Mean Corpuscular Volume 81.7 fL (80-100); Monocytes Absolute Auto 900 /uL (0-900); Neutrophils Absolute Auto 6100 /uL (1500-7000); Neutrophils Percent Auto 73.6 % (50-75); Platelet Count 401 X10^3/uL (150-400); Red Blood Cell Count 4.45 X10^6/uL (4.5-5.9); Red Cell Distribution Width 16.7 % (11.6-14.8); White Blood Cell Count 8.3 X10^3/uL (4.5-11.0)
[2022-03-19 22:35] LABS: Alanine Aminotransferase 15 IU/L (<50); Albumin 3.5 g/dL (3.5-5.0); Albumin Globulin Ratio 1.1 (1.0-2.8); Alkaline Phosphatase 84 U/L (38-126); Aspartate Aminotransferase 13 IU/L (17-59); BUN Creatinine Ratio 17.6 (6-22); Bilirubin Total 0.3 mg/dL (0.2-1.3); Blood Urea Nitrogen 16 mg/dL (9-20); Calcium 8.5 mg/dL (8.4-10.2); Carbon Dioxide 29 mmol/L (22-32); Chloride 100 mmol/L (98-107); Estimated Glomerular Filt Rate > 60 mL/min (>60); Globulin 3.2 g/dL (1.7-4.1); Glucose 94 mg/dL (70-100); HEMOLYSIS < 15 (0-50); Lipase 47 U/L (23-300); Potassium 4.4 mmol/L (3.4-5.1); Sodium 139 mmol/L (137-145); Total Protein 6.7 g/dL (6.3-8.2)
--- NOTE | 2022-03-19 22:55 | DI.CT.S_ITS ---
PROCEDURE: CT ABDOMEN PELVIS W CON INDICATIONS: severe LLQ pain TECHNIQUE: After the administration of IV contrast, axial sections were acquired from the lung bases to the pubic symphysis. Coronal and sagittal reformats were performed. For radiation dose reduction, the following was used: automated exposure control, adjustment of mA and/or kV according to patient size. COMPARISON: [facility], CT, CT ABDOMEN PELVIS WITHOUT CONTRAST, 02/28/2020, 22:25. [facility], CT, CT ABDOMEN PELVIS WITH CONTRAST, 09/07/2020, 13:06. [facility], MR, MR ABDOMEN MRCP, 02/21/2022, 10:39. [facility], CT, CT ABDOMEN PELVIS WITH CONTRAST, 02/20/2022, 16:13. FINDINGS: Image quality: Excellent. Lung bases: There is mild dependent atelectasis. Heart: Heart is normal in size. ABDOMEN: Liver: No mass lesion. Gallbladder: Within normal limits without calcified gallstones. Biliary ducts: No biliary ductal dilatation. Pancreas: There is enlargement of the pancreatic head redemonstrated without a discrete mass identified. No definite pancreatic duct dilatation. Findings are similar to the prior studies. Spleen: Normal in size. Adrenal Glands: No adrenal nodules. Kidneys and Ureters: Bilateral ureteral stents are redemonstrated with the proximal coils in the renal pelves and the distal coils in the bladder. There is persistent mild bilateral hydroureteronephrosis with periureteral fat stranding and urothelial thickening. Within the right renal collecting system, there are slightly hyperdense filling defects within the calices and renal pelvis compatible with blood product. There is persistent heterogeneous enhancement of the kidneys redemonstrated suggestive of pyelonephritis. Stomach and Bowel: Stomach, small bowel loops, and colon are normal in caliber and wall thickness. Peritoneum: No abnormal intraperitoneal fluid. No free air. Ventral Wall: No hernia. Abdominal Nodes: No retroperitoneal or mesenteric adenopathy by size criteria. Vessels: Aorta and inferior vena cava are normal in size. PELVIS: Pelvic Organs: Unremarkable. Bladder: The urinary bladder is nondistended with a Gauthier catheter present. There is concentric bladder wall thickening with associated fat stranding. Pelvic Nodes: No enlarged lymph nodes. Miscellaneous: No inguinal hernias are seen. Bones: Visualized osseous structures demonstrate no suspicious focal lesions. IMPRESSION: 1. Persistent mild bilateral hydroureteronephrosis with bilateral ureteral stents redemonstrated. 2. New high density filling defects within right renal calices and pelvis consistent with blood product and indicative of interval hemorrhage. 3. Persistent bilateral urothelial thickening in the ureters with periureteral fat stranding likely reflecting a urinary tract infection. 4. Heterogeneous enhancement of the kidneys redemonstrated, decreased from the prior study, suggestive of resolving pyelonephritis. 5. Concentric bladder wall thickening with associated fat stranding consistent with a cystitis. 6. Enlargement of the pancreatic head redemonstrated without a discrete mass or pancreatic duct dilatation. Findings appear similar to the prior studies. Dictated by: Juan Boles M.D. on 03/20/2022 at 0:56 Approved by: Juan Boles M.D. on 03/20/2022 at 1:18
--- NOTE | 2022-03-19 22:56 | ED_ITS ---
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 He states that he has had no fever or chills. He has been nauseated but denies any vomiting. He denies any changes bowel habits such as constipation or diarrhea. He does not think he is had any change in his urinary habits, but states he is had an ongoing kidney infection with an indwelling catheter. He does have a history of bowel obstruction and perforation which is his largest concern. His pain is in his lower anterior abdomen and is worse when he moves or with palpation and improves with rest. Related Data Home Medications Medication Instructions Recorded Confirmed metoprolol tartrate 50 mg tablet 50 mg PO BID 06/11/21 06/11/21 pregabalin 300 mg capsule (Lyrica) 300 mg PO BID 06/11/21 06/11/21 Previous Rx's Medication Instructions Recorded lidocaine 5 % topical patch 1 patch topical DAILY #15 ea 03/07/22 (Lidoderm) sulfamethoxazole 800 1 tab PO BID 10 days #20 tabs 03/20/22 mg-trimethoprim 160 mg tablet (Bactrim DS) Allergies Allergy/AdvReac Type Severity Reaction Status Date / Time morphine Allergy Nightmare Verified 06/12/21 09:17 gabapentin AdvReac Shakiness Verified 06/12/21 09:17 Review of Systems Review of Systems Narrative: GENERAL: Denies chills, fatigue, malaise, fever, sweats. HEENT: Denies sinus pain, ear pain, sore throat, difficulty swallowing, dizziness. RESPIRATORY: Denies dyspnea, cough, wheezing, hemoptysis, sputum. CARDIOVASCULAR: Denies chest pain, palpitations, orthopnea, edema, GASTROINTESTINAL: see HPI : Denies dysuria, frequency, incontinence, hematuria, urinary retention. MUSCULOSKELETAL: denies weakness, joint pain, or bony pain SKIN: Denies rash, skin lesions, or other NEUROLOGIC: Denies weakness, headache, numbness, change in speech, confusion, seizures, incoordination. PSYCHIATRIC: No concerning psychosocial issues. 12 point review of systems is negative except for those stated above Patient History Medical History Back pain Functional paraparesis Hypertension Neurogenic pain Schwannoma of spinal cord Surgical History History of spinal surgery History of tonsillectomy Family History Father CVA (cerebral vascular accident) Mother Myocardial infarct Social History household members: spouse, children, friend(s) and other Smoking Status: Former smoker alcohol intake: current Smoking Status: Former smoker alcohol intake frequency: holidays/special occasions only Substance Use Type: does not use Exam Narrative Exam Narrative: GENERAL: [46] year old patient appears stated age. Well-developed patient, in mild distress. Obviously uncomfortable, holding an emesis bag HEAD: Atraumatic. Normocephalic. EYES: Pupils equal round and reactive. Extraocular motions intact. No scleral icterus. No injection or drainage. ENT: Nose without bleeding, purulent drainage. Throat without erythema, tonsillar hypertrophy or exudate. Airway patent. NECK: Trachea midline. Non tender CARDIOVASCULAR: Regular rate and rhythm without murmurs, gallops, or rubs. RESPIRATORY: Clear to auscultation. Breath sounds equal bilaterally. No wheezes, rales, or rhonchi. GASTROINTESTINAL: Abdomen soft, tender to palpation nondistended. EXTREMITIES: No edema or joint tenderness. BACK: Nontender without deformity or crepitance. No flank tenderness. NEURO: AOx3. SKIN: No rash or erythema of visible areas Initial Vital Signs Initial Vital Signs: Vital Signs Temperature 98.4 F 03/19/22 22:13 Pulse Rate 111 H 03/19/22 22:13 Respiratory Rate 20 03/19/22 22:13 Blood Pressure 144/96 H 03/19/22 22:13 Pulse Oximetry 95 03/19/22 22:13 Oxygen Delivery Method 03/19/22 22:13 Course Orders Ordered: Discontinued Medications Acetaminophen (Acetaminophen 325 Mg Tablet) 650 mg PO Q4H PRN PRN Reason: Fever/Mild Pain (1-3) Last Admin: 03/20/22 00:15 Dose: 650 mg Documented By: ADELE Hydrocodone Bitart/Acetaminophen (Hydrocodone/Acet 5/325 Prepack) 1 bottle MISC SEEINSTR ONE Stop: 03/20/22 03:12 Last Admin: 03/20/22 03:23 Dose: 1 bottle Documented By: ADELE Lidocaine (Lidocaine Patch 1 Each Adh..Patch) 1 each TOP NOW ONE Stop: 03/20/22 00:11 Last Admin: 03/20/22 00:15 Dose: 1 each Documented By: ADELE Ondansetron HCl (Ondansetron 4 Mg/2 Ml Inj) 4 mg IV NOW PRN PRN Reason: Nausea And Vomiting Ondansetron HCl (Ondansetron 4 Mg Odt Prepack) 1 bottle MISC SEEINSTR ONE Stop: 03/20/22 03:13 Last Admin: 03/20/22 03:23 Dose: 1 bottle Documented By: ADELE Trimethoprim/Sulfamethoxazole (Trimeth/Sulfa 160/800 (Ds) Tablet) 1 tab PO NOW ONE Stop: 03/20/22 03:12 Last Admin: 03/20/22 03:20 Dose: 1 tab Documented By: ADELE Vital Signs Vital signs: Vital Signs - 8 hr 03/19/22 22:13 03/20/22 00:00 Temperature 98.4 F Pulse Rate 111 H 100 H Respiratory Rate 20 18 Blood Pressure 144/96 H 139/90 Pulse Oximetry 95 95 Oxygen Delivery Method Room Air MDM - Abdominal Pain Lab Data Result diagrams: 03/19/22 22:16 03/19/22 22:16 Labs: Lab Results 03/19/22 03/19/22 03/19/22 Range/Units 22:16 22:16 22:22 WBC 8.3 (4.5-11.0) X10^3/uL RBC 4.45 L (4.5-5.9) X10^6/uL Hgb 12.0 L (13.5-17.5) g/dL Hct 36.3 L (41-53) % MCV 81.7 (80-100) fL MCH 27.1 (26-34) PG MCHC 33.1 (30-36) % RDW 16.7 H (11.6-14.8) % Plt Count 401 H (150-400) X10^3/uL Neut % (Auto) 73.6 (50-75) % Lymph % (Auto) 10.3 L (25-40) % [place] % (Auto) 11.0 (3-14) % Eos % (Auto) 4.5 H (2-4) % Baso % (Auto) 0.6 (0-2) % Neut # (Auto) 6100 (2118-5640) /uL Lymph # (Auto) 900 L (3153-1517) /uL [place] # (Auto) 900 (0-900) /uL Eos # (Auto) 400 (0-450) /uL Baso # (Auto) 0 (0-100) /uL Sodium 139 (137-145) mmol/L Potassium 4.4 (3.4-5.1) mmol/L Chloride 100 (98-107) mmol/L Carbon Dioxide 29 (22-32) mmol/L BUN 16 (9-20) mg/dL Creatinine 0.91 (0.66-1.25) mg/dL Estimated GFR > 60 (>60) mL/min BUN/Creatinine Ratio 17.6 (6-22) Glucose 94 (70-100) mg/dL Calcium 8.5 (8.4-10.2) mg/dL Total Bilirubin 0.3 (0.2-1.3) mg/dL AST 13 L (17-59) IU/L ALT 15 (<50) IU/L Alkaline Phosphatase 84 (38-126) U/L Total Protein 6.7 (6.3-8.2) g/dL Albumin 3.5 (3.5-5.0) g/dL Globulin 3.2 (1.7-4.1) g/dL Albumin/Globulin Ratio 1.1 (1.0-2.8) Lipase 47 (23-300) U/L Urine Color Urine Appearance Urine pH (4.5-8.0) Ur Specific [place] (1.000-1.035) Urine Protein (Negative) Urine Glucose (UA) (Negative) g/dL Urine Ketones (NEGATIVE) Urine Occult Blood (Negative) Urine Nitrate (Negative) Urine Bilirubin (NEGATIVE) Urine Urobilinogen (0.2) E.U./dL Ur Leukocyte Esterase (NEGATIVE) Urine RBC (0-5/HPF) Urine WBC (0-5/HPF) Urine Bacteria (None) Ur Culture Indicated? SARS-CoV-2 (PCR) Positive H (Negative) Influenza A (RT-PCR) Flu a negative (NEGATIVE) Influenza B (RT-PCR) Flu b negative (NEGATIVE) RSV (PCR) Negative (Negative) 03/19/22 Range/Units 23:30 WBC (4.5-11.0) X10^3/uL RBC (4.5-5.9) X10^6/uL Hgb (13.5-17.5) g/dL Hct (41-53) % MCV (80-100) fL MCH (26-34) PG MCHC (30-36) % RDW (11.6-14.8) % Plt Count (150-400) X10^3/uL Neut % (Auto) (50-75) % Lymph % (Auto) (25-40) % [place] % (Auto) (3-14) % Eos % (Auto) (2-4) % Baso % (Auto) (0-2) % Neut # (Auto) (9269-3963) /uL Lymph # (Auto) (0736-0824) /uL [place] # (Auto) (0-900) /uL Eos # (Auto) (0-450) /uL Baso # (Auto) (0-100) /uL Sodium (137-145) mmol/L Potassium (3.4-5.1) mmol/L Chloride (98-107) mmol/L Carbon Dioxide (22-32) mmol/L BUN (9-20) mg/dL Creatinine (0.66-1.25) mg/dL Estimated GFR (>60) mL/min BUN/Creatinine Ratio (6-22) Glucose (70-100) mg/dL Calcium (8.4-10.2) mg/dL Total Bilirubin (0.2-1.3) mg/dL AST (17-59) IU/L ALT (<50) IU/L Alkaline Phosphatase (38-126) U/L Total Protein (6.3-8.2) g/dL Albumin (3.5-5.0) g/dL Globulin (1.7-4.1) g/dL Albumin/Globulin Ratio (1.0-2.8) Lipase (23-300) U/L Urine Color Yellow Urine Appearance Cloudy Urine pH 7.0 (4.5-8.0) Ur Specific [place] 1.010 (1.000-1.035) Urine Protein 1+ H (Negative) Urine Glucose (UA) Trace H (Negative) g/dL Urine Ketones Negative (NEGATIVE) Urine Occult Blood 3+ H (Negative) Urine Nitrate Positive H (Negative) Urine Bilirubin Negative (NEGATIVE) Urine Urobilinogen 0.2 (0.2) E.U./dL Ur Leukocyte Esterase 2+ H (NEGATIVE) Urine RBC 1-5/hpf (0-5/HPF) Urine WBC >100/hpf H (0-5/HPF) Urine Bacteria Many (>30) H (None) Ur Culture Indicated? Specimen cultured SARS-CoV-2 (PCR) (Negative) Influenza A (RT-PCR) (NEGATIVE) Influenza B (RT-PCR) (NEGATIVE) RSV (PCR) (Negative) Imaging Data CT scan - abdomen/pelvis: Radiologist's Impression: Close Abdomen/Pelvis CT (Signed) Juan Boles - 03/19/[address] (Signed) River Diez - 03/09/[address] (Signed) iRver Diez - 03/09/[address] (Signed) Matthew Lou - 03/09/[address] (Signed) Call,Matthew - 03/09/22 Chest X-Ray (Signed) Juan Boles - 03/07/22 Echocardiogram Ultrasound (Signed) Bertin Vigil - 06/27/21 Knee X-Ray (Signed) Sandra Rodriguez - 06/23/21 Tibia/Fibula X-Ray (Signed) Sandra Rodriguez - 06/23/21 Telemetry Strips 06/12/21 Thoracic Spine MRI (Signed) Kevin Small - 06/11/[address] (Signed) Mamta Rossi - 01/25/[address] (Signed) Mamta Rossi - 01/25/21 Launch?[place] [id number] CT Scan Report Signed Patient: Wilmer Camargo Sr MR#: [id number] : 1975 Acct:[id number] Age/Sex: 46 / M Date of Service: 03/19/22 Loc: ED Accession Number: [id number] ?? Procedure: CT abdomen pelvis w con Ordering Provider: Medardo Johnson D.O. PROCEDURE:? CT ABDOMEN PELVIS W CON ? INDICATIONS:? severe LLQ pain ? TECHNIQUE:? After the administration of IV contrast, axial sections were acquired from the lung bases to the pubic symphysis.? Coronal and sagittal reformats were performed.? For radiation dose reduction, the following was used:? automated exposure control, adjustment of mA and/or kV according to patient size. ? COMPARISON:? [facility], CT, CT ABDOMEN PELVIS WITHOUT CONTRAST, 02/28/2020, 22:25. ?[facility], CT, CT ABDOMEN PELVIS WITH CONTRAST, 09/07/2020, 13:06.? [facility], MR, MR ABDOMEN MRCP, 02/21/2022, 10:39.? [facility], CT, CT ABDOMEN PELVIS WITH CONTRAST, 02/20/2022, 16:13. ? FINDINGS:? Image quality:? Excellent.? ? Lung bases:? There is mild dependent atelectasis.? ? Heart:? Heart is normal in size. ? ? ABDOMEN: Liver:? No mass lesion. Gallbladder:? Within normal limits without calcified gallstones.? ? Biliary ducts:? No biliary ductal dilatation.? ? Pancreas:? There is enlargement of the pancreatic head redemonstrated without a discrete mass identified.? No definite pancreatic duct dilatation.? Findings are similar to the prior studies. ? Spleen:? Normal in size.? ? Adrenal Glands:? No adrenal nodules.? ? Kidneys and Ureters:? Bilateral ureteral stents are redemonstrated with the proximal coils in the renal pelves and the distal coils in the bladder.? There is persistent mild bilateral hydroureteronephrosis with periureteral fat stranding and urothelial thickening.? Within the right renal collecting system, there are slightly hyperdense filling defects within the calices and renal pelvis compatible with blood product.? There is persistent heterogeneous enhancement of the kidneys redemonstrated suggestive of pyelonephritis. ? Stomach and Bowel:? Stomach, small bowel loops, and colon are normal in caliber and wall thickness.? Peritoneum:? No abnormal intraperitoneal fluid.? No free air.? ? Ventral Wall: ? No hernia.? Abdominal Nodes:? No retroperitoneal or mesenteric adenopathy by size criteria.? Vessels:? Aorta and inferior vena cava are normal in size.? ? PELVIS: Pelvic Organs:? Unremarkable.? ? Bladder:? The urinary bladder is nondistended with a Gauthier catheter present. ? There is concentric bladder wall thickening with associated fat stranding.? Pelvic Nodes: No enlarged lymph nodes.? Miscellaneous: No inguinal hernias are seen. ? ? ? Bones:? Visualized osseous structures demonstrate no suspicious focal lesions. ? IMPRESSION:? ? 1. Persistent mild bilateral hydroureteronephrosis with bilateral ureteral stents redemonstrated. ? 2. New high density filling defects within right renal calices and pelvis consistent with blood product and indicative of interval hemorrhage. ? 3. Persistent bilateral urothelial thickening in the ureters with periureteral fat stranding likely reflecting a urinary tract infection.? ? 4. Heterogeneous enhancement of the kidneys redemonstrated, decreased from the prior study, suggestive of resolving pyelonephritis. ? 5. Concentric bladder wall thickening with associated fat stranding consistent with a cystitis. ? 6. Enlargement of the pancreatic head redemonstrated without a discrete mass or pancreatic duct dilatation.? Findings appear similar to the prior studies.? ? Dictated by: Juan Boles M.D. on 03/20/2022 at 0:56 ? ? Approved by: Juan Boles M.D. on 03/20/2022 at 1:18 ? 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 Patient shows no signs of sepsis. Labs and imaging have been independently reviewed, no elevated white blood cell count, left shift or signs of anemia. Electrolytes, kidney function and LFTs within normal limits. Findings and discharge diagnosis discussed with patient/family followed by verbalization of understanding Return precautions discussed with patient/family whom verbalize understanding. Discharge Plan Departure Patient Disposition: Home Clinical Impression: Acute UTI Instructions: DI for Urinary Tract Infection (UTI) Activity Restrictions/Additional Instructions: *You have been diagnosed with [abdominal pain with reassuring lab work, imaging and urine would suggest a urine infection with some mild swelling in her kidneys.] *What to do: *Please continue to take your regular medications as directed. [ x] New medication prescriptions sent to your pharmacy: [[facility] ] [ ] New medication written as a paper prescription [ ] No new medications given *Please follow up with your primary care provider in 2-3 days, call for an appointment. Let them know you were seen in the Emergency Department and that we ask that you be seen in follow up. We will electronically transmit a record of today's note if your PCP is in our system *Return to Emergency Department if you should have any new, worsening or concerning symptoms, such as [fever greater than 101 F, shaking chills, worsening pain, persistent vomiting or other bothersome symptoms] Prescriptions: New sulfamethoxazole-trimethoprim [Bactrim DS] 800-160 mg tablet 1 tab PO BID 10 Days Qty: 20 0RF No Action metoprolol tartrate 50 mg tablet 50 mg PO BID Label Comments: Take 1 tablet by mouth twice a day pregabalin [Lyrica] 300 mg capsule 300 mg PO BID Label Comments: Take 1 capsule by mouth twice a day for chronic back pain lidocaine [Lidoderm] 5 % adhesive patch,medicated 1 patch TOP DAILY Qty: 15 0RF Rx Instructions: leave on most painful area for 12 hrs Referrals: Phyllis Lu PA-C [Primary Care Provider] - Visit Report Forms: Patient Portal/API
[2022-03-19 23:10] LABS: Influenza A - CEPHEID Flu A NEGATIVE (NEGATIVE); Influenza B - CEPHEID Flu B NEGATIVE (NEGATIVE); Respiratory Syncytial Virus Negative (Negative)
[2022-03-19 23:48] LABS: COVID-19 CEPHEID 4-PLEX PCR POSITIVE (Negative)
[2022-03-20] VITALS: BP 139/90; PULSE 100; RESP 18; O2SAT 95
[2022-03-20] MEDS: ACETAMINOPHEN 325 MG TABLET 650 MG PO (00:15)
[2022-03-20] MEDS: LIDOCAINE PATCH 1 EACH ADH..PATCH TOP (00:15)
[2022-03-20 03:03] LABS: Bilirubin Urine UA NEGATIVE (NEGATIVE); Color Urine UA YELLOW; Glucose Urine UA TRACE g/dL (Negative); Ketones Urine UA NEGATIVE (NEGATIVE); Leukocyte Esterase Urine UA 2+ (NEGATIVE); Nitrite Urine UA POSITIVE (Negative); Occult Blood Urine UA 3+ (Negative); Protein Urine UA 1+ (Negative); Urobilinogen Urine UA 0.2 E.U./dL (0.2)
[2022-03-20 03:05] LABS: Appearance Urine UA CLOUDY
[2022-03-20] MEDS: TRIMETH/SULFA 160/800 (DS) TABLET 1 TAB PO (03:20)
[2022-03-20] MEDS: ONDANSETRON 4 MG ODT PREPACK 1 BOTTLE MISC (03:23)
[2022-03-20] MEDS: HYDROCODONE/ACET 5/325 PREPACK 1 BOTTLE MISC (03:23)
[2022-03-20 03:24] LABS: Bacteria Urine Many (>30); Culture Indicated Urine Specimen Cultured; RBC Urine 1-5/HPF (0-5/HPF); WBC Urine >100/HPF (0-5/HPF)
[2022-03-20 03:53] VITALS: BP 131/84; PULSE 84; RESP 20; TEMP 36.6; O2SAT 98
== END 2022-03-20 04:20 | disposition home or self-care (01) ==
PROVIDERS: Emergency Medicine; Emergency Provider Emergency Medicine; PCP Physician Assistant Medical
DX: N39.0 Urinary tract infection, site not specified (principal); U07.1 COVID-19
CPT/HCPCS: 0241U; 74177; 80053; 81001; 83690; 85025; 87077; 87086; 87147; 87186; 93005; 93010; 99284; Q9967

== ENCOUNTER 2022-03-26 18:16 | Emergency (ER) | payer OTHER, MEDICAID, SELFPAY ==
[2021-06-11 12:30] VITALS: BMI 20.9
[2022-03-26 18:19] VITALS: BP 152/100; PULSE 106; RESP 24; TEMP 36.7; O2SAT 95
[2022-03-26 18:24] VITALS: BP 133/97
[2022-03-26 18:25] VITALS: PULSE 109; O2SAT 95
[2022-03-26 18:30] VITALS: BP 154/106; PULSE 108; O2SAT 96
--- NOTE | 2022-03-26 18:32 | ED.MALEGU ---
HPI - Male Genitourinary <Andie Ruth Torovinod, [facility] - Last Filed: 03/26/22 19:39> General Chief complaint: Urogenital-Male Stated complaint: UTI Time Seen by Provider: 03/26/22 18:24 Source: patient and EMS Mode of arrival: EMS History of Present Illness HPI Narrative: This is a 46-year-old male who is brought in for evaluation by EMS of his bladder infection which patient has not been able to pickler helper his antibiotics for that he was diagnosed positive with on 03/19/2022. On chart review it appears that patient has a UTI growing MRSA over 100,000 CFUs, showing sensitivity to Bactrim which patient was prescribed but did not pickler helper due to wrong pharmacy for medications. Patient was also diagnosed COVID positive on 03/19/2022 states that his symptoms of COVID have improved. He has home health nurse who was concerned about purulence drainage in his catheter today. 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 Patient wears chronic Gauthier catheter. Denies fever, chills, nausea vomiting, has allergy to morphine but states can tolerate Vicodin and oxycodone. States that he has been p.o. tolerant, denies any vomiting, flank pain, complains of suprapubic tenderness and pressure. [facility] CLIA ID [id number] [address] [place] [address] RUN DATE: 03/26/22 Specimen Inquiry PAGE 1 RUN TIME: 1906 Name: Mary Jo SimpsonWilmer Age/Sex: 46/M Attend Dr: Medardo Johnson D.O. Unit#: [id number] : 1975Location: ED Re03/19/22 Disch: Status: DEP ER SPEC #: [id number] SUSANNAH: 03/19/22 STATUS: COMP REQ #: [id number] SPDESC: RECD: 03/19/[address]: Jack Poole D.O. SOURCE: UA Reflex ENTR: 03/20/22-[address]: Phyllis Lu P.A-C FAX TO: ORDERED: URINE CULTURE Procedure Result Verified Site Urine Culture Final 03/22/22-6486 Organism 1 Methicillin Resis Staph Aureus [place] Run Count >100,000 CFU/ml Action to follow No Further Workup Called To: SAM BHATIA RN MRSA? YES 1. Methicillin Resis Staph Aureus M.I.C. RX --------- --- * Daptomycin 0.25 S * Vancomycin 1 S * Ciprofloxacin >=8 R * Doxycycline <=0.5 S * Gentamicin <=0.5 S * Levofloxacin 4 I * Linezolid 2 S * Moxifloxacin 1 S * Nitrofurantoin <=16 S * Oxacillin Juan >=4 R * Rifampin <=0.5 S * Tetracycline <=1 S * Trimethoprim/Sulfamethoxazole <=10 S Related Data Home Medications Medication Instructions Recorded Confirmed metoprolol tartrate 50 mg tablet 50 mg PO BID 06/11/21 06/11/21 pregabalin 300 mg capsule (Lyrica) 300 mg PO BID 06/11/21 06/11/21 Previous Rx's Medication Instructions Recorded lidocaine 5 % topical patch 1 patch topical DAILY #15 ea 03/07/22 (Lidoderm) sulfamethoxazole 800 1 tab PO BID 10 days #20 tabs 03/20/22 mg-trimethoprim 160 mg tablet (Bactrim DS) ketorolac 10 mg tablet 10 mg PO Q8H PRN pain #14 tabs 03/26/22 oxycodone-acetaminophen 5 mg-325 1 tab PO Q8H PRN pain #14 tabs 03/26/22 mg tablet (Percocet) phenazopyridine 100 mg tablet 100 mg PO Q8H PRN bladder pain #10 03/26/22 (Pyridium) tabs sulfamethoxazole 800 1 tab PO Q12H 10 days #20 tabs 03/26/22 mg-trimethoprim 160 mg tablet (Bactrim DS) zinc oxide 15 % topical cream 1 applic topical BID #99 grams 03/26/22 Allergies Allergy/AdvReac Type Severity Reaction Status Date / Time morphine Allergy Nightmare Verified 06/12/21 09:17 gabapentin AdvReac Shakiness Verified 06/12/21 09:17 Review of Systems <WILL Morales - Last Filed: 03/26/22 19:39> Review of Systems ROS Unobtainable: All systems reviewed & are unremarkable except as noted in HPI and below Patient History <WILL Morales - Last Filed: 03/26/22 19:39> Medical History Back pain Functional paraparesis Hypertension Neurogenic pain Schwannoma of spinal cord Surgical History History of spinal surgery History of tonsillectomy Family History Father CVA (cerebral vascular accident) Mother Myocardial infarct Social History household members: spouse, children, friend(s) and other Smoking Status: Former smoker alcohol intake: current Smoking Status: Former smoker alcohol intake frequency: holidays/special occasions only Substance Use Type: does not use Exam <WILL Morales - Last Filed: 03/26/22 19:39> Narrative Exam Narrative: Reviewed vitals signsand nursing notes. General: cooperative, appears uncomfortable, complains of pain, in no acute distress, well groomed, paralysis of lower extremities at baseline, bedside caregivers are providing Hilda care, afebrile HEENT: symmetrical facial expressions, moist mucous membranes Cardiovascular: Tachycardic rate and regular rhythm, no peripheral edema, warm extremities Respiratory: normal effort, able to speak in complete sentences, without wheezing, stridor, or abnormal breath sounds. No retractions or tachypnea. GI: abdomen soft, nontender to palpation, nondistended, without masses, rebound tenderness or exquisite tenderness with exam. : Catheter draining purulence drainage, this was irrigated by bedside nurse, without obstruction, Hilda care completed without new wounds, barrier ointment applied MSK: moves upper extremities without deficit, neurovascularly intact, no new weakness Skin: brisk capillary refill, without pallor or open wounds Neuro: normal speech and cognition, A&O x3, ambulatory, clear speech Psych: mental status is grossly normal, congruent mood, normal affect, pleasant and cooperative Initial Vital Signs Initial Vital Signs: Vital Signs Temperature 98.1 F 03/26/22 18:19 Pulse Rate 106 H 03/26/22 18:19 Respiratory Rate 24 03/26/22 18:19 Blood Pressure 152/100 H 03/26/22 18:19 Pulse Oximetry 95 03/26/22 18:19 Oxygen Delivery Method 03/26/22 18:19 <Damir Torres MD - Last Filed: 03/27/22 05:27> Initial Vital Signs Initial Vital Signs: Vital Signs Temperature 98.1 F 03/26/22 18:19 Pulse Rate 106 H 03/26/22 18:19 Respiratory Rate 24 03/26/22 18:19 Blood Pressure 152/100 H 03/26/22 18:19 Pulse Oximetry 95 03/26/22 18:19 Oxygen Delivery Method 03/26/22 18:19 Course <WILL Morales - Last Filed: 03/26/22 19:39> Orders Ordered: Discontinued Medications Hydromorphone HCl (Hydromorphone 0.5 Mg Inj) 0.5 mg IV NOW ONE Stop: 03/26/22 18:31 Last Admin: 03/26/22 18:44 Dose: 0.5 mg Documented By: JANETTE Ketorolac Tromethamine (Ketorolac 30 Mg/Ml Vial) 15 mg IV NOW ONE Stop: 03/26/22 18:33 Last Admin: 03/26/22 18:44 Dose: 15 mg Documented By: JANETTE Oxycodone/Acetaminophen (Oxycodone/Apap 5/325 Prepack) 1 bottle MISC SEEINSTR ONE Stop: 03/26/22 19:14 Last Admin: 03/26/22 19:38 Dose: 1 bottle Documented By: AUREA Phenazopyridine HCl (Phenazopyridine 100 Mg Tablet) 100 mg PO NOW ONE Stop: 03/26/22 18:33 Last Admin: 03/26/22 18:44 Dose: 100 mg Documented By: JANETTE Trimethoprim/Sulfamethoxazole (Trimeth/Sulfa 160/800 (Ds) Tablet) 1 tab PO NOW ONE Stop: 03/26/22 18:31 Last Admin: 03/26/22 18:44 Dose: 1 tab Documented By: JANETTE Trimethoprim/Sulfamethoxazole (Trimeth/Sulfa 160/800 Prepack) 1 bottle MISC SEEINSTR ONE Stop: 03/26/22 19:14 Last Admin: 03/26/22 19:38 Dose: Not Given Documented By: AUREA Trimethoprim/Sulfamethoxazole (Trimeth/Sulfa 160/800 (Ds) Tablet) 1 tab PO NOW ONE Stop: 03/26/22 19:36 Last Admin: 03/26/22 19:42 Dose: 1 tab Documented By: AUREA Vital Signs Vital signs: Vital Signs - 8 hr 03/26/22 18:19 03/26/22 18:24 03/26/22 18:25 Temperature 98.1 F Pulse Rate 106 H 109 H Respiratory Rate 24 Blood Pressure 152/100 H 133/97 H Pulse Oximetry 95 95 Oxygen Delivery Method Room Air 03/26/22 18:30 03/26/22 18:30 03/26/22 19:00 Temperature Pulse Rate 108 H Respiratory Rate Blood Pressure 154/106 H 159/115 H Pulse Oximetry 96 Oxygen Delivery Method 03/26/22 19:00 Temperature Pulse Rate 97 H Respiratory Rate Blood Pressure Pulse Oximetry 96 Oxygen Delivery Method <Damir Torres MD - Last Filed: 03/27/22 05:27> Orders Ordered: Discontinued Medications Hydromorphone HCl (Hydromorphone 0.5 Mg Inj) 0.5 mg IV NOW ONE Stop: 03/26/22 18:31 Last Admin: 03/26/22 18:44 Dose: 0.5 mg Documented By: JANETTE Ketorolac Tromethamine (Ketorolac 30 Mg/Ml Vial) 15 mg IV NOW ONE Stop: 03/26/22 18:33 Last Admin: 03/26/22 18:44 Dose: 15 mg Documented By: JANETTE Oxycodone/Acetaminophen (Oxycodone/Apap 5/325 Prepack) 1 bottle MISC SEEINSTR ONE Stop: 03/26/22 19:14 Last Admin: 03/26/22 19:38 Dose: 1 bottle Documented By: AUREA Phenazopyridine HCl (Phenazopyridine 100 Mg Tablet) 100 mg PO NOW ONE Stop: 03/26/22 18:33 Last Admin: 03/26/22 18:44 Dose: 100 mg Documented By: JANETTE Trimethoprim/Sulfamethoxazole (Trimeth/Sulfa 160/800 (Ds) Tablet) 1 tab PO NOW ONE Stop: 03/26/22 18:31 Last Admin: 03/26/22 18:44 Dose: 1 tab Documented By: JANETTE Trimethoprim/Sulfamethoxazole (Trimeth/Sulfa 160/800 Prepack) 1 bottle MISC SEEINSTR ONE Stop: 03/26/22 19:14 Last Admin: 03/26/22 19:38 Dose: Not Given Documented By: AUREA Trimethoprim/Sulfamethoxazole (Trimeth/Sulfa 160/800 (Ds) Tablet) 1 tab PO NOW ONE Stop: 03/26/22 19:36 Last Admin: 03/26/22 19:42 Dose: 1 tab Documented By: AUREA Vital Signs Vital signs: Vital Signs - 8 hr 03/26/22 18:19 03/26/22 18:24 03/26/22 18:25 Temperature 98.1 F Pulse Rate 106 H 109 H Respiratory Rate 24 Blood Pressure 152/100 H 133/97 H Pulse Oximetry 95 95 Oxygen Delivery Method Room Air 03/26/22 18:30 03/26/22 18:30 03/26/22 19:00 Temperature Pulse Rate 108 H Respiratory Rate Blood Pressure 154/106 H 159/115 H Pulse Oximetry 96 Oxygen Delivery Method 03/26/22 19:00 Temperature Pulse Rate 97 H Respiratory Rate Blood Pressure Pulse Oximetry 96 Oxygen Delivery Method MDM - Male Genitourinary <WLIL Morales - Last Filed: 03/26/22 19:39> Lab Data Lab results narrative: [facility] CLIA ID [id number] [address] [place] [address] RUN DATE: 03/26/22 Specimen Inquiry PAGE 1 RUN TIME: 1928 Name: Wilmer Camargo Sr Age/Sex: 46/M Attend Dr: Medardo Johnson D.O. Unit#: [id number] : 1975Location: ED Re03/19/22 Disch: Status: DEP ER SPEC #: [id number] SUSANNAH: 03/19/22 STATUS: COMP REQ #: [id number] SPDESC: RECD: 03/19/22-[address]: Jack Poole D.O. SOURCE: UA Reflex ENTR: 03/20/22-[address]: Phyllis Lu P.A-C FAX TO: ORDERED: URINE CULTURE Procedure Result Verified Site Urine Culture Final 03/22/22-3904 Organism 1 Methicillin Resis Staph Aureus [place] Count >100,000 CFU/ml Action to follow No Further Workup Called To: [facility] RN MRSA? YES 1. Methicillin Resis Staph Aureus M.I.C. RX --------- --- * Daptomycin 0.25 S * Vancomycin 1 S * Ciprofloxacin >=8 R * Doxycycline <=0.5 S * Gentamicin <=0.5 S * Levofloxacin 4 I * Linezolid 2 S * Moxifloxacin 1 S * Nitrofurantoin <=16 S * Oxacillin Juan >=4 R * Rifampin <=0.5 S * Tetracycline <=1 S * Trimethoprim/Sulfamethoxazole <=10 S MDM Narrative Medical decision making narrative: This is a 46-year-old male who returns to the emergency department after he was diagnosed with COVID-19, acute cystitis with MRSA growing in his urine culture showing sensitivity to Bactrim which he was prescribed but unable to pickler helper as it went to the wrong pharmacy after his visit on 03/19/2022. He was sent to the emergency department by his home health nurse who noticed ongoing purulence drainage in his Gauthier catheter with suprapubic tenderness. Patient denies any new symptoms since his last hospital visit, denies fever, chills, nausea vomiting. He was given 1 L of normal saline, Gauthier catheter was irrigated, hilda care completed, barrier cream applied, patient was treated with Bactrim, Pyridium, given hydromorphone for his pain and symptoms. He was given a prepack of Bactrim and Percocet so he has medications for tomorrow morning. [facility] [place], patient is nontoxic appearing, his symptoms and vital signs improved on recheck, he is p.o. tolerant, will return for any new or worsening symptoms. Patient denies any progressive symptoms of worsening, denies any symptoms of COVID at this time. No peritoneal signs on abdominal exam. His pain was treated, he was given Bactrim, hydromorphone, and Percocet for his pain with IV Toradol. His symptoms were improved afterwards Patient remains p.o. tolerant. Serial abdominal exam without increase in abdominal pain. Given history and exam, low suspicion for acute abdominal process, such as acute pyelonephritis, nephrolithiasis, pancreatitis, perforated viscus, atypical appendicitis, colitis, diverticulitis or torsion. Extensive conversation about ER return precautions and need for close follow-up. Recommend he have his urine tested for cure and follow-up with his PCP for a urine test at that point. Gauthier catheter was irrigated and is draining clear yellow urine at this point. Patient was provided BLS transfer home and tolerated well. His vital signs have improved, he was no longer tachycardic at time of discharge. I am sending MyChart prior to documentation disease latest but said exam, his heart rate was 92 and pulse oximeter reading 99% air with respirations 20 per minute, states that his pain is markedly improved. Urinary catheter was placed on 03/19/2022, without obstruction or other complicating factor. Catheter was Left in place, irrigated using sterile technique. Discharge Plan Departure Patient Disposition: Home Clinical Impression: MRSA (methicillin resistant staph aureus) culture positive, Acute UTI Instructions: How to Care for Your Aguthier Catheter -- Male, Urinary Tract Infection, DI for Urinary Tract Infection (UTI) Activity Restrictions/Additional Instructions: *You have been diagnosed with worsening bladder infection, you are positive for COVID, MRSA, and your urine infection appears to have gotten worse. Please start these antibiotics, have your medications picked up watery, use Pyridium every 6-8 hours as needed for bladder pain, use Toradol every 8 hours instead of ibuprofen for additional pain relief, Percocet as needed for breakthrough pain. Please follow-up with your primary care provider for a test of cure, please have your Gauthier catheter changed at that point. Please stay hydrated, have your care provider apply a zinc barrier cream to all areas of redness of groin and buttocks. I hope you feel better soon, please come back for any worsening changes, this infection may take 1-2 weeks to clear. Please follow-up with Phyllis Lu in case you have worsening and have her test your urine for infection, refer you to urology if you have ongoing infection at that point. Have provided the barrier cream to areas of redness in your groin and buttock region. *What to do: *Please continue to take your regular medications as directed. [ x] New medication prescriptions sent to your pharmacy: [ [facility]] [ ] New medication written as a paper prescription [ ] No new medications given *Please follow up with your primary care provider in 2-3 days, call for an appointment. Let them know you were seen in the Emergency Department and that we ask that you be seen in follow up. We will electronically transmit a record of today's note if your PCP is in our system *If you do not have a primary care provider please contact the [facility] Resource line at [phone]. They will ask some questions about your medical history and help get you set up with a doctor in the community. *Return to Emergency Department if you should have any new, worsening or concerning symptoms, such as [fever greater than 101 F, shaking chills, worsening pain, persistent vomiting or other bothersome symptoms] Prescriptions: New ketorolac 10 mg tablet 10 mg PO Q8H PRN (Reason: pain) Qty: 14 0RF sulfamethoxazole-trimethoprim [Bactrim DS] 800-160 mg tablet 1 tab PO Q12H 10 Days Qty: 20 0RF phenazopyridine [Pyridium] 100 mg tablet 100 mg PO Q8H PRN (Reason: bladder pain) Qty: 10 0RF oxycodone-acetaminophen [Percocet] 5-325 mg tablet 1 tab PO Q8H PRN (Reason: pain) Qty: 14 0RF zinc oxide 15 % cream 1 applic topical BID Qty: 99 0RF No Action metoprolol tartrate 50 mg tablet 50 mg PO BID Label Comments: Take 1 tablet by mouth twice a day pregabalin [Lyrica] 300 mg capsule 300 mg PO BID Label Comments: Take 1 capsule by mouth twice a day for chronic back pain lidocaine [Lidoderm] 5 % adhesive patch,medicated 1 patch TOP DAILY Qty: 15 0RF Rx Instructions: leave on most painful area for 12 hrs sulfamethoxazole-trimethoprim [Bactrim DS] 800-160 mg tablet 1 tab PO BID 10 Days Qty: 20 0RF Referrals: Phyllis Lu PA-C [Primary Care Provider] - Visit Report Forms: Patient Portal/API <Damir Torres MD - Last Filed: 03/27/22 05:27> [facility] Jamesature Attestation: I was immediately available in the department for consultation. ?This documentation has been reviewed and I agree with assessment and plan. Supervised by Damir Torres MD
[2022-03-26] MEDS: PHENAZOPYRIDINE 100 MG TABLET PO (18:44)
[2022-03-26] MEDS: KETOROLAC 30 MG/ML VIAL 15 MG IV (18:44)
[2022-03-26] MEDS: HYDROMORPHONE 0.5 MG INJ IV (18:44)
[2022-03-26] MEDS: TRIMETH/SULFA 160/800 (DS) TABLET 1 TAB PO ×2 (18:44→19:42)
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
[2022-03-26 19:00] VITALS: BP 159/115; PULSE 97; O2SAT 96
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
--- NOTE | 2022-03-26 19:27 | PC.NURSE ---
Pt arrives with indwelling manzo cath that he had put in 03/19 for a UTI and retention. Pt was given a rx for abx but did not pick them up at the pharmacy. Cath is Patent and draining. Pt appears well and nontoxic. Plan is to provide pt with prepack ABX and pre pack pain medication and send pt home with instructions to obtain his abx at the pharmacy and continue all other prescribed medications. BP 150s/systolic and HR 80's NSR.
[2022-03-26 19:30] VITALS: BP 145/101; PULSE 99; RESP 16; O2SAT 98
[2022-03-26] MEDS: OXYCODONE/APAP 5/325 PREPACK 1 BOTTLE MISC (19:38)
--- NOTE | 2022-03-26 19:42 | PC.NURSE ---
Bactrim prepack unavailable in pyxsis and pharmacy unavailable. Per Lashay Crew, FRAMEMAN dose pt with additional dose of Bactrim for tonight since UTI is worsening. States that his original RX that was sent for his UTI was sent to the wrong pharmacy which is why he could not pick it up. Pt given oxy prepack to go home with and additional medications that he reports he can have family warehouse picker for him at the pharmacy. Confirmed with pt lam in [place].
== END 2022-03-26 20:32 | disposition home or self-care (01) ==
PROVIDERS: Emergency Provider Nurse Practitioner Critical Care Medicine; PCP Physician Assistant Medical
DX: N39.0 Urinary tract infection, site not specified (principal); B95.62 Methicillin resistant Staphylococcus aureus infection as the cause of diseases classified elsewhere; Z86.16 Personal history of COVID-19
CPT/HCPCS: 96374; 96375; 99284; J1170; J1885

== ENCOUNTER 2022-04-02 17:37 | Emergency (ER) | payer OTHER, MEDICAID, SELFPAY ==
[2021-06-11 12:30] VITALS: BMI 20.9
[2022-04-02] VITALS (10 sets, daily range): BP systolic 162–173; BP diastolic 102–126; PULSE 91–109; RESP 16; TEMP 36.6; O2SAT 95–97; BMI 24.7
--- NOTE | 2022-04-02 18:01 | PC.NURSE ---
Pt presents with chronic manzo, tea colored urine draining from manzo. Pt states urine has been that color for awhile.
--- NOTE | 2022-04-02 18:57 | DI.CT.S_ITS ---
PROCEDURE: CT ABDOMEN PELVIS W CON INDICATIONS: Flank pain; LLQ pin TECHNIQUE: After the administration of oral and IV contrast, axial sections were acquired from the lung bases to the pubic symphysis. Coronal and sagittal reformats were performed. For radiation dose reduction, the following was used: automated exposure control, adjustment of mA and/or kV according to patient size. COMPARISON: [facility], MR, MR ABDOMEN MRCP, 02/21/2022, 10:39. [facility], CT, CT ABDOMEN PELVIS WITH CONTRAST, 09/07/2020, 13:06. [facility], CT, CT ABDOMEN PELVIS W CON, 03/19/2022, 23:14. FINDINGS: Image quality: Excellent. Lung bases: Unremarkable. Heart: No significant findings. ABDOMEN: Liver: Left lobe calcification or metallic foreign body, unchanged. No suspicious lesion. Gallbladder: Within normal limits. Biliary ducts: Unremarkable. Pancreas: No peripancreatic fluid collection. The pancreatic head is prominent in size. There are multiple collateral vessels in the region of the pancreatic head, unchanged. Spleen: No splenomegaly. Adrenal Glands: No nodule. Kidneys and Ureters: Mild right hydronephrosis, decreased. Small nonobstructing right kidney stones. There is thinning of the renal cortex compared to the prior CT. Renal enhancement appears somewhat heterogeneous on the left. Bilateral double-J ureteral stents. Ureters are prominent with trace periureteral stranding. Stomach and Bowel: Prominent stool in the rectum. A few colonic diverticuli. Normal appendix. No small bowel obstruction. Stomach is not distended. Peritoneum: No abnormal intraperitoneal fluid. No free air. Ventral Wall: No hernia. Abdominal Nodes: No retroperitoneal or mesenteric adenopathy by size criteria. Vessels: Aorta and inferior vena cava are normal in size. PELVIS: Pelvic Organs: No free fluid. Bladder: Decompressed with Gauthier catheter. No stones. Bladder wall appears thickened. Pelvic Nodes: No enlarged lymph nodes. Miscellaneous: No inguinal hernias are seen. Fecal matter at the gluteal cleft versus decubitus ulcer. Bones: No suspicious lesion. IMPRESSION: 1. Enhancement of the left kidney appears somewhat heterogeneous. This could be seen in the setting of pyelonephritis. Recommend correlation with urinalysis. 2. Mild right hydronephrosis, decreased. Bilateral double-J ureteral stents. 3. Renal cortical atrophy is suspected. Alternatively, this could be due to improving edema given the change in the short-term interval. 4. Fecal matter at the gluteal cleft versus decubitus ulcer. 5. Nonspecific prominence of the pancreatic head with multiple collateral vessels appear similar. Comment: Findings were discussed with Aditya Fletcher PA-C at time of dictation. Dictated by: Matthew Lou M.D. on 04/02/2022 at 20:16 Approved by: Matthew Lou M.D. on 04/02/2022 at 20:33
[2022-04-02 19:24] LABS: Add Manual Diff / Slide Review NO; Basophils Absolute Auto 0 /uL (0-100); Basophils Percent Auto 0.5 % (0-2); Eosinophils Absolute Auto 200 /uL (0-450); Eosinophils Percent Auto 2.4 % (2-4); Hematocrit 40.4 % (41-53); Hemoglobin 13.4 g/dL (13.5-17.5); Lymphocytes Absolute Auto 1200 /uL (1100-4500); Lymphocytes Percent Auto 13.1 % (25-40); Mean Corpuscular HGB Conc 33.1 % (30-36); Mean Corpuscular Volume 81.4 fL (80-100); Monocytes Absolute Auto 400 /uL (0-900); Monocytes Percent Auto 4.7 % (3-14); Neutrophils Absolute Auto 7400 /uL (1500-7000); Neutrophils Percent Auto 79.3 % (50-75); Platelet Count 377 X10^3/uL (150-400); Red Blood Cell Count 4.96 X10^6/uL (4.5-5.9); Red Cell Distribution Width 17.4 % (11.6-14.8); White Blood Cell Count 9.3 X10^3/uL (4.5-11.0)
[2022-04-02] MEDS: KETOROLAC 30 MG/ML VIAL 15 MG IV (19:26)
[2022-04-02 19:35] LABS: Alanine Aminotransferase 29 IU/L (<50); Albumin 4.2 g/dL (3.5-5.0); Albumin Globulin Ratio 1.2 (1.0-2.8); Alkaline Phosphatase 94 U/L (38-126); Aspartate Aminotransferase 21 IU/L (17-59); BUN Creatinine Ratio 22.1 (6-22); Bilirubin Total 0.5 mg/dL (0.2-1.3); Blood Urea Nitrogen 21 mg/dL (9-20); Calcium 9.4 mg/dL (8.4-10.2); Carbon Dioxide 24 mmol/L (22-32); Chloride 104 mmol/L (98-107); Estimated Glomerular Filt Rate > 60 mL/min (>60); Globulin 3.6 g/dL (1.7-4.1); Glucose 101 mg/dL (70-100); HEMOLYSIS < 15 (0-50); Lactate (Lactic Acid) 1.8 mmol/L (0.7-2.1); Lipase 73 U/L (23-300); Potassium 4.2 mmol/L (3.4-5.1); Sodium 138 mmol/L (137-145); Total Protein 7.8 g/dL (6.3-8.2)
--- NOTE | 2022-04-02 20:01 | PC.NURSE ---
pt cleaned of stool and new linens placed under pt
--- NOTE | 2022-04-02 20:05 | ED.BACK ---
HPI - Back Pain/Injury <Aditya Fletcher PA-C - Last Filed: 04/02/22 20:50> General Chief Complaint: Back Pain/Injury Stated Complaint: back pain, previous kidney surgery Time Seen by Provider: 04/02/22 17:57 Source: patient and EMS History of Present Illness HPI Narrative: 46-year-old male with past medical history nephrolithiasis, UTI, benign tumors of the spinal caught, paralysis of both lower limbs, indwelling Gauthier catheter presents to the ED with bilateral flank pain. Patient was seen in the ED on 03/26/2022, prescribe Bactrim for a UTI. Patient states he has been taking the antibiotic, however his back pain has worsened. Patient also endorses left-sided abdominal pain. Patient denies fever, chills, chest pain, shortness of breath, nausea, vomiting, dysuria, lightheadedness, dizziness, syncope. Related Data Home Medications Medication Instructions Recorded Confirmed metoprolol tartrate 50 mg tablet 50 mg PO BID 06/11/21 06/11/21 pregabalin 300 mg capsule (Lyrica) 300 mg PO BID 06/11/21 06/11/21 Previous Rx's Medication Instructions Recorded lidocaine 5 % topical patch 1 patch topical DAILY #15 ea 03/07/22 (Lidoderm) ketorolac 10 mg tablet 10 mg PO Q8H PRN pain #14 tabs 03/26/22 oxycodone-acetaminophen 5 mg-325 1 tab PO Q8H PRN pain #14 tabs 03/26/22 mg tablet (Percocet) phenazopyridine 100 mg tablet 100 mg PO Q8H PRN bladder pain #10 03/26/22 (Pyridium) tabs sulfamethoxazole 800 1 tab PO Q12H 10 days #20 tabs 03/26/22 mg-trimethoprim 160 mg tablet (Bactrim DS) zinc oxide 15 % topical cream 1 applic topical BID #99 grams 03/26/22 doxycycline hyclate 100 mg tablet 100 mg PO BID 10 days #20 tabs 04/02/22 Allergies Allergy/AdvReac Type Severity Reaction Status Date / Time morphine Allergy Nightmare Verified 04/02/22 17:46 gabapentin AdvReac Shakiness Verified 04/02/22 17:46 Review of Systems <Aditya Fletcher PA-C - Last Filed: 04/02/22 20:50> Review of Systems ROS Unobtainable: All systems reviewed & are unremarkable except as noted in HPI and below Constitutional Constitutional: Denies chills, Denies fatigue, Denies fever(s), Denies frequent falls, Denies lethargy and Denies weakness Eyes Eyes: Denies change in vision, Denies eye discharge, Denies irritation and Denies loss of vision ENT Ears, Nose, Mouth, and Throat: Denies change in voice, Denies dizziness, Denies neck pain, Denies sore throat and Denies throat swelling Cardiovascular Cardiovascular: Denies chest pain, Denies irregular heart rhythm, Denies lightheadedness, Denies palpitations, Denies dyspnea, Denies dyspnea on exertion and Denies orthopnea Respiratory Respiratory: Denies cough, Denies dyspnea, Denies dyspnea on exertion and Denies wheezing Gastrointestinal Gastrointestinal: Reports abdominal pain, Denies change in bowel habits, Denies diarrhea, Denies nausea and Denies vomiting Genitourinary Genitourinary: Denies hematuria, Denies flank pain, Denies urinary incontinence and Denies urinary urgency Comments: Bilateral flank pain Musculoskeletal Musculoskeletal: Denies back pain, Denies muscle weakness, Denies neck pain, Denies numbness and Denies tingling Integumentary/Breasts Skin/Breast: Denies pruritus, Denies erythema, Denies rash and Denies wounds Neurologic Neurologic: Denies behavioral changes, Denies confusion, Denies dizziness, Denies frequent falls, Denies loss of vision, Denies numbness, Denies tingling and Denies weakness Psychiatric Psychiatric: Denies anxiety, Denies behavioral changes, Denies confusion, Denies depression, Denies homicidal ideation and Denies suicidal ideation Endocrine Endocrine: Denies fatigue, Denies flushing and Denies palpitations Hematologic/Lymphatic Hematologic/Lymphatic: Denies easy bruising Allergic/Immunologic Allergic/Immunologic: Denies urticaria, Denies throat swelling and Denies wheezing Patient History <Aditya Fletcher PA-C - Last Filed: 04/02/22 20:50> Medical History Back pain Functional paraparesis Hypertension Neurogenic pain Schwannoma of spinal cord Surgical History History of spinal surgery History of tonsillectomy Family History Father CVA (cerebral vascular accident) Mother Myocardial infarct Social History household members: spouse, children, friend(s) and other Smoking Status: Former smoker alcohol intake: current Smoking Status: Former smoker alcohol intake frequency: holidays/special occasions only Substance Use Type: does not use Exam <Aditya Fletcher PA-C - Last Filed: 04/02/22 20:50> Narrative Exam Narrative: Const General:?cooperative, healthy appearing and comfortable [facility] Head:?normal to inspection Ears:?hearing grossly normal bilaterally Nose:?external nose normal Face and sinus:?normal facial exam and sinuses nontender Mouth:?oral mucosae normal Throat:?posterior oropharynx normal Eyes General:?appearance normal, both eyes and all related structures Neck Neck:?normal visual inspection and no lymphadenopathy noted Resp Effort & Inspection:?normal respiratory effort Auscultation:?clear to auscultation bilaterally Cardio Rate:?regular rate Rhythm:?regular rhythm GI Abdomen is soft, nondistended. Tender to palpation in the left quadrants. Positive CVA tenderness. Neuro General:?patient alert, patient awake and patient oriented x3 Initial Vital Signs Initial Vital Signs: Vital Signs Temperature 97.8 F 04/02/22 17:46 Pulse Rate 96 H 04/02/22 17:46 Respiratory Rate 16 04/02/22 17:46 Blood Pressure 166/103 H 04/02/22 17:46 Pulse Oximetry 96 04/02/22 17:46 Oxygen Delivery Method 04/02/22 17:46 <Jack Poole DO - Last Filed: 04/02/22 21:11> Initial Vital Signs Initial Vital Signs: Vital Signs Temperature 97.8 F 04/02/22 17:46 Pulse Rate 96 H 04/02/22 17:46 Respiratory Rate 16 04/02/22 17:46 Blood Pressure 166/103 H 04/02/22 17:46 Pulse Oximetry 96 04/02/22 17:46 Oxygen Delivery Method 04/02/22 17:46 Course <Aditya Fletcher PA-C - Last Filed: 04/02/22 20:50> Orders Ordered: ED Orders 04/02/22 18:57 CT abdomen pelvis w con Stat 12/19/22 19:00 CBC Auto Diff [Complete Blood Count AUTO DIFF] Stat CMP [Comprehensive Metabolic Panel] Stat Lactate (Lactic Acid) Stat Lipase Stat Discontinued Medications Ketorolac Tromethamine (Ketorolac 30 Mg/Ml Vial) 15 mg IV NOW ONE Stop: 04/02/22 18:56 Last Admin: 04/02/22 19:26 Dose: 15 mg Documented By: JANETTE Oxycodone/Acetaminophen (Oxycodone/Acetaminophen 5/325 Tablet) 1 tab PO NOW ONE Stop: 04/02/22 20:58 Last Admin: 04/02/22 21:06 Dose: 1 tab Documented By: BONITA Vital Signs Vital signs: Vital Signs - 8 hr 04/02/22 17:46 04/02/22 17:57 Temperature 97.8 F Pulse Rate 96 H 93 H Respiratory Rate 16 Blood Pressure 166/103 H Pulse Oximetry 96 96 Oxygen Delivery Method Room Air Room Air <Jack Poole DO - Last Filed: 04/02/22 21:11> Orders Ordered: ED Orders 04/02/22 18:57 CT abdomen pelvis w con Stat 04/02/22 19:00 CBC Auto Diff [Complete Blood Count AUTO DIFF] Stat CMP [Comprehensive Metabolic Panel] Stat Lactate (Lactic Acid) Stat Lipase Stat Discontinued Medications Ketorolac Tromethamine (Ketorolac 30 Mg/Ml Vial) 15 mg IV NOW ONE Stop: 04/02/22 18:56 Last Admin: 04/02/22 19:26 Dose: 15 mg Documented By: JANETTE Oxycodone/Acetaminophen (Oxycodone/Acetaminophen 5/325 Tablet) 1 tab PO NOW ONE Stop: 04/02/22 20:58 Last Admin: 04/02/22 21:06 Dose: 1 tab Documented By: BONITA Vital Signs Vital signs: Vital Signs - 8 hr 04/02/22 17:46 04/02/22 17:57 Temperature 97.8 F Pulse Rate 96 H 93 H Respiratory Rate 16 Blood Pressure 166/103 H Pulse Oximetry 96 96 Oxygen Delivery Method Room Air Room Air MDM - Back Pain/Injury <Aditya Fletcher PA-C - Last Filed: 04/02/22 20:50> Lab Data Result diagrams: 04/02/22 19:00 04/02/22 19:00 Labs: Lab Results 04/02/22 04/02/22 04/02/22 Range/Units 19:00 19:00 19:00 WBC 9.3 (4.5-11.0) X10^3/uL RBC 4.96 (4.5-5.9) X10^6/uL Hgb 13.4 L (13.5-17.5) g/dL Hct 40.4 L (41-53) % MCV 81.4 (80-100) fL MCH 27.0 (26-34) PG MCHC 33.1 (30-36) % RDW 17.4 H (11.6-14.8) % Plt Count 377 (150-400) X10^3/uL Neut % (Auto) 79.3 H (50-75) % Lymph % (Auto) 13.1 L (25-40) % [place] % (Auto) 4.7 (3-14) % Eos % (Auto) 2.4 (2-4) % Baso % (Auto) 0.5 (0-2) % Neut # (Auto) 7400 H (9858-0655) /uL Lymph # (Auto) 1200 (5897-1950) /uL [place] # (Auto) 400 (0-900) /uL Eos # (Auto) 200 (0-450) /uL Baso # (Auto) 0 (0-100) /uL Sodium 138 (137-145) mmol/L Potassium 4.2 (3.4-5.1) mmol/L Chloride 104 (98-107) mmol/L Carbon Dioxide 24 (22-32) mmol/L BUN 21 H (9-20) mg/dL Creatinine 0.95 (0.66-1.25) mg/dL Estimated GFR > 60 (>60) mL/min BUN/Creatinine Ratio 22.1 H (6-22) Glucose 101 H (70-100) mg/dL Lactate 1.8 (0.7-2.1) mmol/L Calcium 9.4 (8.4-10.2) mg/dL Total Bilirubin 0.5 (0.2-1.3) mg/dL AST 21 (17-59) IU/L ALT 29 (<50) IU/L Alkaline Phosphatase 94 (38-126) U/L Total Protein 7.8 (6.3-8.2) g/dL Albumin 4.2 (3.5-5.0) g/dL Globulin 3.6 (1.7-4.1) g/dL Albumin/Globulin Ratio 1.2 (1.0-2.8) Lipase (23-300) U/L 04/02/22 Range/Units 19:00 WBC (4.5-11.0) X10^3/uL RBC (4.5-5.9) X10^6/uL Hgb (13.5-17.5) g/dL Hct (41-53) % MCV (80-100) fL MCH (26-34) PG MCHC (30-36) % RDW (11.6-14.8) % Plt Count (150-400) X10^3/uL Neut % (Auto) (50-75) % Lymph % (Auto) (25-40) % [place] % (Auto) (3-14) % Eos % (Auto) (2-4) % Baso % (Auto) (0-2) % Neut # (Auto) (2651-1101) /uL Lymph # (Auto) (7926-1623) /uL [place] # (Auto) (0-900) /uL Eos # (Auto) (0-450) /uL Baso # (Auto) (0-100) /uL Sodium (137-145) mmol/L Potassium (3.4-5.1) mmol/L Chloride (98-107) mmol/L Carbon Dioxide (22-32) mmol/L BUN (9-20) mg/dL Creatinine (0.66-1.25) mg/dL Estimated GFR (>60) mL/min BUN/Creatinine Ratio (6-22) Glucose (70-100) mg/dL Lactate (0.7-2.1) mmol/L Calcium (8.4-10.2) mg/dL Total Bilirubin (0.2-1.3) mg/dL AST (17-59) IU/L ALT (<50) IU/L Alkaline Phosphatase (38-126) U/L Total Protein (6.3-8.2) g/dL Albumin (3.5-5.0) g/dL Globulin (1.7-4.1) g/dL Albumin/Globulin Ratio (1.0-2.8) Lipase 73 (23-300) U/L Urine Dip Bedside Urine Glucose Negative Bedside Urine Bilirubin - Negative Bedside Urine Ketone - Negative Urine Specific Latta 1.025 Bedside Urine Occult Blood +++ Bedside Urine pH 6.0 Bedside Urine Protein ++ 100 Bedside Urine Urobilinogen - Negative Bedside Urine Nitrite + Positive Bedside Urine Leukocytes ++ [address] scan - abdomen/pelvis: Radiologist's Impression: PROCEDURE:? CT ABDOMEN PELVIS W CON ? INDICATIONS:? Flank pain; LLQ pin ? TECHNIQUE:? After the administration of oral and IV contrast, axial sections were acquired from the lung bases to the pubic symphysis.? Coronal and sagittal reformats were performed.? For radiation dose reduction, the following was used:? automated exposure control, adjustment of mA and/or kV according to patient size. ? COMPARISON:? [facility], MR, MR ABDOMEN MRCP, 02/21/2022, 10:39.? [facility], CT, CT ABDOMEN PELVIS WITH CONTRAST, 09/07/2020, 13:06.? [facility], CT, CT ABDOMEN PELVIS W CON, 03/19/2022, 23:14. ? FINDINGS:? Image quality:? Excellent.? ? Lung bases:? Unremarkable.? ? Heart:? No significant findings. ? ? ABDOMEN: Liver:? Left lobe calcification or metallic foreign body, unchanged.? No suspicious lesion.? ? Gallbladder:? Within normal limits. Biliary ducts:? Unremarkable.? ? Pancreas:? No peripancreatic fluid collection.? The pancreatic head is prominent in size. ?There are multiple collateral vessels in the region of the pancreatic head, unchanged. Spleen:? No splenomegaly. Adrenal Glands:? No nodule.? Kidneys and Ureters:? Mild right hydronephrosis, decreased.? Small nonobstructing right kidney stones.? There is thinning of the renal cortex compared to the prior CT.? Renal enhancement appears somewhat heterogeneous on the left.? Bilateral double-J ureteral stents.? Ureters are prominent with trace periureteral stranding. ? Stomach and Bowel:? Prominent stool in the rectum.? A few colonic diverticuli.? Normal appendix.? No small bowel obstruction.? Stomach is not distended. Peritoneum:? No abnormal intraperitoneal fluid.? No free air.? ? Ventral Wall: ? No hernia.? Abdominal Nodes:? No retroperitoneal or mesenteric adenopathy by size criteria.? Vessels:? Aorta and inferior vena cava are normal in size.? ? PELVIS: Pelvic Organs:? No free fluid. Bladder:? Decompressed with Gauthier catheter.? No stones.? Bladder wall appears thickened.? ? Pelvic Nodes: No enlarged lymph nodes.? Miscellaneous: No inguinal hernias are seen.? Fecal matter at the gluteal cleft versus decubitus ulcer. ? Bones:? No suspicious lesion. ? ? IMPRESSION:? 1. Enhancement of the left kidney appears somewhat heterogeneous.? This could be seen in the setting of pyelonephritis.? Recommend correlation with urinalysis. ? 2. Mild right hydronephrosis, decreased.? Bilateral double-J ureteral stents. ? 3. Renal cortical atrophy is suspected.? Alternatively, this could be due to improving edema given the change in the short-term interval. ? 4. Fecal matter at the gluteal cleft versus decubitus ulcer.? ? 5. Nonspecific prominence of the pancreatic head with multiple collateral vessels appear similar.? ? Comment: Findings were discussed with Aditya Fletcher PA-C at time of dictation. ? Dictated by: Matthew Lou M.D. on 04/02/2022 at 20:16 ? ? Approved by: Matthew Lou M.D. on 04/02/2022 at 20:33 ? MDM Narrative Medical decision making narrative: 46-year-old male with past medical history nephrolithiasis, UTI, benign tumors of the spinal caught, paralysis of both lower limbs, indwelling Gauthier catheter presents to the ED with bilateral flank pain. Concern for UTI versus pyelonephritis versus nephrolithiasis versus diverticulitis versus constipation versus other intra-abdominal pathology versus other. Will obtain labs, lactate, lipase, type and screen, UA, CT abdomen pelvis. Will give Toradol for pain. Labs within normal limits. UA positive for UTI. CT shows evidence of pyelonephritis and some other findings such as a prominent pancreatic head, possibly atrophic kidneys. Patient's antibiotic switched out to doxycycline. CT also shows constipation, patient recommended laxatives. Patient had a big bowel movement after some disimpacting help from the nursing staff. Impacted stool consistent with possible stool in the CT read. No decubitus ulcer found in the rectum. Patient has urology follow-up in April. ED return precautions were discussed with patient. Patient verbalized understanding. <Jack Poole, - Last Filed: 04/02/22 21:11> Lab Data Labs: Lab Results 04/02/22 04/02/22 04/02/22 Range/Units 19:00 19:00 19:00 WBC 9.3 (4.5-11.0) X10^3/uL RBC 4.96 (4.5-5.9) X10^6/uL Hgb 13.4 L (13.5-17.5) g/dL Hct 40.4 L (41-53) % MCV 81.4 (80-100) fL MCH 27.0 (26-34) PG MCHC 33.1 (30-36) % RDW 17.4 H (11.6-14.8) % Plt Count 377 (150-400) X10^3/uL Neut % (Auto) 79.3 H (50-75) % Lymph % (Auto) 13.1 L (25-40) % [place] % (Auto) 4.7 (3-14) % Eos % (Auto) 2.4 (2-4) % Baso % (Auto) 0.5 (0-2) % Neut # (Auto) 7400 H (8858-3687) /uL Lymph # (Auto) 1200 (0902-0683) /uL [place] # (Auto) 400 (0-900) /uL Eos # (Auto) 200 (0-450) /uL Baso # (Auto) 0 (0-100) /uL Sodium 138 (137-145) mmol/L Potassium 4.2 (3.4-5.1) mmol/L Chloride 104 (98-107) mmol/L Carbon Dioxide 24 (22-32) mmol/L BUN 21 H (9-20) mg/dL Creatinine 0.95 (0.66-1.25) mg/dL Estimated GFR > 60 (>60) mL/min BUN/Creatinine Ratio 22.1 H (6-22) Glucose 101 H (70-100) mg/dL Lactate 1.8 (0.7-2.1) mmol/L Calcium 9.4 (8.4-10.2) mg/dL Total Bilirubin 0.5 (0.2-1.3) mg/dL AST 21 (17-59) IU/L ALT 29 (<50) IU/L Alkaline Phosphatase 94 (38-126) U/L Total Protein 7.8 (6.3-8.2) g/dL Albumin 4.2 (3.5-5.0) g/dL Globulin 3.6 (1.7-4.1) g/dL Albumin/Globulin Ratio 1.2 (1.0-2.8) Lipase (23-300) U/L 04/02/22 Range/Units 19:00 WBC (4.5-11.0) X10^3/uL RBC (4.5-5.9) X10^6/uL Hgb (13.5-17.5) g/dL Hct (41-53) % MCV (80-100) fL MCH (26-34) PG MCHC (30-36) % RDW (11.6-14.8) % Plt Count (150-400) X10^3/uL Neut % (Auto) (50-75) % Lymph % (Auto) (25-40) % [place] % (Auto) (3-14) % Eos % (Auto) (2-4) % Baso % (Auto) (0-2) % Neut # (Auto) (4845-4459) /uL Lymph # (Auto) (7496-4236) /uL [place] # (Auto) (0-900) /uL Eos # (Auto) (0-450) /uL Baso # (Auto) (0-100) /uL Sodium (137-145) mmol/L Potassium (3.4-5.1) mmol/L Chloride (98-107) mmol/L Carbon Dioxide (22-32) mmol/L BUN (9-20) mg/dL Creatinine (0.66-1.25) mg/dL Estimated GFR (>60) mL/min BUN/Creatinine Ratio (6-22) Glucose (70-100) mg/dL Lactate (0.7-2.1) mmol/L Calcium (8.4-10.2) mg/dL Total Bilirubin (0.2-1.3) mg/dL AST (17-59) IU/L ALT (<50) IU/L Alkaline Phosphatase (38-126) U/L Total Protein (6.3-8.2) g/dL Albumin (3.5-5.0) g/dL Globulin (1.7-4.1) g/dL Albumin/Globulin Ratio (1.0-2.8) Lipase 73 (23-300) U/L Urine Dip Bedside Urine Glucose Negative Bedside Urine Bilirubin - Negative Bedside Urine Ketone - Negative Urine Specific [place] 1.025 Bedside Urine Occult Blood +++ Bedside Urine pH 6.0 Bedside Urine Protein ++ 100 Bedside Urine Urobilinogen - Negative Bedside Urine Nitrite + Positive Bedside Urine Leukocytes ++ 125 Esterase Discharge Plan Departure Patient Disposition: Home Clinical Impression: Pyelonephritis, Constipation Instructions: DI for Kidney Infection, DI for Constipation Activity Restrictions/Additional Instructions: You were evaluated in the ED today for flank pain. Your labs were normal. Your urine was positive for a kidney infection. Your CT scan also shows a kidney infection. Your antibiotic is being switched out to doxycycline. Please stop the Bactrim and start the doxycycline. Your CT also shows constipation. You may take 300 mg of magnesium citrate for 2 days, followed by MiraLax nightly for the next 2 months. Please return to the ED if your symptoms worsen, you are persistently vomiting you have fever, chills, worsening abdominal or back pain. Prescriptions: New doxycycline hyclate 100 mg tablet 100 mg PO BID 10 Days Qty: 20 0RF No Action metoprolol tartrate 50 mg tablet 50 mg PO BID Label Comments: Take 1 tablet by mouth twice a day pregabalin [Lyrica] 300 mg capsule 300 mg PO BID Label Comments: Take 1 capsule by mouth twice a day for chronic back pain lidocaine [Lidoderm] 5 % adhesive patch,medicated 1 patch TOP DAILY Qty: 15 0RF Rx Instructions: leave on most painful area for 12 hrs ketorolac 10 mg tablet 10 mg PO Q8H PRN (Reason: pain) Qty: 14 0RF sulfamethoxazole-trimethoprim [Bactrim DS] 800-160 mg tablet 1 tab PO Q12H 10 Days Qty: 20 0RF phenazopyridine [Pyridium] 100 mg tablet 100 mg PO Q8H PRN (Reason: bladder pain) Qty: 10 0RF oxycodone-acetaminophen [Percocet] 5-325 mg tablet 1 tab PO Q8H PRN (Reason: pain) Qty: 14 0RF zinc oxide 15 % cream 1 applic topical BID Qty: 99 0RF Referrals: Phyllis Lu PA-C [Primary Care Provider] - <Jack Poole DO - Last Filed: 04/02/22 21:11> Cosign ED Attending Cosignature Attestation: Dr Poole Co-Sign Statement: I was available for consultation during this patient's emergency department visit. This chart is signed by myself for administrative purposes only. I did not have direct contact with this patient during this visit. They were seen independently by the APC.
[2022-04-02] MEDS: OXYCODONE/ACETAMINOPHEN 5/325 TABLET 1 TAB PO (21:06)
[2022-04-03 03:06] VITALS: BP 163/106; PULSE 82; RESP 16; O2SAT 97
== END 2022-04-03 03:19 | disposition home or self-care (01) ==
PROVIDERS: Emergency Provider Student in an Organized Health Care Education/Training Program; PCP Physician Assistant Medical
DX: N12 Tubulo-interstitial nephritis, not specified as acute or chronic (principal); K59.00 Constipation, unspecified
CPT/HCPCS: 74177; 80053; 81003; 83605; 83690; 85025; 96374; 99284; J1885; Q9967